=== PATIENT | female | born 1950 | race Caucasian/White ===

== ENCOUNTER 2023-04-06 19:04 | Inpatient (IN) | payer MEDICARE, MEDICAID, SELFPAY ==
--- OUTSIDE RECORDS SUMMARY | 2023-04-06 19:06 | XMS_ITS | Continuity of Care Document ---
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 Allergies, Adverse Reactions, Alerts Substance Reaction Severity Status penicillin Active thiazide diuretics rash Active shellfish Active Thorazine Active Adhesive Bandage Active Latex Active Other Food Allergy 1, 2 Anaphylaxis due to ingested food Black pepper Persistent Severe Active Rice 3 Persistent Severe Active Egg Allergy Active 1Black pepper allergy 2Anaphylaxis 3 Cannot swallow well. Immunizations Given and Recorded Vaccine Date Status Refusal Reason Influenza Virus Vaccine (oldterm) 07/17/20 Recorde d Influenza Virus Vaccine (oldterm) 07/07/19 Recorde d Medications Accu-Chek Odette Glucose Meter See Instructions, # 1 each, Refills 0, Tot. Refills 0, Maintenance, test blood sugar daily, 06/09/20 17:37:00 EDT, Supply, 160, cm, 12/29/19 13:52:00 EST, Height, 125, kg, 04/02/19 21:10:00 EDT, Dry Weight Start Date: 06/09/20 Status: Ordered ACCU-CHEK ODETTE PLUS METER ACCU-CHEK ODETTE PLUS METER, See Instructions, # 1 each, 0 Refills, Maintenance, TO TEST BLOOD SUGAREVERY , 160, cm, 10/27/20 15:45:00 EST, Height, 125, kg, 04/02/19 21:10:00 EDT, Dry Weight Start Date: 10/31/20 Status: Ordered Accu-Chek Odette Plus Test Strips See Instructions, # 100 each, Refills 2, Tot. Refills 2, Maintenance, test blood sugar daily, 06/09/20 17:37:00 EDT, Supply, 160, cm, 12/29/19 13:52:00 EST, Height, 125, kg, 04/02/19 21:10:00 EDT, Dry Weight Start Date: 06/09/20 Status: Ordered Accu-Chek Compact Lancets See Instructions, # 100 each, Refills 2, Tot. Refills 2, Maintenance, test blood sugar once daily, 06/09/20 17:37:00 EDT, Supply, 160, cm, 12/29/19 13:52:00 EST, Height, 125, kg, 04/02/19 21:10:00 EDT, Dry Weight Start Date: 06/09/20 Status: Ordered Acetaminophen = 1,000 mg, By Mouth, 3 times a day, 0 Refills, Maintenance, 04/03/19 15:29:14 EDT Start Date: 04/03/19 Status: Ordered Albuterol (Eqv-ProAir HFA) 90 mcg/inh inhalation aerosol 2 puffs = 180 mcg, Inhalation, Every 4 hours, PRN Wheezing/Shortness of Breath, # 3 each, 3 Refills, Maintenance, 06/28/20 9:08:00 EDT, Inhaler, [facility] #[id number], 2 puffs Inhalation Every 4hours,x30 days,PRN:Wheezing/Shortness of Breath, 16... Start Date: 06/28/20 Stop Date: 10/26/20 Status: Ordered albuterol-ipratropium 3 mg-0.5 mg/3 ml inhalation solution 3 mL, Neb, 4 times a day, # 360 mL, 5 Refills, Maintenance, 11/09/19 11:29:00 EST, Inhalation Solution, [facility] #[id number], 3 mL Neb 4 times a day, 160, cm, 11/05/19 9:49:00 EST, Height, 125,kg, 04/02/19 21:10:00 EDT, Dry Weight Start Date: 11/09/19 Status: Ordered alendronate 70 mg oral tablet 1 tablet = 70 mg, By Mouth, Every week, # 12 tablet, 0 Refills, Maintenance, 04/02/19 15:18:21 EDT,Tablet Start Date: 04/02/19 Status: Ordered allopurinol 100 mg oral tablet 100 mg, 1, tablet, By Mouth, Daily, # 90 tablet, Refills 3, Tot. Refills 3, Maintenance, 01/06/20 18:09:00 EDT, [facility] to Pharmacy [facility], [id number], 160, cm, 12/29/19 13:52:00 EST, Height, 125, kg, 04/02/19 21:10:00 EDT, Dry W... Start Date: 01/06/20 Status: Ordered Amitiza 8 mcg oral capsule 1 capsule = 8 mcg, By Mouth, 2 times a day, PRN Constipation, 0 Refills, Maintenance, 04/03/19 15:34:30 EDT, Capsule Start Date: 04/03/19 Status: Ordered aspirin 81 mg oral tablet 1 tablet = 81 mg, By Mouth, Daily, 0 Refills, Maintenance, 04/03/19 16:11:10 EDT Start Date: 04/03/19 Status: Ordered brimonidine 0.2% ophthalmic solution 1 drops, Eyes, Both, 2 times a day, 0 Refills, Maintenance, 04/03/19 15:36:03 EDT Start Date: 04/03/19 Status: Ordered Calcium Carbonate = 750 mg, By Mouth, Every 2 hours, PRN stomach upset, 0 Refills, Maintenance, 04/03/19 15:37:07 EDT Start Date: 04/03/19 Status: Ordered Crestor 40 mg oral tablet 1 tablet = 40 mg, By Mouth, Daily, # 90 tablet, 3 Refills, Maintenance, 05/17/20 17:41:00 EDT, Tablet, [id number], 160, cm, 12/29/19 13:52:00 EST, Height, 125, kg, 04/02/19 21:10:00 EDT, Dry Weight Start Date: 05/17/20 Stop Date: 05/12/21 Status: Ordered Cymbalta 30 mg oral enteric coated capsule 1 capsule = 30 mg, By Mouth, Daily, 0 Refills, Maintenance, 01/02/19 10:15:19 EST Start Date: 01/02/19 Status: Ordered Cymbalta 60 mg oral enteric coated capsule 1 capsule = 60 mg, By Mouth, Daily, # 30 capsule, 0 Refills, Maintenance, 04/02/19 15:14:34 EDT, ECCapsule Start Date: 04/02/19 Status: Ordered diclofenac 1% topical gel 1 application, Topically, 4 times a day, # 100 Gm, 0 Refills, Maintenance, 05/08/19 16:05:05 EDT, Gel, 1 application Topically 4 times a day Start Date: 05/08/19 Status: Ordered Dicyclomine = 10 mg, By Mouth, 4 times a day, PRN IBS symptoms, 0 Refills, Maintenance, 04/03/19 15:40:00 EDT Start Date: 04/03/19 Status: Ordered ezetimibe 10 mg oral tablet 1 tablet = 10 mg, By Mouth, Daily, # 90 tablet, 1 Refills, Maintenance, 11/08/20 15:21:00 EST, Tablet, [facility] #[id number], 160, cm, 10/27/20 15:45:00 EST, Height, 125, kg, 04/02/19 21:10:00 EDT, Dry Weight Start Date: 11/08/20 Stop Date: 05/07/21 Status: Ordered ferrous sulfate 325 mg oral enteric coated tablet 325 mg, 1, tablet, By Mouth, Daily, # 90 tablet, Refills 3, Tot. Refills 3, Maintenance, 10/11/20 19:43:00 EST, Route to Pharmacy Electronically, [facility] #[id number], Partial fill upon patientrequest if the prescription is for a schedule II op... Start Date: 10/11/20 Status: Ordered Imodium A-D 2 mg oral tablet 2 mg, 1, tablet, By Mouth, Every 4 hours, PRN, Refills 0, Maintenance, Diarrhea, 04/03/19 15:42:27 EDT Start Date: 04/03/19 Status: Ordered lisinopril 30 mg oral tablet 1 tablet = 30 mg, By Mouth, Daily, please disregard 40 mg rx, # 90 tablet, 3 Refills, Maintenance, 11/01/20 17:16:00 EST, Tablet, [facility] #[id number], Partial fill upon patient request if the prescription is for a schedule II opioid drug., 160,... Start Date: 11/01/20 Status: Ordered Lyrica 225 mg oral capsule 1 capsule = 225 mg, By Mouth, 2 times a day, # 60 capsule, 3 Refills, Maintenance, 04/14/20 19:50:00 EDT, Capsule, [facility] #[id number], 160, cm, 12/29/19 13:52:00 EST, Height, 125, kg, 04/02/19 21:10:00 EDT, Dry Weight Start Date: 04/14/20 Stop Date: 08/12/20 Status: Ordered magnesium oxide 400 mg oral tablet 1 tablet = 400 mg, By Mouth, Daily, 0 Refills, Maintenance, 01/02/19 10:19:08 EST Start Date: 01/02/19 Status: Ordered Melatonin 5 mg oral tablet 1 tablet = 5 mg, By Mouth, Daily at bedtime, 0 Refills, Maintenance, 04/03/19 15:48:35 EDT Start Date: 04/03/19 Status: Ordered metFORMIN 500 mg oral tablet, extended release 2 tablet = 1,000 mg, By Mouth, Daily, # 270 tablet, 3 Refills, Maintenance, 07/06/19 8:16:00 EDT, ER Tablet Start Date: 07/06/19 Status: Ordered methenamine hippurate 1 gm oral tablet 1 tablet = 1 Gm, By Mouth, 2 times a day, 0 Refills, Maintenance, 04/03/19 15:52:11 EDT Start Date: 04/03/19 Status: Ordered Narcan 4 mg/0.1 mL nasal spray See Instructions, PRN unresponsiveness, twice, 0 Refills, Maintenance, 04/03/19 15:52:44 EDT Start Date: 04/03/19 Status: Ordered nicotine 21 mg/24 hr transdermal film, extended release 1 patch, Topically, Daily, # 30 patch, 1 Refills, Maintenance, 12/29/19 14:36:00 EST, Patch, [facility] #[id number], 1 patch Topically Daily, 160, cm, 12/29/19 13:52:00 EST, Height, 125, kg, 04/02/19 21:10:00 EDT, Dry Weight Start Date: 12/29/19 Status: Ordered Nitrostat 0.4 mg sublingual tablet 1 tablet = 0.4 mg, Sublingual, Every 5 minutes, PRN chest pain, up to 3 doses, 0 Refills, Maintenance, 04/03/19 15:53:52 EDT Start Date: 04/03/19 Status: Ordered oxybutynin 10 mg/24 hr oral tablet, extended release 1 tablet = 10 mg, By Mouth, Daily at bedtime, # 30 tablet, 0 Refills, Maintenance, 04/03/19 15:54:55 EDT, ER Tablet Start Date: 04/03/19 Status: Ordered oxyCODONE 5 mg oral tablet 5 mg, 1, tablet, By Mouth, Every 12 hours, PRN, # 50 tablet, Refills 0, Tot. Refills 0, Maintenance, Pain , Severe, 10/18/20 19:26:00 EST, Route to Pharmacy Electronically, [facility] #[id number], Partial fill upon patient request; ICD 10:M54.16,... Start Date: 10/18/20 Status: Ordered pantoprazole 40 mg oral delayed release tablet 1 tablet = 40 mg, By Mouth, 2 times a day, # 180 tablet, 3 Refills, Maintenance, 09/07/20 17:15:00 EST, EC Tablet, 160, cm, 07/07/20 13:30:00 EDT, Height, 125, kg, 04/02/19 21:10:00 EDT, Dry Weight Start Date: 09/07/20 Status: Ordered polyethylene glycol 3350 oral powder for reconstitution = 17 Gm, By Mouth, Daily, PRN Constipation, dissolve in water before taking, # 255 Gm, 0 Refills, Maintenance, 04/03/19 16:03:45 EDT, REC Powder Start Date: 04/03/19 Status: Ordered prazosin 5 mg oral capsule 5 mg, 1, capsule, By Mouth, Daily at bedtime, Refills 0, Maintenance, 01/02/19 10:22:24 EST Start Date: 01/02/19 Status: Ordered ProAir HFA 90 mcg/inh inhalation aerosol 2 puffs, Inhalation, Every 4 hours, PRN NEEDED, # 54 Gm, 3 Refills, Maintenance, 06/07/20 12:09:00 EDT, [facility] #[id number], 50, INHALE 2 PUFFS BY MOUTH EVERY 4 HOURS NEEDED, 160, cm, 12/29/19 13:52:00 EST, Height, 125, kg, 04/02/19 21:10... Start Date: 06/07/20 Status: Ordered RisperDAL 2 mg oral tablet 2 mg, 1, tablet, By Mouth, Daily at bedtime, Refills 0, Maintenance, 04/03/19 16:06:44 EDT Start Date: 04/03/19 Status: Ordered Symbicort 160mcg/4.5mcg Inhaler 2, puffs, Inhalation, 2 times a day, # 10.2 Gm, Refills 0, Maintenance, 04/03/19 16:08:10 EDT, Aerosol Start Date: 04/03/19 Status: Ordered Trulicity Pen 1.5 mg/0.5 mL subcutaneous solution See Instructions, 3 mg Subcutaneous Infusion Every 7 days, # 13 each, 3 Refills, Maintenance, 09/30/20 13:00:00 EST, [facility] #[id number], new dose, 160, cm, 07/07/20 13:30:00 EDT, Height, 125,kg, 04/02/19 21:10:00 EDT, Dry Weight Start Date: 09/30/20 Status: Ordered Vitamin C 500 mg oral tablet 1 tablet = 500 mg, By Mouth, 2 times a day, 0 Refills, Maintenance, 04/03/19 16:09:30 EDT Start Date: 04/03/19 Status: Ordered Vitamin D 22146 iu oral capsule 100,000 International_Units, 2, capsule, By Mouth, Every 7 days, # 26 capsule, Refills 3, Tot. Refills 3, Maintenance, 06/15/20 18:02:00 EDT, Route to Pharmacy Electronically, [facility] #[id number], 160, cm, 12/29/19 13:52:00 EST, Height, 125, kg... 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) Active Dissociative disorder(Confirmed) Active Dyspnea(Confirmed) Active Hypercholesterolemia(Confirmed) Active Hypertensive disorder(Confirmed) Active Iron deficiency(Confirmed) Active Lacunar infarction(Confirmed) Active Lumbar radiculopathy(Confirmed) Active Microcytosis(Confirmed) Active Prolactinoma(Confirmed) Active Septic shock(Confirmed) Active Obesity due to excess calories(Confirmed) Active Spinal stenosis, lumbar(Confirmed) Active Steatosis of liver(Confirmed) Active Tobacco user(Confirmed) Active Type 2 diabetes mellitus(Confirmed) Active Social History Social History Type Response Smoking Status 10 or more cigarette s (1/2 pack or more)/day in last 30 days; Other: one pack daily 20 cigarettes daily; entered on: 07/07/20 Sex
--- OUTSIDE RECORDS SUMMARY | 2023-04-06 19:06 | XMS_ITS | Continuity of Care Document ---
Author Name Unknown Organization [facility] Address [address] [place] [address]- Care Team Providers Care Wireless Operator Name Role Phone Hari Cole MD Primary Care Physician [place] [facility] [place]16[place]20 [facility] [address] [place] [address]- [facility] Attending Physician: Zenia García MD Admitting Physician: Zenia García MD Referring Physician: Hari Cole MD Allergies, Adverse Reactions, Alerts Substance Reaction Severity [...] Status Refusal Reason Influenza Virus Vaccine (oldterm) 07/07/19 Recorde d Medications Acetaminophen = 1,000 mg, By Mouth, 3 times a day, 0 Refills, Maintenance, 04/03/19 15:29:14 EDT Start Date: 04/03/19 Status: Ordered albuterol 0.083% inhalation solution 3 mL = 2.5 mg, Neb, Every 4 hours, PRN Wheezing/Shortness of Breath, # 540 mL, 3 Refills, Maintenance, 05/08/19 16:07:33 EDT Start Date: 05/08/19 Status: Ordered albuterol-ipratropium 3 mg-0.5 mg/3 ml inhalation solution 3 mL, Neb, 4 times a day, # 360 mL, 5 Refills, Maintenance, 11/09/19 11:29:00 EST, Inhalation Solution, [id number], 3 mL Neb 4 times a day, [...] 01/06/20 18:09:00 EDT, Route to Pharmacy Electronically, [facility] #[id number], 160, cm, 12/29/19 13:52:00 EST, Height, 125, [...] 15:36:03 EDT Start Date: 04/03/19 Status: Ordered cabergoline 0.5 mg oral tablet See Instructions, 1 tablet By Mouth twice weekly, # 26 tablet, 3 Refills, Maintenance, 08/19/19 19:58:13 EDT, Tablet, new corrected dose Start Date: 08/19/19 Status: Ordered Calcium Carbonate = 750 mg, By Mouth, Every 2 hours, PRN stomach upset, 0 Refills, Maintenance, 04/03/19 15:37:07 EDT Start Date: 04/03/19 Status: Ordered Crestor 40 mg oral tablet 1 tablet = 40 mg, By Mouth, Daily, # 90 tablet, 3 Refills, Maintenance, 06/02/19 12:19:00 EDT, Tablet Start Date: 06/02/19 Status: Ordered Cymbalta 30 mg oral enteric [...] Daily, # 90 tablet, 3 Refills, Maintenance, 11/21/19 10:52:00 EST, Tablet, [facility] #[id number], 160, cm, 11/05/19 9:49:00 EST, Height, 125, kg, 04/02/19 21:10:00 EDT, Dry Weight Start Date: 11/21/19 Status: Ordered fentaNYL 25 mcg/hr transdermal film, extended release 1 patch, Topically, Every 72 hours, # 10 patch, 0 Refills, Maintenance, 03/31/20 9:27:00 EDT, Patch, [facility] #[id number], 160, cm, 12/29/19 13:52:00 EST, Height, 125, kg, 04/02/19 21:10:00 EDT, Dry Weight Start Date: 03/31/20 Stop Date: 04/30/20 Status: Ordered glipiZIDE 2.5 mg oral tablet, extended release 1 tablet = 2.5 mg, By Mouth, Daily, TK 1 T PO QD B DINNER, # 90 tablet, 3 Refills, Maintenance, 11/05/19 10:30:00 EST, ER Tablet, [facility][id number], new dose, 160, cm, 11/05/19 9:49:00 EST, Height, 125, kg, 04/02/19 21:10:00 EDT, Dry Weight Start Date: 11/05/19 Status: Ordered Imodium A-D 2 mg oral tablet 2 mg, 1, tablet, By Mouth, Every 4 hours, PRN, Refills 0, Maintenance, Diarrhea, 04/03/19 15:42:27 EDT Start Date: 04/03/19 Status: Ordered lisinopril 10 mg oral tablet 10 mg, 1, tablet, By Mouth, Daily, # 30 tablet, Refills 1, Tot. Refills 1, Maintenance, 07/29/19 13:44:54 EDT, [id number][id number] Start Date: 07/29/19 Status: Ordered Lyrica 225 mg oral capsule 1 capsule = 225 mg, By Mouth, 2 times a day, # 60 capsule, 3 Refills, Maintenance, 04/14/20 19:50:00 EDT, Capsule, [facility] #[id number], 160, cm, 12/29/19 13:52:00 EST, Height, 125, [...] 1 Refills, Maintenance, 12/29/19 14:36:00 EST, Patch, [facility][id number], 1 patch Topically Daily, 160, cm, 12/29/19 [...] oxyCODONE 5 mg oral tablet 5 mg, By Mouth, Every 6 hours, PRN, # 80 tablet, Refills 0, Tot. Refills 0, Maintenance, Pain , Severe, 03/23/20 14:43:00 EDT, Route to Pharmacy Electronically, [facility] #[id number], 160, cm, 12/29/19 13:52:00 EST, Height, 125, kg, 04/02/19 21:1... Start Date: 03/23/20 Status: Ordered pantoprazole 40 mg oral delayed release tablet 1 tablet = 40 mg, By Mouth, 2 times a day, 0 Refills, Maintenance, 04/03/19 16:02:23 EDT Start Date: 04/03/19 Status: Ordered polyethylene glycol 3350 oral powder for reconstitution = 17 Gm, By Mouth, Daily, PRN Constipation, dissolve in water before taking, # 255 Gm, 0 Refills, Maintenance, 04/03/19 16:03:45 EDT, REC Powder Start Date: 04/03/19 Status: Ordered prazosin 5 mg oral capsule 5 mg, 1, capsule, By Mouth, Daily at bedtime, Refills 0, Maintenance, 01/02/19 10:22:24 EST Start Date: 01/02/19 Status: Ordered RisperDAL 2 mg oral tablet 2 mg, 1, tablet, By Mouth, Daily at bedtime, Refills 0, Maintenance, 04/03/19 16:06:44 EDT Start Date: 04/03/19 Status: Ordered Symbicort 160mcg/4.5mcg Inhaler 2, puffs, Inhalation, 2 times a day, # 10.2 Gm, Refills 0, Maintenance, 04/03/19 16:08:10 EDT, Aerosol Start Date: 04/03/19 Status: Ordered Ventolin 90 mcg Inhaler 2, puffs, Inhalation, Every 4 hours, PRN, Refills 0, Maintenance, 04/03/19 16:08:37 EDT Start Date: 04/03/19 Status: Ordered Vitamin C 500 mg oral tablet 1 tablet = 500 mg, By Mouth, 2 times a day, 0 Refills, Maintenance, 04/03/19 16:09:30 EDT Start Date: 04/03/19 Status: Ordered Vitamin D 58172 iu oral capsule 100,000 International_Units, 2, capsule, By Mouth, Every 7 days, # 26 capsule, Refills 3, Tot. Refills 3, Maintenance, 06/02/19 12:20:36 EDT, Route to Pharmacy Electronically, [id number], 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
--- OUTSIDE RECORDS SUMMARY | 2023-04-06 19:06 | XMS_ITS | Continuity of Care Document ---
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 Role Phone Kelsey CHINO, Hari Miller Primary Care Physician [phone] [place] [facility] [place](s): 11/10/20 - 12/10/20 [facility] [address] [place] [address] Attending Physician: Admtr, Milagros Admitting Physician: Admtr, Ar8 Referring Physician: Admtr, Ar8 Allergies, Adverse Reactions, Alerts Substance Reaction Severity [...] 0 Refills, Maintenance, TO TEST BLOOD SUGAREVERY DAY, 160, cm, 10/27/20 15:45:00 EST, Height, 125, [...] 3 Refills, Maintenance, 06/28/20 9:08:00 EDT, Inhaler, [facility] #[id number], 2 puffs Inhalation Every 4hours,x30 days,PRN:Wheezing/Shortness of Breath, 16... Start Date: 06/28/20 Stop Date: 10/26/20 Status: Ordered albuterol-ipratropium 3 mg-0.5 mg/3 ml inhalation solution 3 mL, Neb, 4 times a day, # 360 mL, 5 Refills, Maintenance, 11/09/19 11:29:00 EST, Inhalation Solution, [facility] #[id number], 3 mL Neb 4 times a day, [...] 01/06/20 18:09:00 EDT, Route to Pharmacy Electronically, [facility] #[id number], 160, cm, 12/29/19 13:52:00 EST, Height, 125, [...] 3 Refills, Maintenance, 05/17/20 17:41:00 EDT, [id number], 160, cm, 12/29/19 13:52:00 EST, Height, 125, [...] 1 Refills, Maintenance, 11/08/20 15:21:00 EST, Tablet, [facility] #[id number], 160, cm, 10/27/20 15:45:00 EST, Height, 125, kg, 04/02/19 21:10:00 EDT, Dry Weight Start Date: 11/08/20 Stop Date: 05/07/21 Status: Ordered ferrous sulfate 325 mg oral enteric coated tablet 325 mg, 1, tablet, By Mouth, Daily, # 90 tablet, Refills 3, Tot. Refills 3, Maintenance, 10/11/20 19:43:00 EST, Route to Pharmacy Electronically, [facility] #[id number], Partial fill upon patientrequest if the prescription is for a schedule II op... Start Date: 10/11/20 Status: Ordered Golytely - oral powder for reconstitution 240 mL, By Mouth, Every 10 minutes, # 4,000 mL, 0 Refills, Maintenance, 11/25/20 10:07:00 EST, REC Powder, [facility] #[id number], Partial fill upon patient request if the prescription is for a schedule II opioid drug., 240 mL By Mouth Every 10 mi... Start Date: 11/25/20 Status: Ordered Imodium A-D 2 mg oral tablet 2 mg, 1, tablet, By Mouth, Every 4 hours, PRN, Refills 0, Maintenance, Diarrhea, 04/03/19 15:42:27 EDT Start Date: 04/03/19 Status: Ordered lisinopril 30 mg oral tablet 1 tablet = 30 mg, By Mouth, Daily, please disregard 40 mg rx, # 90 tablet, 3 Refills, Maintenance, 11/01/20 17:16:00 EST, Tablet, [facility] #[id number], Partial fill upon patient request if the prescription is for a schedule II opioid drug., 160,... Start Date: 11/01/20 Status: Ordered Lyrica 225 mg oral capsule 1 capsule = 225 mg, By Mouth, 2 times a day, # 60 capsule, 3 Refills, Maintenance, 04/14/20 19:50:00 EDT, Capsule, [facility] #[id number], 160, cm, 12/29/19 13:52:00 EST, Height, 125, [...] 1 Refills, Maintenance, 12/29/19 14:36:00 EST, Patch, [facility][id number], 1 patch Topically Daily, 160, cm, 12/29/19 [...] By Mouth, Every 12 hours, PRN, # 45 tablet, Refills 0, Tot. Refills 0, Maintenance, Pain , Severe, 12/07/20 18:44:00 EST, Route to Pharmacy Electronically, [facility] #[id number], Partial fill upon patient request; ICD 10:M54.16,... Start Date: 12/07/20 Status: Ordered pantoprazole 40 mg oral delayed [...] Gm, 3 Refills, Maintenance, 06/07/20 12:09:00 EDT, [facility] #[id number], 50, INHALE 2 PUFFS BY MOUTH EVERY [...] Start Date: 04/03/19 Status: Ordered Trulicity Pen 3 mg/0.5 mL subcutaneous solution = 3 mg, Subcutaneous Infusion, Every 7 days, # 13 each, 3 Refills, Maintenance, 11/30/20 12:36:00 EST, [facility] #[id number], Partial fill upon patient request if the prescription is for a schedule II opioid drug., 160, cm, 11/23/20 9:01:00 EST,... Start Date: 11/30/20 Status: Ordered Vitamin C 500 mg oral tablet 1 tablet = 500 mg, By Mouth, 2 times a day, 0 Refills, Maintenance, 04/03/19 16:09:30 EDT Start Date: 04/03/19 Status: Ordered Vitamin D 70400 iu oral capsule 100,000 International_Units, 2, capsule, By Mouth, Every 7 days, # 26 capsule, Refills 3, Tot. Refills 3, Maintenance, 06/15/20 18:02:00 EDT, Route to Pharmacy Electronically, [facility] #[id number], 160, cm, 12/29/19 13:52:00 EST, Height, 125, kg... Start Date: 06/15/20 Status: Ordered Problem List Condition Effective Dates Status Health Status Inform ant Acute UTI(Confirmed) Active Aortic stenosis(Confirmed) Active Coronary artery abnormality(Confirmed) Active Cough(Confirmed) Active Degenerative joint disease o f ankle [...]
--- OUTSIDE RECORDS SUMMARY | 2023-04-06 19:06 | XMS_ITS | Continuity of Care Document ---
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 Phone Kelsey CHINO, Hari Miller Primary Care Physician [phone] Encounter [facility] Date(s): 11/26/22 - 12/26/22 [facility] [address], [address], [address] [place] [id number] Attending Physician: Milagros Boykin Admitting Physician: AdmtrMilagros Referring Physician: Admtr, Ar8 Allergies, Adverse Reactions, Alerts Substance Reaction Severity Status penicillin Active thiazide diuretics rash Active shellfish Active Thorazine Active Adhesive Bandage Active Latex Active Other Food Allergy 1, 2 Anaphylaxis due to ingested food Black pepper Persistent Severe Active Egg Allergy Active Rice 3 Persistent Severe Active 1Black pepper allergy 2Anaphylaxis 3 Cannot swallow well. Immunizations Given and Recorded Vaccine Date Status Refusal Reason [id number] bivalent booster vax 12/03/22 Given influenza virus vaccine, inactivated 08/17/22 Give n influenza virus vaccine, inactivated 08/14/21 Manjinder rded influenza virus vaccine, inactivated 07/13/18 Manjinder rded influenza virus vaccine, inactivated 07/14/17 Manjinder rded influenza virus vaccine, inactivated 06/19/15 Manjinder rded SARS-CoV-2 (COVID-19) mRNA-1273 vaccine 1 08/17/22 Recorded SARS-CoV-2 (COVID-19) mRNA-1273 vaccine 04/27/22 G iven SARS-CoV-2 (COVID-19) mRNA-1273 vaccine 06/22/21 R ecorded SARS-CoV-2 (COVID-19) mRNA-1273 vaccine 05/25/21 R ecorded Influenza Virus Vaccine (oldterm) 07/17/20 Recorde d Influenza Virus Vaccine (oldterm) 07/07/19 Recorde d zoster vaccine, inactivated 06/23/18 Recorded 1Result Comment: Moderna Bivalent Medications Acetaminophen = 650 mg, By Mouth, 3 times a day, PRN Pain , Mild, 0 Refills, Maintenance, 04/03/19 15:29:14 EDT Start Date: 04/03/19 Status: Ordered albuterol-ipratropium 3 mg-0.5 mg/3 ml inhalation solution 3 mL, Neb, 4 times a day, # 360 mL, 1 Refills, Maintenance, 03/09/21 16:20:00 EDT, Inhalation Solution, [facility] #[id number], 3 mL Neb 4 times a day, 165, cm, 02/21/21 11:53:00 EDT, Height, 123.7, kg, 02/21/21 11:53:00 EDT, Dry Weight Start Date: 03/09/21 Status: Ordered alendronate 70 mg oral tablet 1 tablet = 70 mg, By Mouth, Every week, # 12 tablet, 0 Refills, Maintenance, 04/02/19 15:18:21 EDT,Tablet Start Date: 04/02/19 Status: Ordered allopurinol 100 mg oral tablet 100 mg, 1, tablet, By Mouth, Daily, # 90 tablet, Refills 3, Tot. Refills 3, Maintenance, 12/13/21 16:47:00 EST, Route to Pharmacy Electronically, [facility] #[id number], 165, cm, 11/14/21 11:24:00 EST, Height, 123.7, kg, 02/21/21 11:53:00 EDT, Dry... Start Date: 12/13/21 Status: Ordered Amitiza 8 mcg oral capsule 1 capsule = 8 mcg, By Mouth, 2 times a day, PRN Constipation, 0 Refills, Maintenance, 04/03/19 15:34:30 EDT, Capsule Start Date: 04/03/19 Status: Ordered automatic BP monitor automatic BP monitor, See Instructions, # 1 each, Refills 0, Tot. Refills 0, Maintenance, large cuff/conical cuff, 11/21/22 19:52:00 EST, Supply, 153, cm, 11/19/22 8:17:00 EST, Height, 101, kg, 11/17/22 17:04:00 EST, Dry Weight Start Date: 11/21/22 Status: Ordered busPIRone 10 mg oral tablet 10 mg, 1, tablet, By Mouth, 2 times a day, Refills 0, Maintenance, 11/18/22 15:52:00 EST, Partial fill upon patient request if the prescription is for a schedule II opioid drug. Start Date: 11/18/22 Status: Ordered Calcium Carbonate = 750 mg, By Mouth, Every 2 hours, PRN stomach upset, 0 Refills, Maintenance, 04/03/19 15:37:07 EDT Start Date: 04/03/19 Status: Ordered Crestor 40 mg oral tablet 1 tablet = 40 mg, By Mouth, Daily, # 90 tablet, 1 Refills, Maintenance, 07/23/22 13:09:00 EDT, Tablet, [facility] #[id number], 165, cm, 04/27/22 13:43:00 EDT, Height, 123.7, kg, 02/21/21 11:53:00EDT, Dry Weight Start Date: 07/23/22 Stop Date: 01/19/23 Status: Ordered Cymbalta 30 mg oral enteric coated capsule 1 capsule = 30 mg, By Mouth, Daily, Take with 60 mg tablet for a total of 90mg daily, # 180 capsule, 0 Refills, Maintenance, 11/18/22 15:53:00 EST, [facility] Capsule, Partial fill upon patient request if the prescription is for a schedule II opioid drug. Start Date: 11/18/22 Status: Ordered Cymbalta 60 mg oral enteric coated capsule 1 capsule = 60 mg, By Mouth, Daily, # 30 capsule, 0 Refills, Maintenance, 04/02/19 15:14:34 EDT, ECCapsule Start Date: 04/02/19 Status: Ordered diclofenac 1% topical gel 1 application, Topically, 4 times a day, # 100 Gm, 0 Refills, Maintenance, 11/14/22 0:11:00 EST, Gel, [facility] #[id number], Partial fill upon patient request if the prescription is for a schedule II opioid drug., 165, cm, 11/13/22 20:06:00 EST,... Start Date: 11/14/22 Status: Ordered ezetimibe 10 mg oral tablet 1 tablet, By Mouth, Daily, # 90 tablet, 1 Refills, Maintenance, 10/08/22 15:33:00 EST, [email or web address] #[id number], 165, cm, 08/17/22 13:46:00 EDT, Height, 123.7, kg, 02/21/21 11:53:00 EDT, Dry Weight Start Date: 10/08/22 Status: Ordered gabapentin 600 mg oral tablet 1 tablet = 600 mg, By Mouth, 2 times a day, # 180 tablet, 3 Refills, Maintenance, 08/07/22 12:28:00EDT, [facility] #[id number], Partial fill upon patient request if the prescription is for a schedule II opioid drug., 165, cm, 04/27/22 13:43:00 ED... Start Date: 08/07/22 Status: Ordered lidocaine 5% topical film 1 patch, Topically, Daily, PRN Pain , Mild, remove after 12 hours, # 13 each, 0 Refills, Maintenance, 11/14/22 0:11:00 EST, Film, [facility] #[id number], Partial fill upon patient request if the prescription is for a schedule II opioid drug., 1 pa... Start Date: 11/14/22 Status: Ordered lisinopril 20 mg oral tablet 20 mg, 1, tablet, By Mouth, Daily, new dose, # 90 tablet, Refills 3, Tot. Refills 3, Maintenance, 09/06/21 11:46:00 EST, Route to Pharmacy Electronically, [email or web address] #[id number], Partial fill upon patient request if the prescription is for a sched... Start Date: 09/06/21 Status: Ordered Lyrica 225 mg oral capsule 1 capsule = 225 mg, By Mouth, 2 times a day, # 180 capsule, 1 Refills, Maintenance, 11/14/22 18:29:00 EST, [email or web address] #[id number], Partial fill upon patient request if the prescription is for a schedule II opioid drug., 165rachel, 11/13/22 20:06:00... Start Date: 11/14/22 Status: Ordered magnesium oxide 400 mg oral tablet 1 tablet = 400 mg, By Mouth, Daily, # 90 tablet, 3 Refills, Maintenance, 07/23/22 17:16:00 EDT, Tablet, [facility] #[id number], Partial fill upon patient request if the prescription is for a schedule II opioid drug., 165, cm, 04/27/22 13:43:00 EDT... Start Date: 07/23/22 Status: Ordered metFORMIN 500 mg oral tablet 2 tablet, By Mouth, 2 times a day, # 360 tablet, 1 Refills, Maintenance, 12/24/22 15:53:00 EST, [facility] #[id number], 153, cm, 12/03/22 13:31:00 EST, Height, 101, kg, 11/17/22 17:04:00 EST, DryWeight Start Date: 12/24/22 Status: Ordered Narcan 4 mg/0.1 mL nasal spray See Instructions, PRN unresponsiveness, may repeat once until patient responds, # 2 each, 2 Refills, Maintenance, 10/31/22 16:28:00 EST, [place], [facility] #[id number], Partial fill upon patient request if the prescription is for a schedule II opio... Start Date: 10/31/22 Status: Ordered Nitrostat 0.4 mg sublingual tablet 1 tablet = 0.4 mg, Sublingual, Every 5 minutes, PRN chest pain, up to 3 doses, # 25 tablet, 3 Refills, Maintenance, 10/31/22 16:28:00 EST, Tablet, [facility] #[id number], Partial fill upon patient request if the prescription is for a schedule II o... Start Date: 10/31/22 Status: Ordered One Touch Delica Lancets See Instructions, # 100 each, Refills 2, Tot. Refills 2, Maintenance, 1 box = 100 lancets, 11/21/2318:54:00 EST, Supply, 153, cm, 11/19/22 8:17:00 EST, Height, 101, kg, 11/17/22 17:04:00 EST, Dry Weight Start Date: 11/21/22 Status: Ordered One Touch Delica Lancing System See Instructions, # 1 each, Maintenance, test blood sugar dAILY, 11/21/22 19:54:00 EST, Supply, 153, cm, 11/19/22 8:17:00 EST, Height, 101, kg, 11/17/22 17:04:00 EST, Dry Weight Start Date: 11/21/22 Status: Ordered One Touch Ultra 2 Glucose Meter See Instructions, # 1 each, Maintenance, test glucose daily, 11/21/22 19:54:00 EST, Supply, 153, cm, 11/19/22 8:17:00 EST, Height, 101, kg, 11/17/22 17:04:00 EST, Dry Weight Start Date: 11/21/22 Status: Ordered One Touch Ultra Test Strips See Instructions, # 100 each, Refills 2, Tot. Refills 2, Maintenance, test glucose daily, 11/21/22 19:54:00 EST, Supply, 153, cm, 11/19/22 8:17:00 EST, Height, 101, kg, 11/17/22 17:04:00 EST, Dry Weight Start Date: 11/21/22 Status: Ordered oxyCODONE 5 mg oral tablet 5 mg, 1, tablet, By Mouth, Every 6 hours, PRN, # 90 tablet, Refills 0, Tot. Refills 0, Maintenance,Pain , Severe, 11/15/22 17:49:00 EST, Route to Pharmacy Electronically, [facility] #[id number],Partial fill upon patient request; ICD 10:M54.16, 1... Start Date: 11/15/22 Stop Date: 12/13/22 Status: Ordered pantoprazole 40 mg oral delayed release tablet 1 tablet = 40 mg, By Mouth, 2 times a day, # 180 tablet, 3 Refills, Maintenance, 12/13/21 16:48:00 EST, [facility] Tablet, 165, cm, 11/14/21 11:24:00 EST, Height, 123.7, kg, 02/21/21 11:53:00 EDT, Dry Weight Start Date: 12/13/21 Status: Ordered Plavix 75 mg oral tablet 75 mg, 1, tablet, By Mouth, Daily, # 90 tablet, Refills 3, Tot. Refills 3, Maintenance, 10/18/22 17:49:00 EST, Route to Pharmacy Electronically, [facility] #[id number], Partial fill upon patient request if the prescription is for a schedule II opi... Start Date: 10/18/22 Status: Ordered polyethylene glycol 3350 oral powder [...] 4 hours, PRN NEEDED, # 54 Gm, 11 Refills, Maintenance, 02/02/22 8:33:00 EDT, [facility] #[id number], 2 puffs Inhalation Every 4 hours,PRN: NEEDED, 165, cm, 11/14/21 11:24:00 EST, Height, 123.7, kg, 02/21/21 11:53:00... Start Date: 02/02/22 Status: Ordered RisperDAL 2 mg oral tablet 2 mg, 1, tablet, By Mouth, Daily at bedtime, Refills 0, Maintenance, 04/03/19 16:06:44 EDT Start Date: 04/03/19 Status: Ordered Rybelsus 3 mg oral tablet See Instructions, TAKE 1 TABLET BY MOUTH DAILY TAKE AT LEAST 30 MINUTES BEFORE FIRST FOOD, BEVERAGE, OR OTHER BY MOUTH MEDS, # 30 tablet, 3 Refills, Maintenance, 12/19/22 18:22:00 EST, [facility] #[id number], 153, cm, 12/03/22 13:31:00 EST, Height... Start Date: 12/19/22 Status: Ordered Symbicort 160mcg/4.5mcg Inhaler 2, puffs, Inhalation, 2 times a day, # 3 each, Refills 3, Tot. Refills 3, Maintenance, 04/13/21 17:59:00 EDT, Inhaler, [id number] #[id number], 165, cm, 03/28/21 14:57:00 EDT, Height, 123.7, kg, 0... Start Date: 04/13/21 Status: Ordered Vitamin B-12 500 mcg oral tablet 1 tablet = 500 mcg, By Mouth, Daily, new dose, # 90 tablet, 3 Refills, Maintenance, 09/17/22 19:15:00 EST, Tablet, [facility] #[id number], Partial fill upon patient request if the prescription isfor a schedule II opioid drug., 165, cm, 08/17/22 1... Start Date: 09/17/22 Status: Ordered Vitamin C 500 mg oral tablet 1 tablet = 500 mg, By Mouth, 2 times a day, 0 Refills, Maintenance, 04/03/19 16:09:30 EDT Start Date: 04/03/19 Status: Ordered Vitamin D 83920 iu oral capsule 100,000 International_Units, 2, capsule, By Mouth, Every 7 days, # 26 capsule, Refills 3, Tot. Refills 3, Maintenance, 06/15/20 18:02:00 EDT, Route to Pharmacy Electronically, [facility] #[id number], 160, cm, 12/29/19 13:52:00 EST, Height, 125, kg... 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 Active Dissociative disorder Confirmed Active Dyspnea Confirmed Active Foot pain Confirmed Active Headache Confirmed Active Hypercholesterolemia Confirmed Active Hypertensive disorder Confirmed Active Hyponatremia Confirmed Active Cognitive impairment Confirmed Active HUMERA (acute kidney injury) Confirmed Active Iron deficiency Confirmed Active Lacunar infarction Confirmed Active Lumbar radiculopathy Confirmed Active Microcytosis Confirmed Active Obstructive sleep apnea Confirmed Active Osteoporosis Confirmed Active Prolactinoma Confirmed Active Witnessed seizure-like activity Confirmed Active Septic shock Confirmed Active Severe obesity Confirmed Active Obesity due to excess calories Confirmed Active Spinal stenosis, lumbar Confirmed Active Steatosis of liver Confirmed Active Tobacco user Confirmed Active Tubular adenoma of colon Confirmed Active Type 2 diabetes mellitus Confirmed Active UTI (urinary tract infection) Confirmed Active Weight loss Confirmed Active Social History Social History Type Response Smoking Status 10 or more cigarette s (1/2 pack or more)/day in last 30 days; Other: one pack daily 20 cigarettes daily; entered on: 07/07/20 Sex Patient Care team information Care Team Personnel Name: Kelsey CHINO, Hari Miller Position: [facility] Primary Care Physician Member Role: PCP Address: Address: [address] [place] [address] - Name: Larry Fields RN Position: [facility] RN Supv Member Role: Primary Care Nurse Name: Monique Thomson RN Position: [facility] RN Supv Member Role: Primary Care Nurse Name: Carrie Rand Position: [facility] Outreach Member Role: Lifetime Consulting Physician Name: Chante Graff RN Position: [facility] SN RN Member Role: Primary Care Nurse Name: Sarath Oquendo RN Position: [facility] RN Member Role: Primary Care Nurse Care Team Related Persons Name: AMARA BERMUDEZ Address: home [address] Name: ALBERTO BERMUDEZ Address: home [address] [facility] [address] [place], [place] Name: CORRINE STOUT
--- OUTSIDE RECORDS SUMMARY | 2023-04-06 19:06 | XMS_ITS | Continuity of Care Document ---
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 Attending Physician: AdmMilagros cobos Admitting Physician: AdmtrMilagros Referring Physician: Admtr, Ar8 Allergies, Adverse Reactions, Alerts Substance Reaction Severity Status penicillin Active thiazide diuretics rash Active shellfish Active Thorazine Active Adhesive Bandage Active Latex Active Other Food Allergy 1, 2 Anaphylaxis due to ingested food Black pepper Persistent Severe Active Rice 3 Persistent Severe Active Egg Allergy Active 1Black pepper allergy 2Anaphylaxis 3 Cannot swallow well. Medications Acetaminophen = 1,000 mg, By Mouth, [...] 4 times a day, # 360 mL, 0 Refills, Maintenance, 05/05/19 20:42:00 EDT, Inhalation Solution, 3 mL Neb 4 times a day Start Date: 05/05/19 Status: Ordered alendronate 70 mg oral tablet 1 tablet = 70 mg, By Mouth, Every week, # 12 tablet, 0 Refills, Maintenance, 04/02/19 15:18:21 EDT,Tablet Start Date: 04/02/19 Status: Ordered allopurinol 100 mg oral tablet 100 mg, 1, tablet, By Mouth, Daily, Refills 0, Maintenance, 04/03/19 15:33:10 EDT Start Date: 04/03/19 Status: Ordered Amitiza 8 mcg oral capsule [...] tablet = 10 mg, By Mouth, Daily, 0 Refills, Maintenance, 04/03/19 16:27:33 EDT Start Date: 04/03/19 Status: Ordered fentaNYL 25 mcg/hr transdermal film, extended release 1 patch, Topically, Every 72 hours, # 10 patch, 0 Refills, Maintenance, 10/09/19 19:58:00 EST, Patch, [facility] #[id number], 160, cm, 10/09/19 15:18:49 EST, Height, 125, kg, 04/02/19 21:10:06 EDT, Dry Weight Start Date: 10/09/19 Stop Date: 11/08/19 Status: Ordered gabapentin 300 mg oral capsule 600 mg, By Mouth, 3 times a day, Refills 0, Maintenance, 04/06/19 12:17:13 EDT Start Date: 04/06/19 Status: Ordered glipiZIDE 2.5 mg oral tablet, extended release TK 1 T PO QD B DINNER Start Date: 10/09/19 Status: Ordered Imodium A-D 2 mg oral tablet 2 mg, 1, tablet, By Mouth, Every 4 hours, PRN, Refills 0, Maintenance, Diarrhea, 04/03/19 15:42:27 EDT Start Date: 04/03/19 Status: Ordered lisinopril 10 mg oral tablet 10 mg, 1, tablet, By Mouth, Daily, # 30 tablet, Refills 1, Tot. Refills 1, Maintenance, 07/29/19 13:44:54 EDT, [id number] #[id number] Start Date: 07/29/19 Status: Ordered Lyrica 200 mg oral capsule 1 capsule = 200 mg, By Mouth, 2 times a day, ORAL, CAPSULE, 2 Refill(s),, # 180 capsule, 1 Refills,Maintenance, 05/11/19 17:01:10 EDT, Capsule Start Date: 05/11/19 Status: Ordered magnesium oxide 400 mg oral [...] 15:52:44 EDT Start Date: 04/03/19 Status: Ordered Nitrostat 0.4 mg sublingual tablet [...] 90 tablet, Refills 0, Tot. Refills 0, Acute 06/02/20 11:11:00EDT, Pain , Severe, 06/02/19 12:21:27 EDT, [id number] #[id number] Start Date: 06/02/19 Stop Date: 06/02/20 Status: Ordered oxyCODONE 5 mg oral tablet 5 mg, By Mouth, Every 6 hours, PRN, # 90 tablet, Refills 0, Tot. Refills 0, Maintenance, Pain , Severe, 10/09/19 19:58:00 EST, Route to Pharmacy Electronically, [email or web address] #[id number], 160, cm, 10/09/19 15:18:49 EST, Height, 125, kg, 04/02/19 21:1... Start Date: 10/09/19 Stop Date: 11/08/19 Status: Ordered pantoprazole 40 mg oral delayed [...] Start Date: 04/03/19 Status: Ordered Vitamin D 66804 iu oral capsule 100,000 International_Units, 2, capsule, By Mouth, Every 7 days, # 26 capsule, Refills 3, Tot. Refills 3, Maintenance, 06/02/19 12:20:36 EDT, [id number] #[id number] Start Date: 06/02/19 Status: Ordered Problem List [...] more)/day in last 30 days; Other: one and a half pack a day; entered on: 10/09/19 Sex
--- OUTSIDE RECORDS SUMMARY | 2023-04-06 19:06 | XMS_ITS | Continuity of Care Document ---
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 Refills 1, Maintenance, 12/28/20 16:47:00 EST, Route to Pharmacy Electronically, [facility] #[id number], 160, cm, 11/23/20 9:01:00EST, Height, 125, kg, 04/02/19 21:10:00 EDT, Dry We... Start Date: 12/28/20 Stop Date: 06/26/21 Status: Ordered Amitiza 8 mcg oral capsule 1 capsule = 8 mcg, By Mouth, 2 times a day, PRN Constipation, 0 Refills, Maintenance, 04/03/19 15:34:30 EDT, Capsule Start Date: 04/03/19 Status: Ordered aspirin 81 mg oral tablet 1 tablet = 81 mg, By Mouth, Daily, 0 Refills, Maintenance, 04/03/19 16:11:10 EDT Start Date: 04/03/19 Status: Ordered Calcium Carbonate = 750 mg, By Mouth, Every 2 hours, PRN stomach upset, 0 Refills, Maintenance, 04/03/19 15:37:07 EDT Start Date: 04/03/19 Status: Ordered Crestor 40 mg oral tablet 1 tablet = 40 mg, By Mouth, Daily, # 90 tablet, 3 Refills, Maintenance, 05/17/20 17:41:00 EDT, Tablet, [facility] #[id number], 160, cm, 12/29/19 13:52:00 EST, Height, 125, [...] a day Start Date: 05/08/19 Status: Ordered ezetimibe 10 mg oral tablet 1 tablet = 10 mg, By Mouth, Daily, # 90 tablet, 1 Refills, Maintenance, 11/08/20 15:21:00 EST, Tablet, [facility] #[id number], 160, cm, 12/31/20 15:45:00 EST, Height, 125, kg, 04/02/19 21:10:00 EDT, Dry Weight Start Date: 11/08/20 Stop Date: 05/07/21 Status: Ordered ferrous sulfate 325 mg oral enteric coated tablet 325 mg, 1, tablet, By Mouth, Daily, # 90 tablet, Refills 3, Tot. Refills 3, Maintenance, 10/11/20 19:43:00 EST, Route to Pharmacy Electronically, [facility] #[id number], Partial fill upon patientrequest if the prescription is for a schedule II op... Start Date: 10/11/20 Status: Ordered lisinopril 30 mg oral tablet 1 tablet = 30 mg, By Mouth, Daily, please disregard 40 mg rx, # 90 tablet, 3 Refills, Maintenance, 11/01/20 17:16:00 EST, Tablet, [facility] #[id number], Partial fill upon patient request if the prescription is for a schedule II opioid drug., 160,... Start Date: 11/01/20 Status: Ordered Lyrica 225 mg oral capsule 1 capsule = 225 mg, By Mouth, 2 times a day, # 60 capsule, 3 Refills, Maintenance, 02/26/21 8:53:00EDT, Capsule, [facility] #[id number], 165, cm, 02/21/21 11:53:00 EDT, Height, 123.7, kg, 02/21/21 11:53:00 EDT, Dry Weight Start Date: 02/26/21 Stop Date: 06/26/21 Status: Ordered metFORMIN 500 mg oral tablet, extended release 2 tablet = 1,000 mg, By Mouth, Daily, # 270 tablet, 3 Refills, Maintenance, 07/06/19 8:16:00 EDT, ER Tablet Start Date: 07/06/19 Status: Ordered Narcan 4 mg/0.1 mL nasal [...] By Mouth, Every 6 hours, PRN, # 60 tablet, Refills 0, Tot. Refills 0, Maintenance,Pain , Severe, 03/07/21 19:31:00 EDT, Route to Pharmacy Electronically, [facility] #[id number],Partial fill upon patient request; ICD 10:M54.16, 1... Start Date: 03/07/21 Status: Ordered pantoprazole 40 mg oral delayed [...] Gm, 3 Refills, Maintenance, 06/07/20 12:09:00 EDT, [facility] #[id number], 50, INHALE 2 PUFFS BY MOUTH EVERY 4 HOURS NEEDED, 160, cm, 12/29/19 13:52:00 EST, Height, 125, kg, 04/02/19 21:10... Start Date: 06/07/20 Status: Ordered RisperDAL 2 mg oral tablet 2 mg, 1, tablet, By Mouth, Daily at bedtime, Refills 0, Maintenance, 04/03/19 16:06:44 EDT Start Date: 04/03/19 Status: Ordered Trulicity Pen 3 mg/0.5 mL subcutaneous solution = 3 mg, Subcutaneous Infusion, Every 7 days, # 13 each, 3 Refills, Maintenance, 11/30/20 12:36:00 EST, [facility] #[id number], Partial fill upon patient request if the prescription is for a schedule II opioid drug., 160, cm, 11/23/20 9:01:00 EST,... Start Date: 11/30/20 Status: Ordered Vitamin C 500 mg oral tablet 1 tablet = 500 mg, By Mouth, 2 times a day, 0 Refills, Maintenance, 04/03/19 16:09:30 EDT Start Date: 04/03/19 Status: Ordered Vitamin D 79539 iu oral capsule 100,000 International_Units, 2, capsule, By Mouth, Every 7 days, # 26 capsule, Refills 3, Tot. Refills 3, Maintenance, 06/15/20 18:02:00 EDT, Route to Pharmacy Electronically, [facility] #[id number], 160, cm, 12/29/19 13:52:00 EST, Height, 125, kg... 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) Active Dissociative disorder(Confirmed) Active Dyspnea(Confirmed) Active Foot pain(Confirmed) Active Hypercholesterolemia(Confirmed) Active Hypertensive disorder(Confirmed) Active Iron [...]
--- OUTSIDE RECORDS SUMMARY | 2023-04-06 19:06 | XMS_ITS | Continuity of Care Document ---
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 Name Role Phone Kelsey CHINO, Hari Miller Primary Care Physician [phone] Encounter [facility] Date(s): 11/07/22 - 12/08/22 [facility] [address], [address], [address] [place] [id number]- Attending Physician: Michele Villaseñor MD Admitting Physician: Michele Villaseñor MD Referring Physician: Hari Cole MD Allergies, Adverse Reactions, Alerts Substance Reaction Severity Status penicillin Active thiazide diuretics rash Active Thorazine Active Adhesive Bandage Active Latex Active Egg Allergy Active shellfish Active Other Food Allergy 1, 2 Anaphylaxis due to ingested food Black pepper Persistent Severe Active Rice 3 Persistent Severe Active 1Black pepper allergy 2Anaphylaxis 3 Cannot swallow well. Immunizations Given and Recorded Vaccine Date Status Refusal Reason [id number] bivalent booster vax 12/03/22 Given influenza virus [...] Refills, Maintenance, 03/09/21 16:20:00 EDT, Inhalation Solution, [facility] #[id number], 3 mL Neb 4 times a day, [...] 12/13/21 16:47:00 EST, Route to Pharmacy Electronically, [facility] #[id number], 165, cm, 11/14/21 11:24:00 EST, Height, 123.7, [...] 1 Refills, Maintenance, 07/23/22 13:09:00 EDT, Tablet, [facility] #[id number], 165, cm, 04/27/22 13:43:00 EDT, Height, 123.7, [...] 0 Refills, Maintenance, 11/14/22 0:11:00 EST, Gel, [facility] #[id number], Partial fill upon patient request if the prescription is for a schedule II opioid drug., 165, cm, 11/13/22 20:06:00 EST,... Start Date: 11/14/22 Status: Ordered ezetimibe 10 mg oral tablet 1 tablet, By Mouth, Daily, # 90 tablet, 1 Refills, Maintenance, 10/08/22 15:33:00 EST, [facility] #[id number], 165, cm, 08/17/22 13:46:00 EDT, Height, 123.7, kg, 02/21/21 11:53:00 EDT, Dry Weight Start Date: 10/08/22 Status: Ordered gabapentin 600 mg oral tablet 1 tablet = 600 mg, By Mouth, 2 times a day, # 180 tablet, 3 Refills, Maintenance, 08/07/22 12:28:00EDT, [facility] #[id number], Partial fill upon patient request if the prescription is for a schedule II opioid drug., 165, cm, 04/27/22 13:43:00 ED... Start Date: 08/07/22 Status: Ordered lidocaine 5% topical film 1 patch, Topically, Daily, PRN Pain , Mild, remove after 12 hours, # 13 each, 0 Refills, Maintenance, 11/14/22 0:11:00 EST, Film, [facility] #[id number], Partial fill upon patient request if the prescription is for a schedule II opioid drug., 1 pa... Start Date: 11/14/22 Status: Ordered lisinopril 20 mg oral tablet 20 mg, 1, tablet, By Mouth, Daily, new dose, # 90 tablet, Refills 3, Tot. Refills 3, Maintenance, 09/06/21 11:46:00 EST, Route to Pharmacy Electronically, [facility] #[id number], Partial fill upon patient request if the prescription is for a sched... Start Date: 09/06/21 Status: Ordered Lyrica 225 mg oral capsule 1 capsule = 225 mg, By Mouth, 2 times a day, # 180 capsule, 1 Refills, Maintenance, 11/14/22 18:29:00 EST, [facility] #[id number], Partial fill upon patient request if the prescription is for a schedule II opioid drug., 165 cm, 11/13/22 20:06:00... Start Date: 11/14/22 Status: Ordered magnesium oxide 400 mg oral tablet 1 tablet = 400 mg, By Mouth, Daily, # 90 tablet, 3 Refills, Maintenance, 07/23/22 17:16:00 EDT, Tablet, [facility] #[id number], Partial fill upon patient request if the prescription is for a schedule II opioid drug., 165, cm, 04/27/22 13:43:00 EDT... Start Date: 07/23/22 Status: Ordered metFORMIN 500 mg oral tablet 2 tablet = 1,000 mg, By Mouth, 2 times a day, # 360 tablet, 1 Refills, Maintenance, 05/28/22 16:34:00 EDT, [facility] #[id number], Partial fill upon patient request if the prescription is for a schedule II opioid drug., 165, cm, 04/27/22 13:43:00... Start Date: 05/28/22 Status: Ordered Narcan 4 mg/0.1 mL nasal spray See Instructions, PRN unresponsiveness, may repeat once until patient responds, # 2 each, 2 Refills, Maintenance, 10/31/22 16:28:00 EST, [place], [facility] #[id number], Partial fill upon patient request if the prescription is for a schedule II opio... Start Date: 10/31/22 Status: Ordered Nitrostat 0.4 mg sublingual tablet 1 tablet = 0.4 mg, Sublingual, Every 5 minutes, PRN chest pain, up to 3 doses, # 25 tablet, 3 Refills, Maintenance, 10/31/22 16:28:00 EST, Tablet, [facility] #[id number], Partial fill upon patient request if the [...] 11/15/22 17:49:00 EST, Route to Pharmacy Electronically, [facility] #[id number],Partial fill upon patient request; ICD 10:M54.16, 1... [...] 10/18/22 17:49:00 EST, Route to Pharmacy Electronically, [facility] #[id number], Partial fill upon patient request if the [...] Gm, 11 Refills, Maintenance, 02/02/22 8:33:00 EDT, [facility] #[id number], 2 puffs Inhalation Every 4 hours,PRN: NEEDED, 165, cm, 11/14/21 11:24:00 EST, Height, 123.7, kg, 02/21/21 11:53:00... Start Date: 02/02/22 Status: Ordered RisperDAL 2 mg oral tablet 2 mg, 1, tablet, By Mouth, Daily at bedtime, Refills 0, Maintenance, 04/03/19 16:06:44 EDT Start Date: 04/03/19 Status: Ordered Rybelsus 3 mg oral tablet 1 tablet = 3 mg, By Mouth, Daily, take at least 30 minutes before first food, beverage, or other oral meds, # 30 tablet, 0 Refills, Maintenance, 11/28/22 9:42:00 EST, Tablet, [facility] #[id number], new dose, 153, cm, 11/28/22 8:46:00 EST, Height,... Start Date: 11/28/22 Status: Ordered Symbicort 160mcg/4.5mcg Inhaler 2, puffs, Inhalation, 2 times a day, # 3 each, Refills 3, Tot. Refills 3, Maintenance, 04/13/21 17:59:00 EDT, Inhaler, [id number] #[id number], 165, cm, 03/28/21 14:57:00 EDT, Height, 123.7, kg, 0... Start Date: 04/13/21 Status: Ordered Vitamin B-12 500 mcg oral tablet 1 tablet = 500 mcg, By Mouth, Daily, new dose, # 90 tablet, 3 Refills, Maintenance, 09/17/22 19:15:00 EST, Tablet, [facility] #[id number], Partial fill upon patient request if the prescription isfor a schedule II opioid drug., 165, cm, 08/17/22 1... Start Date: 09/17/22 Status: Ordered Vitamin C 500 mg oral tablet 1 tablet = 500 mg, By Mouth, 2 times a day, 0 Refills, Maintenance, 04/03/19 16:09:30 EDT Start Date: 04/03/19 Status: Ordered Vitamin D 75153 iu oral capsule 100,000 International_Units, 2, capsule, By Mouth, Every 7 days, # 26 capsule, Refills 3, Tot. Refills 3, Maintenance, 06/15/20 18:02:00 EDT, Route to Pharmacy Electronically, [facility] #[id number], 160, cm, 12/29/19 13:52:00 EST, Height, 125, [...] Care team information Care Team Personnel Name: Hari Cole MD Position: [facility] Primary Care Physician Member Role: PCP Address: Address: [address] [place] [id number]- Name: Larry Fields RN Position: [facility] RN Supv Member Role: Primary Care Nurse Name: Monique Thomson RN Position: [facility] RN Supv Member Role: Primary Care Nurse Name: Carrie Rand Position: [facility] Outreach Member Role: Lifetime Consulting Physician Name: Chante Graff RN Position: [facility] SN RN Member Role: Primary Care Nurse Name: Sarath Oquendo RN Position: [facility] RN Member Role: Primary Care Nurse Care Team Related Persons Name: LARAAMARA Address: home [address] Name: ALBERTO BERMUDEZ Address: home [address] [place], [place] Name: CORRINE STOUT
--- OUTSIDE RECORDS SUMMARY | 2023-04-06 19:07 | XMS_ITS | Continuity of Care Document ---
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 Refills 0, Maintenance, test blood sugar daily, 06/09/20 17:37:00 EDT, Supply, 160, cm, 12/29/19 13:52:00 EST, Height, 125, kg, 04/02/19 21:10:00 EDT, Dry Weight Start Date: 06/09/20 Status: Ordered Accu-Chek Odette Glucose Meter See Instructions, # 1 each, Maintenance, check bs qd- dx E11.9, 06/19/22 17:29:00 EDT, Supply, 165,cm, 04/27/22 13:43:00 EDT, Height, 123.7, kg, 02/21/21 11:53:00 EDT, Dry Weight Start Date: 06/19/22 Status: Ordered ACCU-CHEK ODETTE PLUS METER ACCU-CHEK ODETTE PLUS METER, See Instructions, # 1 each, 0 Refills, Maintenance, TO TEST BLOOD SUGAREVERY DAY, 160, cm, 10/27/20 15:45:00 EST, Height, 125, kg, 04/02/19 21:10:00 EDT, Dry Weight Start Date: 10/31/20 Status: Ordered Accu-Chek Odette Plus Test Strips See Instructions, # 100 each, Refills 2, Tot. Refills 2, Maintenance, test blood sugar daily, 06/15/22 12:39:00 EDT, Supply, 165, cm, 04/27/22 13:43:00 EDT, Height, 123.7, kg, 02/21/21 11:53:00 EDT, Dry Weight Start Date: 06/15/22 Status: Ordered Accu-Chek Compact Lancets See Instructions, # 100 each, Refills 2, Tot. Refills 2, Maintenance, test blood sugar once daily, 06/15/22 12:39:00 EDT, Supply, 165, cm, 04/27/22 13:43:00 EDT, Height, 123.7, kg, 02/21/21 11:53:00 EDT, Dry Weight Start Date: 06/15/22 Status: Ordered Acetaminophen = 1,000 mg, By Mouth, 3 times a day, 0 Refills, Maintenance, 04/03/19 15:29:14 EDT Start Date: 04/03/19 Status: Ordered albuterol-ipratropium 3 mg-0.5 mg/3 ml inhalation solution 3 mL, Neb, 4 times a day, # 360 mL, 1 Refills, Maintenance, 03/09/21 16:20:00 EDT, Inhalation Solution, [facility][id number], 3 mL Neb 4 times a day, [...] 12/13/21 16:47:00 EST, Route to Pharmacy Electronically, [facility] #[id number], 165, cm, 11/14/21 11:24:00 EST, Height, 123.7, kg, 02/21/21 11:53:00 EDT, Dry... Start Date: 12/13/21 Status: Ordered Amitiza 8 mcg oral capsule 1 capsule = 8 mcg, By Mouth, 2 times a day, PRN Constipation, 0 Refills, Maintenance, 04/03/19 15:34:30 EDT, Capsule Start Date: 04/03/19 Status: Ordered busPIRone 7.5 mg oral tablet 0 Refills, Maintenance, 02/09/22 14:16:00 EDT, Partial fill upon patient request if the prescription is for a schedule II opioid drug. Start Date: 02/09/22 Status: Ordered Calcium Carbonate = 750 mg, By Mouth, Every 2 hours, PRN stomach upset, 0 Refills, Maintenance, 04/03/19 15:37:07 EDT Start Date: 04/03/19 Status: Ordered Crestor 40 mg oral tablet 1 tablet = 40 mg, By Mouth, Daily, # 90 tablet, 1 Refills, Maintenance, 07/23/22 13:09:00 EDT, Tablet, [facility] #[id number], 165, cm, 04/27/22 13:43:00 EDT, Height, 123.7, [...] 0 Refills, Maintenance, 11/14/22 0:11:00 EST, Gel, [facility] #[id number], Partial fill upon patient request if the prescription is for a schedule II opioid drug., 165, cm, 11/13/22 20:06:00 EST,... Start Date: 11/14/22 Status: Ordered diclofenac 1% topical gel 1 application, Topically, 4 times a day, # 100 Gm, 0 Refills, Maintenance, 05/08/19 16:05:05 EDT, Gel, 1 application Topically 4 times a day Start Date: 05/08/19 Status: Ordered ezetimibe 10 mg oral tablet 1 tablet, By Mouth, Daily, # 90 tablet, 1 Refills, Maintenance, 10/08/22 15:33:00 EST, [facility] #[id number], 165, cm, 08/17/22 13:46:00 EDT, Height, 123.7, kg, 02/21/21 11:53:00 EDT, Dry Weight Start Date: 10/08/22 Status: Ordered gabapentin 600 mg oral tablet 1 tablet = 600 mg, By Mouth, 2 times a day, # 180 tablet, 3 Refills, Maintenance, 08/07/22 12:28:00EDT, [facility] #[id number], Partial fill upon patient request if the prescription is for a schedule II opioid drug., 165, cm, 04/27/22 13:43:00 ED... Start Date: 08/07/22 Status: Ordered glipiZIDE 5 mg oral tablet, extended release 1 tablet = 5 mg, By Mouth, Daily, # 90 tablet, 3 Refills, Maintenance, 12/13/21 16:47:00 EST, ER Tablet, [facility][id number], Partial fill upon patient request if the prescription is for a schedule II opioid drug., 165, cm, 11/14/21 11:24:00 ES... Start Date: 12/13/21 Status: Ordered lidocaine 5% topical film 1 patch, Topically, Daily, PRN Pain , Mild, remove after 12 hours, # 13 each, 0 Refills, Maintenance, 11/14/22 0:11:00 EST, Film, [id number], Partial fill upon patient request if the prescription is for a schedule II opioid drug., 1 pa... Start Date: 11/14/22 Status: Ordered lift chair lift chair, See Instructions, # 1 each, Refills 0, Tot. Refills 0, Maintenance, ?, 09/06/21 15:28:00 EST, Supply Start Date: 09/06/21 Status: Ordered lift chair lift chair, See Instructions, # 1 each, Refills 0, Tot. Refills 0, Maintenance, motorized lift chair, 11/14/21 14:32:00 EST, Supply Start Date: 11/14/21 Status: Ordered lisinopril 20 mg oral tablet 20 mg, 1, tablet, By Mouth, Daily, new dose, # 90 tablet, Refills 3, Tot. Refills 3, Maintenance, 09/06/21 11:46:00 EST, Route to Pharmacy Electronically, [facility][id number], Partial fill upon patient request if the prescription is for a sched... Start Date: 09/06/21 Status: Ordered Lyrica 225 mg oral capsule 1 capsule = 225 mg, By Mouth, 2 times a day, # 180 capsule, 1 Refills, Maintenance, 11/14/22 18:29:00 EST, [facility] #[id number], Partial fill upon patient request if the prescription is for a schedule II opioid drug., rachel Yusuf, 11/13/22 20:06:00... Start Date: 11/14/22 Status: Ordered magnesium oxide 400 mg oral tablet 1 tablet = 400 mg, By Mouth, Daily, # 90 tablet, 3 Refills, Maintenance, 07/23/22 17:16:00 EDT, Tablet, [facility] #[id number], Partial fill upon patient request if the prescription is for a schedule II opioid drug., rachel Yusuf, 04/27/22 13:43:00 EDT... Start Date: 07/23/22 Status: Ordered metFORMIN 500 mg oral tablet 2 tablet = 1,000 mg, By Mouth, 2 times a day, # 360 tablet, 1 Refills, Maintenance, 05/28/22 16:34:00 EDT, [facility] #[id number], Partial fill upon patient request if the prescription is for a schedule II opioid drug., rachel Yusuf, 04/27/22 13:43:00... Start Date: 05/28/22 Status: Ordered Moderna COVID-19 Bivalent Booster Vaccine PF intramuscular suspension 0.5 mL, Intramuscular, Once, # 0.5 mL, 0 Refills, Soft Stop, 08/17/22 13:56:00 EDT, Partial fill upon patient request if the prescription is for a schedule II opioid drug. Start Date: 08/17/22 Status: Ordered Narcan 4 mg/0.1 mL nasal spray See Instructions, PRN unresponsiveness, may repeat once until patient responds, # 2 each, 2 Refills, Maintenance, 10/31/22 16:28:00 EST, [place], [facility] #[id number], Partial fill upon patient request if the prescription is for a schedule II opio... Start Date: 10/31/22 Status: Ordered Nitrostat 0.4 mg sublingual tablet 1 tablet = 0.4 mg, Sublingual, Every 5 minutes, PRN chest pain, up to 3 doses, # 25 tablet, 3 Refills, Maintenance, 10/31/22 16:28:00 EST, Tablet, [facility] #[id number], Partial fill upon patient request if the prescription is for a schedule II o... Start Date: 10/31/22 Status: Ordered oxybutynin 10 mg/24 hr oral [...] 11/15/22 17:49:00 EST, Route to Pharmacy Electronically, [facility] #[id number],Partial fill upon patient request; ICD 10:M54.16, 1... Start Date: 11/15/22 Stop Date: 12/13/22 Status: Ordered oxyCODONE 5 mg oral tablet 5 mg, 1, tablet, By Mouth, Every 6 hours, PRN, for 28 days, # 90 tablet, Refills 0, Tot. Refills 0,Hard Stop 11/15/22 17:49:00 EST, Pain , Severe, 10/18/22 17:49:00 EST, Route to Pharmacy Electronically, [facility] #[id number], Partial fill upon... Start Date: 10/18/22 Stop Date: 11/15/22 Status: Ordered pantoprazole 40 mg oral delayed [...] 10/18/22 17:49:00 EST, Route to Pharmacy Electronically, [facility] #[id number], Partial fill upon patient request if the [...] Gm, 11 Refills, Maintenance, 02/02/22 8:33:00 EDT, [facility] #[id number], 2 puffs Inhalation Every 4 hours,PRN: NEEDED, 165, cm, 11/14/21 11:24:00 EST, Height, 123.7, kg, 02/21/21 11:53:00... Start Date: 02/02/22 Status: Ordered RisperDAL 2 mg oral tablet 2 mg, 1, tablet, By Mouth, Daily at bedtime, Refills 0, Maintenance, 04/03/19 16:06:44 EDT Start Date: 04/03/19 Status: Ordered Rybelsus 7 mg oral tablet See Instructions, TAKE 1 TABLET BY MOUTH DAILY TAKE AT LEAST 30 MINUTES BEFORE FIRST FOOD, BEVERAGE, OR OTHER BY MOUTH MEDS, # 30 tablet, 0 Refills, Maintenance, 11/07/22 17:32:00 EST, [facility] #[id number], 165, cm, 10/24/22 17:36:00 EST, Height... Start Date: 11/07/22 Status: Ordered Rybelsus 7 mg oral tablet See Instructions, TAKE 1 TABLET BY MOUTH DAILY TAKE AT LEAST 30 MINUTES BEFORE FIRST FOOD, BEVERAGE, OR OTHER BY MOUTH MEDS, # 30 tablet, 0 Refills, Maintenance, 11/07/22 17:32:00 EST, [id number], 165, cm, 10/24/22 17:36:00 EST, Height... Start Date: 11/07/22 Status: Ordered Symbicort 160mcg/4.5mcg Inhaler 2, puffs, Inhalation, 2 times a day, # 3 each, Refills 3, Tot. Refills 3, Maintenance, 04/13/21 17:59:00 EDT, Inhaler, [id number] #[id number], 165, cm, 03/28/21 14:57:00 EDT, Height, 123.7, kg, 0... Start Date: 04/13/21 Status: Ordered Vitamin B-12 500 mcg oral tablet 1 tablet = 500 mcg, By Mouth, Daily, new dose, # 90 tablet, 3 Refills, Maintenance, 09/17/22 19:15:00 EST, Tablet, [facility] #[id number], Partial fill upon patient request if the prescription isfor a schedule II opioid drug., 165, cm, 08/17/22 1... Start Date: 09/17/22 Status: Ordered Vitamin C 500 mg oral tablet 1 tablet = 500 mg, By Mouth, 2 times a day, 0 Refills, Maintenance, 04/03/19 16:09:30 EDT Start Date: 04/03/19 Status: Ordered Vitamin D 44055 iu oral capsule 100,000 International_Units, 2, capsule, By Mouth, Every 7 days, # 26 capsule, Refills 3, Tot. Refills 3, Maintenance, 06/15/20 18:02:00 EDT, Route to Pharmacy Electronically, [facility] #[id number], 160, cm, 12/29/19 13:52:00 EST, Height, 125, kg... 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 Dyspnea Confirmed Active Foot pain Confirmed Active Headache Confirmed Active Hypercholesterolemia Confirmed Active Hypertensive disorder Confirmed Active Hyponatremia Confirmed Active Cognitive impairment Confirmed Active Iron deficiency Confirmed Active Lacunar infarction Confirmed Active Lumbar radiculopathy Confirmed Active Microcytosis Confirmed Active Osteoporosis Confirmed Active Prolactinoma Confirmed Active Septic shock Confirmed Active Severe obesity Confirmed Active Obesity due to excess calories Confirmed Active Spinal stenosis, lumbar Confirmed Active Steatosis of liver Confirmed Active Tobacco user Confirmed Active Tubular adenoma of colon Confirmed Active Type 2 diabetes mellitus Confirmed Active Weight loss Confirmed Active Vital Signs Most recent to oldest [Reference Range]: 1 2 3 4 Height 165 cm (11/13/22 8:06 PM) Weight 114 kg (11/13/22 8:06 PM) Oxygen Saturation [94-100 %] 95 % (11/13/22 11:54 PM) 95 % (11/13/22 10:59 PM) 97 % (11/13/22 8:06 PM) 97 % (11/13/22 8:06 PM) Pulse Rate [55-90 bpm] 106 bpm *H* (11/13/22 11:54 PM) 108 bpm *H* (11/13/22 10:59 PM) 95 bpm *H* (11/13/22 8:06 PM) Blood Pressure [90-138/55-84 mm Hg] 151/92mm Hg *H* (11/13/22 11:54 PM) 161/98mm Hg *H* (11/13/22 10:59 PM) 161/93mm Hg *H* (11/13/22 8:06 PM) Temperature [96.8-100.4 DegF] 98.5 DegF (11/13/22 11:54 PM) 98.0 DegF (11/13/22 8:06 PM) Liters per Minute 3 L/min (11/13/22 11:54 PM) 3 L/min (11/13/22 10:59 PM) 3 L/min (11/13/22 8:06 PM) 3 L/min (11/13/22 8:06 PM) Mode of Delivery (Oxygen) Nasal cannula (11/13/22 11:54 PM) Nasal cannula (11/13/22 10:59 PM) Nasal cannula (11/13/22 8:06 PM) Nasal cannula (11/13/22 8:06 PM) Temperature Route Oral (11/13/22 11:54 PM) Oral (11/13/22 8:06 PM) Dry Weight 114 kg (11/13/22 8:06 PM) Social History Social History Type Response Smoking Status 10 or more cigarette s (1/2 pack or more)/day in last 30 days; Other: one pack daily 20 cigarettes daily; entered on: 07/07/20 Sex Patient Care team information Care Team Personnel Name: Hari Cole MD Position: [facility] Primary Care Physician Member Role: PCP Address: Address: [address] [place] [address] [address] [place] [address]- [place] Name: Carrie Rand Position: [facility] Outreach Member Role: Lifetime Consulting Physician Name: Chante Graff RN Position: [facility] SN RN Member Role: Primary Care Nurse Name: Sarath Oquendo RN Position: [facility] RN Member Role: Primary Care Nurse Name: Kristen Pelayo Position: [facility] ED TA [facility] Name: Latrell Calvin MD Position: [facility] Resident Member Role: ED Resident Address: Address: [address] [place] [id number]- [place] Name: Mana Ashley Position: [facility] ED RN W/OE and Tasks Member Role: Patient Care Provider Name: Harsha Boothe MD Position: [facility] ED Medicine MD Member Role: ED Attending Physician Address: Address: [address] [place] [id number]- Name: Shameka Herrera RN Position: [facility] ED RN W/OE and Tasks Member Role: Patient Care Provider Care Team Related Persons Name: AMARA BERMUDEZ Address: home [address] [address] Name: ALBERTO BERMUDEZ Address: home [address] [facility] [address] [facility] [address] [place], [place] Name: CORRINE STOUT
--- OUTSIDE RECORDS SUMMARY | 2023-04-06 19:07 | XMS_ITS | Continuity of Care Document ---
Author Name Unknown Organization [facility] Address [address] [place] [address]- Care Team Providers Care Instrumentation Manager Name Role Phone Kelsey CHINO, Hari Miller Primary Care Physician [phone] [place] [facility] [place]20 [facility] [address] [place] [id number] Allergies, Adverse Reactions, Alerts Substance Reaction [...] 3 Refills, Maintenance, 06/28/20 9:08:00 EDT, Inhaler, [facility] #06679, 2 puffs Inhalation Every 4hours,x30 days,PRN:Wheezing/Shortness of Breath, 16... Start Date: 06/28/20 Stop Date: 10/26/20 Status: Ordered albuterol-ipratropium 3 mg-0.5 mg/3 ml inhalation solution 3 mL, Neb, 4 times a day, # 360 mL, 5 Refills, Maintenance, 11/09/19 11:29:00 EST, Inhalation Solution, [facility] #06063, 3 mL Neb 4 times a day, [...] 01/06/20 18:09:00 EDT, [facility], [facility], 160, cm, 12/29/19 13:52:00 EST, Height, 125, [...] 3 Refills, Maintenance, 05/17/20 17:41:00 EDT, Tablet, [facility], 160, cm, 12/29/19 13:52:00 EST, Height, 125, [...] 1 Refills, Maintenance, 11/08/20 15:21:00 EST, Tablet, [facility] #53431, 160, cm, 10/27/20 15:45:00 EST, Height, 125, kg, 04/02/19 21:10:00 EDT, Dry Weight Start Date: 11/08/20 Stop Date: 05/07/21 Status: Ordered ferrous sulfate 325 mg oral enteric coated tablet 325 mg, 1, tablet, By Mouth, Daily, # 90 tablet, Refills 3, Tot. Refills 3, Maintenance, 10/11/20 19:43:00 EST, Route to Pharmacy Electronically, [facility] #90841, Partial fill upon patientrequest if the prescription is for a schedule II op... Start Date: 10/11/20 Status: Ordered Golytely - oral powder for reconstitution 240 mL, By Mouth, Every 10 minutes, # 4,000 mL, 0 Refills, Maintenance, 11/25/20 10:07:00 EST, REC Powder, [facility] #38995, Partial fill upon patient request if the [...] 3 Refills, Maintenance, 11/01/20 17:16:00 EST, Tablet, [facility] #35078, Partial fill upon patient request if the prescription is for a schedule II opioid drug., 160,... Start Date: 11/01/20 Status: Ordered Lyrica 225 mg oral capsule 1 capsule = 225 mg, By Mouth, 2 times a day, # 60 capsule, 3 Refills, Maintenance, 04/14/20 19:50:00 EDT, Capsule, [facility] #26853, 160, cm, 12/29/19 13:52:00 EST, Height, 125, [...] 1 Refills, Maintenance, 12/29/19 14:36:00 EST, Patch, [facility] #32111, 1 patch Topically Daily, 160, cm, 12/29/19 [...] 12/07/20 18:44:00 EST, Route to Pharmacy Electronically, [facility] #15046, Partial fill upon patient request; ICD 10:M54.16,... [...] Gm, 3 Refills, Maintenance, 06/07/20 12:09:00 EDT, [facility] #53431, 50, INHALE 2 PUFFS BY MOUTH EVERY [...] each, 3 Refills, Maintenance, 11/30/20 12:36:00 EST, [facility] #96898, Partial fill upon patient request if the prescription is for a schedule II opioid drug., 160, cm, 11/23/20 9:01:00 EST,... Start Date: 11/30/20 Status: Ordered Vitamin C 500 mg oral tablet 1 tablet = 500 mg, By Mouth, 2 times a day, 0 Refills, Maintenance, 04/03/19 16:09:30 EDT Start Date: 04/03/19 Status: Ordered Vitamin D 34299 iu oral capsule 100,000 International_Units, 2, capsule, By Mouth, Every 7 days, # 26 capsule, Refills 3, Tot. Refills 3, Maintenance, 06/15/20 18:02:00 EDT, Route to Pharmacy Electronically, [facility] #75649, 160, cm, 12/29/19 13:52:00 EST, Height, 125, [...]
--- OUTSIDE RECORDS SUMMARY | 2023-04-06 19:07 | XMS_ITS | Continuity of Care Document ---
Author Name Unknown Organization [facility] Address [address] [place] [address]- Care Team Providers Care Finisher Map And Chart Name Role Phone Kelsey CHINO, Hari Miller Primary Care Physician [phone] [place] [facility] [place]s): 12/13/20 - 02/24/21 [facility] [address] [place] [id number] Attending Physician: Nayan Lucas MD Admitting Physician: Nayan Lucas MD Referring Physician: Hari Cole MD Allergies, Adverse Reactions, Alerts Substance Reaction Severity Status penicillin Active thiazide diuretics rash Active Latex Active Egg Allergy Active shellfish Active Thorazine Active Adhesive Bandage Active Other Food Allergy 1, 2 Anaphylaxis [...] Refills, Maintenance, 11/09/19 11:29:00 EST, Inhalation Solution, [facility] #81109, 3 mL Neb 4 times a day, [...] 12/28/20 16:47:00 EST, Route to Pharmacy Electronically, [facility] #41058, 160, cm, 11/23/20 9:01:00EST, Height, 125, kg, [...] 3 Refills, Maintenance, 05/17/20 17:41:00 EDT, Tablet, [facility] #44593, 160, cm, 12/29/19 13:52:00 EST, Height, 125, [...] 1 Refills, Maintenance, 11/08/20 15:21:00 EST, Tablet, [facility] #69678, 160, cm, 10/27/20 15:45:00 EST, Height, 125, kg, 04/02/19 21:10:00 EDT, Dry Weight Start Date: 11/08/20 Stop Date: 05/07/21 Status: Ordered ferrous sulfate 325 mg oral enteric coated tablet 325 mg, 1, tablet, By Mouth, Daily, # 90 tablet, Refills 3, Tot. Refills 3, Maintenance, 10/11/20 19:43:00 EST, Route to Pharmacy Electronically, [facility]39745, Partial fill upon patientrequest if the prescription is for a schedule II op... Start Date: 10/11/20 Status: Ordered gabapentin 300 mg oral capsule 300 mg, 1, capsule, By Mouth, Daily at bedtime, # 30 capsule, Refills 1, Tot. Refills 1, Maintenance, 02/14/21 14:12:00 EDT, Route to Pharmacy Electronically, [facility] #64435, Partial fillupon patient request if the prescription is for a s... Start Date: 02/14/21 Status: Ordered lisinopril 30 mg oral tablet 1 tablet = 30 mg, By Mouth, Daily, please disregard 40 mg rx, # 90 tablet, 3 Refills, Maintenance, 11/01/20 17:16:00 EST, Tablet, [facility]57856, Partial fill upon patient request if the prescription is for a schedule II opioid drug., 160,... Start Date: 11/01/20 Status: Ordered Lyrica 225 mg oral capsule 1 capsule = 225 mg, By Mouth, 2 times a day, # 60 capsule, 3 Refills, Maintenance, 04/14/20 19:50:00 EDT, Capsule, [facility] #71444, 160, cm, 12/29/19 13:52:00 EST, Height, 125, kg, 04/02/19 21:10:00 EDT, Dry Weight Start Date: 04/14/20 Stop Date: 08/12/20 Status: Ordered metFORMIN 500 mg oral tablet, [...] By Mouth, Every 6 hours, PRN, # 70 each, Refills 0, Tot. Refills 0, Maintenance, Pain , Severe, 02/15/21 16:56:00 EDT, Route to Pharmacy Electronically, [facility] #44683, Partial fill upon patient request; ICD 10:M54.16, 160... Start Date: 02/15/21 Status: Ordered pantoprazole 40 mg oral delayed [...] Gm, 3 Refills, Maintenance, 06/07/20 12:09:00 EDT, [facility] #94437, 50, INHALE 2 PUFFS BY MOUTH EVERY [...] each, 3 Refills, Maintenance, 11/30/20 12:36:00 EST, [facility] #21904, Partial fill upon patient request if the prescription is for a schedule II opioid drug., 160, cm, 11/23/20 9:01:00 EST,... Start Date: 11/30/20 Status: Ordered Vitamin C 500 mg oral tablet 1 tablet = 500 mg, By Mouth, 2 times a day, 0 Refills, Maintenance, 04/03/19 16:09:30 EDT Start Date: 04/03/19 Status: Ordered Vitamin D 31538 iu oral capsule 100,000 International_Units, 2, capsule, By Mouth, Every 7 days, # 26 capsule, Refills 3, Tot. Refills 3, Maintenance, 06/15/20 18:02:00 EDT, Route to Pharmacy Electronically, [facility] #40318, 160, cm, 12/29/19 13:52:00 EST, Height, 125, [...]
--- OUTSIDE RECORDS SUMMARY | 2023-04-06 19:07 | XMS_ITS | Continuity of Care Document ---
Author Name Unknown Organization [facility] Address [address] [place] [address]- Care Team Providers Care Baby Stroller Rental Clerk Name Role Phone Kelsey CHINO, Hari Miller Primary Care Physician [place] [facility] [place] 10/02/19 - 10/12/19 [facility] [address] [place] [address] [facility] Attending Physician: AdmMilagros cobos Admitting Physician: Admtr, Ar8 Referring Physician: Admtr, [...] 0 Refills, Maintenance, 10/09/19 19:58:00 EST, Patch, [facility] #80251, 160, cm, 10/09/19 15:18:49 EST, Height, 125, [...] 07/29/19 13:44:54 EDT, [id number] #16743 Start Date: 07/29/19 Status: Ordered Lyrica 200 [...] 06/02/19 12:21:27 EDT, Route to Pharmacy Electronically, [facility][id number], [facility] #40222 Start Date: 06/02/19 Stop Date: 06/02/20 Status: Ordered oxyCODONE 5 mg oral tablet 5 mg, By Mouth, Every 6 hours, PRN, # 90 tablet, Refills 0, Tot. Refills 0, Maintenance, Pain , Severe, 10/09/19 19:58:00 EST, Route to Pharmacy Electronically, [facility] #59928, 160, cm, 10/09/19 15:18:49 EST, Height, 125, [...] Start Date: 04/03/19 Status: Ordered Vitamin D 83126 iu oral capsule 100,000 International_Units, 2, capsule, By Mouth, Every 7 days, # 26 capsule, Refills 3, Tot. 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
--- OUTSIDE RECORDS SUMMARY | 2023-04-06 19:07 | XMS_ITS | Continuity of Care Document ---
Author Name Unknown Organization [facility] Address [address] [place] [id number]- Care Team Providers Care Test Kitchen Home Economist Name Role Phone Hari Cole MD Primary Care Physician [phone] [place] [facility] [place]09/19 - 10/09/[address] [address]- [facility] Attending Physician: Hari Cole MD Allergies, Adverse Reactions, [...] 0 Refills, Maintenance, 10/09/19 19:58:00 EST, [facility], [facility], 160, cm, 10/09/19 15:18:49 EST, Height, 125, [...] 13:44:54 EDT, Route to Pharmacy Electronically, [id number], [facility] Start Date: 07/29/19 Status: Ordered Lyrica 200 [...] 12:21:27 EDT, Route to Pharmacy Electronically, [facility][id number], [facility] #[id number] Start Date: 06/02/19 Stop Date: 06/02/20 Status: Ordered oxyCODONE 5 mg oral tablet 5 mg, By Mouth, Every 6 hours, PRN, # 90 tablet, Refills 0, Tot. Refills 0, Maintenance, Pain , Severe, 10/09/19 19:58:00 EST, Route to Pharmacy Electronically, [facility] #33335, 160, cm, 10/09/19 15:18:49 EST, Height, 125, [...] Start Date: 04/03/19 Status: Ordered Vitamin D 60179 iu oral capsule 100,000 International_Units, 2, capsule, By Mouth, Every 7 days, # 26 capsule, Refills 3, Tot. Refills 3, Maintenance, 06/02/19 12:20:36 EDT, Route to Pharmacy Electronically, [id number], [facility] #98647 Start Date: 06/02/19 Status: Ordered Problem List [...]
--- OUTSIDE RECORDS SUMMARY | 2023-04-06 19:07 | XMS_ITS | Continuity of Care Document ---
Author Name Unknown Organization [facility] Address [address] [place], [place] [address], [address] [place] [address]- Care Team Providers Care Retail Field Supervisor Name Role Phone Kelsey CHINO, Hari Miller Primary Care Physician [place] [facility] [place] - 11/11/[address], [address] [place] [address]- Allergies, Adverse Reactions, Alerts Substance Reaction Severity [...] 3 Refills, Maintenance, 06/28/20 9:08:00 EDT, Inhaler, [facility] #33347, 2 puffs Inhalation Every 4hours,x30 days,PRN:Wheezing/Shortness of Breath, 16... Start Date: 06/28/20 Stop Date: 10/26/20 Status: Ordered albuterol-ipratropium 3 mg-0.5 mg/3 ml inhalation solution 3 mL, Neb, 4 times a day, # 360 mL, 5 Refills, Maintenance, 11/09/19 11:29:00 EST, Inhalation Solution, [facility] #60147, 3 mL Neb 4 times a day, [...] 01/06/20 18:09:00 EDT, Route to Pharmacy Electronically, [facility] #22301, 160, cm, 12/29/19 13:52:00 EST, Height, 125, [...] Maintenance, 05/17/20 17:41:00 EDT, Tablet, [facility]649[facility], 160, cm, 12/29/19 13:52:00 EST, Height, 125, [...] 1 Refills, Maintenance, 11/08/20 15:21:00 EST, Tablet, [facility] #61722, 160, cm, 10/27/20 15:45:00 EST, Height, 125, kg, 04/02/19 21:10:00 EDT, Dry Weight Start Date: 11/08/20 Stop Date: 05/07/21 Status: Ordered ferrous sulfate 325 mg oral enteric coated tablet 325 mg, 1, tablet, By Mouth, Daily, # 90 tablet, Refills 3, Tot. Refills 3, Maintenance, 10/11/20 19:43:00 EST, Route to Pharmacy Electronically, [facility] #06635, Partial fill upon patientrequest if the prescription [...] 3 Refills, Maintenance, 11/01/20 17:16:00 EST, Tablet, [facility] #95047, Partial fill upon patient request if the prescription is for a schedule II opioid drug., 160,... Start Date: 11/01/20 Status: Ordered Lyrica 225 mg oral capsule 1 capsule = 225 mg, By Mouth, 2 times a day, # 60 capsule, 3 Refills, Maintenance, 04/14/20 19:50:00 EDT, Capsule, [facility] #44149, 160, cm, 12/29/19 13:52:00 EST, Height, 125, [...] Maintenance, 12/29/19 14:36:00 EST, Patch, [facility] #68893, 1 patch Topically Daily, 160, cm, 12/29/19 [...] 10/18/20 19:26:00 EST, Route to Pharmacy Electronically, [facility] #56502, Partial fill upon patient request; ICD 10:M54.16,... [...] Gm, 3 Refills, Maintenance, 06/07/20 12:09:00 EDT, [facility] #68639, 50, INHALE 2 PUFFS BY MOUTH EVERY [...] each, 3 Refills, Maintenance, 09/30/20 13:00:00 EST, [facility] #96358, new dose, 160, cm, 07/07/20 13:30:00 EDT, Height, 125,kg, 04/02/19 21:10:00 EDT, Dry Weight Start Date: 09/30/20 Status: Ordered Vitamin C 500 mg oral tablet 1 tablet = 500 mg, By Mouth, 2 times a day, 0 Refills, Maintenance, 04/03/19 16:09:30 EDT Start Date: 04/03/19 Status: Ordered Vitamin D 76425 iu oral capsule 100,000 International_Units, 2, capsule, By Mouth, Every 7 days, # 26 capsule, Refills 3, Tot. Refills 3, Maintenance, 06/15/20 18:02:00 EDT, Route to Pharmacy Electronically, [facility] #70845, 160, cm, 12/29/19 13:52:00 EST, Height, 125, [...]
--- OUTSIDE RECORDS SUMMARY | 2023-04-06 19:07 | XMS_ITS | Continuity of Care Document ---
Author Name Unknown Organization [facility] Address [address] [place], [place] [address], [address] [place] [address]- Care Team Providers Care Candles Pourer Name Role Phone Kelsey CHINO, Hari Miller Primary Care Physician [phone] [place] [facility] [place] [id number] Date(s): 10/12/20 - 12/07/20 [facility] [address] [place] [address] Drive, [address] [place] [address]- Attending Physician: Krissy CHINO, Khris Jansen Referring Physician: Hari Cole MD Allergies, Adverse Reactions, Alerts Substance Reaction Severity Status penicillin Active thiazide diuretics rash Active shellfish Active Latex Active Rice 1 Persistent Severe Active Egg Allergy Active Thorazine Active Adhesive Bandage Active Other Food Allergy 2, 3 Anaphylaxis due to ingested food Black pepper Persistent Severe Active 1 Cannot swallow well. 2Black pepper allergy 3Anaphylaxis Immunizations Given and Recorded Vaccine Date Status [...] 3 Refills, Maintenance, 06/28/20 9:08:00 EDT, Inhaler, [facility] #97770, 2 puffs Inhalation Every 4hours,x30 days,PRN:Wheezing/Shortness of Breath, 16... Start Date: 06/28/20 Stop Date: 10/26/20 Status: Ordered albuterol-ipratropium 3 mg-0.5 mg/3 ml inhalation solution 3 mL, Neb, 4 times a day, # 360 mL, 5 Refills, Maintenance, 11/09/19 11:29:00 EST, Inhalation Solution, [facility] #05191, 3 mL Neb 4 times a day, [...] 01/06/20 18:09:00 EDT, Route to Pharmacy Electronically, [facility]80006, 160, cm, 12/29/19 13:52:00 EST, Height, 125, [...] 3 Refills, Maintenance, 05/17/20 17:41:00 EDT, Tablet, [facility]18100, 160, cm, 12/29/19 13:52:00 EST, Height, 125, [...] 1 Refills, Maintenance, 11/08/20 15:21:00 EST, Tablet, [facility] #98935, 160, cm, 10/27/20 15:45:00 EST, Height, 125, kg, 04/02/19 21:10:00 EDT, Dry Weight Start Date: 11/08/20 Stop Date: 05/07/21 Status: Ordered ferrous sulfate 325 mg oral enteric coated tablet 325 mg, 1, tablet, By Mouth, Daily, # 90 tablet, Refills 3, Tot. Refills 3, Maintenance, 10/11/20 19:43:00 EST, Route to Pharmacy Electronically, [facility] #62861, Partial fill upon patientrequest if the prescription is for a schedule II op... Start Date: 10/11/20 Status: Ordered Golytely - oral powder for reconstitution 240 mL, By Mouth, Every 10 minutes, # 4,000 mL, 0 Refills, Maintenance, 11/25/20 10:07:00 EST, REC Powder, [facility] #49038, Partial fill upon patient request if the [...] 3 Refills, Maintenance, 11/01/20 17:16:00 EST, Tablet, [facility] #94759, Partial fill upon patient request if the prescription is for a schedule II opioid drug., 160,... Start Date: 11/01/20 Status: Ordered Lyrica 225 mg oral capsule 1 capsule = 225 mg, By Mouth, 2 times a day, # 60 capsule, 3 Refills, Maintenance, 04/14/20 19:50:00 EDT, Capsule, [facility] #51174, 160, cm, 12/29/19 13:52:00 EST, Height, 125, [...] 12/29/19 14:36:00 EST, Patch, [facility]12826, 1 patch Topically Daily, 160, cm, 12/29/19 [...] 12/07/20 18:44:00 EST, Route to Pharmacy Electronically, [facility] #29692, Partial fill upon patient request; ICD 10:M54.16,... [...] Gm, 3 Refills, Maintenance, 06/07/20 12:09:00 EDT, [facility] #50131, 50, INHALE 2 PUFFS BY MOUTH EVERY [...] each, 3 Refills, Maintenance, 11/30/20 12:36:00 EST, [facility] #45441, Partial fill upon patient request if the prescription is for a schedule II opioid drug., 160, cm, 11/23/20 9:01:00 EST,... Start Date: 11/30/20 Status: Ordered Vitamin C 500 mg oral tablet 1 tablet = 500 mg, By Mouth, 2 times a day, 0 Refills, Maintenance, 04/03/19 16:09:30 EDT Start Date: 04/03/19 Status: Ordered Vitamin D 29897 iu oral capsule 100,000 International_Units, 2, capsule, By Mouth, Every 7 days, # 26 capsule, Refills 3, Tot. Refills 3, Maintenance, 06/15/20 18:02:00 EDT, Route to Pharmacy Electronically, [facility] #97139, 160, cm, 12/29/19 13:52:00 EST, Height, 125, [...]
--- OUTSIDE RECORDS SUMMARY | 2023-04-06 19:07 | XMS_ITS | Continuity of Care Document ---
Author Name Unknown Organization [facility] Address [address] [place] [address]- Care Team Providers Care Carbon Coater Machine Operator Name Role Phone Hari Cole MD Primary Care Physician [place] [facility] [id number] Date(s): 10/04/20 - 11/23/20 [facility] [address] [place] [address] Attending Physician: Jeane Serrato DO Admitting Physician: Jeane Serrato DO Referring Physician: Hari Cole MD Allergies, Adverse Reactions, Alerts Substance Reaction Severity Status penicillin Active thiazide diuretics rash Active shellfish Active Latex Active Egg Allergy Active Thorazine Active Adhesive [...] 3 Refills, Maintenance, 06/28/20 9:08:00 EDT, Inhaler, [facility] #66794, 2 puffs Inhalation Every 4hours,x30 days,PRN:Wheezing/Shortness of Breath, 16... Start Date: 06/28/20 Stop Date: 10/26/20 Status: Ordered albuterol-ipratropium 3 mg-0.5 mg/3 ml inhalation solution 3 mL, Neb, 4 times a day, # 360 mL, 5 Refills, Maintenance, 11/09/19 11:29:00 EST, Inhalation Solution, [facility] #46709, 3 mL Neb 4 times a day, [...] 01/06/20 18:09:00 EDT, Route to Pharmacy Electronically, [facility][id number], 160, cm, 12/29/19 13:52:00 EST, Height, 125, [...] 3 Refills, Maintenance, 05/17/20 17:41:00 EDT, Tablet, [facility]81148, 160, cm, 12/29/19 13:52:00 EST, Height, 125, [...] 1 Refills, Maintenance, 11/08/20 15:21:00 EST, Tablet, [facility] #27135, 160, cm, 10/27/20 15:45:00 EST, Height, 125, kg, 04/02/19 21:10:00 EDT, Dry Weight Start Date: 11/08/20 Stop Date: 05/07/21 Status: Ordered ferrous sulfate 325 mg oral enteric coated tablet 325 mg, 1, tablet, By Mouth, Daily, # 90 tablet, Refills 3, Tot. Refills 3, Maintenance, 10/11/20 19:43:00 EST, Route to Pharmacy Electronically, [facility] #53981, Partial fill upon patientrequest if the prescription [...] 3 Refills, Maintenance, 11/01/20 17:16:00 EST, Tablet, [facility] #65650, Partial fill upon patient request if the prescription is for a schedule II opioid drug., 160,... Start Date: 11/01/20 Status: Ordered Lyrica 225 mg oral capsule 1 capsule = 225 mg, By Mouth, 2 times a day, # 60 capsule, 3 Refills, Maintenance, 04/14/20 19:50:00 EDT, Capsule, [facility] #21506, 160, cm, 12/29/19 13:52:00 EST, Height, 125, [...] Maintenance, 12/29/19 14:36:00 EST, Patch, [facility] #49352, 1 patch Topically Daily, 160, cm, 12/29/19 [...] Tot. Refills 0, Maintenance, Pain , Severe, 11/17/20 8:20:00 EST, Route to Pharmacy Electronically, [facility] #98701,Partial fill upon patient request; ICD 10:M54.16, 1... Start Date: 11/17/20 Status: Ordered pantoprazole 40 mg oral delayed [...] Gm, 3 Refills, Maintenance, 06/07/20 12:09:00 EDT, [facility] #58608, 50, INHALE 2 PUFFS BY MOUTH EVERY [...] each, 3 Refills, Maintenance, 09/30/20 13:00:00 EST, [facility] #88770, new dose, 160, cm, 07/07/20 13:30:00 EDT, Height, 125,kg, 04/02/19 21:10:00 EDT, Dry Weight Start Date: 09/30/20 Status: Ordered Vitamin C 500 mg oral tablet 1 tablet = 500 mg, By Mouth, 2 times a day, 0 Refills, Maintenance, 04/03/19 16:09:30 EDT Start Date: 04/03/19 Status: Ordered Vitamin D 33667 iu oral capsule 100,000 International_Units, 2, capsule, By Mouth, Every 7 days, # 26 capsule, Refills 3, Tot. Refills 3, Maintenance, 06/15/20 18:02:00 EDT, Route to Pharmacy Electronically, [facility] #58300, 160, cm, 12/29/19 13:52:00 EST, Height, 125, [...]
--- OUTSIDE RECORDS SUMMARY | 2023-04-06 19:07 | XMS_ITS | Continuity of Care Document ---
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 Role Phone Kelsey CHINO, Hari Miller Primary Care Physician Encounter [facility] Date(s): 12/27/22 - 01/26/23 [facility] [address] [address] Attending Physician: Milagros Boykin Admitting Physician: AdmtrMilagros [...] and Recorded Vaccine Date Status Refusal Reason [id number] bivalent booster vax 12/03/22 Given influenza virus [...] Refills, Maintenance, 03/09/21 16:20:00 EDT, Inhalation Solution, [facility] #[id number], 3 mL Neb 4 times a day, [...] 12/13/21 16:47:00 EST, Route to Pharmacy Electronically, [facility] #[id number], 165, cm, 11/14/21 11:24:00 EST, Height, 123.7, [...] 15:37:07 EDT Start Date: 04/03/19 Status: Ordered Cymbalta 30 mg oral enteric [...] 0 Refills, Maintenance, 11/14/22 0:11:00 EST, Gel, [facility] #39591, Partial fill upon patient request if the prescription is for a schedule II opioid drug., 165, cm, 11/13/22 20:06:00 EST,... Start Date: 11/14/22 Status: Ordered ezetimibe 10 mg oral tablet 1 tablet, By Mouth, Daily, # 90 tablet, 1 Refills, Maintenance, 10/08/22 15:33:00 EST, [facility] #[id number], 165, cm, 08/17/22 13:46:00 EDT, Height, 123.7, kg, 02/21/21 11:53:00 EDT, Dry Weight Start Date: 10/08/22 Status: Ordered gabapentin 600 mg oral tablet 1 tablet = 600 mg, By Mouth, 2 times a day, # 180 tablet, 3 Refills, Maintenance, 08/07/22 12:28:00EDT, [facility] #76389, Partial fill upon patient request if the prescription is for a schedule II opioid drug., rachel Yusuf, 04/27/22 13:43:00 ED... Start Date: 08/07/22 Status: Ordered lidocaine 5% topical film 1 patch, Topically, Daily, PRN Pain , Mild, remove after 12 hours, # 13 each, 0 Refills, Maintenance, 11/14/22 0:11:00 EST, Film, [facility] #53928, Partial fill upon patient request if the prescription is for a schedule II opioid drug., 1 pa... Start Date: 11/14/22 Status: Ordered lisinopril 20 mg oral tablet 20 mg, 1, tablet, By Mouth, Daily, new dose, # 90 tablet, Refills 3, Tot. Refills 3, Maintenance, 09/06/21 11:46:00 EST, Route to Pharmacy Electronically, [facility] #01027, Partial fill upon patient request if the prescription is for a sched... Start Date: 09/06/21 Status: Ordered Lyrica 225 mg oral capsule 1 capsule = 225 mg, By Mouth, 2 times a day, # 180 capsule, 1 Refills, Maintenance, 11/14/22 18:29:00 EST, [facility] #87210, Partial fill upon patient request if the prescription is for a schedule II opioid drug.Paramjit cm, 11/13/22 20:06:00... Start Date: 11/14/22 Status: Ordered magnesium oxide 400 mg oral tablet 1 tablet = 400 mg, By Mouth, Daily, # 90 tablet, 3 Refills, Maintenance, 07/23/22 17:16:00 EDT, Tablet, [facility] #86334, Partial fill upon patient request if the prescription is for a schedule II opioid drug.Paramjit cm, 04/27/22 13:43:00 EDT... Start Date: 07/23/22 Status: Ordered metFORMIN 500 mg oral tablet 2 tablet, By Mouth, 2 times a day, # 360 tablet, 1 Refills, Maintenance, 12/24/22 15:53:00 EST, [facility] #35711, 153, cm, 12/03/22 13:31:00 EST, Height, 101, kg, 11/17/22 17:04:00 EST, DryWeight Start Date: 12/24/22 Status: Ordered Narcan 4 mg/0.1 mL nasal spray See Instructions, PRN unresponsiveness, may repeat once until patient responds, # 2 each, 2 Refills, Maintenance, 10/31/22 16:28:00 EST, [place], [facility] #32421, Partial fill upon patient request if the prescription is for a schedule II opio... Start Date: 10/31/22 Status: Ordered Nitrostat 0.4 mg sublingual tablet 1 tablet = 0.4 mg, Sublingual, Every 5 minutes, PRN chest pain, up to 3 doses, # 25 tablet, 3 Refills, Maintenance, 10/31/22 16:28:00 EST, Tablet, [facility] #21998, Partial fill upon patient request if the [...] 0, Tot. Refills 0, Maintenance,Pain , Severe, 01/12/23 13:55:00 EDT, Route to Pharmacy Electronically, [facility] #99416,Partial fill upon patient request; ICD 10:M54.16, 1... Start Date: 01/12/23 Stop Date: 02/09/23 Status: Ordered pantoprazole 40 mg oral delayed [...] 10/18/22 17:49:00 EST, Route to Pharmacy Electronically, [facility] #00585, Partial fill upon patient request if the [...] Gm, 11 Refills, Maintenance, 02/02/22 8:33:00 EDT, [facility] #75040, 2 puffs Inhalation Every 4 hours,PRN: NEEDED, 165, cm, 11/14/21 11:24:00 EST, Height, 123.7, kg, 02/21/21 11:53:00... Start Date: 02/02/22 Status: Ordered RisperDAL 2 mg oral tablet 2 mg, 1, tablet, By Mouth, Daily at bedtime, Refills 0, Maintenance, 04/03/19 16:06:44 EDT Start Date: 04/03/19 Status: Ordered rosuvastatin 40 mg oral tablet 1 tablet, By Mouth, Daily, # 90 tablet, 1 Refills, Maintenance, 01/02/23 14:02:00 EST, [facility] #40743, 153, cm, 12/03/22 13:31:00 EST, Height, 101, kg, 11/17/22 17:04:00 EST, Dry Weight Start Date: 01/02/23 Status: Ordered Rybelsus 3 mg oral tablet See Instructions, TAKE 1 TABLET BY MOUTH DAILY TAKE AT LEAST 30 MINUTES BEFORE FIRST FOOD, BEVERAGE, OR OTHER BY MOUTH MEDS, # 30 tablet, 3 Refills, Maintenance, 12/19/22 18:22:00 EST, [facility] #76842, 153, cm, 12/03/22 13:31:00 EST, Height... Start Date: 12/19/22 Status: Ordered Symbicort 160mcg/4.5mcg Inhaler 2, puffs, Inhalation, 2 times a day, # 3 each, Refills 3, Tot. Refills 3, Maintenance, 04/13/21 17:59:00 EDT, Inhaler, [id number] #04409, 165, cm, 03/28/21 14:57:00 EDT, Height, 123.7, kg, 0... Start Date: 04/13/21 Status: Ordered Vitamin B-12 500 mcg oral tablet 1 tablet = 500 mcg, By Mouth, Daily, new dose, # 90 tablet, 3 Refills, Maintenance, 09/17/22 19:15:00 EST, Tablet, [facility] #99606, Partial fill upon patient request if the prescription isfor a schedule II opioid drug., 165, cm, 08/17/22 1... Start Date: 09/17/22 Status: Ordered Vitamin C 500 mg oral tablet 1 tablet = 500 mg, By Mouth, 2 times a day, 0 Refills, Maintenance, 04/03/19 16:09:30 EDT Start Date: 04/03/19 Status: Ordered Vitamin D 19712 iu oral capsule 100,000 International_Units, 2, capsule, By Mouth, Every 7 days, # 26 capsule, Refills 3, Tot. Refills 3, Maintenance, 06/15/20 18:02:00 EDT, Route to Pharmacy Electronically, [facility] #88993, 160, cm, 12/29/19 13:52:00 EST, Height, 125, [...] Personnel Name: Kelsey CHINO, Hari Miller Position: [facility] Primary Care Physician Member Role: PCP Address: Address: [address] [place] [address], [place] [address]- Name: Larry Fields RN Position: [facility] RN Supv Member Role: Primary Care Nurse Name: Monique Thomson RN Position: [facility] RN Supv Member Role: Primary Care Nurse Name: Carrie Rand Position: [facility] Outreach Member Role: Lifetime Consulting Physician Name: Chante Graff RN Position: [facility] SN RN Member Role: Primary Care Nurse Name: Sarath Oquendo RN Position: [facility] RN Member Role: Primary Care Nurse Care Team Related Persons Name: LARA AMARA Address: home [address] Name: ALBERTO BERMUDEZ Address: home [address] [facility] [address] [facility] [address] [place], [place] Name: CORRINE STOUT"
--- OUTSIDE RECORDS SUMMARY | 2023-04-06 19:07 | XMS_ITS | Continuity of Care Document ---
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 Name Role Phone Kelsey CHINO, Hari Miller Primary Care Physician [phone] [place] [facility] [place]): [place] [facility] [address] [facility] [address] [place] [address] Attending Physician: AdmtrMilagros Admitting Physician: Admtr, Ar8 Referring Physician: Admtr, [...] Refills, Maintenance, 03/09/21 16:20:00 EDT, Inhalation Solution, [facility] #56376, 3 mL Neb 4 times a day, [...] 12/13/21 16:47:00 EST, Route to Pharmacy Electronically, [facility] #[id number], 165, cm, 11/14/21 11:24:00 EST, Height, 123.7, kg, 02/21/21 11:53:00 EDT, Dry... Start Date: 12/13/21 Status: Ordered Amitiza 8 mcg oral capsule 1 capsule = 8 mcg, By Mouth, 2 times a day, PRN Constipation, 0 Refills, Maintenance, 04/03/19 15:34:30 EDT, Capsule Start Date: 04/03/19 Status: Ordered Calcium Carbonate = 750 mg, By Mouth, Every 2 hours, PRN stomach upset, 0 Refills, Maintenance, 04/03/19 15:37:07 EDT Start Date: 04/03/19 Status: Ordered Crestor 40 mg oral tablet 1 tablet = 40 mg, By Mouth, Daily, # 90 tablet, 1 Refills, Maintenance, 01/02/22 16:29:00 EST, Tablet, [facility] #97241, 165, cm, 11/14/21 11:24:00 EST, Height, 123.7, kg, 02/21/21 11:53:00EDT, Dry Weight Start Date: 01/02/22 Stop Date: 07/01/22 Status: Ordered Cymbalta 30 mg oral enteric [...] tablet, By Mouth, Daily, # 90 tablet, 3 Refills, Maintenance, 05/07/21 16:11:00 EDT, [facility] #[id number], 165, cm, 03/28/21 14:57:00 EDT, Height, 123.7, kg, 02/21/21 11:53:00 EDT, Dry Weight Start Date: 05/07/21 Status: Ordered ferrous sulfate 325 mg oral enteric coated tablet 325 mg, 1, tablet, By Mouth, Daily, # 90 tablet, Refills 1, Tot. Refills 1, Maintenance, 07/10/21 11:47:00 EDT, Route to Pharmacy Electronically, [facility] #53515, Partial fill upon patientrequest if the prescription is for a schedule II op... Start Date: 07/10/21 Status: Ordered gabapentin 600 mg oral tablet 1 tablet = 600 mg, By Mouth, 2 times a day, # 180 tablet, 3 Refills, Maintenance, 08/02/21 11:42:00EDT, [facility] #76019, Partial fill upon patient request if the prescription is for a schedule II opioid drug., rachel Yusuf, 07/27/21 10:53:00 ED... Start Date: 08/02/21 Status: Ordered glipiZIDE 5 mg oral tablet, extended release 1 tablet = 5 mg, By Mouth, Daily, # 90 tablet, 3 Refills, Maintenance, 12/13/21 16:47:00 EST, ER Tablet, [facility] #45832, Partial fill upon patient request if the prescription is for a schedule II opioid drug., rachel Yusuf, 11/14/21 11:24:00 ES... Start Date: 12/13/21 Status: Ordered Jardiance 25 mg oral tablet 1 tablet = 25 mg, By Mouth, Daily in AM, # 90 tablet, 3 Refills, Maintenance, 09/02/21 11:09:00 EDT, [facility] #27614, Partial fill upon patient request if the prescription is for a schedule II opioid drug., rachel Yusuf, 07/27/21 10:53:00 EDT, H... Start Date: 09/02/21 Status: Ordered lift chair lift chair, See [...] 09/06/21 11:46:00 EST, Route to Pharmacy Electronically, [facility] #57227, Partial fill upon patient request if the prescription is for a sched... Start Date: 09/06/21 Status: Ordered magnesium oxide 400 mg oral tablet 1 tablet = 400 mg, By Mouth, Daily, # 90 tablet, 3 Refills, Maintenance, 04/13/21 17:59:00 EDT, Tablet, [facility] #55693, Partial fill upon patient request if the prescription is for a schedule II opioid drug., rachel Yusuf, 03/28/21 14:57:00 EDT... Start Date: 04/13/21 Stop Date: 05/13/21 Status: Ordered metFORMIN 500 mg oral tablet 2 tablet = 1,000 mg, By Mouth, 2 times a day, # 360 tablet, 3 Refills, Maintenance, 05/19/21 17:50:00 EDT, [facility] #10706, Partial fill upon patient request if the prescription is for a schedule II opioid drug., rachel Yusuf, 03/28/21 14:57:00... Start Date: 05/19/21 Status: Ordered Narcan 4 mg/0.1 mL nasal spray See Instructions, PRN unresponsiveness, twice, # 2 each, 2 Refills, Maintenance, 09/06/21 11:22:00 EST, [place], [facility] #97478, Partial fill upon patient request if the prescription is fora schedule II opioid drug., rachel Yusuf, 07/27/21 10:53... Start Date: 09/06/21 Status: Ordered Nitrostat 0.4 mg sublingual tablet 1 tablet = 0.4 mg, Sublingual, Every 5 minutes, PRN chest pain, up to 3 doses, # 25 tablet, 3 Refills, Maintenance, 09/06/21 11:22:00 EST, Tablet, [facility] #91224, Partial fill upon patient request if the prescription is for a schedule II o... Start Date: 09/06/21 Status: Ordered oxybutynin 10 mg/24 hr oral tablet, extended release 1 tablet = 10 mg, By Mouth, Daily at bedtime, # 30 tablet, 0 Refills, Maintenance, 04/03/19 15:54:55 EDT, ER Tablet Start Date: 04/03/19 Status: Ordered oxyCODONE 5 mg oral tablet 5 mg, 1, tablet, By Mouth, Every 6 hours, PRN, # 120 each, Refills 0, Tot. Refills 0, Maintenance, Pain , Severe, 12/20/21 19:27:00 EST, Route to Pharmacy Electronically, [facility] #24926, Partial fill upon patient request; ICD 10:M54.16, 16... Start Date: 12/20/21 Status: Ordered pantoprazole 40 mg oral delayed [...] Refills 3, Tot. Refills 3, Maintenance, 09/06/21 11:47:00 EST, Route to Pharmacy Electronically, [facility] #44453, Partial fill upon patient request if the prescription is for a schedule II opi... Start Date: 09/06/21 Status: Ordered polyethylene glycol 3350 oral powder [...] Gm, 3 Refills, Maintenance, 06/07/20 12:09:00 EDT, [facility] #52461, 50, INHALE 2 PUFFS BY MOUTH EVERY [...] or other oral meds, # 30 tablet, 1 Refills, Maintenance, 09/06/21 12:13:00 EST, Tablet, [facility] #16923, Partial fill upon patient request if the prescr... Start Date: 09/06/21 Status: Ordered Symbicort 160mcg/4.5mcg Inhaler 2, puffs, Inhalation, 2 times a day, # 3 each, Refills 3, Tot. Refills 3, Maintenance, 04/13/21 17:59:00 EDT, Inhaler, [id number] #[id number], 165, cm, 03/28/21 14:57:00 EDT, Height, 123.7, kg, 0... Start Date: 04/13/21 Status: Ordered Vitamin B-12 1000 mcg oral tablet 1,000 mcg, 1, tablet, By Mouth, Daily, # 90 tablet, Refills 3, Tot. Refills 3, Maintenance, 09/02/21 11:08:00 EDT, Route to Pharmacy Electronically, [facility] #76775, Partial fill upon patient request if the prescription is for a schedule II... Start Date: 09/02/21 Status: Ordered Vitamin C 500 mg oral tablet 1 tablet = 500 mg, By Mouth, 2 times a day, 0 Refills, Maintenance, 04/03/19 16:09:30 EDT Start Date: 04/03/19 Status: Ordered Vitamin D 50869 iu oral capsule 100,000 International_Units, 2, capsule, By Mouth, Every 7 days, # 26 capsule, Refills 3, Tot. Refills 3, Maintenance, 06/15/20 18:02:00 EDT, Route to Pharmacy Electronically, [facility] #[id number], 160, cm, 12/29/19 13:52:00 EST, Height, 125, kg... 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) Active Dissociative disorder(Confirmed) Active Dyspnea(Confirmed) Active Foot pain(Confirmed) Active Hypercholesterolemia(Confirmed) Active Hypertensive disorder(Confirmed) Active Cognitive impairment(Confirmed) Active Iron deficiency(Confirmed) Active Lacunar infarction(Confirmed) Active Lumbar radiculopathy(Confirmed) Active Microcytosis(Confirmed) Active Osteoporosis(Confirmed) Active Prolactinoma(Confirmed) Active Septic shock(Confirmed) Active Obesity due to excess calories(Confirmed) Active Spinal stenosis, lumbar(Confirmed) Active Steatosis of liver(Confirmed) Active Tobacco user(Confirmed) Active Tubular adenoma of colon(Confirmed) Active Type 2 diabetes mellitus(Confirmed) Active Social History Social History Type Response Smoking Status 10 or more cigarette s (1/2 pack or more)/day in last 30 days; Other: one pack daily 20 cigarettes daily; entered on: 07/07/20 Sex
--- OUTSIDE RECORDS SUMMARY | 2023-04-06 19:07 | XMS_ITS | Continuity of Care Document ---
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 Name Role Phone Kelsey CHINO, Hari Miller Primary Care Physician Encounter [facility] [place] Date(s): 02/15/20 - 02/22/20 [facility] [address] [place] [address] [facility] Attending Physician: Azul Delarosa MD Referring Physician: Hari Cole MD Allergies, [...] Refills, Maintenance, 11/09/19 11:29:00 EST, Inhalation Solution, [facility] #00157, 3 mL Neb 4 times a day, [...] 01/06/20 18:09:00 EDT, Route to Pharmacy Electronically, [facility] #[id number], 160, cm, 12/29/19 13:52:00 EST, Height, 125, [...] 3 Refills, Maintenance, 11/21/19 10:52:00 EST, Tablet, [facility] #15814, 160, cm, 11/05/19 9:49:00 EST, Height, 125, kg, 04/02/19 21:10:00 EDT, Dry Weight Start Date: 11/21/19 Status: Ordered fentaNYL 25 mcg/hr transdermal film, extended release 1 patch, Topically, Every 72 hours, # 10 patch, 0 Refills, Maintenance, 02/02/20 19:30:00 EDT, Patch, [facility] #54642, 160, cm, 12/29/19 13:52:00 EST, Height, 125, kg, 04/02/19 21:10:00 EDT, Dry Weight Start Date: 02/02/20 Stop Date: 03/03/20 Status: Ordered glipiZIDE 2.5 mg oral tablet, extended release 1 tablet = 2.5 mg, By Mouth, Daily, TK 1 T PO QD B DINNER, # 90 tablet, 3 Refills, Maintenance, 11/05/19 10:30:00 EST, ER Tablet, [facility] #31262, new dose, 160, cm, 11/05/19 9:49:00 EST, [...] 13:44:54 EDT, [id number] #59420 Start Date: 07/29/19 Status: Ordered Lyrica 225 mg oral capsule 1 capsule = 225 mg, By Mouth, 2 times a day, # 180 capsule, 3 Refills, Maintenance, 02/04/20 14:08:00 EDT, Capsule, [facility] #55044, 160, cm, 12/29/19 13:52:00 EST, Height, 125, kg, 04/02/19 21:10:00 EDT, Dry Weight Start Date: 02/04/20 Status: Ordered magnesium oxide 400 mg oral [...] 1 Refills, Maintenance, 12/29/19 14:36:00 EST, Patch, [facility]966[facility], 1 patch Topically Daily, 160, cm, 12/29/19 [...] Tot. Refills 0, Maintenance, Pain , Severe, 02/04/20 14:05:00 EDT, Route to Pharmacy Electronically, [facility] #33188, 160, cm, 12/29/19 13:52:00 EST, Height, 125, kg, 04/02/19 21:1... Start Date: 02/04/20 Status: Ordered pantoprazole 40 mg oral delayed [...] Start Date: 04/03/19 Status: Ordered Vitamin D 12808 iu oral capsule 100,000 International_Units, 2, capsule, By Mouth, Every 7 days, # 26 capsule, Refills 3, Tot. Refills 3, Maintenance, 06/02/19 12:20:36 EDT, Route to Pharmacy Electronically, [id number], [facility] #08297 Start Date: 06/02/19 Status: Ordered Problem List [...]
--- OUTSIDE RECORDS SUMMARY | 2023-04-06 19:07 | XMS_ITS | Continuity of Care Document ---
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 Name Role Phone Kelsey CHINO, Hari Miller Primary Care Physician Encounter [facility] [place] Date(s): 01/25/21 - 02/24/21 [facility] [address] [place] [address] Attending Physician: Admtr, Milagros Admitting Physician: [...] Refills, Maintenance, 11/09/19 11:29:00 EST, Inhalation Solution, [facility]12858, 3 mL Neb 4 times a day, [...] 12/28/20 16:47:00 EST, Route to Pharmacy Electronically, [facility] #71006, 160, cm, 11/23/20 9:01:00EST, Height, 125, kg, [...] 3 Refills, Maintenance, 05/17/20 17:41:00 EDT, Tablet, [facility] #39320, 160, cm, 12/29/19 13:52:00 EST, Height, 125, [...] 1 Refills, Maintenance, 11/08/20 15:21:00 EST, Tablet, [facility] #34625, 160, cm, 10/27/20 15:45:00 EST, Height, 125, kg, 04/02/19 21:10:00 EDT, Dry Weight Start Date: 11/08/20 Stop Date: 05/07/21 Status: Ordered ferrous sulfate 325 mg oral enteric coated tablet 325 mg, 1, tablet, By Mouth, Daily, # 90 tablet, Refills 3, Tot. Refills 3, Maintenance, 10/11/20 19:43:00 EST, Route to Pharmacy Electronically, [facility] #88048, Partial fill upon patientrequest if the prescription is for a schedule II op... Start Date: 10/11/20 Status: Ordered gabapentin 300 mg oral capsule 300 mg, 1, capsule, By Mouth, Daily at bedtime, # 30 capsule, Refills 1, Tot. Refills 1, Maintenance, 02/14/21 14:12:00 EDT, Route to Pharmacy Electronically, [facility] #24938, Partial fillupon patient request if the prescription is for a s... Start Date: 02/14/21 Status: Ordered lisinopril 30 mg oral tablet 1 tablet = 30 mg, By Mouth, Daily, please disregard 40 mg rx, # 90 tablet, 3 Refills, Maintenance, 11/01/20 17:16:00 EST, Tablet, [facility] #52647, Partial fill upon patient request if the prescription is for a schedule II opioid drug., 160,... Start Date: 11/01/20 Status: Ordered Lyrica 225 mg oral capsule 1 capsule = 225 mg, By Mouth, 2 times a day, # 60 capsule, 3 Refills, Maintenance, 04/14/20 19:50:00 EDT, Capsule, [facility] #51878, 160, cm, 12/29/19 13:52:00 EST, Height, 125, [...] 02/15/21 16:56:00 EDT, Route to Pharmacy Electronically, [facility] #27323, Partial fill upon patient request; ICD 10:M54.16, [...] Gm, 3 Refills, Maintenance, 06/07/20 12:09:00 EDT, [facility] #96158, 50, INHALE 2 PUFFS BY MOUTH EVERY [...] each, 3 Refills, Maintenance, 11/30/20 12:36:00 EST, [facility]94672, Partial fill upon patient request if the prescription is for a schedule II opioid drug., 160, cm, 11/23/20 9:01:00 EST,... Start Date: 11/30/20 Status: Ordered Vitamin C 500 mg oral tablet 1 tablet = 500 mg, By Mouth, 2 times a day, 0 Refills, Maintenance, 04/03/19 16:09:30 EDT Start Date: 04/03/19 Status: Ordered Vitamin D 12890 iu oral capsule 100,000 International_Units, 2, capsule, By Mouth, Every 7 days, # 26 capsule, Refills 3, Tot. Refills 3, Maintenance, 06/15/20 18:02:00 EDT, Route to Pharmacy Electronically, [facility] #73401, 160, cm, 12/29/19 13:52:00 EST, Height, 125, [...]
--- OUTSIDE RECORDS SUMMARY | 2023-04-06 19:07 | XMS_ITS | Continuity of Care Document ---
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 Role Phone Kelsey CHINO, Hari Miller Primary Care Physician [phone] Encounter [facility] Date(s): 11/14/22 - 12/26/22 [facility] [address], [address], [address] [place] [address]- Attending Physician: Teja Lawrence MD Admitting Physician: Teja Lawrence MD Referring Physician: Hari Cole MD Allergies, [...] and Recorded Vaccine Date Status Refusal Reason [id number] bivalent booster vax 12/03/22 Given influenza virus [...] Refills, Maintenance, 03/09/21 16:20:00 EDT, Inhalation Solution, [facility] #[id number], 3 mL Neb 4 times a day, [...] 12/13/21 16:47:00 EST, Route to Pharmacy Electronically, [facility] #[id number], 165, cm, 11/14/21 11:24:00 EST, Height, 123.7, [...] 1 Refills, Maintenance, 07/23/22 13:09:00 EDT, Tablet, [facility] #[id number], 165, cm, 04/27/22 13:43:00 EDT, Height, 123.7, [...] 0 Refills, Maintenance, 11/14/22 0:11:00 EST, Gel, [facility] #[id number], Partial fill upon patient request if the prescription is for a schedule II opioid drug., 165, cm, 11/13/22 20:06:00 EST,... Start Date: 11/14/22 Status: Ordered ezetimibe 10 mg oral tablet 1 tablet, By Mouth, Daily, # 90 tablet, 1 Refills, Maintenance, 10/08/22 15:33:00 EST, [facility] #09034, 165, cm, 08/17/22 13:46:00 EDT, Height, 123.7, kg, 02/21/21 11:53:00 EDT, Dry Weight Start Date: 10/08/22 Status: Ordered gabapentin 600 mg oral tablet 1 tablet = 600 mg, By Mouth, 2 times a day, # 180 tablet, 3 Refills, Maintenance, 08/07/22 12:28:00EDT, [facility] #[id number], Partial fill upon patient request if the prescription is for a schedule II opioid drug., 165, cm, 04/27/22 13:43:00 ED... Start Date: 08/07/22 Status: Ordered lidocaine 5% topical film 1 patch, Topically, Daily, PRN Pain , Mild, remove after 12 hours, # 13 each, 0 Refills, Maintenance, 11/14/22 0:11:00 EST, Film, [facility] #[id number], Partial fill upon patient request if the prescription is for a schedule II opioid drug., 1 pa... Start Date: 11/14/22 Status: Ordered lisinopril 20 mg oral tablet 20 mg, 1, tablet, By Mouth, Daily, new dose, # 90 tablet, Refills 3, Tot. Refills 3, Maintenance, 09/06/21 11:46:00 EST, Route to Pharmacy Electronically, [facility] #[id number], Partial fill upon patient request if the prescription is for a sched... Start Date: 09/06/21 Status: Ordered Lyrica 225 mg oral capsule 1 capsule = 225 mg, By Mouth, 2 times a day, # 180 capsule, 1 Refills, Maintenance, 11/14/22 18:29:00 EST, [facility] #[id number], Partial fill upon patient request if the prescription is for a schedule II opioid drug., 165 cm, 11/13/22 20:06:00... Start Date: 11/14/22 Status: Ordered magnesium oxide 400 mg oral tablet 1 tablet = 400 mg, By Mouth, Daily, # 90 tablet, 3 Refills, Maintenance, 07/23/22 17:16:00 EDT, Tablet, [facility] #[id number], Partial fill upon patient request if the prescription is for a schedule II opioid drug., 165, cm, 04/27/22 13:43:00 EDT... Start Date: 07/23/22 Status: Ordered metFORMIN 500 mg oral tablet 2 tablet, By Mouth, 2 times a day, # 360 tablet, 1 Refills, Maintenance, 12/24/22 15:53:00 EST, [facility] #51956, 153, cm, 12/03/22 13:31:00 EST, Height, 101, kg, 11/17/22 17:04:00 EST, DryWeight Start Date: 12/24/22 Status: Ordered Narcan 4 mg/0.1 mL nasal spray See Instructions, PRN unresponsiveness, may repeat once until patient responds, # 2 each, 2 Refills, Maintenance, 10/31/22 16:28:00 EST, [place], [facility] #[id number], Partial fill upon patient request if the prescription is for a schedule II opio... Start Date: 10/31/22 Status: Ordered Nitrostat 0.4 mg sublingual tablet 1 tablet = 0.4 mg, Sublingual, Every 5 minutes, PRN chest pain, up to 3 doses, # 25 tablet, 3 Refills, Maintenance, 10/31/22 16:28:00 EST, Tablet, [facility] #[id number], Partial fill upon patient request if the [...] 11/15/22 17:49:00 EST, Route to Pharmacy Electronically, [facility] #[id number],Partial fill upon patient request; ICD 10:M54.16, 1... [...] 10/18/22 17:49:00 EST, Route to Pharmacy Electronically, [facility] #[id number], Partial fill upon patient request if the [...] Gm, 11 Refills, Maintenance, 02/02/22 8:33:00 EDT, [facility] #[id number], 2 puffs Inhalation Every 4 hours,PRN: NEEDED, [...] tablet, 3 Refills, Maintenance, 12/19/22 18:22:00 EST, [facility] #23550, 153, cm, 12/03/22 13:31:00 EST, Height... Start Date: 12/19/22 Status: Ordered Symbicort 160mcg/4.5mcg Inhaler 2, puffs, Inhalation, 2 times a day, # 3 each, Refills 3, Tot. Refills 3, Maintenance, 04/13/21 17:59:00 EDT, Inhaler, [id number] #[id number], 165, cm, 03/28/21 14:57:00 EDT, Height, 123.7, kg, 0... Start Date: 04/13/21 Status: Ordered Vitamin B-12 500 mcg oral tablet 1 tablet = 500 mcg, By Mouth, Daily, new dose, # 90 tablet, 3 Refills, Maintenance, 09/17/22 19:15:00 EST, Tablet, [facility] #[id number], Partial fill upon patient request if the prescription isfor a schedule II opioid drug., 165, cm, 08/17/22 1... Start Date: 09/17/22 Status: Ordered Vitamin C 500 mg oral tablet 1 tablet = 500 mg, By Mouth, 2 times a day, 0 Refills, Maintenance, 04/03/19 16:09:30 EDT Start Date: 04/03/19 Status: Ordered Vitamin D 11724 iu oral capsule 100,000 International_Units, 2, capsule, By Mouth, Every 7 days, # 26 capsule, Refills 3, Tot. Refills 3, Maintenance, 06/15/20 18:02:00 EDT, Route to Pharmacy Electronically, [facility] #[id number], 160, cm, 12/29/19 13:52:00 EST, Height, 125, [...] Personnel Name: Kelsey CHINO, Hari Miller Position: [facility] Primary Care Physician Member Role: PCP Address: Address: [address] [place] [address] - Name: Larry Fields RN Position: [facility] RN Supv Member Role: Primary Care Nurse Name: Monique Thomson RN Position: [facility] RN Supv Member Role: Primary Care Nurse Name: Carrie Rand Position: [facility] Outreach Member Role: Lifetime Consulting Physician Name: Prerna RNChante Position: [facility] SN RN Member Role: Primary Care Nurse Name: Sarath Oquendo RN Position: [facility] RN Member Role: Primary Care Nurse Care Team Related Persons Name: AMARA BERMUDEZ Address: home [address] Name: ALBERTO BERMUDEZ Address: home [address] [facility] [address] [facility] [address] [place], [place] Name: CORRINE STOUT
--- OUTSIDE RECORDS SUMMARY | 2023-04-06 19:07 | XMS_ITS | Continuity of Care Document ---
Author Name Unknown Organization [facility] Address [address] [place] [address]- Care Team Providers Care Clinical Quality Analyst Name Role Phone Hari Cole MD Primary Care Physician Encounter [facility] Date(s): 09/09/19 - 10/15/[address] [address] Attending Physician: Hari Cole MD Admitting Physician: Hari Cole MD Referring Physician: Hari Cole MD Allergies, [...] 0 Refills, Maintenance, 10/09/19 19:58:00 EST, Patch, [facility] #[id number], 160, cm, 10/09/19 15:18:49 EST, Height, 125, [...] 07/29/19 13:44:54 EDT, Route to Pharmacy Electronically, [id number], [facility] #[id number] Start Date: 07/29/19 Status: Ordered Lyrica 200 [...] 06/02/19 12:21:27 EDT, Route to Pharmacy Electronically, [id number], [facility] #[id number] Start Date: 06/02/19 Stop Date: 06/02/20 Status: Ordered oxyCODONE 5 mg oral tablet 5 mg, By Mouth, Every 6 hours, PRN, # 90 tablet, Refills 0, Tot. Refills 0, Maintenance, Pain , Severe, 10/09/19 19:58:00 EST, Route to Pharmacy Electronically, [facility] #[id number], 160, cm, 10/09/19 15:18:49 EST, Height, 125, [...] Start Date: 04/03/19 Status: Ordered Vitamin D 89220 iu oral capsule 100,000 International_Units, 2, capsule, By Mouth, Every 7 days, # 26 capsule, Refills 3, Tot. Refills 3, Maintenance, 06/02/19 12:20:36 EDT, [id number] #[id number] Start Date: 06/02/19 Status: Ordered Problem List [...]
--- OUTSIDE RECORDS SUMMARY | 2023-04-06 19:07 | XMS_ITS | Continuity of Care Document ---
Author Name Unknown Organization [facility] Address [address] [place] [address] [address], [address] [place] [address]- Care Team Providers Care Oncology Specialist Name Role Phone Kelsey CHINO, Hari Miller Primary Care Physician Encounter [facility] [id number] Date(s): 11/07/20 - 12/07/20 [facility] [address] [place] [address] Drive, [address] [place] [address]- Attending Physician: AdmMilagros cobos Admitting Physician: Admtr, [...] 3 Refills, Maintenance, 06/28/20 9:08:00 EDT, Inhaler, [facility] #[id number], 2 puffs Inhalation Every 4hours,x30 days,PRN:Wheezing/Shortness of Breath, 16... Start Date: 06/28/20 Stop Date: 10/26/20 Status: Ordered albuterol-ipratropium 3 mg-0.5 mg/3 ml inhalation solution 3 mL, Neb, 4 times a day, # 360 mL, 5 Refills, Maintenance, 11/09/19 11:29:00 EST, Inhalation Solution, [facility] #[id number], 3 mL Neb 4 times a day, [...] 01/06/20 18:09:00 EDT, [id number], 160, cm, 12/29/19 13:52:00 EST, Height, 125, [...] 3 Refills, Maintenance, 05/17/20 17:41:00 EDT, [id number], 160, cm, 12/29/19 13:52:00 EST, Height, 125, [...] 1 Refills, Maintenance, 11/08/20 15:21:00 EST, Tablet, [facility][id number], 160, cm, 10/27/20 15:45:00 EST, Height, 125, kg, 04/02/19 21:10:00 EDT, Dry Weight Start Date: 11/08/20 Stop Date: 05/07/21 Status: Ordered ferrous sulfate 325 mg oral enteric coated tablet 325 mg, 1, tablet, By Mouth, Daily, # 90 tablet, Refills 3, Tot. Refills 3, Maintenance, 10/11/20 19:43:00 EST, [facility] Pharmacy Electronically, [facility][id number], Partial fill upon patientrequest if the prescription is for a schedule II op... Start Date: 10/11/20 Status: Ordered Golytely - oral powder for reconstitution 240 mL, By Mouth, Every 10 minutes, # 4,000 mL, 0 Refills, Maintenance, 11/25/20 10:07:00 EST, REC Powder, [facility][id number], Partial fill upon patient request if the [...] 3 Refills, Maintenance, 11/01/20 17:16:00 EST, Tablet, [facility] #01566, Partial fill upon patient request if the prescription is for a schedule II opioid drug., 160,... Start Date: 11/01/20 Status: Ordered Lyrica 225 mg oral capsule 1 capsule = 225 mg, By Mouth, 2 times a day, # 60 capsule, 3 Refills, Maintenance, 04/14/20 19:50:00 EDT, Capsule, [facility] #05530, 160, cm, 12/29/19 13:52:00 EST, Height, 125, [...] 1 Refills, Maintenance, 12/29/19 14:36:00 EST, Patch, [facility] #83427, 1 patch Topically Daily, 160, cm, 12/29/19 [...] 12/07/20 18:44:00 EST, Route to Pharmacy Electronically, [facility] #[id number], Partial fill upon patient request; ICD 10:M54.16,... [...] Gm, 3 Refills, Maintenance, 06/07/20 12:09:00 EDT, [facility]39014, 50, INHALE 2 PUFFS BY MOUTH EVERY [...] each, 3 Refills, Maintenance, 11/30/20 12:36:00 EST, [facility] #[id number], Partial fill upon patient request if the prescription is for a schedule II opioid drug., 160, cm, 11/23/20 9:01:00 EST,... Start Date: 11/30/20 Status: Ordered Vitamin C 500 mg oral tablet 1 tablet = 500 mg, By Mouth, 2 times a day, 0 Refills, Maintenance, 04/03/19 16:09:30 EDT Start Date: 04/03/19 Status: Ordered Vitamin D 43329 iu oral capsule 100,000 International_Units, 2, capsule, By Mouth, Every 7 days, # 26 capsule, Refills 3, Tot. Refills 3, Maintenance, 06/15/20 18:02:00 EDT, Route to Pharmacy Electronically, [facility] #[id number], 160, cm, 12/29/19 13:52:00 EST, Height, 125, [...]
--- OUTSIDE RECORDS SUMMARY | 2023-04-06 19:07 | XMS_ITS | Continuity of Care Document ---
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 Start Date: 06/28/20 Stop Date: 10/26/20 Status: Ordered albuterol-ipratropium 3 mg-0.5 mg/3 ml inhalation solution 3 mL, Neb, 4 times a day, # 360 mL, 5 Refills, Maintenance, 11/09/19 11:29:00 EST, Inhalation Solution, [facility] #[id number], 3 mL Neb 4 times a day, [...] 01/06/20 18:09:00 EDT, [facility], [facility][id number], 160, cm, 12/29/19 13:52:00 EST, Height, 125, [...] 3 Refills, Maintenance, 05/17/20 17:41:00 EDT, Tablet, [id number], 160, cm, 12/29/19 13:52:00 EST, Height, 125, [...] 1 Refills, Maintenance, 11/08/20 15:21:00 EST, Tablet, [facility] #[id number], 160, cm, 10/27/20 15:45:00 EST, Height, 125, kg, 04/02/19 21:10:00 EDT, Dry Weight Start Date: 11/08/20 Stop Date: 05/07/21 Status: Ordered ferrous sulfate 325 mg oral enteric coated tablet 325 mg, 1, tablet, By Mouth, Daily, # 90 tablet, Refills 3, Tot. Refills 3, Maintenance, 10/11/20 19:43:00 EST, Route to Pharmacy Electronically, [facility] #[id number], Partial fill upon patientrequest if the prescription is for a schedule II op... Start Date: 10/11/20 Status: Ordered Golytely - oral powder for reconstitution 240 mL, By Mouth, Every 10 minutes, # 4,000 mL, 0 Refills, Maintenance, 11/25/20 10:07:00 EST, REC Powder, [facility] #[id number], Partial fill upon patient request if the prescription is for a schedule II opioid drug., 240 mL By Mouth Every 10 mi... Start Date: 11/25/20 Status: Ordered Imodium A-D 2 mg oral tablet 2 mg, 1, tablet, By Mouth, Every 4 hours, PRN, Refills 0, Maintenance, Diarrhea, 04/03/19 15:42:27 EDT Start Date: 04/03/19 Status: Ordered Lift Chair See Instructions, # 1 each, Maintenance, use ad mabel, 12/12/20 12:11:00 EST, [facility] Start Date: 12/12/20 Status: Ordered lisinopril 30 mg oral tablet 1 tablet = 30 mg, By Mouth, Daily, please disregard 40 mg rx, # 90 tablet, 3 Refills, Maintenance, 11/01/20 17:16:00 EST, Tablet, [facility] #58018, Partial fill upon patient request if the prescription is for a schedule II opioid drug., 160,... Start Date: 11/01/20 Status: Ordered Lyrica 225 mg oral capsule 1 capsule = 225 mg, By Mouth, 2 times a day, # 60 capsule, 3 Refills, Maintenance, 04/14/20 19:50:00 EDT, Capsule, [facility] #40521, 160, cm, 12/29/19 13:52:00 EST, Height, 125, [...] 1 Refills, Maintenance, 12/29/19 14:36:00 EST, Patch, [facility] #61175, 1 patch Topically Daily, 160, cm, 12/29/19 [...] 0, Tot. Refills 0, Maintenance,Pain , Severe, 12/12/20 12:01:00 EST, [id number] fill upon patient request; ICD 10:M54.16, 1... Start Date: 12/12/20 Status: Ordered pantoprazole 40 mg oral delayed [...] Gm, 3 Refills, Maintenance, 06/07/20 12:09:00 EDT, [facility] #13658, 50, INHALE 2 PUFFS BY MOUTH EVERY [...] each, 3 Refills, Maintenance, 11/30/20 12:36:00 EST, [facility] #[id number], Partial fill upon patient request if the prescription is for a schedule II opioid drug., 160, cm, 11/23/20 9:01:00 EST,... Start Date: 11/30/20 Status: Ordered Vitamin C 500 mg oral tablet 1 tablet = 500 mg, By Mouth, 2 times a day, 0 Refills, Maintenance, 04/03/19 16:09:30 EDT Start Date: 04/03/19 Status: Ordered Vitamin D 84836 iu oral capsule 100,000 International_Units, 2, capsule, By Mouth, Every 7 days, # 26 capsule, Refills 3, Tot. Refills 3, Maintenance, 06/15/20 18:02:00 EDT, Route to Pharmacy Electronically, [facility] #[id number], 160, cm, 12/29/19 13:52:00 EST, Height, 125, [...]
--- OUTSIDE RECORDS SUMMARY | 2023-04-06 19:07 | XMS_ITS | Continuity of Care Document ---
Author Name Unknown Organization [facility] Address [address] [place] [address]- Care Team Providers Care Physical Director Name Role Phone Kelsey CHINO, Hari Miller Primary Care Physician [place] [id number] Date(s): 08/02/21 - 10/06/21 [facility] [address] [place] [id number] Attending Physician: Giacomo Hernandez MD Admitting Physician: Giacomo Hernandez MD Allergies, Adverse Reactions, Alerts Substance Reaction Severity Status penicillin Active thiazide diuretics rash Active shellfish Active Thorazine Active Adhesive Bandage Active Latex Active Rice 1 Persistent Severe Active Egg Allergy Active Other Food Allergy 2, 3 Anaphylaxis [...] Refills, Maintenance, 03/09/21 16:20:00 EDT, [facility]ation [facility], [id number], 3 mL Neb 4 times a day, [...] tablet, Refills 1, Tot. Refills 1, Maintenance, 06/28/21 13:56:00 EDT, Route to Pharmacy Electronically, [facility][id number], 165, cm, 03/28/21 14:57:00 EDT, Height, 123.7, kg, 02/21/21 11:53:00 EDT, Dry... Start Date: 06/28/21 Stop Date: 12/25/21 Status: Ordered Amitiza 8 mcg oral capsule [...] Daily, # 90 tablet, 1 Refills, Maintenance, 06/22/21 8:58:00 EDT, Tablet, [facility][id number], 165, cm, 03/28/21 14:57:00 EDT, Height, 123.7, kg, 02/21/21 11:53:00 EDT, Dry Weight Start Date: 06/22/21 Stop Date: 12/19/21 Status: Ordered Cymbalta 30 mg oral enteric [...] tablet, 3 Refills, Maintenance, 05/07/21 16:11:00 EDT, [facility] #71307, 165, cm, 03/28/21 14:57:00 EDT, Height, 123.7, kg, 02/21/21 11:53:00 EDT, Dry Weight Start Date: 05/07/21 Status: Ordered ferrous sulfate 325 mg oral enteric coated tablet 325 mg, 1, tablet, By Mouth, Daily, # 90 tablet, Refills 1, Tot. Refills 1, Maintenance, 07/10/21 11:47:00 EDT, Route to Pharmacy Electronically, [facility]39755, Partial fill upon patientrequest if the prescription is for a schedule II op... Start Date: 07/10/21 Status: Ordered gabapentin 600 mg oral tablet 1 tablet = 600 mg, By Mouth, 2 times a day, # 180 tablet, 3 Refills, Maintenance, 08/02/21 11:42:00EDT, [facility] #[id number], Partial fill upon patient request if the prescription is for a schedule II opioid drug., rachel Yusuf, 07/27/21 10:53:00 ED... Start Date: 08/02/21 Status: Ordered glipiZIDE 5 mg oral tablet, extended release 1 tablet = 5 mg, By Mouth, Daily, # 30 tablet, 2 Refills, Maintenance, 09/20/21 12:11:00 EST, ER Tablet, [facility] #38827, Partial fill upon patient request if the prescription is for a schedule II opioid drug., rachel Yusuf, 07/27/21 10:53:00 ED... Start Date: 09/20/21 Status: Ordered Jardiance 25 mg oral tablet 1 tablet = 25 mg, By Mouth, Daily in AM, # 90 tablet, 3 Refills, Maintenance, 09/02/21 11:09:00 EDT, [facility] #22649, Partial fill upon patient request if the prescription is for a schedule II opioid drug., rachel Yusuf, 07/27/21 10:53:00 EDT, H... Start Date: 09/02/21 Status: Ordered lift chair lift chair, See Instructions, # 1 each, Refills 0, Tot. Refills 0, Maintenance, ?, 09/06/21 15:28:00 EST, Supply Start Date: 09/06/21 Status: Ordered lisinopril 20 mg oral tablet 20 mg, 1, tablet, By Mouth, Daily, new dose, # 90 tablet, Refills 3, Tot. Refills 3, Maintenance, 09/06/21 11:46:00 EST, Route to Pharmacy Electronically, [facility] #[id number], Partial fill upon patient request if the prescription is for a sched... Start Date: 09/06/21 Status: Ordered magnesium oxide 400 mg oral tablet 1 tablet = 400 mg, By Mouth, Daily, # 90 tablet, 3 Refills, Maintenance, 04/13/21 17:59:00 EDT, Tablet, [facility] #74624, Partial fill upon patient request if the prescription is for a schedule II opioid drug., rachel Yusuf, 03/28/21 14:57:00 EDT... Start Date: 04/13/21 Stop Date: 05/13/21 Status: Ordered metFORMIN 500 mg oral tablet 2 tablet = 1,000 mg, By Mouth, 2 times a day, # 360 tablet, 3 Refills, Maintenance, 05/19/21 17:50:00 EDT, [facility] #88673, Partial fill upon patient request if the prescription is for a schedule II opioid drug., rachel Yusuf, 03/28/21 14:57:00... Start Date: 05/19/21 Status: Ordered Narcan 4 mg/0.1 mL nasal spray See Instructions, PRN unresponsiveness, twice, # 2 each, 2 Refills, Maintenance, 09/06/21 11:22:00 EST, [place], [facility] #61587, Partial fill upon patient request if the prescription is fora schedule II opioid drug., rachel Yusuf, 07/27/21 10:53... Start Date: 09/06/21 Status: Ordered Nitrostat 0.4 mg sublingual tablet 1 tablet = 0.4 mg, Sublingual, Every 5 minutes, PRN chest pain, up to 3 doses, # 25 tablet, 3 Refills, Maintenance, 09/06/21 11:22:00 EST, Tablet, [facility]85370, Partial fill upon patient request if the [...] Tot. Refills 0, Maintenance, Pain , Severe, 09/20/21 11:55:00 EST, Route to Pharmacy Electronically, [facility] #[id number], Partial fill upon patient request; ICD 10:M54.16, 16... Start Date: 09/20/21 Status: Ordered pantoprazole 40 mg oral delayed release tablet 1 tablet = 40 mg, By Mouth, 2 times a day, # 180 tablet, 0 Refills, Maintenance, 09/05/21 16:04:00 EST, EC Tablet, 165, cm, 07/27/21 10:53:00 EDT, Height, 123.7, kg, 02/21/21 11:53:00 EDT, Dry Weight Start Date: 09/05/21 Status: Ordered Plavix 75 mg oral tablet 75 mg, 1, tablet, By Mouth, Daily, # 90 tablet, Refills 3, Tot. Refills 3, Maintenance, 09/06/21 11:47:00 EST, Route to Pharmacy Electronically, [facility] #[id number], Partial fill upon patient request if the [...] Gm, 3 Refills, Maintenance, 06/07/20 12:09:00 EDT, [facility] #77942, 50, INHALE 2 PUFFS BY MOUTH EVERY 4 HOURS NEEDED, 160, cm, 12/29/19 13:52:00 EST, Height, 125, kg, 04/02/19 21:10... Start Date: 06/07/20 Status: Ordered ProAir HFA 90 mcg/inh inhalation aerosol 2 puffs, Inhalation, Every 4 hours, PRN Wheezing/Shortness of Breath, # 3 each, 3 Refills, Maintenance, 05/08/21 18:09:00 EDT, Aerosol, [facility] #41427, Partial fill upon patient request if the prescription is for a schedule II opioid drug.... Start Date: 05/08/21 Status: Ordered RisperDAL 2 mg oral tablet 2 mg, 1, tablet, By Mouth, Daily at bedtime, Refills 0, Maintenance, 04/03/19 16:06:44 EDT Start Date: 04/03/19 Status: Ordered Rybelsus 3 mg oral tablet 1 tablet = 3 mg, By Mouth, Daily, take at least 30 minutes before first food, beverage, or other oral meds, # 30 tablet, 1 Refills, Maintenance, 09/06/21 12:13:00 EST, Tablet, [facility] #[id number], Partial fill upon patient request if the prescr... Start Date: 09/06/21 Status: Ordered Symbicort 160mcg/4.5mcg Inhaler 2, puffs, Inhalation, 2 times a day, # 3 each, Refills 3, Tot. Refills 3, Maintenance, 04/13/21 17:59:00 EDT, Inhaler, Route to Pharmacy Electronically, [id number], [facility] #[id number], 165, cm, 03/28/21 14:57:00 EDT, Height, 123.7, kg, 0... Start Date: 04/13/21 Status: Ordered Vitamin B-12 1000 mcg oral tablet 1,000 mcg, 1, tablet, By Mouth, Daily, # 90 tablet, Refills 3, Tot. Refills 3, Maintenance, 09/02/21 11:08:00 EDT, Route to Pharmacy Electronically, [facility] #[id number], Partial fill upon patient request if the prescription is for a schedule II... Start Date: 09/02/21 Status: Ordered Vitamin C 500 mg oral tablet 1 tablet = 500 mg, By Mouth, 2 times a day, 0 Refills, Maintenance, 04/03/19 16:09:30 EDT Start Date: 04/03/19 Status: Ordered Vitamin D 07390 iu oral capsule 100,000 International_Units, 2, capsule, By Mouth, Every 7 days, # 26 capsule, Refills 3, Tot. Refills 3, Maintenance, 06/15/20 18:02:00 EDT, Route to Pharmacy Electronically, [facility] #[id number], 160, cm, 12/29/19 13:52:00 EST, Height, 125, [...]
--- OUTSIDE RECORDS SUMMARY | 2023-04-06 19:07 | XMS_ITS | Continuity of Care Document ---
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 Start Date: 06/28/20 Stop Date: 10/26/20 Status: Ordered albuterol-ipratropium 3 mg-0.5 mg/3 ml inhalation solution 3 mL, Neb, 4 times a day, # 360 mL, 5 Refills, Maintenance, 11/09/19 11:29:00 EST, Inhalation Solution, [facility][id number], 3 mL Neb 4 times a day, [...] 01/06/20 18:09:00 EDT, [facility] Pharm[facility] Electronically, [facility][id number], 160, cm, 12/29/19 13:52:00 EST, Height, 125, [...] 3 Refills, Maintenance, 05/17/20 17:41:00 EDT, Tablet, [facility], 160, cm, 12/29/19 13:52:00 EST, Height, 125, [...] 1 Refills, Maintenance, 11/08/20 15:21:00 EST, Tablet, [facility]66812, 160, cm, 10/27/20 15:45:00 EST, Height, 125, kg, 04/02/19 21:10:00 EDT, Dry Weight Start Date: 11/08/20 Stop Date: 05/07/21 Status: Ordered ferrous sulfate 325 mg oral enteric coated tablet 325 mg, 1, tablet, By Mouth, Daily, # 90 tablet, Refills 3, Tot. Refills 3, Maintenance, 10/11/20 19:43:00 EST, Route to Pharmacy Electronically, [facility]72795, Partial fill upon patientrequest if the prescription is for a schedule II op... Start Date: 10/11/20 Status: Ordered Golytely - oral powder for reconstitution 240 mL, By Mouth, Every 10 minutes, # 4,000 mL, 0 Refills, Maintenance, 11/25/20 10:07:00 EST, REC Powder, [facility]34278, Partial fill upon patient request if the [...] 3 Refills, Maintenance, 11/01/20 17:16:00 EST, Tablet, [facility] #38757, Partial fill upon patient request if the prescription is for a schedule II opioid drug., 160,... Start Date: 11/01/20 Status: Ordered Lyrica 225 mg oral capsule 1 capsule = 225 mg, By Mouth, 2 times a day, # 60 capsule, 3 Refills, Maintenance, 04/14/20 19:50:00 EDT, Capsule, [facility]64995, 160, cm, 12/29/19 13:52:00 EST, Height, 125, [...] 1 Refills, Maintenance, 12/29/19 14:36:00 EST, Patch, [facility]667[facility], 1 patch Topically Daily, 160, cm, 12/29/19 [...] 12/07/20 18:44:00 EST, Route to Pharmacy Electronically, [facility] #[id number], Partial fill upon patient request; ICD 10:M54.16,... [...] Gm, 3 Refills, Maintenance, 06/07/20 12:09:00 EDT, [facility] #30125, 50, INHALE 2 PUFFS BY MOUTH EVERY [...] each, 3 Refills, Maintenance, 11/30/20 12:36:00 EST, [facility] #92997, Partial fill upon patient request if the prescription is for a schedule II opioid drug., 160, cm, 11/23/20 9:01:00 EST,... Start Date: 11/30/20 Status: Ordered Vitamin C 500 mg oral tablet 1 tablet = 500 mg, By Mouth, 2 times a day, 0 Refills, Maintenance, 04/03/19 16:09:30 EDT Start Date: 04/03/19 Status: Ordered Vitamin D 04652 iu oral capsule 100,000 International_Units, 2, capsule, By Mouth, Every 7 days, # 26 capsule, Refills 3, Tot. Refills 3, Maintenance, 06/15/20 18:02:00 EDT, Route to Pharmacy Electronically, [facility]73219, 160, cm, 12/29/19 13:52:00 EST, Height, 125, [...]
--- OUTSIDE RECORDS SUMMARY | 2023-04-06 19:07 | XMS_ITS | Continuity of Care Document ---
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 Role Phone Kelsey CHINO, Hari Miller Primary Care Physician [phone] [place] [facility] [place] 07/13/20 - 11/10/20 [facility] [address] [place] [address]- Attending Physician: Azul Delarosa MD Admitting Physician: Azul Delarosa MD Referring Physician: Hari Cole MD Allergies, Adverse Reactions, Alerts Substance Reaction Severity Status penicillin Active thiazide diuretics rash Active Latex Active Rice 1 Persistent Severe Active Egg Allergy Active shellfish Active Thorazine [...] 3 Refills, Maintenance, 06/28/20 9:08:00 EDT, Inhaler, [facility][id number], 2 puffs Inhalation Every 4hours,x30 days,PRN:Wheezing/Shortness of Breath, 16... Start Date: 06/28/20 Stop Date: 10/26/20 Status: Ordered albuterol-ipratropium 3 mg-0.5 mg/3 ml inhalation solution 3 mL, Neb, 4 times a day, # 360 mL, 5 Refills, Maintenance, 11/09/19 11:29:00 EST, Inhalation Solution, [facility] #25421, 3 mL Neb 4 times a day, [...] 01/06/20 18:09:00 EDT, [facility] to [facility] Electronically, [facility][id number], 160, cm, 12/29/19 13:52:00 EST, Height, 125, [...] 3 Refills, Maintenance, 05/17/20 17:41:00 EDT, Tablet, [facility]730[facility], 160, cm, 12/29/19 13:52:00 EST, Height, 125, [...] 1 Refills, Maintenance, 11/08/20 15:21:00 EST, Tablet, [facility]15805, 160, cm, 10/27/20 15:45:00 EST, Height, 125, kg, 04/02/19 21:10:00 EDT, Dry Weight Start Date: 11/08/20 Stop Date: 05/07/21 Status: Ordered ferrous sulfate 325 mg oral enteric coated tablet 325 mg, 1, tablet, By Mouth, Daily, # 90 tablet, Refills 3, Tot. Refills 3, Maintenance, 10/11/20 19:43:00 EST, Route to Pharmacy Electronically, [facility]47310, Partial fill upon patientrequest if the prescription [...] 3 Refills, Maintenance, 11/01/20 17:16:00 EST, Tablet, [facility] #39779, Partial fill upon patient request if the prescription is for a schedule II opioid drug., 160,... Start Date: 11/01/20 Status: Ordered Lyrica 225 mg oral capsule 1 capsule = 225 mg, By Mouth, 2 times a day, # 60 capsule, 3 Refills, Maintenance, 04/14/20 19:50:00 EDT, Capsule, [facility] #76646, 160, cm, 12/29/19 13:52:00 EST, Height, 125, [...] 1 Refills, Maintenance, 12/29/19 14:36:00 EST, Patch, [facility] #85013, 1 patch Topically Daily, 160, cm, 12/29/19 [...] 10/18/20 19:26:00 EST, Route to Pharmacy Electronically, [facility] #80122, Partial fill upon patient request; ICD 10:M54.16,... [...] Gm, 3 Refills, Maintenance, 06/07/20 12:09:00 EDT, [facility] #94746, 50, INHALE 2 PUFFS BY MOUTH EVERY [...] each, 3 Refills, Maintenance, 09/30/20 13:00:00 EST, [facility] #42574, new dose, 160, cm, 07/07/20 13:30:00 EDT, Height, 125,kg, 04/02/19 21:10:00 EDT, Dry Weight Start Date: 09/30/20 Status: Ordered Vitamin C 500 mg oral tablet 1 tablet = 500 mg, By Mouth, 2 times a day, 0 Refills, Maintenance, 04/03/19 16:09:30 EDT Start Date: 04/03/19 Status: Ordered Vitamin D 41373 iu oral capsule 100,000 International_Units, 2, capsule, By Mouth, Every 7 days, # 26 capsule, Refills 3, Tot. Refills 3, Maintenance, 06/15/20 18:02:00 EDT, Route to Pharmacy Electronically, [facility]64549, 160, cm, 12/29/19 13:52:00 EST, Height, 125, [...]
--- OUTSIDE RECORDS SUMMARY | 2023-04-06 19:08 | XMS_ITS | Continuity of Care Document ---
Author Name Unknown Organization [facility] Address [address] [place] [address]- Care Team Providers Care Safety Net Maker Name Role Phone Kelsey CHINO, Hari Miller Primary Care Physician En[place] [facility] [place] Date(s): 11/17/20 - 12/17/20 [facility] [address] [place], [place] [address] Attending Physician: Admtr, Milagros Admitting Physician: [...] 3 Refills, Maintenance, 06/28/20 9:08:00 EDT, Inhaler, [facility] #29016, 2 puffs Inhalation Every 4hours,x30 days,PRN:Wheezing/Shortness of Breath, 16... Start Date: 06/28/20 Stop Date: 10/26/20 Status: Ordered albuterol-ipratropium 3 mg-0.5 mg/3 ml inhalation solution 3 mL, Neb, 4 times a day, # 360 mL, 5 Refills, Maintenance, 11/09/19 11:29:00 EST, Inhalation Solution, [facility] #39652, 3 mL Neb 4 times a day, [...] 01/06/20 18:09:00 EDT, [facility] to Pharm[facility] Electronically, [facility]832[facility], 160, cm, 12/29/19 13:52:00 EST, Height, 125, [...] 3 Refills, Maintenance, 05/17/20 17:41:00 EDT, Tablet, [facility]33387, 160, cm, 12/29/19 13:52:00 EST, Height, 125, [...] 1 Refills, Maintenance, 11/08/20 15:21:00 EST, Tablet, [facility] #04985, 160, cm, 10/27/20 15:45:00 EST, Height, 125, kg, 04/02/19 21:10:00 EDT, Dry Weight Start Date: 11/08/20 Stop Date: 05/07/21 Status: Ordered ferrous sulfate 325 mg oral enteric coated tablet 325 mg, 1, tablet, By Mouth, Daily, # 90 tablet, Refills 3, Tot. Refills 3, Maintenance, 10/11/20 19:43:00 EST, Route to Pharmacy Electronically, [facility] #89214, Partial fill upon patientrequest if the prescription is for a schedule II op... Start Date: 10/11/20 Status: Ordered Golytely - oral powder for reconstitution 240 mL, By Mouth, Every 10 minutes, # 4,000 mL, 0 Refills, Maintenance, 11/25/20 10:07:00 EST, REC Powder, [facility] #47970, Partial fill upon patient request if the [...] 3 Refills, Maintenance, 11/01/20 17:16:00 EST, Tablet, [facility] #91975, Partial fill upon patient request if the prescription is for a schedule II opioid drug., 160,... Start Date: 11/01/20 Status: Ordered Lyrica 225 mg oral capsule 1 capsule = 225 mg, By Mouth, 2 times a day, # 60 capsule, 3 Refills, Maintenance, 04/14/20 19:50:00 EDT, Capsule, [facility] #47068, 160, cm, 12/29/19 13:52:00 EST, Height, 125, [...] 1 Refills, Maintenance, 12/29/19 14:36:00 EST, Patch, [facility]31032, 1 patch Topically Daily, 160, cm, 12/29/19 [...] 12/12/20 12:01:00 EST, Route to Pharmacy Electronically, [facility]34746,Partial fill upon patient request; ICD 10:M54.16, 1... [...] Gm, 3 Refills, Maintenance, 06/07/20 12:09:00 EDT, [facility] #94173, 50, INHALE 2 PUFFS BY MOUTH EVERY [...] each, 3 Refills, Maintenance, 11/30/20 12:36:00 EST, [facility] #79081, Partial fill upon patient request if the prescription is for a schedule II opioid drug., 160, cm, 11/23/20 9:01:00 EST,... Start Date: 11/30/20 Status: Ordered Vitamin C 500 mg oral tablet 1 tablet = 500 mg, By Mouth, 2 times a day, 0 Refills, Maintenance, 04/03/19 16:09:30 EDT Start Date: 04/03/19 Status: Ordered Vitamin D 64058 iu oral capsule 100,000 International_Units, 2, capsule, By Mouth, Every 7 days, # 26 capsule, Refills 3, Tot. Refills 3, Maintenance, 06/15/20 18:02:00 EDT, Route to Pharmacy Electronically, [facility] #[id number], 160, cm, 12/29/19 13:52:00 EST, Height, 125, [...]
--- OUTSIDE RECORDS SUMMARY | 2023-04-06 19:08 | XMS_ITS | Continuity of Care Document ---
Author Name Unknown Organization 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 Name Role Phone Hari Cole MD Primary Care Physician En[place] [facility] [place] Date(s): 11/11/19 - 12/30/[address] [address]- [facility] Attending Physician: Hari Cole MD Admitting Physician: [...] Refills, Maintenance, 11/09/19 11:29:00 EST, Inhalation Solution, [facility] #64975, 3 mL Neb 4 times a day, [...] 3 Refills, Maintenance, 11/21/19 10:52:00 EST, Tablet, [facility] #47569, 160, cm, 11/05/19 9:49:00 EST, Height, 125, kg, 04/02/19 21:10:00 EDT, Dry Weight Start Date: 11/21/19 Status: Ordered fentaNYL 25 mcg/hr transdermal film, extended release 1 patch, Topically, Every 72 hours, # 10 patch, 0 Refills, Maintenance, 12/04/19 8:09:00 EST, Patch, [facility] #81772, 160, cm, 11/05/19 9:49:00 EST, Height, 125, kg, 04/02/19 21:10:00 EDT,Dry Weight Start Date: 12/04/19 Stop Date: 01/03/20 Status: Ordered gabapentin 300 mg oral capsule 300 mg, 1, capsule, By Mouth, 3 times a day, # 90 capsule, Refills 2, Tot. Refills 2, Maintenance, 12/29/19 14:31:00 EST, Route to Pharmacy Electronically, [facility] #07801, 160, cm, 12/29/19 13:52:00 EST, Height, 125, kg, 04/02/19 21:10:00... Start Date: 12/29/19 Status: Ordered glipiZIDE 2.5 mg oral tablet, extended release 1 tablet = 2.5 mg, By Mouth, Daily, TK 1 T PO QD B DINNER, # 90 tablet, 3 Refills, Maintenance, 11/05/19 10:30:00 EST, ER Tablet, [facility] #33438, new dose, 160, cm, 11/05/19 9:49:00 EST, [...] EDT, Route to Pharmacy Electronically, [id number], [facility] #[id number] Start Date: 07/29/19 Status: Ordered Lyrica 200 mg oral capsule 1 capsule = 200 mg, By Mouth, 2 times a day, # 60 capsule, 2 Refills, Maintenance, 12/29/19 14:33:00 EST, Capsule, [facility] #47158, 160, cm, 12/29/19 13:52:00 EST, Height, 125, kg, 04/02/19 21:10:00 EDT, Dry Weight Start Date: 12/29/19 Status: Ordered magnesium oxide 400 mg oral [...] 1 Refills, Maintenance, 12/29/19 14:36:00 EST, Patch, [facility] #45521, 1 patch Topically Daily, 160, cm, 12/29/19 [...] EDT, Route to Pharmacy Electronically, [id number], [facility] #97654 Start Date: 06/02/19 Stop Date: 06/02/20 Status: Ordered oxyCODONE 5 mg oral tablet 5 mg, By Mouth, Every 6 hours, PRN, # 90 tablet, Refills 0, Tot. Refills 0, Maintenance, Pain , Severe, 12/29/19 13:53:00 EST, Route to Pharmacy Electronically, [facility] #17732, 160, cm, 11/05/19 9:49:00 EST, Height, 125, kg, 04/02/19 21:10... Start Date: 12/29/19 Stop Date: 01/28/20 Status: Ordered pantoprazole 40 mg oral delayed [...] Start Date: 04/03/19 Status: Ordered Vitamin D 73036 iu oral capsule 100,000 International_Units, 2, capsule, By Mouth, Every 7 days, # 26 capsule, Refills 3, Tot. Refills 3, Maintenance, 06/02/19 12:20:36 EDT, Route to Pharmacy Electronically, [id number], [facility] #62856 Start Date: 06/02/19 Status: Ordered Problem List [...]
--- OUTSIDE RECORDS SUMMARY | 2023-04-06 19:08 | XMS_ITS | Continuity of Care Document ---
Author Name Unknown Organization [facility] Address [address] [place] [address]- Care Team Providers Care Suppression Crew Leader Name Role Phone Kelsey CHINO, Hari Miller Primary Care Physician [place] [facility] [place](s): 06/07/20 - 07/07/20 [facility] [address] [place] [id number]- [facility] Allergies, Adverse Reactions, Alerts Substance Reaction Severity [...] Start Date: 06/09/20 Status: Ordered Accu-Chek Odette Plus Test Strips [...] 3 Refills, Maintenance, 06/28/20 9:08:00 EDT, Inhaler, [facility] #93034, 2 puffs Inhalation Every 4hours,x30 days,PRN:Wheezing/Shortness of Breath, 16... Start Date: 06/28/20 Stop Date: 10/26/20 Status: Ordered albuterol-ipratropium 3 mg-0.5 mg/3 ml inhalation solution 3 mL, Neb, 4 times a day, # 360 mL, 5 Refills, Maintenance, 11/09/19 11:29:00 EST, Inhalation Solution, [facility] #87891, 3 mL Neb 4 times a day, [...] 01/06/20 18:09:00 EDT, Route to Pharmacy Electronically, [facility] #39663, 160, cm, 12/29/19 13:52:00 EST, Height, 125, [...] 17:41:00 EDT, Tablet, [facility] #32024, 160, cm, 12/29/19 13:52:00 EST, Height, 125, [...] 3 Refills, Maintenance, 11/21/19 10:52:00 EST, Tablet, [facility] #86722, 160, cm, 11/05/19 9:49:00 EST, Height, 125, kg, 04/02/19 21:10:00 EDT, Dry Weight Start Date: 11/21/19 Status: Ordered Imodium A-D 2 mg oral tablet 2 mg, 1, tablet, By Mouth, Every 4 hours, PRN, Refills 0, Maintenance, Diarrhea, 04/03/19 15:42:27 EDT Start Date: 04/03/19 Status: Ordered lisinopril 20 mg oral tablet 20 mg, 1, tablet, By Mouth, Daily, # 90 tablet, Refills 3, Tot. Refills 3, Maintenance, 06/01/20 11:45:00 EDT, Route to Pharmacy Electronically, [facility] #82165, new dose, 160, cm, 12/29/19 13:52:00 EST, Height, 125, kg, 04/02/19 21:10:00 E... Start Date: 06/01/20 Status: Ordered Lyrica 225 mg oral capsule 1 capsule = 225 mg, By Mouth, 2 times a day, # 60 capsule, 3 Refills, Maintenance, 04/14/20 19:50:00 EDT, Capsule, [facility] #17947, 160, cm, 12/29/19 13:52:00 EST, Height, 125, [...] 1 Refills, Maintenance, 12/29/19 14:36:00 EST, Patch, [facility] #39051, 1 patch Topically Daily, 160, cm, 12/29/19 [...] Mouth, Every 6 hours, PRN, # 70 tablet, Refills 0, Tot. Refills 0, Maintenance,Pain , Severe, 06/27/20 14:58:00 EDT, Route to Pharmacy Electronically, [facility] #56609,Partial fill upon patient request; ICD 10:M54.16, 1... Start Date: 06/27/20 Status: Ordered pantoprazole 40 mg oral delayed [...] Gm, 3 Refills, Maintenance, 06/07/20 12:09:00 EDT, [facility] #22732, 50, INHALE 2 PUFFS BY MOUTH EVERY [...] Trulicity Pen 1.5 mg/0.5 mL subcutaneous solution = 1.5 mg, Subcutaneous Infusion, Every 7 days, # 13 each, 3 Refills, Maintenance, 07/07/20 14:09:00EDT, [facility] #57452, new dose, 160, cm, 07/07/20 13:30:00 EDT, Height, 125, kg, 04/02/19 21:10:00 EDT, Dry Weight Start Date: 07/07/20 Status: Ordered Vitamin C 500 mg oral tablet 1 tablet = 500 mg, By Mouth, 2 times a day, 0 Refills, Maintenance, 04/03/19 16:09:30 EDT Start Date: 04/03/19 Status: Ordered Vitamin D 33901 iu oral capsule 100,000 International_Units, 2, capsule, By Mouth, Every 7 days, # 26 capsule, Refills 3, Tot. Refills 3, Maintenance, 06/15/20 18:02:00 EDT, Route to Pharmacy Electronically, [facility] #03608, 160, cm, 12/29/19 13:52:00 EST, Height, 125, [...]
--- OUTSIDE RECORDS SUMMARY | 2023-04-06 19:08 | XMS_ITS | Continuity of Care Document ---
Author Name Unknown Organization [facility] Address [address] [place] [address]- Care Team Providers Care [place]bury Operator Name Role Phone Kelsey CHINO, Hari Miller Primary Care Physician [phone] Encounter [facility] [place] Date(s): 10/24/20 - 11/23/20 [facility] [address] [place] [id number] Allergies, Adverse [...] 3 Refills, Maintenance, 06/28/20 9:08:00 EDT, Inhaler, [facility] #99029, 2 puffs Inhalation Every 4hours,x30 days,PRN:Wheezing/Shortness of Breath, 16... Start Date: 06/28/20 Stop Date: 10/26/20 Status: Ordered albuterol-ipratropium 3 mg-0.5 mg/3 ml inhalation solution 3 mL, Neb, 4 times a day, # 360 mL, 5 Refills, Maintenance, 11/09/19 11:29:00 EST, Inhalation Solution, [facility] #94111, 3 mL Neb 4 times a day, [...] 18:09:00 EDT, Route to Pharmacy Electronically, [facility]28988, 160, cm, 12/29/19 13:52:00 EST, Height, 125, [...] 3 Refills, Maintenance, 05/17/20 17:41:00 EDT, Tablet, [facility]86424, 160, cm, 12/29/19 13:52:00 EST, Height, 125, [...] 1 Refills, Maintenance, 11/08/20 15:21:00 EST, Tablet, [facility] #26542, 160, cm, 10/27/20 15:45:00 EST, Height, 125, kg, 04/02/19 21:10:00 EDT, Dry Weight Start Date: 11/08/20 Stop Date: 05/07/21 Status: Ordered ferrous sulfate 325 mg oral enteric coated tablet 325 mg, 1, tablet, By Mouth, Daily, # 90 tablet, Refills 3, Tot. Refills 3, Maintenance, 10/11/20 19:43:00 EST, Route to Pharmacy Electronically, [facility] #94559, Partial fill upon patientrequest if the prescription [...] 3 Refills, Maintenance, 11/01/20 17:16:00 EST, Tablet, [facility] #20068, Partial fill upon patient request if the prescription is for a schedule II opioid drug., 160,... Start Date: 11/01/20 Status: Ordered Lyrica 225 mg oral capsule 1 capsule = 225 mg, By Mouth, 2 times a day, # 60 capsule, 3 Refills, Maintenance, 04/14/20 19:50:00 EDT, Capsule, [facility] #72766, 160, cm, 12/29/19 13:52:00 EST, Height, 125, [...] Maintenance, 12/29/19 14:36:00 EST, Patch, [facility] #36303, 1 patch Topically Daily, 160, cm, 12/29/19 [...] 11/17/20 8:20:00 EST, Route to Pharmacy Electronically, [facility] #36337,Partial fill upon patient request; ICD 10:M54.16, 1... [...] Gm, 3 Refills, Maintenance, 06/07/20 12:09:00 EDT, [facility] #49557, 50, INHALE 2 PUFFS BY MOUTH EVERY [...] each, 3 Refills, Maintenance, 09/30/20 13:00:00 EST, [facility] #55780, new dose, 160, cm, 07/07/20 13:30:00 EDT, Height, 125,kg, 04/02/19 21:10:00 EDT, Dry Weight Start Date: 09/30/20 Status: Ordered Vitamin C 500 mg oral tablet 1 tablet = 500 mg, By Mouth, 2 times a day, 0 Refills, Maintenance, 04/03/19 16:09:30 EDT Start Date: 04/03/19 Status: Ordered Vitamin D 00831 iu oral capsule 100,000 International_Units, 2, capsule, By Mouth, Every 7 days, # 26 capsule, Refills 3, Tot. Refills 3, Maintenance, 06/15/20 18:02:00 EDT, Route to Pharmacy Electronically, [facility] #73745, 160, cm, 12/29/19 13:52:00 EST, Height, 125, [...]
--- OUTSIDE RECORDS SUMMARY | 2023-04-06 19:08 | XMS_ITS | Continuity of Care Document ---
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 Name Role Phone Kelsey CHINO, Hari Miller Primary Care Physician Encounter [facility] [place] Date(s): 01/05/21 - 05/05/21 [facility] [address] [place] [id number] Attending Physician: Winter Gutierrez MD Admitting Physician: Winter Gutierrez MD Referring Physician: Hari Cole MD Allergies, [...] Refills, Maintenance, 03/09/21 16:20:00 EDT, Inhalation Solution, [facility] #05023, 3 mL Neb 4 times a day, [...] 12/28/20 16:47:00 EST, Route to Pharmacy Electronically, [facility] #11426, 160, cm, 11/23/20 9:01:00EST, Height, 125, kg, [...] Maintenance, 05/17/20 17:41:00 EDT, Tablet, [facility] #17243, 160, cm, 12/29/19 13:52:00 EST, Height, 125, [...] 1 Refills, Maintenance, 11/08/20 15:21:00 EST, Tablet, [facility] #38432, 160, cm, 10/27/20 15:45:00 EST, Height, 125, kg, 04/02/19 21:10:00 EDT, Dry Weight Start Date: 11/08/20 Stop Date: 05/07/21 Status: Ordered ferrous sulfate 325 mg oral enteric coated tablet 325 mg, 1, tablet, By Mouth, Daily, # 90 tablet, Refills 3, Tot. Refills 3, Maintenance, 10/11/20 19:43:00 EST, Route to Pharmacy Electronically, [facility] #27667, Partial fill upon patientrequest if the prescription is for a schedule II op... Start Date: 10/11/20 Status: Ordered lisinopril 10 mg oral tablet 1, tablet, By Mouth, Daily, # 30 tablet, Refills 5, Tot. Refills 5, Maintenance, 04/17/21 16:46:00 EDT, Route to Pharmacy Electronically, [facility] #79656, 165, cm, 03/28/21 14:57:00 EDT, Height, 123.7, kg, 02/21/21 11:53:00 EDT, Dry Weight Start Date: 04/17/21 Status: Ordered Lyrica 225 mg oral capsule 1 capsule = 225 mg, By Mouth, 2 times a day, # 60 capsule, 3 Refills, Maintenance, 02/26/21 8:53:00EDT, Capsule, [facility] #19602, 165, cm, 02/21/21 11:53:00 EDT, Height, 123.7, kg, 02/21/21 11:53:00 EDT, Dry Weight Start Date: 02/26/21 Stop Date: 06/26/21 Status: Ordered magnesium oxide 400 mg oral tablet 1 tablet = 400 mg, By Mouth, Daily, # 90 tablet, 3 Refills, Maintenance, 04/13/21 17:59:00 EDT, Tablet, [facility] #42657, Partial fill upon patient request if the prescription is for a schedule II opioid drug., 165, cm, 03/28/21 14:57:00 EDT... Start Date: 04/13/21 Stop Date: 05/13/21 Status: Ordered metFORMIN 500 mg oral tablet, [...] By Mouth, Every 6 hours, PRN, # 45 tablet, Refills 0, Tot. Refills 0, Maintenance,Pain , Severe, 04/25/21 12:53:00 EDT, Route to Pharmacy Electronically, [facility] #59883,Partial fill upon patient request; ICD 10:M54.16, 1... Start Date: 04/25/21 Status: Ordered pantoprazole 40 mg oral delayed [...] Gm, 3 Refills, Maintenance, 06/07/20 12:09:00 EDT, [facility] #22813, 50, INHALE 2 PUFFS BY MOUTH EVERY [...] 17:59:00 EDT, Inhaler, [id number]06025, 165, cm, 03/28/21 14:57:00 EDT, Height, 123.7, kg, 0... Start Date: 04/13/21 Status: Ordered Vitamin C 500 mg oral tablet 1 tablet = 500 mg, By Mouth, 2 times a day, 0 Refills, Maintenance, 04/03/19 16:09:30 EDT Start Date: 04/03/19 Status: Ordered Vitamin D 57008 iu oral capsule 100,000 International_Units, 2, capsule, By Mouth, Every 7 days, # 26 capsule, Refills 3, Tot. Refills 3, Maintenance, 06/15/20 18:02:00 EDT, Route to Pharmacy Electronically, [facility] #54917, 160, cm, 12/29/19 13:52:00 EST, Height, 125, [...]
--- OUTSIDE RECORDS SUMMARY | 2023-04-06 19:08 | XMS_ITS | Continuity of Care Document ---
Author Name Unknown Organization [facility] Address [address] [facility], [address] Floor, [address] [place] [address]- Care Team Providers Care Sink Maker Name Role Phone Kelsey CHINO, Hari Miller Primary Care Physician Encounter [facility] Date(s): 11/07/22 - 12/15/22 [facility] [address], [address], [address] [place] [id number]- Attending Physician: Teja Lawrence MD Admitting Physician: [...] and Recorded Vaccine Date Status Refusal Reason [id number] bivalent booster vax 12/03/22 Given influenza virus [...] Refills, Maintenance, 03/09/21 16:20:00 EDT, Inhalation Solution, [facility] #27000, 3 mL Neb 4 times a day, [...] 12/13/21 16:47:00 EST, Route to Pharmacy Electronically, [facility] #30059, 165, cm, 11/14/21 11:24:00 EST, Height, 123.7, [...] 1 Refills, Maintenance, 07/23/22 13:09:00 EDT, Tablet, [facility] #13124, 165, cm, 04/27/22 13:43:00 EDT, Height, 123.7, [...] 0 Refills, Maintenance, 11/14/22 0:11:00 EST, Gel, [facility] #57586, Partial fill upon patient request if the prescription is for a schedule II opioid drug., 165, cm, 11/13/22 20:06:00 EST,... Start Date: 11/14/22 Status: Ordered ezetimibe 10 mg oral tablet 1 tablet, By Mouth, Daily, # 90 tablet, 1 Refills, Maintenance, 10/08/22 15:33:00 EST, [facility] #01060, 165, cm, 08/17/22 13:46:00 EDT, Height, 123.7, kg, 02/21/21 11:53:00 EDT, Dry Weight Start Date: 10/08/22 Status: Ordered gabapentin 600 mg oral tablet 1 tablet = 600 mg, By Mouth, 2 times a day, # 180 tablet, 3 Refills, Maintenance, 08/07/22 12:28:00EDT, [facility] #94934, Partial fill upon patient request if the prescription is for a schedule II opioid drug., 165, cm, 04/27/22 13:43:00 ED... Start Date: 08/07/22 Status: Ordered lidocaine 5% topical film 1 patch, Topically, Daily, PRN Pain , Mild, remove after 12 hours, # 13 each, 0 Refills, Maintenance, 11/14/22 0:11:00 EST, Film, [facility] #87733, Partial fill upon patient request if the prescription is for a schedule II opioid drug., 1 pa... Start Date: 11/14/22 Status: Ordered lisinopril 20 mg oral tablet 20 mg, 1, tablet, By Mouth, Daily, new dose, # 90 tablet, Refills 3, Tot. Refills 3, Maintenance, 09/06/21 11:46:00 EST, Route to Pharmacy Electronically, [facility] #42879, Partial fill upon patient request if the prescription is for a sched... Start Date: 09/06/21 Status: Ordered Lyrica 225 mg oral capsule 1 capsule = 225 mg, By Mouth, 2 times a day, # 180 capsule, 1 Refills, Maintenance, 11/14/22 18:29:00 EST, [facility] #62410, Partial fill upon patient request if the prescription is for a schedule II opioid drug., 165 cm, 11/13/22 20:06:00... Start Date: 11/14/22 Status: Ordered magnesium oxide 400 mg oral tablet 1 tablet = 400 mg, By Mouth, Daily, # 90 tablet, 3 Refills, Maintenance, 07/23/22 17:16:00 EDT, Tablet, [facility] #12016, Partial fill upon patient request if the prescription is for a schedule II opioid drug., 165, cm, 04/27/22 13:43:00 EDT... Start Date: 07/23/22 Status: Ordered metFORMIN 500 mg oral tablet 2 tablet = 1,000 mg, By Mouth, 2 times a day, # 360 tablet, 1 Refills, Maintenance, 05/28/22 16:34:00 EDT, [facility] #08832, Partial fill upon patient request if the prescription is for a schedule II opioid drug., 165, cm, 04/27/22 13:43:00... Start Date: 05/28/22 Status: Ordered Narcan 4 mg/0.1 mL nasal spray See Instructions, PRN unresponsiveness, may repeat once until patient responds, # 2 each, 2 Refills, Maintenance, 10/31/22 16:28:00 EST, [place], [facility] #96581, Partial fill upon patient request if the prescription is for a schedule II opio... Start Date: 10/31/22 Status: Ordered Nitrostat 0.4 mg sublingual tablet 1 tablet = 0.4 mg, Sublingual, Every 5 minutes, PRN chest pain, up to 3 doses, # 25 tablet, 3 Refills, Maintenance, 10/31/22 16:28:00 EST, Tablet, [facility] #16757, Partial fill upon patient request if the [...] 11/15/22 17:49:00 EST, Route to Pharmacy Electronically, [facility] #80378,Partial fill upon patient request; ICD 10:M54.16, 1... [...] 10/18/22 17:49:00 EST, Route to Pharmacy Electronically, [facility] #00774, Partial fill upon patient request if the [...] Gm, 11 Refills, Maintenance, 02/02/22 8:33:00 EDT, [facility] #40806, 2 puffs Inhalation Every 4 hours,PRN: NEEDED, [...] 0 Refills, Maintenance, 11/28/22 9:42:00 EST, Tablet, [facility] #01861, new dose, 153, cm, 11/28/22 8:46:00 EST, Height,... Start Date: 11/28/22 Status: Ordered Symbicort 160mcg/4.5mcg Inhaler 2, puffs, Inhalation, 2 times a day, # 3 each, Refills 3, Tot. Refills 3, Maintenance, 04/13/21 17:59:00 EDT, Inhaler, Route to Pharmacy Electronically, [id number], [facility] #64741, 165, cm, 03/28/21 14:57:00 EDT, Height, 123.7, kg, 0... Start Date: 04/13/21 Status: Ordered Vitamin B-12 500 mcg oral tablet 1 tablet = 500 mcg, By Mouth, Daily, new dose, # 90 tablet, 3 Refills, Maintenance, 09/17/22 19:15:00 EST, Tablet, [facility] #03172, Partial fill upon patient request if the prescription isfor a schedule II opioid drug., 165, cm, 08/17/22 1... Start Date: 09/17/22 Status: Ordered Vitamin C 500 mg oral tablet 1 tablet = 500 mg, By Mouth, 2 times a day, 0 Refills, Maintenance, 04/03/19 16:09:30 EDT Start Date: 04/03/19 Status: Ordered Vitamin D 50652 iu oral capsule 100,000 International_Units, 2, capsule, By Mouth, Every 7 days, # 26 capsule, Refills 3, Tot. Refills 3, Maintenance, 06/15/20 18:02:00 EDT, Route to Pharmacy Electronically, [facility] #24070, 160, cm, 12/29/19 13:52:00 EST, Height, 125, [...] Team Personnel Name: Hari Cole MD Position: [facility] Primary Care Physician Member Role: PCP Address: Address: [address] [place] [address] [facility] Name: Larry Fields RN Position: [facility] RN Supv Member Role: Primary Care Nurse Name: Monique Thomson RN Position: [facility] RN Supv Member Role: Primary Care Nurse Name: Carrie Rand Position: [facility] Outreach Member Role: Lifetime Consulting Physician Name: Chante Graff RN Position: [facility] SN RN Member Role: Primary Care Nurse Name: Sarath Oquendo RN Position: [facility] RN Member Role: Primary Care Nurse Care Team Related Persons Name: LARA AMARA Address: home [address] Name: ALBERTO BERMUDEZ Address: home [address] Name: CORRINE STOUT
--- OUTSIDE RECORDS SUMMARY | 2023-04-06 19:08 | XMS_ITS | Continuity of Care Document ---
Author Name Unknown Organization [facility] Address [address] [place] [address]- Care Team Providers Care Photograph Tinter Name Role Phone Kelsey CHINO, Hari Miller Primary Care Physician [phone] Encounter [facility] [place] [facility] [place] [id number] Date(s): 03/17/20 - 04/16/20 [facility] [address] [place] [address] [facility] Attending Physician: Admtr, Ar8 Admitting Physician: Admtr, Ar8 Referring Physician: Admtr, [...] Refills, Maintenance, 11/09/19 11:29:00 EST, Inhalation Solution, [facility]99769, 3 mL Neb 4 times a day, [...] 01/06/20 18:09:00 EDT, Route to Pharmacy Electronically, [facility] #21422, 160, cm, 12/29/19 13:52:00 EST, Height, 125, [...] 3 Refills, Maintenance, 11/21/19 10:52:00 EST, Tablet, [facility] #02498, 160, cm, 11/05/19 9:49:00 EST, Height, 125, kg, 04/02/19 21:10:00 EDT, Dry Weight Start Date: 11/21/19 Status: Ordered fentaNYL 25 mcg/hr transdermal film, extended release 1 patch, Topically, Every 72 hours, # 10 patch, 0 Refills, Maintenance, 03/31/20 9:27:00 EDT, Patch, [facility] #79994, 160, cm, 12/29/19 13:52:00 EST, Height, 125, kg, 04/02/19 21:10:00 EDT, Dry Weight Start Date: 03/31/20 Stop Date: 04/30/20 Status: Ordered glipiZIDE 2.5 mg oral tablet, extended release 1 tablet = 2.5 mg, By Mouth, Daily, TK 1 T PO QD B DINNER, # 90 tablet, 3 Refills, Maintenance, 11/05/19 10:30:00 EST, ER Tablet, [facility] #99391, new dose, 160, cm, 11/05/19 9:49:00 EST, [...] EDT, [id number] #50167 Start Date: 07/29/19 Status: Ordered Lyrica 225 mg oral capsule 1 capsule = 225 mg, By Mouth, 2 times a day, # 60 capsule, 3 Refills, Maintenance, 04/14/20 19:50:00 EDT, Capsule, [facility] #67588, 160, cm, 12/29/19 13:52:00 EST, Height, 125, [...] 1 Refills, Maintenance, 12/29/19 14:36:00 EST, Patch, [facility] #78787, 1 patch Topically Daily, 160, cm, 12/29/19 [...] 03/23/20 14:43:00 EDT, Route to Pharmacy Electronically, [facility] #94585, 160, cm, 12/29/19 13:52:00 EST, Height, 125, [...] Start Date: 04/03/19 Status: Ordered Vitamin D 93515 iu oral capsule 100,000 International_Units, 2, capsule, By Mouth, Every 7 days, # 26 capsule, Refills 3, Tot. Refills 3, Maintenance, 06/02/19 12:20:36 EDT, Route to Pharmacy Electronically, [id number], [facility] #86099 Start Date: 06/02/19 Status: Ordered Problem List [...]
--- OUTSIDE RECORDS SUMMARY | 2023-04-06 19:08 | XMS_ITS | Continuity of Care Document ---
Author Name Unknown Organization [facility] Address [address] [place] [address]- Care Team Providers Care Air Route Traffic Controller Name Role Phone Kelsey CHINO, Hari Miller Primary Care Physician En[place] [facility] [place](s): 04/05/21 - 05/05/21 [facility] [address] [place] [address]- Attending Physician: AdmtrMilagros Admitting Physician: Admtr, Ar8 [...] Refills, Maintenance, 03/09/21 16:20:00 EDT, Inhalation Solution, [facility] #09921, 3 mL Neb 4 times a day, [...] 12/28/20 16:47:00 EST, Route to Pharmacy Electronically, [facility] #98993, 160, cm, 11/23/20 9:01:00EST, Height, 125, kg, [...] 3 Refills, Maintenance, 05/17/20 17:41:00 EDT, Tablet, [facility] #91717, 160, cm, 12/29/19 13:52:00 EST, Height, 125, [...] Maintenance, 11/08/20 15:21:00 EST, Tablet, [facility] #35374, 160, cm, 10/27/20 15:45:00 EST, Height, 125, kg, 04/02/19 21:10:00 EDT, Dry Weight Start Date: 11/08/20 Stop Date: 05/07/21 Status: Ordered ferrous sulfate 325 mg oral enteric coated tablet 325 mg, 1, tablet, By Mouth, Daily, # 90 tablet, Refills 3, Tot. Refills 3, Maintenance, 10/11/20 19:43:00 EST, Route to Pharmacy Electronically, [facility] #18038, Partial fill upon patientrequest if the prescription is for a schedule II op... Start Date: 10/11/20 Status: Ordered lisinopril 10 mg oral tablet 1, tablet, By Mouth, Daily, # 30 tablet, Refills 5, Tot. Refills 5, Maintenance, 04/17/21 16:46:00 EDT, Route to Pharmacy Electronically, [facility] #72732, 165, cm, 03/28/21 14:57:00 EDT, Height, 123.7, kg, 02/21/21 11:53:00 EDT, Dry Weight Start Date: 04/17/21 Status: Ordered Lyrica 225 mg oral capsule 1 capsule = 225 mg, By Mouth, 2 times a day, # 60 capsule, 3 Refills, Maintenance, 02/26/21 8:53:00EDT, Capsule, [facility] #28142, 165, cm, 02/21/21 11:53:00 EDT, Height, 123.7, kg, 02/21/21 11:53:00 EDT, Dry Weight Start Date: 02/26/21 Stop Date: 06/26/21 Status: Ordered magnesium oxide 400 mg oral tablet 1 tablet = 400 mg, By Mouth, Daily, # 90 tablet, 3 Refills, Maintenance, 04/13/21 17:59:00 EDT, Tablet, [facility] #20294, Partial fill upon patient request if the [...] 04/25/21 12:53:00 EDT, Route to Pharmacy Electronically, [facility] #46835,Partial fill upon patient request; ICD 10:M54.16, 1... [...] Gm, 3 Refills, Maintenance, 06/07/20 12:09:00 EDT, [facility] #93036, 50, INHALE 2 PUFFS BY MOUTH EVERY [...] 17:59:00 EDT, Inhaler, [id number] #35120, 165, cm, 03/28/21 14:57:00 EDT, Height, 123.7, kg, 0... Start Date: 04/13/21 Status: Ordered Vitamin C 500 mg oral tablet 1 tablet = 500 mg, By Mouth, 2 times a day, 0 Refills, Maintenance, 04/03/19 16:09:30 EDT Start Date: 04/03/19 Status: Ordered Vitamin D 12746 iu oral capsule 100,000 International_Units, 2, capsule, By Mouth, Every 7 days, # 26 capsule, Refills 3, Tot. Refills 3, Maintenance, 06/15/20 18:02:00 EDT, Route to Pharmacy Electronically, [facility] #87481, 160, cm, 12/29/19 13:52:00 EST, Height, 125, [...]
--- OUTSIDE RECORDS SUMMARY | 2023-04-06 19:08 | XMS_ITS | Continuity of Care Document ---
Author Name Unknown Organization [facility] Address [address] [place] [address]- Care Team Providers Care Functional Consultant Name Role Phone Kelsey CHINO, Hari Miller Primary Care Physician Encounter [facility] Date(s): 12/24/22 - 01/26/23 [facility] [address] [address]- Attending Physician: Morgan Thomson MD Admitting Physician: Morgan Thomson MD Referring Physician: Hari Cole MD Allergies, [...] and Recorded Vaccine Date Status Refusal Reason [id number] bivalent booster vax 12/03/22 Given influenza virus [...] Refills, Maintenance, 03/09/21 16:20:00 EDT, Inhalation Solution, [facility] #[id number], 3 mL Neb 4 times a day, [...] 12/13/21 16:47:00 EST, Route to Pharmacy Electronically, [facility] #[id number], 165, cm, 11/14/21 11:24:00 EST, Height, 123.7, [...] 0 Refills, Maintenance, 11/14/22 0:11:00 EST, Gel, [facility] #65911, Partial fill upon patient request if the prescription is for a schedule II opioid drug., 165, cm, 11/13/22 20:06:00 EST,... Start Date: 11/14/22 Status: Ordered ezetimibe 10 mg oral tablet 1 tablet, By Mouth, Daily, # 90 tablet, 1 Refills, Maintenance, 10/08/22 15:33:00 EST, [facility] #69776, 165, cm, 08/17/22 13:46:00 EDT, Height, 123.7, kg, 02/21/21 11:53:00 EDT, Dry Weight Start Date: 10/08/22 Status: Ordered gabapentin 600 mg oral tablet 1 tablet = 600 mg, By Mouth, 2 times a day, # 180 tablet, 3 Refills, Maintenance, 08/07/22 12:28:00EDT, [facility] #26553, Partial fill upon patient request if the prescription is for a schedule II opioid drug., rachel Yusuf, 04/27/22 13:43:00 ED... Start Date: 08/07/22 Status: Ordered lidocaine 5% topical film 1 patch, Topically, Daily, PRN Pain , Mild, remove after 12 hours, # 13 each, 0 Refills, Maintenance, 11/14/22 0:11:00 EST, Film, [facility] #[id number], Partial fill upon patient request if the prescription is for a schedule II opioid drug., 1 pa... Start Date: 11/14/22 Status: Ordered lisinopril 20 mg oral tablet 20 mg, 1, tablet, By Mouth, Daily, new dose, # 90 tablet, Refills 3, Tot. Refills 3, Maintenance, 09/06/21 11:46:00 EST, Route to Pharmacy Electronically, [facility] #06001, Partial fill upon patient request if the prescription is for a sched... Start Date: 09/06/21 Status: Ordered Lyrica 225 mg oral capsule 1 capsule = 225 mg, By Mouth, 2 times a day, # 180 capsule, 1 Refills, Maintenance, 11/14/22 18:29:00 EST, [facility] #97422, Partial fill upon patient request if the prescription is for a schedule II opioid drug.Paramjit cm, 11/13/22 20:06:00... Start Date: 11/14/22 Status: Ordered magnesium oxide 400 mg oral tablet 1 tablet = 400 mg, By Mouth, Daily, # 90 tablet, 3 Refills, Maintenance, 07/23/22 17:16:00 EDT, Tablet, [facility] #[id number], Partial fill upon patient request if the prescription is for a schedule II opioid drug.Paramjit cm, 04/27/22 13:43:00 EDT... Start Date: 07/23/22 Status: Ordered metFORMIN 500 mg oral tablet 2 tablet, By Mouth, 2 times a day, # 360 tablet, 1 Refills, Maintenance, 12/24/22 15:53:00 EST, [facility] #84799, 153, cm, 12/03/22 13:31:00 EST, Height, 101, kg, 11/17/22 17:04:00 EST, DryWeight Start Date: 12/24/22 Status: Ordered Narcan 4 mg/0.1 mL nasal spray See Instructions, PRN unresponsiveness, may repeat once until patient responds, # 2 each, 2 Refills, Maintenance, 10/31/22 16:28:00 EST, [place], [facility] #25702, Partial fill upon patient request if the prescription is for a schedule II opio... Start Date: 10/31/22 Status: Ordered Nitrostat 0.4 mg sublingual tablet 1 tablet = 0.4 mg, Sublingual, Every 5 minutes, PRN chest pain, up to 3 doses, # 25 tablet, 3 Refills, Maintenance, 10/31/22 16:28:00 EST, Tablet, [facility] #68920, Partial fill upon patient request if the [...] 01/12/23 13:55:00 EDT, Route to Pharmacy Electronically, [facility] #99363,Partial fill upon patient request; ICD 10:M54.16, 1... [...] 10/18/22 17:49:00 EST, Route to Pharmacy Electronically, [facility] #30182, Partial fill upon patient request if the [...] Gm, 11 Refills, Maintenance, 02/02/22 8:33:00 EDT, [facility] #16064, 2 puffs Inhalation Every 4 hours,PRN: NEEDED, [...] tablet, 1 Refills, Maintenance, 01/02/23 14:02:00 EST, [facility] #62244, 153, cm, 12/03/22 13:31:00 EST, Height, 101, kg, 11/17/22 17:04:00 EST, Dry Weight Start Date: 01/02/23 Status: Ordered Rybelsus 3 mg oral tablet See Instructions, TAKE 1 TABLET BY MOUTH DAILY TAKE AT LEAST 30 MINUTES BEFORE FIRST FOOD, BEVERAGE, OR OTHER BY MOUTH MEDS, # 30 tablet, 3 Refills, Maintenance, 12/19/22 18:22:00 EST, [facility] #77143, 153, cm, 12/03/22 13:31:00 EST, Height... Start Date: 12/19/22 Status: Ordered Symbicort 160mcg/4.5mcg Inhaler 2, puffs, Inhalation, 2 times a day, # 3 each, Refills 3, Tot. Refills 3, Maintenance, 04/13/21 17:59:00 EDT, Inhaler, [id number] #08949, 165, cm, 03/28/21 14:57:00 EDT, Height, 123.7, kg, 0... Start Date: 04/13/21 Status: Ordered Vitamin B-12 500 mcg oral tablet 1 tablet = 500 mcg, By Mouth, Daily, new dose, # 90 tablet, 3 Refills, Maintenance, 09/17/22 19:15:00 EST, Tablet, [facility] #90594, Partial fill upon patient request if the prescription isfor a schedule II opioid drug., 165, cm, 08/17/22 1... Start Date: 09/17/22 Status: Ordered Vitamin C 500 mg oral tablet 1 tablet = 500 mg, By Mouth, 2 times a day, 0 Refills, Maintenance, 04/03/19 16:09:30 EDT Start Date: 04/03/19 Status: Ordered Vitamin D 87811 iu oral capsule 100,000 International_Units, 2, capsule, By Mouth, Every 7 days, # 26 capsule, Refills 3, Tot. Refills 3, Maintenance, 06/15/20 18:02:00 EDT, Route to Pharmacy Electronically, [facility] #[id number], 160, cm, 12/29/19 13:52:00 EST, Height, 125, [...] Personnel Name: Kelsey CHINO, Hari Miller Position: [facility] Primary Care Physician Member Role: PCP Address: Address: [address] [place] [address], [place] [address]- Name: Larry Fields RN Position: [facility] RN Supv Member Role: Primary Care Nurse Name: Monique Thomson RN Position: [facility] RN Supv Member Role: Primary Care Nurse Name: Carrie Rand Position: [facility] Outreach Member Role: Lifetime Consulting Physician Name: Chante Graff RN Position: [facility] SN RN Member Role: Primary Care Nurse Name: Sarath Oquendo RN Position: [facility] RN Member Role: Primary Care Nurse Care Team Related Persons Name: LARA AMARA Address: home [address] Name: ALBERTO BERMUDEZ Address: home [address] [facility] [address] [facility] [address] [place], [place] Name: CORRINE STOUT
--- OUTSIDE RECORDS SUMMARY | 2023-04-06 19:08 | XMS_ITS | Continuity of Care Document ---
Author Name Unknown Organization [facility] Address [address] [place] [address]- Care Team Providers Care Bottom Liner Name Role Phone Kelsey CHINO, Hari Miller Primary Care Physician Encounter [facility] ACCT R [id number] Date(s): 11/02/20 - 12/10/20 [facility] [address] [place] [address] Attending Physician: Roxann Beyer MD Admitting Physician: Roxann Beyer MD Referring Physician: Hari Cole MD Allergies, [...] Vaccine (oldterm) 07/07/19 Recorde d Medications Accu-Chek Kwame Glucose Meter See Instructions, # 1 each, Refills 0, Tot. Refills 0, Maintenance, test blood sugar daily, 06/09/20 17:37:00 EDT, Supply, 160, cm, 12/29/19 13:52:00 EST, Height, 125, kg, 04/02/19 21:10:00 EDT, Dry Weight Start Date: 06/09/20 Status: Ordered ACCU-CHEK KWAME PLUS METER ACCU-CHEK KWAME PLUS METER, See Instructions, # 1 each, 0 Refills, Maintenance, TO TEST BLOOD SUGAREVERY DAY, 160, cm, 10/27/20 15:45:00 EST, Height, 125, kg, 04/02/19 21:10:00 EDT, Dry Weight Start Date: 10/31/20 Status: Ordered Accu-Chek Kwame Plus Test Strips See Instructions, # 100 [...] 3 Refills, Maintenance, 06/28/20 9:08:00 EDT, Inhaler, [facility] #08883, 2 puffs Inhalation Every 4hours,x30 days,PRN:Wheezing/Shortness of Breath, 16... Start Date: 06/28/20 Stop Date: 10/26/20 Status: Ordered albuterol-ipratropium 3 mg-0.5 mg/3 ml inhalation solution 3 mL, Neb, 4 times a day, # 360 mL, 5 Refills, Maintenance, 11/09/19 11:29:00 EST, Inhalation Solution, [facility] #[id number], 3 mL Neb 4 times a day, [...] 01/06/20 18:09:00 EDT, [facility]ically[facility][id number], 160, cm, 12/29/19 13:52:00 EST, Height, 125, [...] 3 Refills, Maintenance, 05/17/20 17:41:00 EDT, Tablet, [facility]19780, 160, cm, 12/29/19 13:52:00 EST, Height, 125, [...] 1 Refills, Maintenance, 11/08/20 15:21:00 EST, Tablet, [facility] #83538, 160, cm, 10/27/20 15:45:00 EST, Height, 125, kg, 04/02/19 21:10:00 EDT, Dry Weight Start Date: 11/08/20 Stop Date: 05/07/21 Status: Ordered ferrous sulfate 325 mg oral enteric coated tablet 325 mg, 1, tablet, By Mouth, Daily, # 90 tablet, Refills 3, Tot. Refills 3, Maintenance, 10/11/20 19:43:00 EST, Route to Pharmacy Electronically, [facility] #25965, Partial fill upon patientrequest if the prescription is for a schedule II op... Start Date: 10/11/20 Status: Ordered Golytely - oral powder for reconstitution 240 mL, By Mouth, Every 10 minutes, # 4,000 mL, 0 Refills, Maintenance, 11/25/20 10:07:00 EST, REC Powder, [facility] #00344, Partial fill upon patient request if the [...] 3 Refills, Maintenance, 11/01/20 17:16:00 EST, Tablet, [facility] #39647, Partial fill upon patient request if the prescription is for a schedule II opioid drug., 160,... Start Date: 11/01/20 Status: Ordered Lyrica 225 mg oral capsule 1 capsule = 225 mg, By Mouth, 2 times a day, # 60 capsule, 3 Refills, Maintenance, 04/14/20 19:50:00 EDT, Capsule, [facility] #47566, 160, cm, 12/29/19 13:52:00 EST, Height, 125, [...] 1 Refills, Maintenance, 12/29/19 14:36:00 EST, Patch, [facility] #44706, 1 patch Topically Daily, 160, cm, 12/29/19 [...] 12/07/20 18:44:00 EST, Route to Pharmacy Electronically, [facility] #23792, Partial fill upon patient request; ICD 10:M54.16,... [...] Gm, 3 Refills, Maintenance, 06/07/20 12:09:00 EDT, [facility] #11188, 50, INHALE 2 PUFFS BY MOUTH EVERY [...] each, 3 Refills, Maintenance, 11/30/20 12:36:00 EST, [facility] #92492, Partial fill upon patient request if the prescription is for a schedule II opioid drug., 160, cm, 11/23/20 9:01:00 EST,... Start Date: 11/30/20 Status: Ordered Vitamin C 500 mg oral tablet 1 tablet = 500 mg, By Mouth, 2 times a day, 0 Refills, Maintenance, 04/03/19 16:09:30 EDT Start Date: 04/03/19 Status: Ordered Vitamin D 18788 iu oral capsule 100,000 International_Units, 2, capsule, By Mouth, Every 7 days, # 26 capsule, Refills 3, Tot. Refills 3, Maintenance, 06/15/20 18:02:00 EDT, Route to Pharmacy Electronically, [facility] #00284, 160, cm, 12/29/19 13:52:00 EST, Height, 125, [...]
--- OUTSIDE RECORDS SUMMARY | 2023-04-06 19:08 | XMS_ITS | Continuity of Care Document ---
Author Name Unknown Organization [facility] Address [address] [place] [address]- Care Team Providers Care Housing Counselor Name Role Phone Kelsey CHINO, Hari Miller Primary Care Physician [phone] Encounter [facility] Date(s): 02/15/20 - 03/16/20 [facility] [address] [place] [address]- [facility] Attending Physician: AdmMilagros cobos Admitting Physician: AdmtrMilagros [...] Refills, Maintenance, 11/09/19 11:29:00 EST, [facility]halation [facility], [facility]615[facility], 3 mL Neb 4 times a day, [...] EDT, Route to Pharmacy Electronically, [facility] #13503, 160, cm, 12/29/19 13:52:00 EST, Height, 125, [...] 3 Refills, Maintenance, 11/21/19 10:52:00 EST, Tablet, [facility] #39007, 160, cm, 11/05/19 9:49:00 EST, Height, 125, kg, 04/02/19 21:10:00 EDT, Dry Weight Start Date: 11/21/19 Status: Ordered fentaNYL 25 mcg/hr transdermal film, extended release 1 patch, Topically, Every 72 hours, # 10 patch, 0 Refills, Maintenance, 03/01/20 13:18:00 EDT, Patch, [facility] #68129, 160, cm, 12/29/19 13:52:00 EST, Height, 125, kg, 04/02/19 21:10:00 EDT, Dry Weight Start Date: 03/01/20 Stop Date: 03/31/20 Status: Ordered glipiZIDE 2.5 mg oral tablet, extended release 1 tablet = 2.5 mg, By Mouth, Daily, TK 1 T PO QD B DINNER, # 90 tablet, 3 Refills, Maintenance, 11/05/19 10:30:00 EST, ER Tablet, [facility] #76837, new dose, 160, cm, 11/05/19 9:49:00 EST, [...] EDT, [id number][id number] Start Date: 07/29/19 Status: Ordered Lyrica 225 mg oral capsule 1 capsule = 225 mg, By Mouth, 2 times a day, # 180 capsule, 3 Refills, Maintenance, 02/04/20 14:08:00 EDT, Capsule, [facility] #90860, 160, cm, 12/29/19 13:52:00 EST, Height, 125, [...] 1 Refills, Maintenance, 12/29/19 14:36:00 EST, Patch, [facility]27979, 1 patch Topically Daily, 160, cm, 12/29/19 [...] Tot. Refills 0, Maintenance, Pain , Severe, 03/01/20 13:19:00 EDT, Route to Pharmacy Electronically, [facility] #[id number], 160, cm, 12/29/19 13:52:00 EST, Height, 125, kg, 04/02/19 21:1... Start Date: 03/01/20 Status: Ordered pantoprazole 40 mg oral delayed [...] Start Date: 04/03/19 Status: Ordered Vitamin D 55794 iu oral capsule 100,000 International_Units, 2, capsule, By Mouth, Every 7 days, # 26 capsule, Refills 3, Tot. Refills 3, Maintenance, 06/02/19 12:20:36 EDT, Route to Pharmacy Electronically, [id number], [facility] #[id number] Start Date: 06/02/19 Status: Ordered Problem List [...]
--- OUTSIDE RECORDS SUMMARY | 2023-04-06 19:08 | XMS_ITS | Continuity of Care Document ---
Author Name Unknown Organization [facility] Address [address] [place] [address]- Care Team Providers Care Faith Doctor Name Role Phone Kelsey CHINO, Hari Miller Primary Care Physician [place] [facility] [id number] Date(s): 09/06/21 - 10/06/21 [facility] [address] [place] [address]- Attending Physician: Milagros Boykin Admitting Physician: Milagros Boykin Referring Physician: Milagros Boykin Referring Physician: Isabelle Rick Allergies, Adverse Reactions, Alerts Substance Reaction Severity [...] Refills, Maintenance, 03/09/21 16:20:00 EDT, Inhalation Solution, [facility] #78711, 3 mL Neb 4 times a day, [...] 06/28/21 13:56:00 EDT, Route to Pharmacy Electronically, [facility] #85690, 165, cm, 03/28/21 14:57:00 EDT, Height, 123.7, [...] 1 Refills, Maintenance, 06/22/21 8:58:00 EDT, Tablet, [facility] #36660, 165, cm, 03/28/21 14:57:00 EDT, Height, 123.7, [...] tablet, 3 Refills, Maintenance, 05/07/21 16:11:00 EDT, [facility] #04176, 165, cm, 03/28/21 14:57:00 EDT, Height, 123.7, kg, 02/21/21 11:53:00 EDT, Dry Weight Start Date: 05/07/21 Status: Ordered ferrous sulfate 325 mg oral enteric coated tablet 325 mg, 1, tablet, By Mouth, Daily, # 90 tablet, Refills 1, Tot. Refills 1, Maintenance, 07/10/21 11:47:00 EDT, Route to Pharmacy Electronically, [facility] #64727, Partial fill upon patientrequest if the prescription is for a schedule II op... Start Date: 07/10/21 Status: Ordered gabapentin 600 mg oral tablet 1 tablet = 600 mg, By Mouth, 2 times a day, # 180 tablet, 3 Refills, Maintenance, 08/02/21 11:42:00EDT, [facility] #68431, Partial fill upon patient request if the prescription is for a schedule II opioid drug., 165rachel, 07/27/21 10:53:00 ED... Start Date: 08/02/21 Status: Ordered glipiZIDE 5 mg oral tablet, extended release 1 tablet = 5 mg, By Mouth, Daily, # 30 tablet, 2 Refills, Maintenance, 09/20/21 12:11:00 EST, ER Tablet, [facility] #08748, Partial fill upon patient request if the prescription is for a schedule II opioid drug., 165, rachel, 07/27/21 10:53:00 ED... Start Date: 09/20/21 Status: Ordered Jardiance 25 mg oral tablet 1 tablet = 25 mg, By Mouth, Daily in AM, # 90 tablet, 3 Refills, Maintenance, 09/02/21 11:09:00 EDT, [facility] #77214, Partial fill upon patient request if the prescription is for a schedule II opioid drug., 165, cm, 07/27/21 10:53:00 EDT, H... Start Date: 09/02/21 [...] 09/06/21 11:46:00 EST, Route to Pharmacy Electronically, [facility] #38814, Partial fill upon patient request if the prescription is for a sched... Start Date: 09/06/21 Status: Ordered magnesium oxide 400 mg oral tablet 1 tablet = 400 mg, By Mouth, Daily, # 90 tablet, 3 Refills, Maintenance, 04/13/21 17:59:00 EDT, Tablet, [facility] #06537, Partial fill upon patient request if the prescription is for a schedule II opioid drug., rachel Yusuf, 03/28/21 14:57:00 EDT... Start Date: 04/13/21 Stop Date: 05/13/21 Status: Ordered metFORMIN 500 mg oral tablet 2 tablet = 1,000 mg, By Mouth, 2 times a day, # 360 tablet, 3 Refills, Maintenance, 05/19/21 17:50:00 EDT, [facility] #72642, Partial fill upon patient request if the prescription is for a schedule II opioid drug., 165rachel, 03/28/21 14:57:00... Start Date: 05/19/21 Status: Ordered Narcan 4 mg/0.1 mL nasal spray See Instructions, PRN unresponsiveness, twice, # 2 each, 2 Refills, Maintenance, 09/06/21 11:22:00 EST, [place], [facility] #68400, Partial fill upon patient request if the prescription is fora schedule II opioid drug., rachel Yusuf, 07/27/21 10:53... Start Date: 09/06/21 Status: Ordered Nitrostat 0.4 mg sublingual tablet 1 tablet = 0.4 mg, Sublingual, Every 5 minutes, PRN chest pain, up to 3 doses, # 25 tablet, 3 Refills, Maintenance, 09/06/21 11:22:00 EST, Tablet, [facility] #42044, Partial fill upon patient request if the [...] 09/20/21 11:55:00 EST, Route to Pharmacy Electronically, [facility] #97892, Partial fill upon patient request; ICD 10:M54.16, [...] 09/06/21 11:47:00 EST, Route to Pharmacy Electronically, [facility] #65198, Partial fill upon patient request if the [...] Gm, 3 Refills, Maintenance, 06/07/20 12:09:00 EDT, [facility] #00753, 50, INHALE 2 PUFFS BY MOUTH EVERY 4 HOURS NEEDED, 160, cm, 12/29/19 13:52:00 EST, Height, 125, kg, 04/02/19 21:10... Start Date: 06/07/20 Status: Ordered ProAir HFA 90 mcg/inh inhalation aerosol 2 puffs, Inhalation, Every 4 hours, PRN Wheezing/Shortness of Breath, # 3 each, 3 Refills, Maintenance, 05/08/21 18:09:00 EDT, Aerosol, [facility] #79830, Partial fill upon patient request if the [...] 1 Refills, Maintenance, 09/06/21 12:13:00 EST, Tablet, [facility] #77405, Partial fill upon patient request if the prescr... Start Date: 09/06/21 Status: Ordered Symbicort 160mcg/4.5mcg Inhaler 2, puffs, Inhalation, 2 times a day, # 3 each, Refills 3, Tot. Refills 3, Maintenance, 04/13/21 17:59:00 EDT, Inhaler, [id number] #[id number], 165, cm, 03/28/21 14:57:00 EDT, Height, 123.7, kg, 0... Start Date: 04/13/21 Status: Ordered Vitamin B-12 1000 mcg oral tablet 1,000 mcg, 1, tablet, By Mouth, Daily, # 90 tablet, Refills 3, Tot. Refills 3, Maintenance, 09/02/21 11:08:00 EDT, Route to Pharmacy Electronically, [facility] #91933, Partial fill upon patient request if the prescription is for a schedule II... Start Date: 09/02/21 Status: Ordered Vitamin C 500 mg oral tablet 1 tablet = 500 mg, By Mouth, 2 times a day, 0 Refills, Maintenance, 04/03/19 16:09:30 EDT Start Date: 04/03/19 Status: Ordered Vitamin D 72011 iu oral capsule 100,000 International_Units, 2, capsule, By Mouth, Every 7 days, # 26 capsule, Refills 3, Tot. Refills 3, Maintenance, 06/15/20 18:02:00 EDT, Route to Pharmacy Electronically, [facility] #36478, 160, cm, 12/29/19 13:52:00 EST, Height, 125, [...]
[2023-04-06 20:30] LABS: Glucose, Whole Blood 282 mg/dL (60-115)
[2023-04-06 20:40] VITALS: BMI 36.5
[2023-04-06] MEDS: Insulin Lispro 100 UNIT/ML 3 ML VIAL SUBCUT (21:22)
[2023-04-06] MEDS: LORazepam 1 MG TABLET PO (21:25)
[2023-04-06] MEDS: Acetaminophen 325 MG TABLET 650 MG PO (21:45)
--- NOTE | 2023-04-06 22:08 | PHA.MEDREC ---
Med rec completed using medication list provided by [facility] and claim history from home pharmacy. Patient not in a state to provide history, may need to review medications with patient or outpatient doctor. Put in most recently filled medications. Pharmacy Consult ? Medication Reconciliation Pharmacy has completed the medication reconciliation.
--- NOTE | 2023-04-06 22:29 | PC.ADMIT ---
pt arrived via ambulance. she is hospital to hospital transfer. she was previously admitted to [facility]. after reading to her the c.v form and answering questions she was given c-v form which she signed. pt lives in [place] in [facility] with significant other buddy. she states that she called 911 because she was having a nervous breakdown. pt states that she is no longer with buddy. she states that she has broken up with buddy. pt states that she is now homeless. she states that she has had some suicidal intentions over the past couple of days. she states that she hears voices and music in her head. she endorses that the voices are not telling her anything. she states that she does not have a counselor or psychotherapist. she states that she was hospitalized 20 years ago for mental health reasons. pt states that she does not want any information given out to her ex Buddy. pt is anxious. she has frequent position changes in the chair. her hands are tremulous and she has repetitive facial movements. she has disheveled and unkempt appearance. she is talkative and a very poor historian in regard to medical and psych hx. she is unsteady with ambulation. she states that she uses a walker or cane at home. she has has chronic orthopedic pain. she has had bilat knee replacements/chronic back and shoulder pain. her right groin area is inspected by female staff who find a red fungal smelling area. otherwise skin surfaces intact. resp effort is regular unlabored. pt states hx of asthma. hx of htn. abdomen obese soft. pt eats regular diet. she is edentulous. states had bm yesterday. no issues with urogential other than fugal rash. pt is IDDM. HER POC 285. PLAN- 1. ATIVAN 1 MG PO 2. TYLENOL 650 MG 3. insulin 6 ux sc per sliding scale 4. nystatin powder to right groin.
[2023-04-06] MEDS: oxyCODONE HCl Immed Release 5 MG TABLET PO (23:14)
[2023-04-06] MEDS: hydrOXYzine HCL 25 MG TABLET PO (23:14)
[2023-04-06] MEDS: Gabapentin 300 MG CAPSULE 600 MG PO (23:15)
[2023-04-07 07:32] LABS: Estimated Average Glucose 160 mg/dL; Hemoglobin A1c % 7.2 %
[2023-04-07 07:48] LABS: Alanine Aminotransferase 6 U/L (0-31); Albumin Level 3.5 g/dL (3.5-5.0); Alkaline Phosphatase 85 U/L (39-117); Anion Gap 14 (12-20); Aspartate Amino Transferase 8 U/L (5-31); Bilirubin Total 0.5 mg/dL (0.0-1.0); Blood Urea Nitrogen 11 mg/dL (9-16); Carbon Dioxide 24 mmol/L (22-29); Chloride 101 mmol/L (96-108); Cholesterol 268 mg/dL; Creatinine Clr Calc Pharmacy 78.7; Estimated Glomerular Filt Rate > 60; Glucose Fasting 203 mg/dL (60-99); HDL Cholesterol 35 mg/dL; LDL Cholesterol Calculated 193 mg/dl; Potassium 4.4 mmol/L (3.3-5.1); Sodium 135 mmol/L (135-145); Total Protein 5.7 g/dL (6.5-8.0); Triglycerides 203 mg/dL
[2023-04-07 08:18] LABS: Free T4 (Free Thyroxine) 0.88 ng/dL (0.71-1.85); Thyroid Stimulating Hormone 1.25 uIU/mL (0.32-4.0); Vitamin B12 724 pg/mL (200-900)
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
[2023-04-07 09:00] VITALS: BP 115/74; PULSE 102; RESP 15; TEMP 36.1; O2SAT 92
[2023-04-07 09:04] LABS: Glucose, Whole Blood 290 mg/dL (60-115)
[2023-04-07 09:04] LABS: Glucose, Whole Blood 195 mg/dL (60-115)
[2023-04-07] MEDS: Insulin Lispro 100 UNIT/ML 3 ML VIAL SUBCUT ×4 (09:04→21:11)
[2023-04-07] MEDS: allopurinoL 100 MG TABLET PO (09:08)
[2023-04-07] MEDS: Atorvastatin Calcium 80 MG TABLET PO (09:09)
[2023-04-07] MEDS: metFORMIN HCl 1,000 MG TABLET 1000 MG PO ×2 (09:09→21:13)
[2023-04-07] MEDS: lisinopriL 20 MG TABLET PO (09:11)
[2023-04-07] MEDS: DULoxetine HCl 30 MG CAPSULE.DR PO (09:11)
[2023-04-07] MEDS: Magnesium Oxide 400 MG TABLET PO (09:12)
[2023-04-07] MEDS: Clopidogrel Bisulfate 75 MG TABLET PO (09:12)
[2023-04-07] MEDS: oxyBUTYnin chloride ER 5 MG TAB.ER.24 10 MG PO (09:13)
[2023-04-07] MEDS: Cyanocobalamin (Vitamin B-12) 500 MCG TABLET PO (09:13)
[2023-04-07] MEDS: Nicotine 14 MG PATCH.TD24 TRANSDERMA (09:16)
--- NOTE | 2023-04-07 09:58 | PC.NURSE ---
THIS NURSE MEASURED PT.'S BG AND RECEIVED 195 ON THE GLUCOMETER. THEN WHEN NURSE PUT GLUCOMETER BACK INTO THE CRADLE, IT READ 203, HOWEVER, WAS AN EARLIER TIME THAT THE SUGAR WAS NOT TAKEN AT. NURSE RECHECKED THE SUGAR, HOWEVER, PT. HAD ALREADY EATEN HER BREAKFAST. UPON THE 2ND CHECK, SUGAR WAS 290. THIS RN ADMINISTERED 4 UNITS OF HUMALOG TO COINCIDE WITH THE 203 READING. THIS RN SPOKE TO WALI RIVERA NP, WHO GAVE PERMISSION TO THIS RN, TO GIVE THE 4 UNITS OF HUMALOG TO THIS PT.
[2023-04-07] MEDS: Acetaminophen 325 MG TABLET 650 MG PO ×2 (10:36→21:22)
[2023-04-07] MEDS: busPIRone HCl 10 MG TABLET PO ×2 (10:58→21:13)
[2023-04-07] MEDS: Folic Acid 1 MG TABLET PO (10:59)
[2023-04-07] MEDS: Gabapentin 300 MG CAPSULE 600 MG PO ×2 (11:00→21:13)
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
[2023-04-07 16:33] LABS: Glucose, Whole Blood 164 mg/dL (60-115)
[2023-04-07 16:33] LABS: Glucose, Whole Blood 181 mg/dL (60-115)
[2023-04-07] MEDS: Ezetimibe 10 MG TABLET PO (16:37)
[2023-04-07] MEDS: risperiDONE 1 MG TABLET PO (16:37)
[2023-04-07 18:00] VITALS: BP 100/57; PULSE 87; RESP 18; TEMP 36.2; O2SAT 95
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
[2023-04-07 20:57] LABS: Glucose, Whole Blood 248 mg/dL (60-115)
[2023-04-07] MEDS: risperiDONE 2 MG TABLET PO (21:13)
[2023-04-07] MEDS: oxyCODONE HCl Immed Release 5 MG TABLET PO (23:02)
[2023-04-07] MEDS: hydrOXYzine HCL 25 MG TABLET PO (23:03)
[2023-04-08 08:16] LABS: Glucose, Whole Blood 215 mg/dL (60-115)
[2023-04-08] MEDS: Insulin Lispro 100 UNIT/ML 3 ML VIAL SUBCUT ×4 (08:20→20:08)
[2023-04-08] MEDS: Nicotine 14 MG PATCH.TD24 TRANSDERMA (08:21)
[2023-04-08] MEDS: Cyanocobalamin (Vitamin B-12) 500 MCG TABLET PO (08:21)
[2023-04-08] MEDS: Gabapentin 300 MG CAPSULE 600 MG PO ×2 (08:22→20:10)
[2023-04-08] MEDS: busPIRone HCl 10 MG TABLET PO (08:22)
[2023-04-08] MEDS: oxyBUTYnin chloride ER 5 MG TAB.ER.24 10 MG PO (08:22)
[2023-04-08] MEDS: risperiDONE 1 MG TABLET PO (08:22)
[2023-04-08] MEDS: Clopidogrel Bisulfate 75 MG TABLET PO (08:23)
[2023-04-08] MEDS: metFORMIN HCl 1,000 MG TABLET 1000 MG PO ×2 (08:23→20:10)
[2023-04-08] MEDS: Atorvastatin Calcium 80 MG TABLET PO (08:23)
[2023-04-08] MEDS: lisinopriL 20 MG TABLET PO (08:23)
[2023-04-08] MEDS: Folic Acid 1 MG TABLET PO (08:23)
[2023-04-08] MEDS: Ezetimibe 10 MG TABLET PO (08:23)
[2023-04-08] MEDS: Magnesium Oxide 400 MG TABLET PO (08:23)
[2023-04-08] MEDS: allopurinoL 100 MG TABLET PO (08:23)
[2023-04-08] MEDS: DULoxetine HCl 60 MG CAPSULE.DR PO (08:24)
[2023-04-08] MEDS: Clotrimazole 1 % Cream 15 GM TUBE 1 APPL TOPICAL (08:29)
[2023-04-08 08:40] VITALS: BP 132/85; PULSE 113; RESP 18; TEMP 36.5; O2SAT 94
[2023-04-08 11:35] LABS: Glucose, Whole Blood 167 mg/dL (60-115)
--- NOTE | 2023-04-08 13:47 | HO.PSYCHPN ---
Subjective Subjective Date of Service: 04/08/23 Reason For Visit: SI Subjective Notes: Conditional Voluntary Interim History: Pt reports she tends to become very angry but less so today. She continues to report that she does not trust her partner and does not want to return there. She denies SI/HI. She has been taking medications as prescribed. Per nursing, pt slept 7hrs. She has been visible on the unit, social with select peers has mad clear she does ont feel comfortable around men, or Alissa Ricans. No behavioral concerns. Review of Systems Review of Systems General: No fevers, malaise, unintentional weight loss HEENT: No blurred vision, diplopia. No sore throat, nasal congestion, rhinorrhea, sinus pain, ear pain Cardiovascular: No chest pain, palpitations, or leg edema Respiratory: No shortness of breath, wheezing, cough GI: +abd pain. No nausea, vomiting, diarrhea, constipation, melena, hematochezia : No dysuria, hematuria, increased urinary frequency, decreased urinary output MSK: +diffuse pain Neuro: No headaches, weakness, paresthesias Skin: No rashes or lesions Mental Status Exam Mental Status Exam Narrative: Appearance: MO, [place], wearing hospital gown, fair hygiene, nodding, somnolent Behavior: cooperative Psychomotor: retardation due to sedation Speech: clear, some delayed in response, spontaneous TP: tangential at times TC: not feeling safe with partner, feeling anxious and angry Mood: angry, tired, anxious' Affect: somnolent SI: denies HI: denies VH/AH: denies Delusions: appears with paranoia towards partner Insight/judgment: fair x 2. Memory/cog: alert, oriented to place, month, situation, not year. MOCA on 04/08 scored 06/26. ACL 4.2 Diagnostics Vital Signs (24Hr): Vital Signs - 24 hr 04/07/23 18:00 04/07/23 18:00 04/08/23 08:40 Temperature 97.1 F 97.1 F 97.7 F Pulse Rate 87 87 113 H Respiratory Rate 18 18 18 Blood Pressure 100/57 L 100/57 L 132/85 Pulse Oximetry 95 95 94 Oxygen Delivery Method Room Air Room Air Room Air BMI result Body Mass Index 36.5 Labs 04/07/23 07:11 Labs: Laboratory Results - last 48 hr 04/06/23 04/07/23 04/07/23 20:26 07:11 07:11 Sodium 135 Potassium 4.4 Chloride 101 Carbon Dioxide 24 Anion Gap 14 BUN 11 Creatinine 0.76 Estim Creat Clear Calc 78.7 Estimated GFR > 60 POC Glucose 282 H Fasting Glucose 203 H Estimat Average Glucose 160 Hemoglobin A1c % 7.2 Calcium 9.0 Total Bilirubin 0.5 AST 8 ALT 6 Alkaline Phosphatase 85 Total Protein 5.7 L Albumin 3.5 Triglycerides 203 Cholesterol 268 LDL Cholesterol, Calc 193 HDL Cholesterol 35 Vitamin B12 724 Folate 3.0 L TSH 1.25 Free T4 0.88 04/07/23 04/07/23 04/07/23 08:01 08:59 11:37 Sodium Potassium Chloride Carbon Dioxide Anion Gap BUN Creatinine Estim Creat Clear Calc Estimated GFR POC Glucose 195 H 290 H 164 H Fasting Glucose Estimat Average Glucose Hemoglobin A1c % Calcium Total Bilirubin AST ALT Alkaline Phosphatase Total Protein Albumin Triglycerides Cholesterol LDL Cholesterol, Calc HDL Cholesterol Vitamin B12 Folate TSH Free T4 04/07/23 04/07/23 04/08/23 16:29 20:52 08:10 Sodium Potassium Chloride Carbon Dioxide Anion Gap BUN Creatinine Estim Creat Clear Calc Estimated GFR POC Glucose 181 H 248 H 215 H Fasting Glucose Estimat Average Glucose Hemoglobin A1c % Calcium Total Bilirubin AST ALT Alkaline Phosphatase Total Protein Albumin Triglycerides Cholesterol LDL Cholesterol, Calc HDL Cholesterol Vitamin B12 Folate TSH Free T4 04/08/23 11:31 Sodium Potassium Chloride Carbon Dioxide Anion Gap BUN Creatinine Estim Creat Clear Calc Estimated GFR POC Glucose 167 H Fasting Glucose Estimat Average Glucose Hemoglobin A1c % Calcium Total Bilirubin AST ALT Alkaline Phosphatase Total Protein Albumin Triglycerides Cholesterol LDL Cholesterol, Calc HDL Cholesterol Vitamin B12 Folate TSH Free T4 Medications Medications Current Medications Acetaminophen (Acetaminophen 325 Mg Tablet) 650 mg PO Q6H PRN PRN Reason: Headache/Pain Mild Scale (1-3) Last Admin: 04/07/23 21:22 Dose: 650 mg Al Hydroxide/Mg Hydroxide (Magnesium Hydrox/Alum Hydrox 30 Ml Oral.Susp) 30 ml PO Q6H PRN PRN Reason: Heartburn/Nausea Albuterol Sulfate (Albuterol Sulfate 90 Mcg 8 Gm Inhaler) 2 puff INHALE Q4H PRN PRN Reason: Respiratory Distress Allopurinol (Allopurinol 100 Mg Tablet) 100 mg PO DAILY [facility] Last Admin: 04/08/23 08:23 Dose: 100 mg Atorvastatin Calcium (Atorvastatin Calcium 80 Mg Tablet) 80 mg PO DAILY [facility] Last Admin: 04/08/23 08:23 Dose: 80 mg Buspirone HCl (Buspirone Hcl 10 Mg Tablet) 10 mg PO BID [facility] Last Admin: 04/08/23 08:22 Dose: 10 mg Clopidogrel Bisulfate (Clopidogrel Bisulfate 75 Mg Tablet) 75 mg PO DAILY [facility] Last Admin: 04/08/23 08:23 Dose: 75 mg Clotrimazole (Clotrimazole 1 % Cream 15 Gm Tube) 1 appl TOPICAL BID [facility]; Protocol Last Admin: 04/08/23 08:29 Dose: 1 appl Cyanocobalamin (Cyanocobalamin (Vitamin B-12) 500 Mcg Tablet) 500 mcg PO DAILY [facility] Last Admin: 04/08/23 08:21 Dose: 500 mcg Duloxetine HCl (Duloxetine Hcl 60 Mg Capsule.Dr) 60 mg PO DAILY [facility] Last Admin: 04/08/23 08:24 Dose: 60 mg Ezetimibe (Ezetimibe 10 Mg Tablet) 10 mg PO DAILY [facility] Last Admin: 04/08/23 08:23 Dose: 10 mg Ergocalciferol (Ergocalciferol (Vitamin D2) 1,250 Mcg Capsule) 2,500 mcg PO [facility] Folic Acid (Folic Acid 1 Mg Tablet) 1 mg PO DAILY [facility] Last Admin: 04/08/23 08:23 Dose: 1 mg Gabapentin (Gabapentin 300 Mg Capsule) 600 mg PO BID [facility] Last Admin: 04/08/23 08:22 Dose: 600 mg Hydroxyzine HCl (Hydroxyzine Hcl 25 Mg Tablet) 25 mg PO Q6H PRN PRN Reason: Anxiety Last Admin: 04/07/23 23:03 Dose: 25 mg Insulin Human Lispro (Insulin Lispro 100 Unit/Ml 3 Ml Vial) 0 unit SUBCUT QIDACHS [facility]; Protocol Last Admin: 04/08/23 11:42 Dose: 2 unit Lisinopril (Lisinopril 20 Mg Tablet) 20 mg PO DAILY [facility]; Protocol Last Admin: 04/08/23 08:23 Dose: 20 mg Magnesium Hydroxide (Milk Of Magnesia 30 Ml Oral.Susp) 30 ml PO DAILY PRN PRN Reason: Constipation Magnesium Oxide (Magnesium Oxide 400 Mg Tablet) 400 mg PO DAILY [facility] Last Admin: 04/08/23 08:23 Dose: 400 mg Metformin HCl (Metformin Hcl 1,000 Mg Tablet) 1,000 mg PO BID [facility] Last Admin: 04/08/23 08:23 Dose: 1,000 mg Nicotine (Nicotine 14 Mg Patch.Td24) 14 mg TRANSDERMA DAILY [facility] Last Admin: 04/08/23 08:21 Dose: 14 mg Nicotine Polacrilex (Nicotine Polacrilex 2 Mg Gum) 2 mg BUCCAL Q2H PRN PRN Reason: Nicotine Cravings Oxybutynin Chloride (Oxybutynin Chloride Er 5 Mg Tab.Er.24) 10 mg PO DAILY [facility] Last Admin: 04/08/23 08:22 Dose: 10 mg Oxycodone HCl (Oxycodone Hcl Immed Release 5 Mg Tablet) 5 mg PO Q6H PRN PRN Reason: Pain moderate Last Admin: 04/07/23 23:02 Dose: 5 mg Pharmacy Consult (Consult Rx Perform Med Rec) 1 each MISCELLANE ONCE PRN PRN Reason: Consult order Risperidone (Risperidone 1 Mg Tablet) 1 mg PO DAILY [facility] Last Admin: 04/08/23 08:22 Dose: 1 mg Risperidone (Risperidone 2 Mg Tablet) 2 mg PO BEDTIME [facility] Last Admin: 04/07/23 21:13 Dose: 2 mg Trazodone HCl (Trazodone Hcl 50 Mg Tablet) 50 mg PO BEDTIME PRN PRN Reason: Insomnia Allergies Allergies Allergy/AdvReac Type Severity Reaction Status Date / Time Penicillins Allergy Intermediate Unknown Verified 04/06/23 20:37 shellfish derived Allergy Intermediate Unknown Verified 04/06/23 20:37 chlorpromazine AdvReac Intermediate Unknown Verified 04/06/23 20:37 [From Thorazine] Assessment & Plan Assessment & Plan (1) Major neurocognitive disorder due to multiple etiologies, with psychotic disturbance: Status: Acute Code(s): F02.82 - Dementia in other diseases classified elsewhere, unspecified severity, with psychotic disturbance Plan 72 year old female with history insulin dependent type 2 diabetes, htn, fibromyalgia, asthma/copd overlap, CAD, ADRIANA, GERD, obesity hypoventilation syndrome, seizure like activity without diagnosis of epilepsy, hx lucunar infarct, hld, and chronic abdominal pain who is a current everyday smoker admitted to psychiatry with consult placed to hospitalist service for medical H&P. #Mood disorder/dementia -plan per psychiatry #Fibromygia/chronic pain syndrome -continue duloxetine. Can continue lyrica and gabapentin but use combination wtih caution. Pt alert and awake on exam -continue oxycodone #CAD/HLD -no chest pain. Boyd EKG reassuring with NSR, rate 93, nonspecific st wave abnormality, no edith or deperessions -continue plavix, statin, zetia #Insulin dependent type 2 diabetes -poc glucose -diabetic diet -Continue metformin, humalog on sliding scale #Urinary incontinence/urgency -continue methenamine -UA normal #HTN -reasonably controlled -continue lisinopril #Asthma/copd overlap -Continue home inhalers, albuterol prn #ADRIANA -continue cpap if used at home. Consult RT Thank you for allowing me to participate in this consult. Signing off at this time. Please do not hesitate to call for further questions. 04/08 continue current medications. VS 132/85, HR 113, O2sat 94 on RA. continue to monitor oversedation respiratory suppression. Reason for continued inpatient stay Substantial Risk for: inability to function Time Spent With Patient Time: Total time managing care of this patient today ____ minutes.
[2023-04-08 16:18] LABS: Glucose, Whole Blood 192 mg/dL (60-115)
[2023-04-08 18:00] VITALS: BP 125/60; PULSE 108; RESP 18; TEMP 36.5; O2SAT 90
[2023-04-08 19:58] LABS: Glucose, Whole Blood 163 mg/dL (60-115)
[2023-04-08] MEDS: risperiDONE 2 MG TABLET PO (20:10)
[2023-04-08] MEDS: traZODone HCL 50 MG TABLET PO (22:05)
[2023-04-08] MEDS: hydrOXYzine HCL 25 MG TABLET PO (22:05)
[2023-04-08] MEDS: oxyCODONE HCl Immed Release 5 MG TABLET PO (22:06)
[2023-04-09 07:44] LABS: Glucose, Whole Blood 198 mg/dL (60-115)
[2023-04-09] MEDS: Insulin Lispro 100 UNIT/ML 3 ML VIAL SUBCUT ×3 (08:30→22:00)
[2023-04-09 10:35] VITALS: BP 183/83; PULSE 89; RESP 18; TEMP 36.2; O2SAT 96
[2023-04-09] MEDS: Clotrimazole 1 % Cream 15 GM TUBE 1 APPL TOPICAL ×2 (10:38→22:02)
[2023-04-09] MEDS: oxyBUTYnin chloride ER 5 MG TAB.ER.24 10 MG PO (10:39)
[2023-04-09] MEDS: Ezetimibe 10 MG TABLET PO (10:39)
[2023-04-09] MEDS: Cyanocobalamin (Vitamin B-12) 500 MCG TABLET PO (10:39)
[2023-04-09] MEDS: allopurinoL 100 MG TABLET PO (10:39)
[2023-04-09] MEDS: Folic Acid 1 MG TABLET PO (10:39)
[2023-04-09] MEDS: Gabapentin 300 MG CAPSULE 600 MG PO ×2 (10:39→22:01)
[2023-04-09] MEDS: lisinopriL 20 MG TABLET PO (10:39)
[2023-04-09] MEDS: Clopidogrel Bisulfate 75 MG TABLET PO (10:40)
[2023-04-09] MEDS: risperiDONE 1 MG TABLET PO (10:40)
[2023-04-09] MEDS: Nicotine 14 MG PATCH.TD24 TRANSDERMA (10:40)
[2023-04-09] MEDS: metFORMIN HCl 1,000 MG TABLET 1000 MG PO ×2 (10:40→22:02)
[2023-04-09] MEDS: DULoxetine HCl 60 MG CAPSULE.DR PO (10:40)
[2023-04-09] MEDS: Magnesium Oxide 400 MG TABLET PO (10:40)
[2023-04-09] MEDS: Atorvastatin Calcium 80 MG TABLET PO (10:40)
[2023-04-09] MEDS: oxyCODONE HCl Immed Release 5 MG TABLET PO (10:49)
[2023-04-09 11:41] LABS: Glucose, Whole Blood 181 mg/dL (60-115)
--- NOTE | 2023-04-09 16:02 | HO.PSYCHPN ---
Subjective Subjective Date of Service: 04/09/23 Reason For Visit: SI Subjective Notes: Conditional Voluntary Interim History: Pt seen with sisters. Pt denies SI/HI. She appears less paranoid towards . She reports chronic pain at times worse. More alert, today. She slept through the night. Sister reports concern in terms of ability of to care for pt and does confirmed suspicious or concern about taking pt's medications. No behavioral concerns. Review of Systems Review of Systems General: No fevers, malaise, unintentional weight loss HEENT: No blurred vision, diplopia. No sore throat, nasal congestion, rhinorrhea, sinus pain, ear pain Cardiovascular: No chest pain, palpitations, or leg edema Respiratory: No shortness of breath, wheezing, cough GI: +abd pain. No nausea, vomiting, diarrhea, constipation, melena, hematochezia : No dysuria, hematuria, increased urinary frequency, decreased urinary output MSK: +diffuse pain Neuro: No headaches, weakness, paresthesias Skin: No rashes or lesions Mental Status Exam Mental Status Exam Narrative: Appearance: [place], [place], wearing hospital gown, fair hygiene, nodding, somnolent Behavior: cooperative Psychomotor: retardation due to sedation Speech: clear, some delayed in response, spontaneous TP: tangential at times TC: not feeling safe with partner, feeling anxious and angry Mood: angry, tired, anxious' Affect: somnolent SI: denies HI: denies VH/AH: denies Delusions: appears with paranoia towards partner Insight/judgment: fair x 2. Memory/cog: alert, oriented to place, month, situation, not year. MOCA on 04/08 scored 8/30. ACL 4.2 Diagnostics Vital Signs (24Hr): Vital Signs - 24 hr 04/08/23 18:00 04/09/23 10:35 Temperature 97.7 F 97.1 F Pulse Rate 108 H 89 Respiratory Rate 18 18 Blood Pressure 125/60 183/83 H Pulse Oximetry 90 L 96 Oxygen Delivery Method Room Air Room Air BMI result Body Mass Index 36.5 Labs 04/07/23 07:11 Labs: Laboratory Results - last 48 hr 04/07/23 04/07/23 04/07/23 11:37 16:29 20:52 POC Glucose 164 H 181 H 248 H 06/10/1904/08/23 04/08/23 08:10 11:31 16:14 POC Glucose 215 H 167 H 192 H 04/08/23 04/09/23 04/09/23 19:49 07:40 11:37 POC Glucose 163 H 198 H 181 H Medications Medications Current Medications Acetaminophen (Acetaminophen 325 Mg Tablet) 650 mg PO Q6H PRN PRN Reason: Headache/Pain Mild Scale (1-3) Last Admin: 04/07/23 21:22 Dose: 650 mg Al Hydroxide/Mg Hydroxide (Magnesium Hydrox/Alum Hydrox 30 Ml Oral.Susp) 30 ml PO Q6H PRN PRN Reason: Heartburn/Nausea Albuterol Sulfate (Albuterol Sulfate 90 Mcg 8 Gm Inhaler) 2 puff INHALE Q4H PRN PRN Reason: Respiratory Distress Allopurinol (Allopurinol 100 Mg Tablet) 100 mg PO DAILY [facility] Last Admin: 04/09/23 10:39 Dose: 100 mg Atorvastatin Calcium (Atorvastatin Calcium 80 Mg Tablet) 80 mg PO DAILY [facility] Last Admin: 04/09/23 10:40 Dose: 80 mg Clopidogrel Bisulfate (Clopidogrel Bisulfate 75 Mg Tablet) 75 mg PO DAILY [facility] Last Admin: 04/09/23 10:40 Dose: 75 mg Clotrimazole (Clotrimazole 1 % Cream 15 Gm Tube) 1 appl TOPICAL BID [facility]; Protocol Last Admin: 04/09/23 10:38 Dose: 1 appl Cyanocobalamin (Cyanocobalamin (Vitamin B-12) 500 Mcg Tablet) 500 mcg PO DAILY [facility] Last Admin: 04/09/23 10:39 Dose: 500 mcg Duloxetine HCl (Duloxetine Hcl 60 Mg Capsule.) 60 mg PO DAILY [facility] Last Admin: 04/09/23 10:40 Dose: 60 mg Ezetimibe (Ezetimibe 10 Mg Tablet) 10 mg PO DAILY [facility] Last Admin: 04/09/23 10:39 Dose: 10 mg Ergocalciferol (Ergocalciferol (Vitamin D2) 1,250 Mcg Capsule) 2,500 mcg PO Fr [facility] Folic Acid (Folic Acid 1 Mg Tablet) 1 mg PO DAILY [facility] Last Admin: 04/09/23 10:39 Dose: 1 mg Gabapentin (Gabapentin 300 Mg Capsule) 600 mg PO BID [facility] Last Admin: 04/09/23 10:39 Dose: 600 mg Hydroxyzine HCl (Hydroxyzine Hcl 25 Mg Tablet) 25 mg PO Q6H PRN PRN Reason: Anxiety Last Admin: 04/08/23 22:05 Dose: 25 mg Insulin Human Lispro (Insulin Lispro 100 Unit/Ml 3 Ml Vial) 0 unit SUBCUT QIDACHS [facility]; Protocol Last Admin: 04/09/23 12:17 Dose: 2 unit Lisinopril (Lisinopril 20 Mg Tablet) 20 mg PO DAILY [facility]; Protocol Last Admin: 04/09/23 10:39 Dose: 20 mg Magnesium Hydroxide (Milk Of Magnesia 30 Ml Oral.Susp) 30 ml PO DAILY PRN PRN Reason: Constipation Magnesium Oxide (Magnesium Oxide 400 Mg Tablet) 400 mg PO DAILY [facility] Last Admin: 04/09/23 10:40 Dose: 400 mg Metformin HCl (Metformin Hcl 1,000 Mg Tablet) 1,000 mg PO BID [facility] Last Admin: 04/09/23 10:40 Dose: 1,000 mg Nicotine (Nicotine 14 Mg Patch.Td24) 14 mg TRANSDERMA DAILY [facility] Last Admin: 04/09/23 10:40 Dose: 14 mg Nicotine Polacrilex (Nicotine Polacrilex 2 Mg Gum) 2 mg BUCCAL Q2H PRN PRN Reason: Nicotine Cravings Oxybutynin Chloride (Oxybutynin Chloride Er 5 Mg Tab.Er.24) 10 mg PO DAILY [facility] Last Admin: 04/09/23 10:39 Dose: 10 mg Oxycodone HCl (Oxycodone Hcl Immed Release 5 Mg Tablet) 5 mg PO Q8H PRN PRN Reason: Pain moderate Last Admin: 04/09/23 10:49 Dose: 5 mg Pharmacy Consult (Consult Rx Perform Med Rec) 1 each MISCELLANE ONCE PRN PRN Reason: Consult order Risperidone (Risperidone 1 Mg Tablet) 1 mg PO DAILY [facility] Last Admin: 04/09/23 10:40 Dose: 1 mg Risperidone (Risperidone 2 Mg Tablet) 2 mg PO BEDTIME [facility] Last Admin: 04/08/23 20:10 Dose: 2 mg Trazodone HCl (Trazodone Hcl 50 Mg Tablet) 50 mg PO BEDTIME PRN PRN Reason: Insomnia Last Admin: 04/08/23 22:05 Dose: 50 mg Allergies Allergies Allergy/AdvReac Type Severity Reaction Status Date / Time Penicillins Allergy Intermediate Unknown Verified 04/06/23 20:37 shellfish derived Allergy Intermediate Unknown Verified 04/06/23 20:37 chlorpromazine AdvReac Intermediate Unknown Verified 04/06/23 20:37 [From Thorazine] Assessment & Plan Assessment & Plan (1) Major neurocognitive disorder due to multiple etiologies, with psychotic disturbance: Status: Acute Code(s): F02.82 - Dementia in other diseases classified elsewhere, unspecified severity, with psychotic disturbance Plan 72 year old female with history insulin dependent type 2 diabetes, htn, fibromyalgia, asthma/copd overlap, CAD, ADRIANA, GERD, obesity hypoventilation syndrome, seizure like activity without diagnosis of epilepsy, hx lucunar infarct, hld, and chronic abdominal pain who is a current everyday smoker admitted to psychiatry with consult placed to hospitalist service for medical H&P. #Mood disorder/dementia -plan per psychiatry #Fibromygia/chronic pain syndrome -continue duloxetine. Can continue lyrica and gabapentin but use combination wtih caution. Pt alert and awake on exam -continue oxycodone #CAD/HLD -no chest pain. [facility] EKG reassuring with NSR, rate 93, nonspecific st wave abnormality, no edith or deperessions -continue plavix, statin, zetia #Insulin dependent type 2 diabetes -poc glucose -diabetic diet -Continue metformin, humalog on sliding scale #Urinary incontinence/urgency -continue methenamine -UA normal #HTN -reasonably controlled -continue lisinopril #Asthma/copd overlap -Continue home inhalers, albuterol prn #ADRIANA -continue cpap if used at home. Consult RT Thank you for allowing me to participate in this consult. Signing off at this time. Please do not hesitate to call for further questions. 04/08 continue current medications. VS 132/85, HR 113, O2sat 94 on RA. continue to monitor oversedation respiratory suppression. 04/09 continue tx. Reason for continued inpatient stay Substantial Risk for: inability to function Time Spent With Patient Time: Total time managing care of this patient today ____ minutes.
[2023-04-09 20:56] VITALS: BP 107/67; PULSE 88; RESP 16; TEMP 36.2; O2SAT 93
[2023-04-09 21:56] LABS: Glucose, Whole Blood 189 mg/dL (60-115)
[2023-04-09] MEDS: risperiDONE 2 MG TABLET PO (22:01)
--- NOTE | 2023-04-09 22:16 | PC.NURSE ---
redness and rash present under bilateral breast under abdominal folds and bilateral groins areas,areas cleansed and cream applied as ordered
[2023-04-10 07:48] LABS: Glucose, Whole Blood 189 mg/dL (60-115)
[2023-04-10 08:00] VITALS: BP 133/81; PULSE 82; RESP 16; TEMP 36; O2SAT 95
[2023-04-10] MEDS: Gabapentin 300 MG CAPSULE 600 MG PO ×2 (08:56→20:41)
[2023-04-10] MEDS: oxyBUTYnin chloride ER 5 MG TAB.ER.24 10 MG PO (08:56)
[2023-04-10] MEDS: Nicotine 14 MG PATCH.TD24 TRANSDERMA (08:56)
[2023-04-10] MEDS: Ezetimibe 10 MG TABLET PO (08:57)
[2023-04-10] MEDS: risperiDONE 1 MG TABLET PO (08:57)
[2023-04-10] MEDS: Folic Acid 1 MG TABLET PO (08:57)
[2023-04-10] MEDS: Acetaminophen 325 MG TABLET 650 MG PO ×2 (08:57→22:58)
[2023-04-10] MEDS: metFORMIN HCl 1,000 MG TABLET 1000 MG PO ×2 (08:57→20:41)
[2023-04-10] MEDS: Atorvastatin Calcium 80 MG TABLET PO (08:57)
[2023-04-10] MEDS: Cyanocobalamin (Vitamin B-12) 500 MCG TABLET PO (08:58)
[2023-04-10] MEDS: allopurinoL 100 MG TABLET PO (08:58)
[2023-04-10] MEDS: DULoxetine HCl 60 MG CAPSULE.DR PO (08:58)
[2023-04-10] MEDS: lisinopriL 20 MG TABLET PO (08:58)
[2023-04-10] MEDS: Magnesium Oxide 400 MG TABLET PO (08:58)
[2023-04-10] MEDS: Clopidogrel Bisulfate 75 MG TABLET PO (08:58)
[2023-04-10 11:35] LABS: Glucose, Whole Blood 179 mg/dL (60-115)
[2023-04-10] MEDS: Insulin Lispro 100 UNIT/ML 3 ML VIAL SUBCUT ×2 (11:37→20:41)
[2023-04-10 16:02] LABS: Glucose, Whole Blood 136 mg/dL (60-115)
[2023-04-10 18:00] VITALS: BP 145/77; PULSE 93; RESP 16; TEMP 36.4; O2SAT 97
--- NOTE | 2023-04-10 18:20 | HO.PSYCHPN ---
Subjective Subjective Date of Service: 04/10/23 Reason For Visit: SI Subjective Notes: Conditional Voluntary Interim History: Pt mostly in bed. She reports increased pain today and resting in bed. She denies SI/HI. She continues to report that she would rather go to nursing facility than returning home with . Sister reports concern in terms of ability of to care for pt and does confirmed suspicious or concern about taking pt's medications. No behavioral concerns. Review of Systems Review of Systems General: No fevers, malaise, unintentional weight loss HEENT: No blurred vision, diplopia. No sore throat, nasal congestion, rhinorrhea, sinus pain, ear pain Cardiovascular: No chest pain, palpitations, or leg edema Respiratory: No shortness of breath, wheezing, cough GI: +abd pain. No nausea, vomiting, diarrhea, constipation, melena, hematochezia : No dysuria, hematuria, increased urinary frequency, decreased urinary output MSK: +diffuse pain Neuro: No headaches, weakness, paresthesias Skin: No rashes or lesions Mental Status Exam Mental Status Exam Narrative: Appearance: MO, [place], wearing hospital gown, fair hygiene, nodding, somnolent Behavior: cooperative Psychomotor: retardation due to sedation Speech: clear, some delayed in response, spontaneous TP: tangential at times TC: not feeling safe with partner, feeling anxious and angry Mood: angry, tired, anxious' Affect: somnolent SI: denies HI: denies VH/AH: denies Delusions: appears with paranoia towards partner Insight/judgment: fair x 2. Memory/cog: alert, oriented to place, month, situation, not year. MOCA on 04/08 scored 8/30. ACL 4.2 Diagnostics Vital Signs (24Hr): Vital Signs - 24 hr 04/09/23 20:56 04/10/23 08:00 Temperature 97.2 F 96.8 F Pulse Rate 88 82 Respiratory Rate 16 16 Blood Pressure 107/67 133/81 Pulse Oximetry 93 95 Oxygen Delivery Method Room Air Room Air BMI result Body Mass Index 36.5 Labs 04/07/23 07:11 Labs: Laboratory Results - last 48 hr 04/08/23 04/09/23 04/09/23 19:49 07:40 11:37 POC Glucose 163 H 198 H 181 H 04/09/23 04/10/23 04/10/23 21:50 07:44 11:31 POC Glucose 189 H 189 H 179 H 04/10/23 15:57 POC Glucose 136 H Medications Medications Current Medications Acetaminophen (Acetaminophen 325 Mg Tablet) 650 mg PO Q6H PRN PRN Reason: Headache/Pain Mild Scale (1-3) Last Admin: 04/10/23 08:57 Dose: 650 mg Al Hydroxide/Mg Hydroxide (Magnesium Hydrox/Alum Hydrox 30 Ml Oral.Susp) 30 ml PO Q6H PRN PRN Reason: Heartburn/Nausea Albuterol Sulfate (Albuterol Sulfate 90 Mcg 8 Gm Inhaler) 2 puff INHALE Q4H PRN PRN Reason: Respiratory Distress Allopurinol (Allopurinol 100 Mg Tablet) 100 mg PO DAILY [facility] Last Admin: 04/10/23 08:58 Dose: 100 mg Atorvastatin Calcium (Atorvastatin Calcium 80 Mg Tablet) 80 mg PO DAILY [facility] Last Admin: 04/10/23 08:57 Dose: 80 mg Clopidogrel Bisulfate (Clopidogrel Bisulfate 75 Mg Tablet) 75 mg PO DAILY [facility] Last Admin: 04/10/23 08:58 Dose: 75 mg Clotrimazole (Clotrimazole 1 % Cream 15 Gm Tube) 1 appl TOPICAL BID [facility]; Protocol Last Admin: 04/10/23 10:08 Dose: Not Given Cyanocobalamin (Cyanocobalamin (Vitamin B-12) 500 Mcg Tablet) 500 mcg PO DAILY [facility] Last Admin: 04/10/23 08:58 Dose: 500 mcg Duloxetine HCl (Duloxetine Hcl 60 Mg Capsule.Dr) 60 mg PO DAILY [facility] Last Admin: 04/10/23 08:58 Dose: 60 mg Ezetimibe (Ezetimibe 10 Mg Tablet) 10 mg PO DAILY [facility] Last Admin: 04/10/23 08:57 Dose: 10 mg Ergocalciferol (Ergocalciferol (Vitamin D2) 1,250 Mcg Capsule) 2,500 mcg PO [facility] Folic Acid (Folic Acid 1 Mg Tablet) 1 mg PO DAILY [facility] Last Admin: 04/10/23 08:57 Dose: 1 mg Gabapentin (Gabapentin 300 Mg Capsule) 600 mg PO BID [facility] Last Admin: 04/10/23 08:56 Dose: 600 mg Hydroxyzine HCl (Hydroxyzine Hcl 25 Mg Tablet) 25 mg PO Q6H PRN PRN Reason: Anxiety Last Admin: 04/08/23 22:05 Dose: 25 mg Insulin Human Lispro (Insulin Lispro 100 Unit/Ml 3 Ml Vial) 0 unit SUBCUT QIDACHS [facility]; Protocol Last Admin: 04/10/23 18:01 Dose: Not Given Lisinopril (Lisinopril 20 Mg Tablet) 20 mg PO DAILY [facility]; Protocol Last Admin: 04/10/23 08:58 Dose: 20 mg Magnesium Hydroxide (Milk Of Magnesia 30 Ml Oral.Susp) 30 ml PO DAILY PRN PRN Reason: Constipation Magnesium Oxide (Magnesium Oxide 400 Mg Tablet) 400 mg PO DAILY [facility] Last Admin: 04/10/23 08:58 Dose: 400 mg Metformin HCl (Metformin Hcl 1,000 Mg Tablet) 1,000 mg PO BID [facility] Last Admin: 04/10/23 08:57 Dose: 1,000 mg Nicotine (Nicotine 14 Mg Patch.Td24) 14 mg TRANSDERMA DAILY [facility] Last Admin: 04/10/23 08:56 Dose: 14 mg Nicotine Polacrilex (Nicotine Polacrilex 2 Mg Gum) 2 mg BUCCAL Q2H PRN PRN Reason: Nicotine Cravings Oxybutynin Chloride (Oxybutynin Chloride Er 5 Mg Tab.Er.24) 10 mg PO DAILY [facility] Last Admin: 04/10/23 08:56 Dose: 10 mg Oxycodone HCl (Oxycodone Hcl Immed Release 5 Mg Tablet) 5 mg PO Q8H PRN PRN Reason: Pain moderate Last Admin: 04/09/23 10:49 Dose: 5 mg Pharmacy Consult (Consult Rx Perform Med Rec) 1 each MISCELLANE ONCE PRN PRN Reason: Consult order Risperidone (Risperidone 1 Mg Tablet) 1 mg PO DAILY [facility] Last Admin: 04/10/23 08:57 Dose: 1 mg Risperidone (Risperidone 2 Mg Tablet) 2 mg PO BEDTIME [facility] Last Admin: 04/09/23 22:01 Dose: 2 mg Trazodone HCl (Trazodone Hcl 50 Mg Tablet) 50 mg PO BEDTIME PRN PRN Reason: Insomnia Last Admin: 04/08/23 22:05 Dose: 50 mg Allergies Allergies Allergy/AdvReac Type Severity Reaction Status Date / Time Penicillins Allergy Intermediate Unknown Verified 04/06/23 20:37 shellfish derived Allergy Intermediate Unknown Verified 04/06/23 20:37 chlorpromazine AdvReac Intermediate Unknown Verified 04/06/23 20:37 [From Thorazine] Assessment & Plan Assessment & Plan (1) Major neurocognitive disorder due to multiple etiologies, with psychotic disturbance: Status: Acute Code(s): F02.82 - Dementia in other diseases classified elsewhere, unspecified severity, with psychotic disturbance Plan 72 year old female with history insulin dependent type 2 diabetes, htn, fibromyalgia, asthma/copd overlap, CAD, ADRIANA, GERD, obesity hypoventilation syndrome, seizure like activity without diagnosis of epilepsy, hx lucunar infarct, hld, and chronic abdominal pain who is a current everyday smoker admitted to psychiatry with consult placed to hospitalist service for medical H&P. #Mood disorder/dementia -plan per psychiatry #Fibromygia/chronic pain syndrome -continue duloxetine. Can continue lyrica and gabapentin but use combination wtih caution. Pt alert and awake on exam -continue oxycodone #CAD/HLD -no chest pain. Boyd EKG reassuring with NSR, rate 93, nonspecific st wave abnormality, no edith or deperessions -continue plavix, statin, zetia #Insulin dependent type 2 diabetes -poc glucose -diabetic diet -Continue metformin, humalog on sliding scale #Urinary incontinence/urgency -continue methenamine -UA normal #HTN -reasonably controlled -continue lisinopril #Asthma/copd overlap -Continue home inhalers, albuterol prn #ADRIANA -continue cpap if used at home. Consult RT Thank you for allowing me to participate in this consult. Signing off at this time. Please do not hesitate to call for further questions. 04/08 continue current medications. VS 132/85, HR 113, O2sat 94 on RA. continue to monitor oversedation respiratory suppression. 04/09 continue tx. 04/10 continue tx. Reason for continued inpatient stay Substantial Risk for: inability to function Time Spent With Patient Time: Total time managing care of this patient today ____ minutes.
[2023-04-10 20:24] LABS: Glucose, Whole Blood 211 mg/dL (60-115)
[2023-04-10] MEDS: risperiDONE 2 MG TABLET PO (20:41)
[2023-04-11 07:00] VITALS: BMI 36.9
[2023-04-11 07:30] VITALS: BP 110/59; PULSE 114; RESP 15; TEMP 36.2; O2SAT 95
[2023-04-11 08:03] LABS: Glucose, Whole Blood 202 mg/dL (60-115)
[2023-04-11] MEDS: Insulin Lispro 100 UNIT/ML 3 ML VIAL SUBCUT ×3 (08:29→21:20)
[2023-04-11] MEDS: oxyBUTYnin chloride ER 5 MG TAB.ER.24 10 MG PO (08:33)
[2023-04-11] MEDS: Folic Acid 1 MG TABLET PO (08:33)
[2023-04-11] MEDS: Gabapentin 300 MG CAPSULE 600 MG PO ×2 (08:33→21:14)
[2023-04-11] MEDS: DULoxetine HCl 60 MG CAPSULE.DR PO (08:34)
[2023-04-11] MEDS: metFORMIN HCl 1,000 MG TABLET 1000 MG PO ×2 (08:34→21:14)
[2023-04-11] MEDS: Magnesium Oxide 400 MG TABLET PO (08:34)
[2023-04-11] MEDS: Clopidogrel Bisulfate 75 MG TABLET PO (08:34)
[2023-04-11] MEDS: Cyanocobalamin (Vitamin B-12) 500 MCG TABLET PO (08:34)
[2023-04-11] MEDS: Ezetimibe 10 MG TABLET PO (08:34)
[2023-04-11] MEDS: risperiDONE 1 MG TABLET PO (08:34)
[2023-04-11] MEDS: allopurinoL 100 MG TABLET PO (08:34)
[2023-04-11] MEDS: lisinopriL 20 MG TABLET PO (08:34)
[2023-04-11] MEDS: Atorvastatin Calcium 80 MG TABLET PO (08:34)
[2023-04-11] MEDS: Nicotine 14 MG PATCH.TD24 TRANSDERMA (08:35)
[2023-04-11 16:10] LABS: Glucose, Whole Blood 165 mg/dL (60-115)
[2023-04-11] MEDS: Acetaminophen 325 MG TABLET 650 MG PO (17:02)
[2023-04-11] MEDS: oxyCODONE HCl Immed Release 5 MG TABLET PO (17:03)
[2023-04-11 18:00] VITALS: BP 135/71; PULSE 78; RESP 18; TEMP 36.6; O2SAT 96
--- NOTE | 2023-04-11 20:43 | HO.PSYCHPN ---
Subjective Subjective Date of Service: 04/11/23 Reason For Visit: SI Subjective Notes: Conditional Voluntary Interim History: Pt again mostly in bed. She denies SI/HI. She continues to report that she would rather go to nursing facility than returning home with . Sister reports concern in terms of ability of to care for pt and does confirmed suspicious or concern about taking pt's medications. No behavioral concerns. Review of Systems Review of Systems General: No fevers, malaise, unintentional weight loss HEENT: No blurred vision, diplopia. No sore throat, nasal congestion, rhinorrhea, sinus pain, ear pain Cardiovascular: No chest pain, palpitations, or leg edema Respiratory: No shortness of breath, wheezing, cough GI: +abd pain. No nausea, vomiting, diarrhea, constipation, melena, hematochezia : No dysuria, hematuria, increased urinary frequency, decreased urinary output MSK: +diffuse pain Neuro: No headaches, weakness, paresthesias Skin: No rashes or lesions Mental Status Exam Mental Status Exam Narrative: Appearance: MO, [place], wearing hospital gown, fair hygiene, nodding, somnolent Behavior: cooperative Psychomotor: retardation due to sedation Speech: clear, some delayed in response, spontaneous TP: tangential at times TC: not feeling safe with partner, feeling anxious and angry Mood: angry, tired, anxious' Affect: somnolent SI: denies HI: denies VH/AH: denies Delusions: appears with paranoia towards partner Insight/judgment: fair x 2. Memory/cog: alert, oriented to place, month, situation, not year. MOCA on 04/08 scored /30. ACL 4.2 Diagnostics Vital Signs (24Hr): Vital Signs - 24 hr 04/11/23 07:30 Temperature 97.2 F Pulse Rate 114 H Respiratory Rate 15 Blood Pressure 110/59 L Pulse Oximetry 95 Oxygen Delivery Method Room Air BMI result Body Mass Index 36.9 Labs 04/07/23 07:11 Labs: Laboratory Results - last 48 hr 04/09/23 04/10/23 04/10/23 21:50 07:44 11:31 POC Glucose 189 H 189 H 179 H 04/10/23 04/10/23 04/11/23 15:57 20:19 07:59 POC Glucose 136 H 211 H 202 H 04/11/23 16:05 POC Glucose 165 H Medications Medications Current Medications Acetaminophen (Acetaminophen 325 Mg Tablet) 650 mg PO Q6H PRN PRN Reason: Headache/Pain Mild Scale (1-3) Last Admin: 04/11/23 17:02 Dose: 650 mg Al Hydroxide/Mg Hydroxide (Magnesium Hydrox/Alum Hydrox 30 Ml Oral.Susp) 30 ml PO Q6H PRN PRN Reason: Heartburn/Nausea Albuterol Sulfate (Albuterol Sulfate 90 Mcg 8 Gm Inhaler) 2 puff INHALE Q4H PRN PRN Reason: Respiratory Distress Allopurinol (Allopurinol 100 Mg Tablet) 100 mg PO DAILY [facility] Last Admin: 04/11/23 08:34 Dose: 100 mg Atorvastatin Calcium (Atorvastatin Calcium 80 Mg Tablet) 80 mg PO DAILY [facility] Last Admin: 04/11/23 08:34 Dose: 80 mg Clopidogrel Bisulfate (Clopidogrel Bisulfate 75 Mg Tablet) 75 mg PO DAILY [facility] Last Admin: 04/11/23 08:34 Dose: 75 mg Clotrimazole (Clotrimazole 1 % Cream 15 Gm Tube) 1 appl TOPICAL BID [facility]; Protocol Last Admin: 04/11/23 12:34 Dose: Not Given Cyanocobalamin (Cyanocobalamin (Vitamin B-12) 500 Mcg Tablet) 500 mcg PO DAILY [facility] Last Admin: 04/11/23 08:34 Dose: 500 mcg Duloxetine HCl (Duloxetine Hcl 60 Mg Capsule.Dr) 60 mg PO DAILY [facility] Last Admin: 04/11/23 08:34 Dose: 60 mg Ezetimibe (Ezetimibe 10 Mg Tablet) 10 mg PO DAILY [facility] Last Admin: 04/11/23 08:34 Dose: 10 mg Ergocalciferol (Ergocalciferol (Vitamin D2) 1,250 Mcg Capsule) 2,500 mcg PO [facility] Folic Acid (Folic Acid 1 Mg Tablet) 1 mg PO DAILY [facility] Last Admin: 04/11/23 08:33 Dose: 1 mg Gabapentin (Gabapentin 300 Mg Capsule) 600 mg PO BID [facility] Last Admin: 04/11/23 08:33 Dose: 600 mg Hydroxyzine HCl (Hydroxyzine Hcl 25 Mg Tablet) 25 mg PO Q6H PRN PRN Reason: Anxiety Last Admin: 04/08/23 22:05 Dose: 25 mg Insulin Human Lispro (Insulin Lispro 100 Unit/Ml 3 Ml Vial) 0 unit SUBCUT QIDACHS [facility]; Protocol Last Admin: 04/11/23 16:23 Dose: 2 unit Lisinopril (Lisinopril 20 Mg Tablet) 20 mg PO DAILY [facility]; Protocol Last Admin: 04/11/23 08:34 Dose: 20 mg Magnesium Hydroxide (Milk Of Magnesia 30 Ml Oral.Susp) 30 ml PO DAILY PRN PRN Reason: Constipation Magnesium Oxide (Magnesium Oxide 400 Mg Tablet) 400 mg PO DAILY [facility] Last Admin: 04/11/23 08:34 Dose: 400 mg Metformin HCl (Metformin Hcl 1,000 Mg Tablet) 1,000 mg PO BID [facility] Last Admin: 04/11/23 08:34 Dose: 1,000 mg Nicotine (Nicotine 14 Mg Patch.Td24) 14 mg TRANSDERMA DAILY [facility] Last Admin: 04/11/23 08:35 Dose: 14 mg Nicotine Polacrilex (Nicotine Polacrilex 2 Mg Gum) 2 mg BUCCAL Q2H PRN PRN Reason: Nicotine Cravings Oxybutynin Chloride (Oxybutynin Chloride Er 5 Mg Tab.Er.24) 10 mg PO DAILY [facility] Last Admin: 04/11/23 08:33 Dose: 10 mg Oxycodone HCl (Oxycodone Hcl Immed Release 5 Mg Tablet) 5 mg PO Q8H PRN PRN Reason: Pain moderate Last Admin: 04/11/23 17:03 Dose: 5 mg Pharmacy Consult (Consult Rx Perform Med Rec) 1 each MISCELLANE ONCE PRN PRN Reason: Consult order Risperidone (Risperidone 1 Mg Tablet) 1 mg PO DAILY [facility] Last Admin: 04/11/23 08:34 Dose: 1 mg Risperidone (Risperidone 2 Mg Tablet) 2 mg PO BEDTIME [facility] Last Admin: 04/10/23 20:41 Dose: 2 mg Trazodone HCl (Trazodone Hcl 50 Mg Tablet) 50 mg PO BEDTIME PRN PRN Reason: Insomnia Last Admin: 04/08/23 22:05 Dose: 50 mg Allergies Allergies Allergy/AdvReac Type Severity Reaction Status Date / Time Penicillins Allergy Intermediate Unknown Verified 04/06/23 20:37 shellfish derived Allergy Intermediate Unknown Verified 04/06/23 20:37 chlorpromazine AdvReac Intermediate Unknown Verified 04/06/23 20:37 [From Thorazine] Assessment & Plan Assessment & Plan (1) Major neurocognitive disorder due to multiple etiologies, with psychotic disturbance: Status: Acute Code(s): F02.82 - Dementia in other diseases classified elsewhere, unspecified severity, with psychotic disturbance Plan 72 year old female with history insulin dependent type 2 diabetes, htn, fibromyalgia, asthma/copd overlap, CAD, ADRIANA, GERD, obesity hypoventilation syndrome, seizure like activity without diagnosis of epilepsy, hx lucunar infarct, hld, and chronic abdominal pain who is a current everyday smoker admitted to psychiatry with consult placed to hospitalist service for medical H&P. #Mood disorder/dementia -plan per psychiatry #Fibromygia/chronic pain syndrome -continue duloxetine. Can continue lyrica and gabapentin but use combination wtih caution. Pt alert and awake on exam -continue oxycodone #CAD/HLD -no chest pain. Boyd EKG reassuring with NSR, rate 93, nonspecific st wave abnormality, no edith or deperessions -continue plavix, statin, zetia #Insulin dependent type 2 diabetes -poc glucose -diabetic diet -Continue metformin, humalog on sliding scale #Urinary incontinence/urgency -continue methenamine -UA normal #HTN -reasonably controlled -continue lisinopril #Asthma/copd overlap -Continue home inhalers, albuterol prn #ADRIANA -continue cpap if used at home. Consult RT Psych: 04/08 continue current medications. VS 132/85, HR 113, O2sat 94 on RA. continue to monitor oversedation respiratory suppression. 04/09 continue tx. 04/10 continue tx. 04/11 continue tx. Reason for continued inpatient stay Substantial Risk for: inability to function Time Spent With Patient Time: Total time managing care of this patient today ____ minutes.
[2023-04-11] MEDS: risperiDONE 2 MG TABLET PO (21:14)
[2023-04-11 21:20] LABS: Glucose, Whole Blood 164 mg/dL (60-115)
[2023-04-12 07:30] VITALS: BP 83/44; PULSE 96; RESP 15; TEMP 36.6; O2SAT 95
[2023-04-12 07:45] LABS: Glucose, Whole Blood 160 mg/dL (60-115)
[2023-04-12] MEDS: Insulin Lispro 100 UNIT/ML 3 ML VIAL SUBCUT ×3 (08:05→21:32)
[2023-04-12] MEDS: Atorvastatin Calcium 80 MG TABLET PO (08:07)
[2023-04-12] MEDS: Clopidogrel Bisulfate 75 MG TABLET PO (08:07)
[2023-04-12] MEDS: Cyanocobalamin (Vitamin B-12) 500 MCG TABLET PO (08:07)
[2023-04-12] MEDS: Magnesium Oxide 400 MG TABLET PO (08:07)
[2023-04-12] MEDS: DULoxetine HCl 60 MG CAPSULE.DR PO (08:08)
[2023-04-12] MEDS: allopurinoL 100 MG TABLET PO (08:08)
[2023-04-12] MEDS: Ezetimibe 10 MG TABLET PO (08:08)
[2023-04-12] MEDS: oxyBUTYnin chloride ER 5 MG TAB.ER.24 10 MG PO (08:08)
[2023-04-12] MEDS: Folic Acid 1 MG TABLET PO (08:08)
[2023-04-12] MEDS: metFORMIN HCl 1,000 MG TABLET 1000 MG PO ×2 (08:08→20:27)
[2023-04-12] MEDS: Gabapentin 300 MG CAPSULE 600 MG PO ×2 (08:09→20:27)
[2023-04-12 08:15] VITALS: BP 121/65
[2023-04-12 12:00] LABS: Glucose, Whole Blood 132 mg/dL (60-115)
--- NOTE | 2023-04-12 14:20 | HO.PSYCHPN ---
Subjective Subjective Date of Service: 04/12/23 Reason For Visit: SI Subjective Notes: Conditional Voluntary Interim History: The nursing staff reported the patient was hypotensive in the morning and she needed p.o. liquids to get blood pressure normal. She slept well last night and she has been compliant with treatment. Her affect remains flat. The social psychologist reported that her sister will come at 02:00 o'clock to sign her healthcare proxy since she wants to change her healthcare proxy. On interview the patient denies new symptoms she remains depressed but no active suicidal ideation. Mental Status Exam Mental Status Exam Patient Appearance: Well Grooomed and Appropriate Patient Orientation: Person, Place and Situation Level of Consciousness: Awake and Appropriate Patient Behavior: Guarded and Passive Mood Description: Withdrawn Affect Description: Constricted Patient Cognition Impaired: Yes Ability to Follow Directions: Good Speech Pattern: Clear Hallucinations: None Delusions: Not Present Thought Process: Distracted Thought Content: positive for [place] and positive for Circumstantial Judgement: Fair Diagnostics Vital Signs (24Hr): Vital Signs - 24 hr 04/11/23 18:00 Temperature 98 F Pulse Rate 78 Respiratory Rate 18 Blood Pressure 135/71 Pulse Oximetry 96 Oxygen Delivery Method Room Air BMI result Body Mass Index 36.9 Labs 04/07/23 07:11 Labs: Laboratory Results - last 48 hr 04/10/23 04/10/23 04/11/23 15:57 20:19 07:59 POC Glucose 136 H 211 H 202 H 04/11/23 04/11/23 04/12/23 16:05 21:13 07:40 POC Glucose 165 H 164 H 160 H 04/12/23 11:56 POC Glucose 132 H Medications Medications Current Medications Acetaminophen (Acetaminophen 325 Mg Tablet) 650 mg PO Q6H PRN PRN Reason: Headache/Pain Mild Scale (1-3) Last Admin: 04/11/23 17:02 Dose: 650 mg Al Hydroxide/Mg Hydroxide (Magnesium Hydrox/Alum Hydrox 30 Ml Oral.Susp) 30 ml PO Q6H PRN PRN Reason: Heartburn/Nausea Albuterol Sulfate (Albuterol Sulfate 90 Mcg 8 Gm Inhaler) 2 puff INHALE Q4H PRN PRN Reason: Respiratory Distress Allopurinol (Allopurinol 100 Mg Tablet) 100 mg PO DAILY [facility] Last Admin: 04/12/23 08:08 Dose: 100 mg Atorvastatin Calcium (Atorvastatin Calcium 80 Mg Tablet) 80 mg PO DAILY [facility] Last Admin: 04/12/23 08:07 Dose: 80 mg Clopidogrel Bisulfate (Clopidogrel Bisulfate 75 Mg Tablet) 75 mg PO DAILY [facility] Last Admin: 04/12/23 08:07 Dose: 75 mg Clotrimazole (Clotrimazole 1 % Cream 15 Gm Tube) 1 appl TOPICAL BID [facility]; Protocol Last Admin: 04/12/23 08:14 Dose: Not Given Cyanocobalamin (Cyanocobalamin (Vitamin B-12) 500 Mcg Tablet) 500 mcg PO DAILY [facility] Last Admin: 04/12/23 08:07 Dose: 500 mcg Duloxetine HCl (Duloxetine Hcl 60 Mg Capsule.Dr) 60 mg PO DAILY [facility] Last Admin: 04/12/23 08:08 Dose: 60 mg Ezetimibe (Ezetimibe 10 Mg Tablet) 10 mg PO DAILY [facility] Last Admin: 04/12/23 08:08 Dose: 10 mg Ergocalciferol (Ergocalciferol (Vitamin D2) 1,250 Mcg Capsule) 2,500 mcg PO Fr [facility] Last Admin: 04/12/23 08:15 Dose: Not Given Folic Acid (Folic Acid 1 Mg Tablet) 1 mg PO DAILY [facility] Last Admin: 04/12/23 08:08 Dose: 1 mg Gabapentin (Gabapentin 300 Mg Capsule) 600 mg PO BID [facility] Last Admin: 04/12/23 08:09 Dose: 600 mg Hydroxyzine HCl (Hydroxyzine Hcl 25 Mg Tablet) 25 mg PO Q6H PRN PRN Reason: Anxiety Last Admin: 04/08/23 22:05 Dose: 25 mg Insulin Human Lispro (Insulin Lispro 100 Unit/Ml 3 Ml Vial) 0 unit SUBCUT QIDACHS [facility]; Protocol Last Admin: 04/12/23 08:05 Dose: 2 unit Lisinopril (Lisinopril 20 Mg Tablet) 20 mg PO DAILY [facility]; Protocol Last Admin: 04/12/23 08:14 Dose: Not Given Magnesium Hydroxide (Milk Of Magnesia 30 Ml Oral.Susp) 30 ml PO DAILY PRN PRN Reason: Constipation Magnesium Oxide (Magnesium Oxide 400 Mg Tablet) 400 mg PO DAILY [facility] Last Admin: 04/12/23 08:07 Dose: 400 mg Metformin HCl (Metformin Hcl 1,000 Mg Tablet) 1,000 mg PO BID [facility] Last Admin: 04/12/23 08:08 Dose: 1,000 mg Nicotine (Nicotine 14 Mg Patch.Td24) 14 mg TRANSDERMA DAILY [facility] Last Admin: 04/12/23 08:14 Dose: Not Given Nicotine Polacrilex (Nicotine Polacrilex 2 Mg Gum) 2 mg BUCCAL Q2H PRN PRN Reason: Nicotine Cravings Oxybutynin Chloride (Oxybutynin Chloride Er 5 Mg Tab.Er.24) 10 mg PO DAILY [facility] Last Admin: 04/12/23 08:08 Dose: 10 mg Oxycodone HCl (Oxycodone Hcl Immed Release 5 Mg Tablet) 5 mg PO Q8H PRN PRN Reason: Pain moderate Last Admin: 04/11/23 17:03 Dose: 5 mg Pharmacy Consult (Consult Rx Perform Med Rec) 1 each MISCELLANE ONCE PRN PRN Reason: Consult order Risperidone (Risperidone 1 Mg Tablet) 1 mg PO DAILY [facility] Last Admin: 04/12/23 08:14 Dose: Not Given Risperidone (Risperidone 2 Mg Tablet) 2 mg PO BEDTIME [facility] Last Admin: 04/11/23 21:14 Dose: 2 mg Trazodone HCl (Trazodone Hcl 50 Mg Tablet) 50 mg PO BEDTIME PRN PRN Reason: Insomnia Last Admin: 04/08/23 22:05 Dose: 50 mg Allergies Allergies Allergy/AdvReac Type Severity Reaction Status Date / Time Penicillins Allergy Intermediate Unknown Verified 04/06/23 20:37 shellfish derived Allergy Intermediate Unknown Verified 04/06/23 20:37 chlorpromazine AdvReac Intermediate Unknown Verified 04/06/23 20:37 [From Thorazine] Assessment & Plan Assessment & Plan (1) Major neurocognitive disorder due to multiple etiologies, with psychotic disturbance: Status: Acute Code(s): F02.82 - Dementia in other diseases classified elsewhere, unspecified severity, with psychotic disturbance Plan 72 year old female with history insulin dependent type 2 diabetes, htn, fibromyalgia, asthma/copd overlap, CAD, ADRIANA, GERD, obesity hypoventilation syndrome, seizure like activity without diagnosis of epilepsy, hx lucunar infarct, hld, and chronic abdominal pain who is a current everyday smoker admitted to psychiatry with consult placed to hospitalist service for medical H&P. #Mood disorder/dementia -plan per psychiatry #Fibromygia/chronic pain syndrome -continue duloxetine. Can continue lyrica and gabapentin but use combination wtih caution. Pt alert and awake on exam -continue oxycodone #CAD/HLD -no chest pain. Boyd EKG reassuring with NSR, rate 93, nonspecific st wave abnormality, no edith or deperessions -continue plavix, statin, zetia #Insulin dependent type 2 diabetes -poc glucose -diabetic diet -Continue metformin, humalog on sliding scale #Urinary incontinence/urgency -continue methenamine -UA normal #HTN -reasonably controlled -continue lisinopril #Asthma/copd overlap -Continue home inhalers, albuterol prn #ADRIANA -continue cpap if used at home. Consult RT Psych: 04/08 continue current medications. VS 132/85, HR 113, O2sat 94 on RA. continue to monitor oversedation respiratory suppression. 04/09 continue tx. 04/10 continue tx. 04/11 continue tx. 04/12 continue treatment Reason for continued inpatient stay Substantial Risk for: inability to function, rapid decompensation and med/psych decompensation Time Spent With Patient Time: Total time managing care of this patient today _20___ minutes.
[2023-04-12] MEDS: oxyCODONE HCl Immed Release 5 MG TABLET PO (16:04)
[2023-04-12] MEDS: Acetaminophen 325 MG TABLET 650 MG PO (16:04)
[2023-04-12 16:27] LABS: Glucose, Whole Blood 170 mg/dL (60-115)
[2023-04-12 18:00] VITALS: BP 156/71; PULSE 85; RESP 18; TEMP 36.6; O2SAT 94
[2023-04-12 20:03] LABS: Glucose, Whole Blood 179 mg/dL (60-115)
[2023-04-12] MEDS: hydrOXYzine HCL 25 MG TABLET PO (20:27)
[2023-04-12] MEDS: risperiDONE 2 MG TABLET PO (20:27)
[2023-04-13 06:00] VITALS: BP 128/62; PULSE 95; RESP 18; TEMP 36.3; O2SAT 93
[2023-04-13 07:53] LABS: Glucose, Whole Blood 186 mg/dL (60-115)
[2023-04-13] MEDS: Insulin Lispro 100 UNIT/ML 3 ML VIAL SUBCUT ×3 (08:57→20:32)
[2023-04-13] MEDS: allopurinoL 100 MG TABLET PO (08:58)
[2023-04-13] MEDS: Folic Acid 1 MG TABLET PO (08:58)
[2023-04-13] MEDS: lisinopriL 20 MG TABLET PO (08:58)
[2023-04-13] MEDS: DULoxetine HCl 60 MG CAPSULE.DR PO (08:58)
[2023-04-13] MEDS: Magnesium Oxide 400 MG TABLET PO (08:58)
[2023-04-13] MEDS: Cyanocobalamin (Vitamin B-12) 500 MCG TABLET PO (08:58)
[2023-04-13] MEDS: Ezetimibe 10 MG TABLET PO (08:58)
[2023-04-13] MEDS: oxyBUTYnin chloride ER 5 MG TAB.ER.24 10 MG PO (08:58)
[2023-04-13] MEDS: Gabapentin 300 MG CAPSULE 600 MG PO ×2 (08:59→20:33)
[2023-04-13] MEDS: Clopidogrel Bisulfate 75 MG TABLET PO (08:59)
[2023-04-13] MEDS: metFORMIN HCl 1,000 MG TABLET 1000 MG PO ×2 (08:59→20:33)
[2023-04-13] MEDS: risperiDONE 1 MG TABLET PO (08:59)
[2023-04-13] MEDS: Atorvastatin Calcium 80 MG TABLET PO (08:59)
[2023-04-13] MEDS: oxyCODONE HCl Immed Release 5 MG TABLET PO (10:57)
[2023-04-13] MEDS: hydrOXYzine HCL 25 MG TABLET PO (10:57)
--- NOTE | 2023-04-13 11:09 | HO.PSYCHPN ---
Subjective Subjective Date of Service: 04/13/23 Reason For Visit: SI Subjective Notes: Conditional Voluntary Healthcare Proxy: Yes Guardianship: No Medical Problems Affecting Mental Status: No Interim History: Patient was seen and reviewed in rounds today. Records and plans were reviewed. She has been sleeping better with Atarax. Eating adequately. She is up and around and interactive. No complaints or side effects. No changes were made today Mental Status Exam Mental Status Exam Patient Appearance: Well Grooomed and Appropriate Patient Orientation: Person, Place and Situation Level of Consciousness: Awake and Appropriate Patient Behavior: Guarded and Passive Mood Description: Withdrawn Affect Description: Constricted Patient Cognition Impaired: Yes Ability to Follow Directions: Good Speech Pattern: Clear Hallucinations: None Delusions: Not Present Thought Process: Distracted Thought Content: positive for [place] and positive for Circumstantial Judgement: Fair Diagnostics Vital Signs (24Hr): Vital Signs - 24 hr 04/12/23 18:00 04/13/23 06:00 Temperature 97.8 F 97.4 F Pulse Rate 85 95 Respiratory Rate 18 18 Blood Pressure 156/71 H 128/62 Pulse Oximetry 94 93 Oxygen Delivery Method Room Air Room Air BMI result Body Mass Index 36.9 Labs 04/07/23 07:11 Labs: Laboratory Results - last 48 hr 04/11/23 04/11/23 04/12/23 16:05 21:13 07:40 POC Glucose 165 H 164 H 160 H 04/12/23 04/12/23 04/12/23 11:56 16:19 19:52 POC Glucose 132 H 170 H 179 H 04/13/23 07:50 POC Glucose 186 H Medications Medications Current Medications Acetaminophen (Acetaminophen 325 Mg Tablet) 650 mg PO Q6H PRN PRN Reason: Headache/Pain Mild Scale (1-3) Last Admin: 04/12/23 16:04 Dose: 650 mg Al Hydroxide/Mg Hydroxide (Magnesium Hydrox/Alum Hydrox 30 Ml Oral.Susp) 30 ml PO Q6H PRN PRN Reason: Heartburn/Nausea Albuterol Sulfate (Albuterol Sulfate 90 Mcg 8 Gm Inhaler) 2 puff INHALE Q4H PRN PRN Reason: Respiratory Distress Allopurinol (Allopurinol 100 Mg Tablet) 100 mg PO DAILY ON LICENSE OF [facility] Last Admin: 04/13/23 08:58 Dose: 100 mg Atorvastatin Calcium (Atorvastatin Calcium 80 Mg Tablet) 80 mg PO DAILY ON LICENSE OF [facility] Last Admin: 04/13/23 08:59 Dose: 80 mg Clopidogrel Bisulfate (Clopidogrel Bisulfate 75 Mg Tablet) 75 mg PO DAILY ON LICENSE OF [facility] Last Admin: 04/13/23 08:59 Dose: 75 mg Clotrimazole (Clotrimazole 1 % Cream 15 Gm Tube) 1 appl TOPICAL BID ON LICENSE OF [facility]; Protocol Last Admin: 04/13/23 09:05 Dose: Not Given Cyanocobalamin (Cyanocobalamin (Vitamin B-12) 500 Mcg Tablet) 500 mcg PO DAILY ON LICENSE OF [facility] Last Admin: 04/13/23 08:58 Dose: 500 mcg Duloxetine HCl (Duloxetine Hcl 60 Mg Capsule.Dr) 60 mg PO DAILY ON LICENSE OF [facility] Last Admin: 04/13/23 08:58 Dose: 60 mg Ezetimibe (Ezetimibe 10 Mg Tablet) 10 mg PO DAILY ON LICENSE OF [facility] Last Admin: 04/13/23 08:58 Dose: 10 mg Ergocalciferol (Ergocalciferol (Vitamin D2) 1,250 Mcg Capsule) 2,500 mcg PO Fr ON LICENSE OF [facility] Last Admin: 04/12/23 08:15 Dose: Not Given Folic Acid (Folic Acid 1 Mg Tablet) 1 mg PO DAILY ON LICENSE OF [facility] Last Admin: 04/13/23 08:58 Dose: 1 mg Gabapentin (Gabapentin 300 Mg Capsule) 600 mg PO BID ON LICENSE OF [facility] Last Admin: 04/13/23 08:59 Dose: 600 mg Hydroxyzine HCl (Hydroxyzine Hcl 25 Mg Tablet) 25 mg PO Q6H PRN PRN Reason: Anxiety Last Admin: 04/13/23 10:57 Dose: 25 mg Insulin Human Lispro (Insulin Lispro 100 Unit/Ml 3 Ml Vial) 0 unit SUBCUT QIDACHS ON LICENSE OF [facility]; Protocol Last Admin: 04/13/23 08:57 Dose: 2 unit Lisinopril (Lisinopril 20 Mg Tablet) 20 mg PO DAILY ON LICENSE OF [facility]; Protocol Last Admin: 04/13/23 08:58 Dose: 20 mg Magnesium Hydroxide (Milk Of Magnesia 30 Ml Oral.Susp) 30 ml PO DAILY PRN PRN Reason: Constipation Magnesium Oxide (Magnesium Oxide 400 Mg Tablet) 400 mg PO DAILY ON LICENSE OF [facility] Last Admin: 04/13/23 08:58 Dose: 400 mg Metformin HCl (Metformin Hcl 1,000 Mg Tablet) 1,000 mg PO BID ON LICENSE OF [facility] Last Admin: 04/13/23 08:59 Dose: 1,000 mg Nicotine (Nicotine 14 Mg Patch.Td24) 14 mg TRANSDERMA DAILY ON LICENSE OF [facility] Last Admin: 04/13/23 09:05 Dose: Not Given Nicotine Polacrilex (Nicotine Polacrilex 2 Mg Gum) 2 mg BUCCAL Q2H PRN PRN Reason: Nicotine Cravings Oxybutynin Chloride (Oxybutynin Chloride Er 5 Mg Tab.Er.24) 10 mg PO DAILY ON LICENSE OF [facility] Last Admin: 04/13/23 08:58 Dose: 10 mg Oxycodone HCl (Oxycodone Hcl Immed Release 5 Mg Tablet) 5 mg PO Q8H PRN PRN Reason: Pain moderate Last Admin: 04/13/23 10:57 Dose: 5 mg Pharmacy Consult (Consult Rx Perform Med Rec) 1 each MISCELLANE ONCE PRN PRN Reason: Consult order Risperidone (Risperidone 1 Mg Tablet) 1 mg PO DAILY ON LICENSE OF [facility] Last Admin: 04/13/23 08:59 Dose: 1 mg Risperidone (Risperidone 2 Mg Tablet) 2 mg PO BEDTIME ON LICENSE OF [facility] Last Admin: 04/12/23 20:27 Dose: 2 mg Trazodone HCl (Trazodone Hcl 50 Mg Tablet) 50 mg PO BEDTIME PRN PRN Reason: Insomnia Last Admin: 04/08/23 22:05 Dose: 50 mg Allergies Allergies Allergy/AdvReac Type Severity Reaction Status Date / Time Penicillins Allergy Intermediate Unknown Verified 04/06/23 20:37 shellfish derived Allergy Intermediate Unknown Verified 04/06/23 20:37 chlorpromazine AdvReac Intermediate Unknown Verified 04/06/23 20:37 [From Thorazine] Assessment & Plan Assessment & Plan (1) Major neurocognitive disorder due to multiple etiologies, with psychotic disturbance: Status: Acute Code(s): F02.82 - Dementia in other diseases classified elsewhere, unspecified severity, with psychotic disturbance Plan 72 year old female with history insulin dependent type 2 diabetes, htn, fibromyalgia, asthma/copd overlap, CAD, ADRIANA, GERD, obesity hypoventilation syndrome, seizure like activity without diagnosis of epilepsy, hx lucunar infarct, hld, and chronic abdominal pain who is a current everyday smoker admitted to psychiatry with consult placed to hospitalist service for medical H&P. #Mood disorder/dementia -plan per psychiatry #Fibromygia/chronic pain syndrome -continue duloxetine. Can continue lyrica and gabapentin but use combination wtih caution. Pt alert and awake on exam -continue oxycodone #CAD/HLD -no chest pain. Boyd EKG reassuring with NSR, rate 93, nonspecific st wave abnormality, no edith or deperessions -continue plavix, statin, zetia #Insulin dependent type 2 diabetes -poc glucose -diabetic diet -Continue metformin, humalog on sliding scale #Urinary incontinence/urgency -continue methenamine -UA normal #HTN -reasonably controlled -continue lisinopril #Asthma/copd overlap -Continue home inhalers, albuterol prn #ADRIANA -continue cpap if used at home. Consult RT Psych: 04/08 continue current medications. VS 132/85, HR 113, O2sat 94 on RA. continue to monitor oversedation respiratory suppression. 04/09 continue tx. 04/10 continue tx. 04/11 continue tx. 04/12 continue treatment 04/13: Continue current regimen and plans Reason for continued inpatient stay Substantial Risk for: inability to function and med/psych decompensation Time Spent With Patient Time: Total time managing care of this patient today ____ minutes.
[2023-04-13 11:23] LABS: Glucose, Whole Blood 164 mg/dL (60-115)
[2023-04-13 16:30] LABS: Glucose, Whole Blood 143 mg/dL (60-115)
[2023-04-13] MEDS: Acetaminophen 325 MG TABLET 650 MG PO (16:31)
[2023-04-13 20:00] VITALS: BP 130/70; PULSE 89; RESP 16; TEMP 36.9; O2SAT 96
[2023-04-13 20:02] LABS: Glucose, Whole Blood 226 mg/dL (60-115)
[2023-04-13] MEDS: risperiDONE 2 MG TABLET PO (20:32)
[2023-04-14 07:30] VITALS: BP 149/71; PULSE 91; RESP 16; TEMP 36.3; O2SAT 18
[2023-04-14 07:33] LABS: Glucose, Whole Blood 174 mg/dL (60-115)
[2023-04-14] MEDS: Insulin Lispro 100 UNIT/ML 3 ML VIAL SUBCUT ×4 (07:42→21:15)
[2023-04-14] MEDS: risperiDONE 1 MG TABLET PO (07:43)
[2023-04-14] MEDS: Gabapentin 300 MG CAPSULE 600 MG PO ×2 (07:43→21:14)
[2023-04-14] MEDS: metFORMIN HCl 1,000 MG TABLET 1000 MG PO ×2 (07:44→21:15)
[2023-04-14] MEDS: Folic Acid 1 MG TABLET PO (07:44)
[2023-04-14] MEDS: lisinopriL 20 MG TABLET PO (07:44)
[2023-04-14] MEDS: DULoxetine HCl 60 MG CAPSULE.DR PO (07:44)
[2023-04-14] MEDS: Magnesium Oxide 400 MG TABLET PO (07:45)
[2023-04-14] MEDS: oxyBUTYnin chloride ER 5 MG TAB.ER.24 10 MG PO (07:45)
[2023-04-14] MEDS: Clopidogrel Bisulfate 75 MG TABLET PO (07:45)
[2023-04-14] MEDS: Ezetimibe 10 MG TABLET PO (07:46)
[2023-04-14] MEDS: Atorvastatin Calcium 80 MG TABLET PO (07:46)
[2023-04-14] MEDS: Cyanocobalamin (Vitamin B-12) 500 MCG TABLET PO (07:46)
--- NOTE | 2023-04-14 10:40 | P.PNPSI_ITS ---
Subjective Subjective Date of Service: 04/14/23 Reason For Visit: SI Subjective Notes: Conditional Voluntary Healthcare Proxy: Yes Guardianship: No Medical Problems Affecting Mental Status: No Interim History: Patient was seen and reviewed in rounds today. Records and plans were reviewed. She has been stable. She continues to be confused. Her blood sugar this morning was 174. Continues to have some paranoia. No behavioral issues. Sleeping adequately. No changes were made today Medication Compliance: Yes Side effects from medications: No Attending Groups: Intermittent Review of Systems Acute medical concerns: No Diagnostics Vital Signs (24Hr): Vital Signs - 24 hr 04/13/23 20:00 Temperature 98.4 F Pulse Rate 89 Respiratory Rate 16 Blood Pressure 130/70 Pulse Oximetry 96 Oxygen Delivery Method Room Air BMI result Body Mass Index 36.9 Labs 04/07/23 07:11 Labs: Laboratory Results - last 48 hr 04/12/23 04/12/23 04/12/23 11:56 16:19 19:52 POC Glucose 132 H 170 H 179 H 04/13/23 04/13/23 04/13/23 07:50 11:19 16:26 POC Glucose 186 H 164 H 143 H 04/13/23 04/14/23 19:56 07:29 POC Glucose 226 H 174 H Medications Medications Current Medications Acetaminophen (Acetaminophen 325 Mg Tablet) 650 mg PO Q6H PRN PRN Reason: Headache/Pain Mild Scale (1-3) Last Admin: 04/13/23 16:31 Dose: 650 mg Al Hydroxide/Mg Hydroxide (Magnesium Hydrox/Alum Hydrox 30 Ml Oral.Susp) 30 ml PO Q6H PRN PRN Reason: Heartburn/Nausea Albuterol Sulfate (Albuterol Sulfate 90 Mcg 8 Gm Inhaler) 2 puff INHALE Q4H PRN PRN Reason: Respiratory Distress Allopurinol (Allopurinol 100 Mg Tablet) 100 mg PO DAILY [facility] Last Admin: 04/13/23 08:58 Dose: 100 mg Atorvastatin Calcium (Atorvastatin Calcium 80 Mg Tablet) 80 mg PO DAILY [facility] Last Admin: 04/14/23 07:46 Dose: 80 mg Clopidogrel Bisulfate (Clopidogrel Bisulfate 75 Mg Tablet) 75 mg PO DAILY [facility] Last Admin: 04/14/23 07:45 Dose: 75 mg Clotrimazole (Clotrimazole 1 % Cream 15 Gm Tube) 1 appl TOPICAL BID [facility]; Protocol Last Admin: 04/13/23 20:39 Dose: Not Given Cyanocobalamin (Cyanocobalamin (Vitamin B-12) 500 Mcg Tablet) 500 mcg PO DAILY [facility] Last Admin: 04/14/23 07:46 Dose: 500 mcg Duloxetine HCl (Duloxetine Hcl 60 Mg Capsule.Dr) 60 mg PO DAILY [facility] Last Admin: 04/14/23 07:44 Dose: 60 mg Ezetimibe (Ezetimibe 10 Mg Tablet) 10 mg PO DAILY [facility] Last Admin: 04/14/23 07:46 Dose: 10 mg Ergocalciferol (Ergocalciferol (Vitamin D2) 1,250 Mcg Capsule) 2,500 mcg PO Fr [facility] Last Admin: 04/12/23 08:15 Dose: Not Given Folic Acid (Folic Acid 1 Mg Tablet) 1 mg PO DAILY [facility] Last Admin: 04/14/23 07:44 Dose: 1 mg Gabapentin (Gabapentin 300 Mg Capsule) 600 mg PO BID [facility] Last Admin: 04/14/23 07:43 Dose: 600 mg Hydroxyzine HCl (Hydroxyzine Hcl 25 Mg Tablet) 25 mg PO Q6H PRN PRN Reason: Anxiety Last Admin: 04/13/23 10:57 Dose: 25 mg Insulin Human Lispro (Insulin Lispro 100 Unit/Ml 3 Ml Vial) 0 unit SUBCUT QIDACHS [facility]; Protocol Last Admin: 04/14/23 07:42 Dose: 2 unit Lisinopril (Lisinopril 20 Mg Tablet) 20 mg PO DAILY [facility]; Protocol Last Admin: 04/14/23 07:44 Dose: 20 mg Magnesium Hydroxide (Milk Of Magnesia 30 Ml Oral.Susp) 30 ml PO DAILY PRN PRN Reason: Constipation Magnesium Oxide (Magnesium Oxide 400 Mg Tablet) 400 mg PO DAILY [facility] Last Admin: 04/14/23 07:45 Dose: 400 mg Metformin HCl (Metformin Hcl 1,000 Mg Tablet) 1,000 mg PO BID [facility] Last Admin: 04/14/23 07:44 Dose: 1,000 mg Nicotine (Nicotine 14 Mg Patch.Td24) 14 mg TRANSDERMA DAILY [facility] Last Admin: 04/14/23 09:00 Dose: Not Given Nicotine Polacrilex (Nicotine Polacrilex 2 Mg Gum) 2 mg BUCCAL Q2H PRN PRN Reason: Nicotine Cravings Oxybutynin Chloride (Oxybutynin Chloride Er 5 Mg Tab.Er.24) 10 mg PO DAILY [facility] Last Admin: 04/14/23 07:45 Dose: 10 mg Pharmacy Consult (Consult Rx Perform Med Rec) 1 each MISCELLANE ONCE PRN PRN Reason: Consult order Risperidone (Risperidone 1 Mg Tablet) 1 mg PO DAILY [facility] Last Admin: 04/14/23 07:43 Dose: 1 mg Risperidone (Risperidone 2 Mg Tablet) 2 mg PO BEDTIME [facility] Last Admin: 04/13/23 20:32 Dose: 2 mg Trazodone HCl (Trazodone Hcl 50 Mg Tablet) 50 mg PO BEDTIME PRN PRN Reason: Insomnia Last Admin: 04/08/23 22:05 Dose: 50 mg Allergies Allergies Allergy/AdvReac Type Severity Reaction Status Date / Time Penicillins Allergy Intermediate Unknown Verified 04/06/23 20:37 shellfish derived Allergy Intermediate Unknown Verified 04/06/23 20:37 chlorpromazine AdvReac Intermediate Unknown Verified 04/06/23 20:37 [From Thorazine] Assessment & Plan Assessment & Plan (1) Major neurocognitive disorder due to multiple etiologies, with psychotic disturbance: Status: Acute Code(s): F02.82 - Dementia in other diseases classified elsewhere, unspecified severity, with psychotic disturbance Plan 72 year old female with history insulin dependent type 2 diabetes, htn, fibromyalgia, asthma/copd overlap, CAD, ADRIANA, GERD, obesity hypoventilation syndr ome, seizure like activity without diagnosis of epilepsy, hx lucunar infarct, hld, and chronic abdominal pain who is a current everyday smoker admitted to psychiatry with consult placed to hospitalist service for medical H&P. #Mood disorder/dementia -plan per psychiatry #Fibromygia/chronic pain syndrome -continue duloxetine. Can continue lyrica and gabapentin but use combination wtih caution. Pt alert and awake on exam -continue oxycodone #CAD/HLD -no chest pain. Boyd EKG reassuring with NSR, rate 93, nonspecific st wave abnormality, no edith or deperessions -continue plavix, statin, zetia #Insulin dependent type 2 diabetes -poc glucose -diabetic diet -Continue metformin, humalog on sliding scale #Urinary incontinence/urgency -continue methenamine -UA normal #HTN -reasonably controlled -continue lisinopril #Asthma/copd overlap -Continue home inhalers, albuterol prn #ADRIANA -continue cpap if used at home. Consult RT Psych: 04/08 continue current medications. VS 132/85, HR 113, O2sat 94 on RA. continue to monitor oversedation respiratory suppression. 04/09 continue tx. 04/10 continue tx. 04/11 continue tx. 04/12 continue treatment 04/13: Continue current regimen and plans 04/14: Continue current plans and regimen Reason for continued inpatient stay Substantial Risk for: inability to function Time Spent With Patient Time: Total time managing care of this patient today ____ minutes.
[2023-04-14 11:23] LABS: Glucose, Whole Blood 166 mg/dL (60-115)
[2023-04-14] MEDS: allopurinoL 100 MG TABLET PO (11:26)
--- NOTE | 2023-04-14 14:53 | PC.NURSE ---
Staff informed by A that patient was experiencing dizziness while on outdoor break. Vital signs taken. pules 92-106, O2 95%, BP 91/51. Patient encouraged to take fluids. Observed resting comfortably in bed.
[2023-04-14 14:57] VITALS: BP 91/51; PULSE 92; RESP 20; O2SAT 95
[2023-04-14 16:20] LABS: Glucose, Whole Blood 183 mg/dL (60-115)
[2023-04-14 19:30] VITALS: BP 168/72; PULSE 81; RESP 16; TEMP 36.6; O2SAT 95
[2023-04-14 20:25] LABS: Glucose, Whole Blood 182 mg/dL (60-115)
[2023-04-14] MEDS: risperiDONE 2 MG TABLET PO (21:15)
[2023-04-14] MEDS: Acetaminophen 325 MG TABLET 650 MG PO (21:15)
[2023-04-15] MEDS: traZODone HCL 50 MG TABLET PO ×2 (00:20→20:52)
[2023-04-15 08:22] LABS: Glucose, Whole Blood 176 mg/dL (60-115)
[2023-04-15 08:23] VITALS: BP 179/92; PULSE 77; RESP 16; TEMP 36.1; O2SAT 96
[2023-04-15] MEDS: Atorvastatin Calcium 80 MG TABLET PO (08:27)
[2023-04-15] MEDS: Magnesium Oxide 400 MG TABLET PO (08:27)
[2023-04-15] MEDS: Gabapentin 300 MG CAPSULE 600 MG PO ×2 (08:27→20:51)
[2023-04-15] MEDS: DULoxetine HCl 60 MG CAPSULE.DR PO (08:27)
[2023-04-15] MEDS: allopurinoL 100 MG TABLET PO (08:28)
[2023-04-15] MEDS: risperiDONE 1 MG TABLET PO (08:28)
[2023-04-15] MEDS: Folic Acid 1 MG TABLET PO (08:28)
[2023-04-15] MEDS: oxyBUTYnin chloride ER 5 MG TAB.ER.24 10 MG PO (08:28)
[2023-04-15] MEDS: Ezetimibe 10 MG TABLET PO (08:28)
[2023-04-15] MEDS: metFORMIN HCl 1,000 MG TABLET 1000 MG PO ×2 (08:28→20:51)
[2023-04-15] MEDS: Cyanocobalamin (Vitamin B-12) 500 MCG TABLET PO (08:28)
[2023-04-15] MEDS: Clopidogrel Bisulfate 75 MG TABLET PO (08:28)
[2023-04-15] MEDS: lisinopriL 20 MG TABLET PO (08:28)
[2023-04-15] MEDS: Insulin Lispro 100 UNIT/ML 3 ML VIAL SUBCUT ×4 (08:36→21:36)
[2023-04-15] MEDS: oxyCODONE HCl Immed Release 5 MG TABLET PO (10:39)
[2023-04-15 11:35] LABS: Glucose, Whole Blood 197 mg/dL (60-115)
--- NOTE | 2023-04-15 12:57 | HO.PSYCHPN ---
Subjective Subjective Date of Service: 04/15/23 Reason For Visit: SI Subjective Notes: Conditional Voluntary Interim History: Pt more alert today than last week. She reports she does not want to talk about her as she is upset about her stealing her clothes. Sister has expressed concern in terms of taking pt's medications. Pt reports she feels betrayed by but willing to go to a facility where she can receive care. Pt denies SI/HI. Per nursing, pt slept through the night. No behavioral concerns. VS- 179/92, Hr 77, other reading SBP in 170's- will increase lisinopril to 30mg po daily and continue to monitor. Medication Compliance: Yes Side effects from medications: No Attending Groups: Intermittent Review of Systems Review of Systems General: No fevers, malaise, unintentional weight loss HEENT: No blurred vision, diplopia. No sore throat, nasal congestion, rhinorrhea, sinus pain, ear pain Cardiovascular: No chest pain, palpitations, or leg edema Respiratory: No shortness of breath, wheezing, cough GI: +abd pain. No nausea, vomiting, diarrhea, constipation, melena, hematochezia : No dysuria, hematuria, increased urinary frequency, decreased urinary output MSK: +diffuse pain Neuro: No headaches, weakness, paresthesias Skin: No rashes or lesions Mental Status Exam Mental Status Exam Narrative: Appearance: [place], [place], wearing hospital gown, fair hygiene, nodding, somnolent Behavior: cooperative Psychomotor: retardation due to sedation Speech: clear, some delayed in response, spontaneous TP: tangential at times TC: not feeling safe with partner, feeling anxious and angry Mood: angry, tired, anxious' Affect: somnolent SI: denies HI: denies VH/AH: denies Delusions: appears with paranoia towards partner Insight/judgment: fair x 2. Memory/cog: alert, oriented to place, month, situation, not year. MOCA on 04/08 scored 06/26. ACL 4.2 Diagnostics Vital Signs (24Hr): Vital Signs - 24 hr 04/14/23 14:57 04/14/23 19:30 04/15/23 08:23 Temperature 98 F 97.0 F Pulse Rate 92 81 77 Respiratory Rate 20 16 16 Blood Pressure 91/51 L 168/72 H 179/92 H Pulse Oximetry 95 95 96 Oxygen Delivery Method Room Air Room Air Room Air BMI result Body Mass Index 36.9 Labs 04/07/23 07:11 Labs: Laboratory Results - last 48 hr 04/13/23 04/13/23 04/14/23 16:26 19:56 07:29 POC Glucose 143 H 226 H 174 H 04/14/23 04/14/23 04/14/23 11:19 16:17 20:20 POC Glucose 166 H 183 H 182 H 04/15/23 04/15/23 08:18 11:31 POC Glucose 176 H 197 H Medications Medications Current Medications Acetaminophen (Acetaminophen 325 Mg Tablet) 650 mg PO Q6H PRN PRN Reason: Headache/Pain Mild Scale (1-3) Last Admin: 04/14/23 21:15 Dose: 650 mg Al Hydroxide/Mg Hydroxide (Magnesium Hydrox/Alum Hydrox 30 Ml Oral.Susp) 30 ml PO Q6H PRN PRN Reason: Heartburn/Nausea Albuterol Sulfate (Albuterol Sulfate 90 Mcg 8 Gm Inhaler) 2 puff INHALE Q4H PRN PRN Reason: Respiratory Distress Allopurinol (Allopurinol 100 Mg Tablet) 100 mg PO DAILY [facility] Last Admin: 04/15/23 08:28 Dose: 100 mg Atorvastatin Calcium (Atorvastatin Calcium 80 Mg Tablet) 80 mg PO DAILY [facility] Last Admin: 04/15/23 08:27 Dose: 80 mg Clopidogrel Bisulfate (Clopidogrel Bisulfate 75 Mg Tablet) 75 mg PO DAILY [facility] Last Admin: 04/15/23 08:28 Dose: 75 mg Clotrimazole (Clotrimazole 1 % Cream 15 Gm Tube) 1 appl TOPICAL BID [facility]; Protocol Last Admin: 04/15/23 08:34 Dose: Not Given Cyanocobalamin (Cyanocobalamin (Vitamin B-12) 500 Mcg Tablet) 500 mcg PO DAILY [facility] Last Admin: 04/15/23 08:28 Dose: 500 mcg Duloxetine HCl (Duloxetine Hcl 60 Mg Capsule.Dr) 60 mg PO DAILY [facility] Last Admin: 04/15/23 08:27 Dose: 60 mg Ezetimibe (Ezetimibe 10 Mg Tablet) 10 mg PO DAILY [facility] Last Admin: 04/15/23 08:28 Dose: 10 mg Ergocalciferol (Ergocalciferol (Vitamin D2) 1,250 Mcg Capsule) 2,500 mcg PO [facility] Last Admin: 04/12/23 08:15 Dose: Not Given Folic Acid (Folic Acid 1 Mg Tablet) 1 mg PO DAILY [facility] Last Admin: 04/15/23 08:28 Dose: 1 mg Gabapentin (Gabapentin 300 Mg Capsule) 600 mg PO BID [facility] Last Admin: 04/15/23 08:27 Dose: 600 mg Hydroxyzine HCl (Hydroxyzine Hcl 25 Mg Tablet) 25 mg PO Q6H PRN PRN Reason: Anxiety Last Admin: 04/13/23 10:57 Dose: 25 mg Insulin Human Lispro (Insulin Lispro 100 Unit/Ml 3 Ml Vial) 0 unit SUBCUT QIDACHS [facility]; Protocol Last Admin: 04/15/23 12:14 Dose: 2 unit Lisinopril (Lisinopril 20 Mg Tablet) 20 mg PO DAILY [facility]; Protocol Last Admin: 04/15/23 08:28 Dose: 20 mg Magnesium Hydroxide (Milk Of Magnesia 30 Ml Oral.Susp) 30 ml PO DAILY PRN PRN Reason: Constipation Magnesium Oxide (Magnesium Oxide 400 Mg Tablet) 400 mg PO DAILY [facility] Last Admin: 04/15/23 08:27 Dose: 400 mg Metformin HCl (Metformin Hcl 1,000 Mg Tablet) 1,000 mg PO BID [facility] Last Admin: 04/15/23 08:28 Dose: 1,000 mg Nicotine (Nicotine 14 Mg Patch.Td24) 14 mg TRANSDERMA DAILY [facility] Last Admin: 04/15/23 08:27 Dose: Not Given Nicotine Polacrilex (Nicotine Polacrilex 2 Mg Gum) 2 mg BUCCAL Q2H PRN PRN Reason: Nicotine Cravings Oxybutynin Chloride (Oxybutynin Chloride Er 5 Mg Tab.Er.24) 10 mg PO DAILY [facility] Last Admin: 04/15/23 08:28 Dose: 10 mg Oxycodone HCl (Oxycodone Hcl Immed Release 5 Mg Tablet) 5 mg PO Q8H PRN PRN Reason: Pain, Severe (Pain Scale 7-10) Last Admin: 04/15/23 10:39 Dose: 5 mg Pharmacy Consult (Consult Rx Perform Med Rec) 1 each MISCELLANE ONCE PRN PRN Reason: Consult order Risperidone (Risperidone 1 Mg Tablet) 1 mg PO DAILY [facility] Last Admin: 04/15/23 08:28 Dose: 1 mg Risperidone (Risperidone 2 Mg Tablet) 2 mg PO BEDTIME [facility] Last Admin: 04/14/23 21:15 Dose: 2 mg Trazodone HCl (Trazodone Hcl 50 Mg Tablet) 50 mg PO BEDTIME PRN PRN Reason: Insomnia Last Admin: 04/15/23 00:20 Dose: 50 mg Allergies Allergies Allergy/AdvReac Type Severity Reaction Status Date / Time Penicillins Allergy Intermediate Unknown Verified 04/06/23 20:37 shellfish derived Allergy Intermediate Unknown Verified 04/06/23 20:37 chlorpromazine AdvReac Intermediate Unknown Verified 04/06/23 20:37 [From Thorazine] Assessment & Plan Assessment & Plan (1) Major neurocognitive disorder due to multiple etiologies, with psychotic disturbance: Status: Acute Code(s): F02.82 - Dementia in other diseases classified elsewhere, unspecified severity, with psychotic disturbance Plan 72 year old female with history insulin dependent type 2 diabetes, htn, fibromyalgia, asthma/copd overlap, CAD, ADRIANA, GERD, obesity hypoventilation syndrome, seizure like activity without diagnosis of epilepsy, hx lucunar infarct, hld, and chronic abdominal pain who is a current everyday smoker admitted to psychiatry with consult placed to hospitalist service for medical H&P. #Mood disorder/dementia -plan per psychiatry #Fibromygia/chronic pain syndrome -continue duloxetine. Pt alert and awake on exam -continue oxycodone #CAD/HLD -no chest pain. Boyd EKG reassuring with NSR, rate 93, nonspecific st wave abnormality, no edith or deperessions -continue plavix, statin, zetia #Insulin dependent type 2 diabetes -poc glucose -diabetic diet -Continue metformin, humalog on sliding scale #Urinary incontinence/urgency -continue methenamine -UA normal #HTN -reasonably controlled -continue lisinopril #Asthma/copd overlap -Continue home inhalers, albuterol prn #ADRIANA -continue cpap if used at home. Consult RT Psych: 04/08 continue current medications. VS 132/85, HR 113, O2sat 94 on RA. continue to monitor oversedation respiratory suppression. 04/09 continue tx. 04/10 continue tx. 04/11 continue tx. 04/12 continue treatment 04/13: Continue current regimen and plans 04/14: Continue current plans and regimen 04/15 Lisinopril increase to 30mg po daily due to SBP 170-180. continue all other medications. Reason for continued inpatient stay Substantial Risk for: inability to function Time Spent With Patient Time: Total time managing care of this patient today ____ minutes.
[2023-04-15 16:39] LABS: Glucose, Whole Blood 184 mg/dL (60-115)
[2023-04-15 18:00] VITALS: BP 116/66; PULSE 75; RESP 18; TEMP 36.7; O2SAT 96
[2023-04-15] MEDS: risperiDONE 2 MG TABLET PO (20:51)
[2023-04-15] MEDS: Acetaminophen 325 MG TABLET 650 MG PO (21:15)
[2023-04-15 21:32] LABS: Glucose, Whole Blood 175 mg/dL (60-115)
[2023-04-16 08:01] LABS: Glucose, Whole Blood 173 mg/dL (60-115)
[2023-04-16 08:45] VITALS: BP 148/78; PULSE 85; RESP 18; TEMP 36.1; O2SAT 97
[2023-04-16] MEDS: Insulin Lispro 100 UNIT/ML 3 ML VIAL SUBCUT ×3 (08:47→21:03)
[2023-04-16] MEDS: Cyanocobalamin (Vitamin B-12) 500 MCG TABLET PO (08:49)
[2023-04-16] MEDS: Clopidogrel Bisulfate 75 MG TABLET PO (08:49)
[2023-04-16] MEDS: Atorvastatin Calcium 80 MG TABLET PO (08:49)
[2023-04-16] MEDS: allopurinoL 100 MG TABLET PO (08:49)
[2023-04-16] MEDS: Folic Acid 1 MG TABLET PO (08:49)
[2023-04-16] MEDS: Gabapentin 300 MG CAPSULE 600 MG PO ×2 (08:50→21:01)
[2023-04-16] MEDS: risperiDONE 1 MG TABLET PO (08:50)
[2023-04-16] MEDS: metFORMIN HCl 1,000 MG TABLET 1000 MG PO ×2 (08:50→21:01)
[2023-04-16] MEDS: Ezetimibe 10 MG TABLET PO (08:50)
[2023-04-16] MEDS: Magnesium Oxide 400 MG TABLET PO (08:50)
[2023-04-16] MEDS: lisinopriL 10 MG TABLET 30 MG PO (08:50)
[2023-04-16] MEDS: DULoxetine HCl 60 MG CAPSULE.DR PO (08:50)
[2023-04-16 08:53] LABS: Creatinine Clr Calc Pharmacy 76.2; Estimated Glomerular Filt Rate > 60
[2023-04-16 11:10] LABS: Glucose, Whole Blood 253 mg/dL (60-115)
[2023-04-16] MEDS: Acetaminophen 325 MG TABLET 650 MG PO (14:54)
[2023-04-16] MEDS: oxyCODONE HCl Immed Release 5 MG TABLET PO (14:55)
[2023-04-16] MEDS: Milk of Magnesia 30 ML ORAL.SUSP PO (14:58)
--- NOTE | 2023-04-16 16:15 | HO.PSYCHPN ---
Subjective Subjective Date of Service: 04/16/23 Reason For Visit: SI Subjective Notes: Conditional Voluntary Interim History: Pt up more in the morning, disappointed about her and feeling betrayed. She states she does not want to talk about . She denies SI/HI. Later in day, pt was in her room. Ambulating with walker. No behavioral concerns. Per nursing, pt slept through the night. Taking medications as prescribed. Medication Compliance: Yes Side effects from medications: No Attending Groups: Intermittent Review of Systems Acute medical concerns: No Review of Systems Review of Systems General: No fevers, malaise, unintentional weight loss HEENT: No blurred vision, diplopia. No sore throat, nasal congestion, rhinorrhea, sinus pain, ear pain Cardiovascular: No chest pain, palpitations, or leg edema Respiratory: No shortness of breath, wheezing, cough GI: +abd pain. No nausea, vomiting, diarrhea, constipation, melena, hematochezia : No dysuria, hematuria, increased urinary frequency, decreased urinary output MSK: +diffuse pain Neuro: No headaches, weakness, paresthesias Skin: No rashes or lesions Mental Status Exam Mental Status Exam Narrative: Appearance: MO, [place], wearing hospital gown, fair hygiene, nodding, somnolent Behavior: cooperative Psychomotor: retardation due to sedation Speech: clear, some delayed in response, spontaneous TP: tangential at times TC: not feeling safe with partner, feeling anxious and angry Mood: angry, tired, anxious' Affect: somnolent SI: denies HI: denies VH/AH: denies Delusions: no overt delusions Insight/judgment: fair x 2. Memory/cog: alert, oriented to place, month, situation, not year. MOCA on 04/08 scored 06/26. ACL 4.2 Diagnostics Vital Signs (24Hr): Vital Signs - 24 hr 04/15/23 18:00 04/16/23 08:45 Temperature 98.1 F 97.0 F Pulse Rate 75 85 Respiratory Rate 18 18 Blood Pressure 116/66 148/78 H Pulse Oximetry 96 97 Oxygen Delivery Method Room Air Room Air BMI result Body Mass Index 36.9 Labs 04/16/23 08:08 Labs: Laboratory Results - last 48 hr 04/14/23 04/14/23 04/15/23 16:17 20:20 08:18 Creatinine Estim Creat Clear Calc Estimated GFR POC Glucose 183 H 182 H 176 H 04/15/23 04/15/23 04/15/23 11:31 16:35 21:18 Creatinine Estim Creat Clear Calc Estimated GFR POC Glucose 197 H 184 H 175 H 04/16/23 04/16/23 04/16/23 07:56 08:08 11:07 Creatinine 0.79 Estim Creat Clear Calc 76.2 Estimated GFR > 60 POC Glucose 173 H 253 H Medications Medications Current Medications Acetaminophen (Acetaminophen 325 Mg Tablet) 650 mg PO Q6H PRN PRN Reason: Headache/Pain Mild Scale (1-3) Last Admin: 04/16/23 14:54 Dose: 650 mg Al Hydroxide/Mg Hydroxide (Magnesium Hydrox/Alum Hydrox 30 Ml Oral.Susp) 30 ml PO Q6H PRN PRN Reason: Heartburn/Nausea Albuterol Sulfate (Albuterol Sulfate 90 Mcg 8 Gm Inhaler) 2 puff INHALE Q4H PRN PRN Reason: Respiratory Distress Allopurinol (Allopurinol 100 Mg Tablet) 100 mg PO DAILY [facility] Last Admin: 04/16/23 08:49 Dose: 100 mg Atorvastatin Calcium (Atorvastatin Calcium 80 Mg Tablet) 80 mg PO DAILY [facility] Last Admin: 04/16/23 08:49 Dose: 80 mg Clopidogrel Bisulfate (Clopidogrel Bisulfate 75 Mg Tablet) 75 mg PO DAILY [facility] Last Admin: 04/16/23 08:49 Dose: 75 mg Clotrimazole (Clotrimazole 1 % Cream 15 Gm Tube) 1 appl TOPICAL BID [facility]; Protocol Last Admin: 04/16/23 08:51 Dose: Not Given Cyanocobalamin (Cyanocobalamin (Vitamin B-12) 500 Mcg Tablet) 500 mcg PO DAILY [facility] Last Admin: 04/16/23 08:49 Dose: 500 mcg Duloxetine HCl (Duloxetine Hcl 60 Mg Capsule.Dr) 60 mg PO DAILY [facility] Last Admin: 04/16/23 08:50 Dose: 60 mg Ezetimibe (Ezetimibe 10 Mg Tablet) 10 mg PO DAILY [facility] Last Admin: 04/16/23 08:50 Dose: 10 mg Ergocalciferol (Ergocalciferol (Vitamin D2) 1,250 Mcg Capsule) 2,500 mcg PO Fr [facility] Last Admin: 04/12/23 08:15 Dose: Not Given Folic Acid (Folic Acid 1 Mg Tablet) 1 mg PO DAILY [facility] Last Admin: 04/16/23 08:49 Dose: 1 mg Gabapentin (Gabapentin 300 Mg Capsule) 600 mg PO BID [facility] Last Admin: 04/16/23 08:50 Dose: 600 mg Hydroxyzine HCl (Hydroxyzine Hcl 25 Mg Tablet) 25 mg PO Q6H PRN PRN Reason: Anxiety Last Admin: 04/13/23 10:57 Dose: 25 mg Insulin Human Lispro (Insulin Lispro 100 Unit/Ml 3 Ml Vial) 0 unit SUBCUT QIDACHS [facility]; Protocol Last Admin: 04/16/23 12:43 Dose: 2 unit Lisinopril (Lisinopril 10 Mg Tablet) 30 mg PO DAILY [facility]; Protocol Last Admin: 04/16/23 08:50 Dose: 30 mg Magnesium Hydroxide (Milk Of Magnesia 30 Ml Oral.Susp) 30 ml PO DAILY PRN PRN Reason: Constipation Last Admin: 04/16/23 14:58 Dose: 30 ml Magnesium Oxide (Magnesium Oxide 400 Mg Tablet) 400 mg PO DAILY [facility] Last Admin: 04/16/23 08:50 Dose: 400 mg Metformin HCl (Metformin Hcl 1,000 Mg Tablet) 1,000 mg PO BID [facility] Last Admin: 04/16/23 08:50 Dose: 1,000 mg Nicotine (Nicotine 14 Mg Patch.Td24) 14 mg TRANSDERMA DAILY [facility] Last Admin: 04/16/23 08:49 Dose: Not Given Nicotine Polacrilex (Nicotine Polacrilex 2 Mg Gum) 2 mg BUCCAL Q2H PRN PRN Reason: Nicotine Cravings Oxybutynin Chloride (Oxybutynin Chloride Er 5 Mg Tab.Er.24) 10 mg PO BEDTIME [facility] Oxycodone HCl (Oxycodone Hcl Immed Release 5 Mg Tablet) 5 mg PO Q8H PRN PRN Reason: Pain, Severe (Pain Scale 7-10) Last Admin: 04/16/23 14:55 Dose: 5 mg Pharmacy Consult (Consult Rx Perform Med Rec) 1 each MISCELLANE ONCE PRN PRN Reason: Consult order Risperidone (Risperidone 1 Mg Tablet) 1 mg PO DAILY [facility] Last Admin: 04/16/23 08:50 Dose: 1 mg Risperidone (Risperidone 2 Mg Tablet) 2 mg PO BEDTIME [facility] Last Admin: 04/15/23 20:51 Dose: 2 mg Trazodone HCl (Trazodone Hcl 50 Mg Tablet) 50 mg PO BEDTIME PRN PRN Reason: Insomnia Last Admin: 04/15/23 20:52 Dose: 50 mg Allergies Allergies Allergy/AdvReac Type Severity Reaction Status Date / Time Penicillins Allergy Intermediate Unknown Verified 04/06/23 20:37 shellfish derived Allergy Intermediate Unknown Verified 04/06/23 20:37 chlorpromazine AdvReac Intermediate Unknown Verified 04/06/23 20:37 [From Thorazine] Assessment & Plan Assessment & Plan (1) Major neurocognitive disorder due to multiple etiologies, with psychotic disturbance: Status: Acute Code(s): F02.82 - Dementia in other diseases classified elsewhere, unspecified severity, with psychotic disturbance Plan 72 year old female with history insulin dependent type 2 diabetes, htn, fibromyalgia, asthma/copd overlap, CAD, ADRIANA, GERD, obesity hypoventilation syndrome, seizure like activity without diagnosis of epilepsy, hx lucunar infarct, hld, and chronic abdominal pain who is a current everyday smoker admitted to psychiatry with consult placed to hospitalist service for medical H&P. #Mood disorder/dementia -plan per psychiatry #Fibromygia/chronic pain syndrome -continue duloxetine. Pt alert and awake on exam -continue oxycodone #CAD/HLD -no chest pain. Boyd EKG reassuring with NSR, rate 93, nonspecific st wave abnormality, no edith or deperessions -continue plavix, statin, zetia #Insulin dependent type 2 diabetes -poc glucose -diabetic diet -Continue metformin, humalog on sliding scale #Urinary incontinence/urgency -continue methenamine -UA normal #HTN -reasonably controlled -continue lisinopril #Asthma/copd overlap -Continue home inhalers, albuterol prn #ADRIANA -continue cpap if used at home. Consult RT Psych: 04/08 continue current medications. VS 132/85, HR 113, O2sat 94 on RA. continue to monitor oversedation respiratory suppression. 04/09 continue tx. 04/10 continue tx. 04/11 continue tx. 04/12 continue treatment 04/13: Continue current regimen and plans 04/14: Continue current plans and regimen 04/15 Lisinopril increase to 30mg po daily due to SBP 170-180. continue all other medications. 04/16 continue current medications.BP 148/78, HR 85, RR 18, o2sat 97 RA. Reason for continued inpatient stay Substantial Risk for: inability to function Time Spent With Patient Time: Total time managing care of this patient today ____ minutes.
[2023-04-16 16:25] LABS: Glucose, Whole Blood 143 mg/dL (60-115)
[2023-04-16 18:00] VITALS: BP 134/61; PULSE 70; RESP 18; TEMP 36.1; O2SAT 95
[2023-04-16 20:48] LABS: Glucose, Whole Blood 203 mg/dL (60-115)
[2023-04-16] MEDS: oxyBUTYnin chloride ER 5 MG TAB.ER.24 10 MG PO (21:01)
[2023-04-16] MEDS: risperiDONE 2 MG TABLET PO (21:01)
--- NOTE | 2023-04-17 00:22 | PC.NURSE ---
Assumed care at 2330, pt is in bed asleep.
[2023-04-17 07:30] VITALS: BP 132/58; PULSE 89; RESP 18; TEMP 36; O2SAT 96
[2023-04-17 07:45] LABS: Glucose, Whole Blood 171 mg/dL (60-115)
[2023-04-17] MEDS: Insulin Lispro 100 UNIT/ML 3 ML VIAL SUBCUT ×3 (08:51→21:29)
[2023-04-17] MEDS: Magnesium Oxide 400 MG TABLET PO (08:53)
[2023-04-17] MEDS: Folic Acid 1 MG TABLET PO (08:53)
[2023-04-17] MEDS: lisinopriL 10 MG TABLET 30 MG PO (08:53)
[2023-04-17] MEDS: Cyanocobalamin (Vitamin B-12) 500 MCG TABLET PO (08:53)
[2023-04-17] MEDS: Ezetimibe 10 MG TABLET PO (08:54)
[2023-04-17] MEDS: DULoxetine HCl 60 MG CAPSULE.DR PO (08:54)
[2023-04-17] MEDS: Atorvastatin Calcium 80 MG TABLET PO (08:54)
[2023-04-17] MEDS: Clopidogrel Bisulfate 75 MG TABLET PO (08:54)
[2023-04-17] MEDS: metFORMIN HCl 1,000 MG TABLET 1000 MG PO ×2 (08:54→21:31)
[2023-04-17] MEDS: Gabapentin 300 MG CAPSULE 600 MG PO ×2 (08:55→21:30)
[2023-04-17] MEDS: risperiDONE 1 MG TABLET PO (08:55)
[2023-04-17] MEDS: allopurinoL 100 MG TABLET PO (08:55)
[2023-04-17] MEDS: Clotrimazole 1 % Cream 15 GM TUBE 1 APPL TOPICAL (09:11)
--- NOTE | 2023-04-17 10:28 | P.PNPSI_ITS ---
Subjective Subjective Date of Service: 04/17/23 Reason For Visit: SI Subjective Notes: Conditional Voluntary Interim History: Per nursing, pt slept through the night. pt much more alert, this week during the day. However, pt presenting as dysphoric, easily overwhelmed when frustrated (often when realize memory is poor (not knowing day/or month) or when thinking o f and feeling betrayed). SW met with pt as well and informed pt that [facility] in [place] is willing to take her and will come for visit next Saturday. We discussed starting mood stabilizer for dysphoric mood- monitor over sedation Medication Compliance: Yes Side effects from medications: No Attending Groups: Yes Review of Systems Review of Systems General: No fevers, malaise, unintentional weight loss HEENT: No blurred vision, diplopia. No sore throat, nasal congestion, rhinorrhea, sinus pain, ear pain Cardiovascular: No chest pain, palpitations, or leg edema Respiratory: No shortness of breath, wheezing, cough GI: +abd pain. No nausea, vomiting, diarrhea, constipation, melena, hematochezia : No dysuria, hematuria, increased urinary frequency, decreased urinary output MSK: +diffuse pain Neuro: No headaches, weakness, paresthesias Skin: No rashes or lesions Mental Status Exam Mental Status Exam Narrative: Appearance: MO, [place], wearing hospital gown, fair hygiene, nodding, somnolent Behavior: cooperative Psychomotor: retardation due to sedation Speech: clear, some delayed in response, spontaneous TP: tangential at times TC: not feeling safe with partner, feeling anxious and angry Mood: angry, tired, anxious' Affect: somnolent SI: denies HI: denies VH/AH: denies Delusions: no overt delusions Insight/judgment: fair x 2. Memory/cog: alert, oriented to place, month, situation, not year. MOCA on 04/08 scored 06/26. ACL 4.2 Diagnostics Vital Signs (24Hr): Vital Signs - 24 hr 04/16/23 18:00 Temperature 96.9 F Pulse Rate 70 Respiratory Rate 18 Blood Pressure 134/61 Pulse Oximetry 95 Oxygen Delivery Method Room Air BMI result Body Mass Index 36.9 Labs 04/16/23 08:08 Labs: Laboratory Results - last 48 hr 04/15/23 04/15/23 04/15/23 11:31 16:35 21:18 Creatinine Estim Creat Clear Calc Estimated GFR POC Glucose 197 H 184 H 175 H 04/16/23 04/16/23 04/16/23 07:56 08:08 11:07 Creatinine 0.79 Estim Creat Clear Calc 76.2 Estimated GFR > 60 POC Glucose 173 H 253 H 04/16/23 04/16/23 04/17/23 16:21 20:40 07:41 Creatinine Estim Creat Clear Calc Estimated GFR POC Glucose 143 H 203 H 171 H Medications Medications Current Medications Acetaminophen (Acetaminophen 325 Mg Tablet) 650 mg PO Q6H PRN PRN Reason: Headache/Pain Mild Scale (1-3) Last Admin: 04/16/23 14:54 Dose: 650 mg Al Hydroxide/Mg Hydroxide (Magnesium Hydrox/Alum Hydrox 30 Ml Oral.Susp) 30 ml PO Q6H PRN PRN Reason: Heartburn/Nausea Albuterol Sulfate (Albuterol Sulfate 90 Mcg 8 Gm Inhaler) 2 puff INHALE Q4H PRN PRN Reason: Respiratory Distress Allopurinol (Allopurinol 100 Mg Tablet) 100 mg PO DAILY [facility] Last Admin: 04/17/23 08:55 Dose: 100 mg Atorvastatin Calcium (Atorvastatin Calcium 80 Mg Tablet) 80 mg PO DAILY [facility] Last Admin: 04/17/23 08:54 Dose: 80 mg Clopidogrel Bisulfate (Clopidogrel Bisulfate 75 Mg Tablet) 75 mg PO DAILY [facility] Last Admin: 04/17/23 08:54 Dose: 75 mg Clotrimazole (Clotrimazole 1 % Cream 15 Gm Tube) 1 appl TOPICAL BID [facility]; Protocol Last Admin: 04/17/23 09:11 Dose: 1 appl Cyanocobalamin (Cyanocobalamin (Vitamin B-12) 500 Mcg Tablet) 500 mcg PO DAILY [facility] Last Admin: 04/17/23 08:53 Dose: 500 mcg Divalproex Sodium (Divalproex Sodium Sprinkles 125 Mg Cap.) 250 mg PO BID [facility] Duloxetine HCl (Duloxetine Hcl 60 Mg Capsule.Dr) 60 mg PO DAILY [facility] Last Admin: 04/17/23 08:54 Dose: 60 mg Ezetimibe (Ezetimibe 10 Mg Tablet) 10 mg PO DAILY [facility] Last Admin: 04/17/23 08:54 Dose: 10 mg Ergocalciferol (Ergocalciferol (Vitamin D2) 1,250 Mcg Capsule) 2,500 mcg PO Fr [facility] Last Admin: 04/12/23 08:15 Dose: Not Given Folic Acid (Folic Acid 1 Mg Tablet) 1 mg PO DAILY [facility] Last Admin: 04/17/23 08:53 Dose: 1 mg Gabapentin (Gabapentin 300 Mg Capsule) 600 mg PO BID [facility] Last Admin: 04/17/23 08:55 Dose: 600 mg Hydroxyzine HCl (Hydroxyzine Hcl 25 Mg Tablet) 25 mg PO Q6H PRN PRN Reason: Anxiety Last Admin: 04/13/23 10:57 Dose: 25 mg Insulin Human Lispro (Insulin Lispro 100 Unit/Ml 3 Ml Vial) 0 unit SUBCUT QIDACHS [facility]; Protocol Last Admin: 04/17/23 08:51 Dose: 2 unit Lisinopril (Lisinopril 10 Mg Tablet) 30 mg PO DAILY [facility]; Protocol Last Admin: 04/17/23 08:53 Dose: 30 mg Magnesium Hydroxide (Milk Of Magnesia 30 Ml Oral.Susp) 30 ml PO DAILY PRN PRN Reason: Constipation Last Admin: 04/16/23 14:58 Dose: 30 ml Magnesium Oxide (Magnesium Oxide 400 Mg Tablet) 400 mg PO DAILY [facility] Last Admin: 04/17/23 08:53 Dose: 400 mg Metformin HCl (Metformin Hcl 1,000 Mg Tablet) 1,000 mg PO BID [facility] Last Admin: 04/17/23 08:54 Dose: 1,000 mg Nicotine (Nicotine 14 Mg Patch.Td24) 14 mg TRANSDERMA DAILY [facility] Last Admin: 04/17/23 08:50 Dose: Not Given Nicotine Polacrilex (Nicotine Polacrilex 2 Mg Gum) 2 mg BUCCAL Q2H PRN PRN Reason: Nicotine Cravings Oxybutynin Chloride (Oxybutynin Chloride Er 5 Mg Tab.Er.24) 10 mg PO BEDTIME [facility] Last Admin: 04/16/23 21:01 Dose: 10 mg Oxycodone HCl (Oxycodone Hcl Immed Release 5 Mg Tablet) 5 mg PO Q8H PRN PRN Reason: Pain, Severe (Pain Scale 7-10) Last Admin: 04/16/23 14:55 Dose: 5 mg Pharmacy Consult (Consult Rx Perform Med Rec) 1 each MISCELLANE ONCE PRN PRN Reason: Consult order Risperidone (Risperidone 1 Mg Tablet) 1 mg PO DAILY [facility] Last Admin: 04/17/23 08:55 Dose: 1 mg Risperidone (Risperidone 2 Mg Tablet) 2 mg PO BEDTIME [facility] Last Admin: 04/16/23 21:01 Dose: 2 mg Trazodone HCl (Trazodone Hcl 50 Mg Tablet) 50 mg PO BEDTIME PRN PRN Reason: Insomnia Last Admin: 04/15/23 20:52 Dose: 50 mg Allergies Allergies Allergy/AdvReac Type Severity Reaction Status Date / Time Penicillins Allergy Intermediate Unknown Verified 04/06/23 20:37 shellfish derived Allergy Intermediate Unknown Verified 04/06/23 20:37 chlorpromazine AdvReac Intermediate Unknown Verified 04/06/23 20:37 [From Thorazine] Assessment & Plan Assessment & Plan (1) Major neurocognitive disorder due to multiple etiologies, with psychotic disturbance: Status: Acute Code(s): F02.82 - Dementia in other diseases classified elsewhere, unspecified severity, with psychotic disturbance Plan 72 year old female with history insulin dependent type 2 diabetes, htn, fibromyalgia, asthma/copd overlap, CAD, ADRIANA, GERD, obesity hypoventilation syndrome, seizure like activity without diagnosis of epilepsy, hx lucunar infarct, hld, and chronic abdominal pain who is a current everyday smoker admitted to psychiatry with consult placed to hospitalist service for medical H&P. #Mood disorder/dementia -plan per psychiatry #Fibromygia/chronic pain syndrome -continue duloxetine. Pt alert and awake on exam -continue oxycodone #CAD/HLD -no chest pain. [facility] EKG reassuring with NSR, rate 93, nonspecific st wave abnormality, no edith or deperessions -continue plavix, statin, zetia #Insulin dependent type 2 diabetes -poc glucose -diabetic diet -Continue metformin, humalog on sliding scale #Urinary incontinence/urgency -continue methenamine -UA normal #HTN -reasonably controlled -continue lisinopril #Asthma/copd overlap -Continue home inhalers, albuterol prn #ADRIANA -continue cpap if used at home. Consult RT Psych: 04/08 continue current medications. VS 132/85, HR 113, O2sat 94 on RA. continue to monitor oversedation respiratory suppression. 04/09 continue tx. 04/10 continue tx. 04/11 continue tx. 04/12 continue treatment 04/13: Continue current regimen and plans 04/14: Continue current plans and regimen 04/15 Lisinopril increase to 30mg po daily due to SBP 170-180. continue all other medications. 04/16 continue current medications.BP 148/78, HR 85, RR 18, o2sat 97 RA. 04/17 start low dose depakote 250mg po BID- monitor day time sedation in combination with other meds. Reason for continued inpatient stay Substantial Risk for: inability to function Time Spent With Patient Time: Total time managing care of this patient today ____ minutes.
[2023-04-17] MEDS: Divalproex Sodium Sprinkles 125 MG CAP.DR.SPR 250 MG PO ×2 (10:50→21:30)
[2023-04-17] MEDS: LORazepam 0.5 MG TABLET PO (10:50)
[2023-04-17 11:36] LABS: Glucose, Whole Blood 150 mg/dL (60-115)
[2023-04-17] MEDS: Acetaminophen 325 MG TABLET 650 MG PO (12:02)
[2023-04-17 16:38] LABS: Glucose, Whole Blood 181 mg/dL (60-115)
[2023-04-17 18:00] VITALS: BP 126/61; PULSE 84; RESP 18; TEMP 36.5; O2SAT 97
[2023-04-17 20:25] LABS: Glucose, Whole Blood 180 mg/dL (60-115)
[2023-04-17] MEDS: oxyBUTYnin chloride ER 5 MG TAB.ER.24 10 MG PO (21:30)
[2023-04-17] MEDS: risperiDONE 2 MG TABLET PO (21:31)
[2023-04-18] MEDS: oxyCODONE HCl Immed Release 5 MG TABLET PO (02:05)
[2023-04-18] MEDS: hydrOXYzine HCL 25 MG TABLET PO (02:06)
[2023-04-18 07:00] VITALS: BMI 38.2
[2023-04-18 07:30] VITALS: BP 136/68; PULSE 82; RESP 18; TEMP 36.6; O2SAT 96
[2023-04-18 08:44] LABS: Glucose, Whole Blood 153 mg/dL (60-115)
[2023-04-18] MEDS: Insulin Lispro 100 UNIT/ML 3 ML VIAL SUBCUT ×4 (08:46→21:01)
[2023-04-18] MEDS: Gabapentin 300 MG CAPSULE 600 MG PO ×2 (09:16→21:01)
[2023-04-18] MEDS: Divalproex Sodium Sprinkles 125 MG CAP.DR.SPR 250 MG PO ×2 (09:17→21:00)
[2023-04-18] MEDS: lisinopriL 10 MG TABLET 30 MG PO (09:17)
[2023-04-18] MEDS: DULoxetine HCl 60 MG CAPSULE.DR PO (09:18)
[2023-04-18] MEDS: Atorvastatin Calcium 80 MG TABLET PO (09:18)
[2023-04-18] MEDS: Magnesium Oxide 400 MG TABLET PO (09:19)
[2023-04-18] MEDS: allopurinoL 100 MG TABLET PO (09:19)
[2023-04-18] MEDS: Ezetimibe 10 MG TABLET PO (09:20)
[2023-04-18] MEDS: Clopidogrel Bisulfate 75 MG TABLET PO (09:20)
[2023-04-18] MEDS: Folic Acid 1 MG TABLET PO (09:20)
[2023-04-18] MEDS: Cyanocobalamin (Vitamin B-12) 500 MCG TABLET PO (09:20)
[2023-04-18] MEDS: risperiDONE 1 MG TABLET PO (09:20)
[2023-04-18] MEDS: metFORMIN HCl 1,000 MG TABLET 1000 MG PO ×2 (09:21→21:00)
[2023-04-18 11:30] LABS: Glucose, Whole Blood 179 mg/dL (60-115)
[2023-04-18 16:25] LABS: Glucose, Whole Blood 152 mg/dL (60-115)
--- NOTE | 2023-04-18 17:04 | P.PNPSI_ITS ---
Subjective Subjective Date of Service: 04/18/23 Reason For Visit: SI Subjective Notes: Conditional Voluntary Interim History: Per nursing, pt slept through the night. Pt reports she does not remember talking with anyone about going to facility. She reports she misses her and wants to go back there. Pt was mostly in bed during the day. No behavioral concerns. Medication Compliance: Yes Review of Systems Review of Systems General: No fevers, malaise, unintentional weight loss HEENT: No blurred vision, diplopia. No sore throat, nasal congestion, rhinorrhea , sinus pain, ear pain Cardiovascular: No chest pain, palpitations, or leg edema Respiratory: No shortness of breath, wheezing, cough GI: +abd pain. No nausea, vomiting, diarrhea, constipation, melena, hematochezia : No dysuria, hematuria, increased urinary frequency, decreased urinary output MSK: +diffuse pain Neuro: No headaches, weakness, paresthesias Skin: No rashes or lesions Mental Status Exam Mental Status Exam Narrative: Appearance: [place], [place], wearing hospital gown, fair hygiene, nodding, somnolent Behavior: cooperative Psychomotor: retardation due to sedation Speech: clear, some delayed in response, spontaneous TP: tangential at times TC: not feeling safe with partner, feeling anxious and angry Mood: angry, tired, anxious' Affect: somnolent SI: denies HI: denies VH/AH: denies Delusions: no overt delusions Insight/judgment: fair x 2. Memory/cog: alert, oriented to place, month, situation, not year. MOCA on 04/08 scored 8/30. ACL 4.2 Diagnostics Vital Signs (24Hr): Vital Signs - 24 hr 04/17/23 18:00 04/18/23 07:30 Temperature 97.7 F 97.8 F Pulse Rate 84 82 Respiratory Rate 18 18 Blood Pressure 126/61 136/68 Pulse Oximetry 97 96 Oxygen Delivery Method Room Air Room Air BMI result Body Mass Index 38.2 Labs 04/16/23 08:08 Labs: Laboratory Results - last 48 hr 04/16/23 04/17/23 04/17/23 20:40 07:41 11:32 POC Glucose 203 H 171 H 150 H 04/17/23 04/17/23 04/18/23 16:35 20:21 08:41 POC Glucose 181 H 180 H 153 H 04/18/23 04/18/23 11:27 16:21 POC Glucose 179 H 152 H Medications Medications Current Medications Acetaminophen (Acetaminophen 325 Mg Tablet) 650 mg PO Q6H PRN PRN Reason: Headache/Pain Mild Scale (1-3) Last Admin: 04/17/23 12:02 Dose: 650 mg Al Hydroxide/Mg Hydroxide (Magnesium Hydrox/Alum Hydrox 30 Ml Oral.Susp) 30 ml PO Q6H PRN PRN Reason: Heartburn/Nausea Albuterol Sulfate (Albuterol Sulfate 90 Mcg 8 Gm Inhaler) 2 puff INHALE Q4H PRN PRN Reason: Respiratory Distress Allopurinol (Allopurinol 100 Mg Tablet) 100 mg PO DAILY [facility] Last Admin: 04/18/23 09:19 Dose: 100 mg Atorvastatin Calcium (Atorvastatin Calcium 80 Mg Tablet) 80 mg PO DAILY [facility] Last Admin: 04/18/23 09:18 Dose: 80 mg Clopidogrel Bisulfate (Clopidogrel Bisulfate 75 Mg Tablet) 75 mg PO DAILY [facility] Last Admin: 04/18/23 09:20 Dose: 75 mg Clotrimazole (Clotrimazole 1 % Cream 15 Gm Tube) 1 appl TOPICAL BID [facility]; Protocol Last Admin: 04/18/23 09:25 Dose: Not Given Cyanocobalamin (Cyanocobalamin (Vitamin B-12) 500 Mcg Tablet) 500 mcg PO DAILY [facility] Last Admin: 04/18/23 09:20 Dose: 500 mcg Divalproex Sodium (Divalproex Sodium Sprinkles 125 Mg Cap.) 250 mg PO BID [facility] Last Admin: 04/18/23 09:17 Dose: 250 mg Duloxetine HCl (Duloxetine Hcl 60 Mg Capsule.) 60 mg PO DAILY [facility] Last Admin: 04/18/23 09:18 Dose: 60 mg Ezetimibe (Ezetimibe 10 Mg Tablet) 10 mg PO DAILY [facility] Last Admin: 04/18/23 09:20 Dose: 10 mg Ergocalciferol (Ergocalciferol (Vitamin D2) 1,250 Mcg Capsule) 2,500 mcg PO Fr [facility] Last Admin: 04/12/23 08:15 Dose: Not Given Folic Acid (Folic Acid 1 Mg Tablet) 1 mg PO DAILY [facility] Last Admin: 04/18/23 09:20 Dose: 1 mg Gabapentin (Gabapentin 300 Mg Capsule) 600 mg PO BID [facility] Last Admin: 04/18/23 09:16 Dose: 600 mg Hydroxyzine HCl (Hydroxyzine Hcl 25 Mg Tablet) 25 mg PO Q6H PRN PRN Reason: Anxiety Last Admin: 04/18/23 02:06 Dose: 25 mg Insulin Human Lispro (Insulin Lispro 100 Unit/Ml 3 Ml Vial) 0 unit SUBCUT QIDACHS [facility]; Protocol Last Admin: 04/18/23 16:26 Dose: 2 unit Lisinopril (Lisinopril 10 Mg Tablet) 30 mg PO DAILY [facility]; Protocol Last Admin: 04/18/23 09:17 Dose: 30 mg Magnesium Hydroxide (Milk Of Magnesia 30 Ml Oral.Susp) 30 ml PO DAILY PRN PRN Reason: Constipation Last Admin: 04/16/23 14:58 Dose: 30 ml Magnesium Oxide (Magnesium Oxide 400 Mg Tablet) 400 mg PO DAILY [facility] Last Admin: 04/18/23 09:19 Dose: 400 mg Metformin HCl (Metformin Hcl 1,000 Mg Tablet) 1,000 mg PO BID [facility] Last Admin: 04/18/23 09:21 Dose: 1,000 mg Nicotine (Nicotine 14 Mg Patch.Td24) 14 mg TRANSDERMA DAILY [facility] Last Admin: 04/18/23 09:15 Dose: Not Given Nicotine Polacrilex (Nicotine Polacrilex 2 Mg Gum) 2 mg BUCCAL Q2H PRN PRN Reason: Nicotine Cravings Oxybutynin Chloride (Oxybutynin Chloride Er 5 Mg Tab.Er.24) 10 mg PO BEDTIME [facility] Last Admin: 04/17/23 21:30 Dose: 10 mg Oxycodone HCl (Oxycodone Hcl Immed Release 5 Mg Tablet) 5 mg PO Q8H PRN PRN Reason: Pain, Severe (Pain Scale 7-10) Last Admin: 04/18/23 02:05 Dose: 5 mg Pharmacy Consult (Consult Rx Perform Med Rec) 1 each MISCELLANE ONCE PRN PRN Reason: Consult order Risperidone (Risperidone 1 Mg Tablet) 1 mg PO DAILY [facility] Last Admin: 04/18/23 09:20 Dose: 1 mg Risperidone (Risperidone 2 Mg Tablet) 2 mg PO BEDTIME [facility] Last Admin: 04/17/23 21:31 Dose: 2 mg Trazodone HCl (Trazodone Hcl 50 Mg Tablet) 50 mg PO BEDTIME PRN PRN Reason: Insomnia Last Admin: 04/15/23 20:52 Dose: 50 mg Allergies Allergies Allergy/AdvReac Type Severity Reaction Status Date / Time Penicillins Allergy Intermediate Unknown Verified 04/06/23 20:37 shellfish derived Allergy Intermediate Unknown Verified 04/06/23 20:37 chlorpromazine AdvReac Intermediate Unknown Verified 04/06/23 20:37 [From Thorazine] Assessment & Plan Assessment & Plan (1) Major neurocognitive disorder due to multiple etiologies, with psychotic disturbance: Status: Acute Code(s): F02.82 - Dementia in other diseases classified elsewhere, unspecified severity, with psychotic disturbance Plan 72 year old female with history insulin dependent type 2 diabetes, htn, fibromyalgia, asthma/copd overlap, CAD, ADRIANA, GERD, obesity hypoventilation s yndrome, seizure like activity without diagnosis of epilepsy, hx lucunar infarct, hld, and chronic abdominal pain who is a current everyday smoker admitted to psychiatry with consult placed to hospitalist service for medical H&P. #Mood disorder/dementia -plan per psychiatry #Fibromygia/chronic pain syndrome -continue duloxetine. Pt alert and awake on exam -continue oxycodone #CAD/HLD -no chest pain. Boyd EKG reassuring with NSR, rate 93, nonspecific st wave abnormality, no edith or deperessions -continue plavix, statin, zetia #Insulin dependent type 2 diabetes -poc glucose -diabetic diet -Continue metformin, humalog on sliding scale #Urinary incontinence/urgency -continue methenamine -UA normal #HTN -reasonably controlled -continue lisinopril #Asthma/copd overlap -Continue home inhalers, albuterol prn #ADRIANA -continue cpap if used at home. Consult RT Psych: 04/08 continue current medications. VS 132/85, HR 113, O2sat 94 on RA. continue to monitor oversedation respiratory suppression. 04/09 continue tx. 04/10 continue tx. 04/11 continue tx. 04/12 continue treatment 04/13: Continue current regimen and plans 04/14: Continue current plans and regimen 04/15 Lisinopril increase to 30mg po daily due to SBP 170-180. continue all other medications. 04/16 continue current medications.BP 148/78, HR 85, RR 18, o2sat 97 RA. 04/17 start low dose depakote 250mg po BID- monitor day time sedation in combination with other meds. 04/18 continue tx- will talk with pt's sister regarding placement to [facility]. Reason for continued inpatient stay Substantial Risk for: inability to function Time Spent With Patient Time: Total time managing care of this patient today ____ minutes.
[2023-04-18 18:00] VITALS: BP 155/74; PULSE 87; RESP 18; TEMP 36.3; O2SAT 95
[2023-04-18 20:19] LABS: Glucose, Whole Blood 192 mg/dL (60-115)
[2023-04-18] MEDS: risperiDONE 2 MG TABLET PO (21:00)
[2023-04-18] MEDS: oxyBUTYnin chloride ER 5 MG TAB.ER.24 10 MG PO (21:01)
[2023-04-19 07:49] LABS: Glucose, Whole Blood 167 mg/dL (60-115)
[2023-04-19 08:00] VITALS: BP 131/71; PULSE 99; RESP 16; TEMP 36.3; O2SAT 95
[2023-04-19] MEDS: Insulin Lispro 100 UNIT/ML 3 ML VIAL SUBCUT ×2 (08:18→16:37)
[2023-04-19] MEDS: Magnesium Oxide 400 MG TABLET PO (08:20)
[2023-04-19] MEDS: lisinopriL 10 MG TABLET 30 MG PO (08:21)
[2023-04-19] MEDS: risperiDONE 1 MG TABLET PO (08:21)
[2023-04-19] MEDS: Divalproex Sodium Sprinkles 125 MG CAP.DR.SPR 250 MG PO ×2 (08:22→20:33)
[2023-04-19] MEDS: Ezetimibe 10 MG TABLET PO (08:22)
[2023-04-19] MEDS: Atorvastatin Calcium 80 MG TABLET PO (08:22)
[2023-04-19] MEDS: Cyanocobalamin (Vitamin B-12) 500 MCG TABLET PO (08:23)
[2023-04-19] MEDS: allopurinoL 100 MG TABLET PO (08:23)
[2023-04-19] MEDS: Gabapentin 300 MG CAPSULE 600 MG PO ×2 (08:23→20:35)
[2023-04-19] MEDS: metFORMIN HCl 1,000 MG TABLET 1000 MG PO ×2 (08:23→20:33)
[2023-04-19] MEDS: DULoxetine HCl 60 MG CAPSULE.DR PO (08:23)
[2023-04-19] MEDS: Clopidogrel Bisulfate 75 MG TABLET PO (08:23)
[2023-04-19] MEDS: Folic Acid 1 MG TABLET PO (08:23)
[2023-04-19] MEDS: Ergocalciferol (Vitamin D2) 1,250 MCG CAPSULE 2500 MCG PO (09:28)
[2023-04-19] MEDS: Acetaminophen 325 MG TABLET 650 MG PO ×2 (09:28→16:15)
[2023-04-19 11:34] LABS: Glucose, Whole Blood 125 mg/dL (60-115)
[2023-04-19] MEDS: oxyCODONE HCl Immed Release 5 MG TABLET PO (13:40)
[2023-04-19 16:22] LABS: Glucose, Whole Blood 189 mg/dL (60-115)
[2023-04-19 18:00] VITALS: BP 119/59; PULSE 70; RESP 16; TEMP 36.1; O2SAT 95
[2023-04-19] MEDS: hydrOXYzine HCL 25 MG TABLET PO (18:03)
[2023-04-19 20:24] LABS: Glucose, Whole Blood 151 mg/dL (60-115)
[2023-04-19] MEDS: traZODone HCL 50 MG TABLET PO (20:33)
[2023-04-19] MEDS: risperiDONE 2 MG TABLET PO (20:34)
[2023-04-19] MEDS: oxyBUTYnin chloride ER 5 MG TAB.ER.24 10 MG PO (20:34)
--- NOTE | 2023-04-19 22:07 | P.PNPSI_ITS ---
Subjective Subjective Date of Service: 04/19/23 Reason For Visit: SI Subjective Notes: Conditional Voluntary Interim History: Per nursing, pt slept through the night. Pt today reports she is willing to go to [facility]. She states she worries if it is far for family. She denies SI/HI. She reports worsening of chronic pain today- will add lidocaine patch. Medication Compliance: Yes Review of Systems Review of Systems General: No fevers, malaise, unintentional weight loss HEENT: No blurred vision, diplopia. No sore throat, nasal congestion, rhinorrhea, sinus pain, ear pain Cardiovascular: No chest pain, palpitations, or leg edema Respiratory: No shortness of breath, wheezing, cough GI: +abd pain. No nausea, vomiting, diarrhea, constipation, melena, hematochezia : No dysuria, hematuria, increased urinary frequency, decreased urinary output MSK: +diffuse pain Neuro: No headaches, weakness, paresthesias Skin: No rashes or lesions Mental Status Exam Mental Status Exam Narrative: Appearance: [place], [place], wearing hospital gown, fair hygiene, nodding, somnolent Behavior: cooperative Psychomotor: retardation due to sedation Speech: clear, some delayed in response, spontaneous TP: tangential at times TC: not feeling safe with partner, feeling anxious and angry Mood: angry, tired, anxious' Affect: somnolent SI: denies HI: denies VH/AH: denies Delusions: no overt delusions Insight/judgment: fair x 2. Memory/cog: alert, oriented to place, month, situation, not year. MOCA on 04/08 scored 8/30. ACL 4.2 Diagnostics Vital Signs (24Hr): Vital Signs - 24 hr 04/19/23 08:00 Temperature 97.3 F Pulse Rate 99 Respiratory Rate 16 Blood Pressure 131/71 Pulse Oximetry 95 Oxygen Delivery Method Room Air BMI result Body Mass Index 38.2 Labs 04/16/23 08:08 Labs: Laboratory Results - last 48 hr 04/18/23 04/18/23 04/18/23 08:41 11:27 16:21 POC Glucose 153 H 179 H 152 H 04/18/23 04/19/23 04/19/23 20:12 07:45 11:30 POC Glucose 192 H 167 H 125 H 04/19/23 04/19/23 16:18 20:19 POC Glucose 189 H 151 H Medications Medications Current Medications Acetaminophen (Acetaminophen 325 Mg Tablet) 650 mg PO Q6H PRN PRN Reason: Headache/Pain Mild Scale (1-3) Last Admin: 04/19/23 16:15 Dose: 650 mg Al Hydroxide/Mg Hydroxide (Magnesium Hydrox/Alum Hydrox 30 Ml Oral.Susp) 30 ml PO Q6H PRN PRN Reason: Heartburn/Nausea Albuterol Sulfate (Albuterol Sulfate 90 Mcg 8 Gm Inhaler) 2 puff INHALE Q4H PRN PRN Reason: Respiratory Distress Allopurinol (Allopurinol 100 Mg Tablet) 100 mg PO DAILY [facility] Last Admin: 04/19/23 08:23 Dose: 100 mg Atorvastatin Calcium (Atorvastatin Calcium 80 Mg Tablet) 80 mg PO DAILY [facility] Last Admin: 04/19/23 08:22 Dose: 80 mg Clopidogrel Bisulfate (Clopidogrel Bisulfate 75 Mg Tablet) 75 mg PO DAILY [facility] Last Admin: 04/19/23 08:23 Dose: 75 mg Clotrimazole (Clotrimazole 1 % Cream 15 Gm Tube) 1 appl TOPICAL BID [facility]; [place] col Last Admin: 04/19/23 08:25 Dose: Not Given Cyanocobalamin (Cyanocobalamin (Vitamin B-12) 500 Mcg Tablet) 500 mcg PO DAILY [facility] Last Admin: 04/19/23 08:23 Dose: 500 mcg Divalproex Sodium (Divalproex Sodium Sprinkles 125 Mg Cap.) 250 mg PO BID [facility] Last Admin: 04/19/23 20:33 Dose: 250 mg Duloxetine HCl (Duloxetine Hcl 60 Mg Capsule.) 60 mg PO DAILY [facility] Last Admin: 04/19/23 08:23 Dose: 60 mg Ezetimibe (Ezetimibe 10 Mg Tablet) 10 mg PO DAILY [facility] Last Admin: 04/19/23 08:22 Dose: 10 mg Ergocalciferol (Ergocalciferol (Vitamin D2) 1,250 Mcg Capsule) 2,500 mcg PO Fr [facility] Last Admin: 04/19/23 09:28 Dose: 2,500 mcg Folic Acid (Folic Acid 1 Mg Tablet) 1 mg PO DAILY [facility] Last Admin: 04/19/23 08:23 Dose: 1 mg Gabapentin (Gabapentin 300 Mg Capsule) 600 mg PO BID [facility] Last Admin: 04/19/23 20:35 Dose: 600 mg Hydroxyzine HCl (Hydroxyzine Hcl 25 Mg Tablet) 25 mg PO Q6H PRN PRN Reason: Anxiety Last Admin: 04/19/23 18:03 Dose: 25 mg Insulin Human Lispro (Insulin Lispro 100 Unit/Ml 3 Ml Vial) 0 unit SUBCUT QIDACHS [facility]; Protocol Last Admin: 04/19/23 16:37 Dose: 2 unit Lisinopril (Lisinopril 10 Mg Tablet) 30 mg PO DAILY [facility]; Protocol Last Admin: 04/19/23 08:21 Dose: 30 mg Magnesium Hydroxide (Milk Of Magnesia 30 Ml Oral.Susp) 30 ml PO DAILY PRN PRN Reason: Constipation Last Admin: 04/16/23 14:58 Dose: 30 ml Magnesium Oxide (Magnesium Oxide 400 Mg Tablet) 400 mg PO DAILY [facility] Last Admin: 04/19/23 08:20 Dose: 400 mg Metformin HCl (Metformin Hcl 1,000 Mg Tablet) 1,000 mg PO BID [facility] Last Admin: 04/19/23 20:33 Dose: 1,000 mg Nicotine (Nicotine 14 Mg Patch.Td24) 14 mg TRANSDERMA DAILY [facility] Last Admin: 04/19/23 08:20 Dose: Not Given Nicotine Polacrilex (Nicotine Polacrilex 2 Mg Gum) 2 mg BUCCAL Q2H PRN PRN Reason: Nicotine Cravings Oxybutynin Chloride (Oxybutynin Chloride Er 5 Mg Tab.Er.24) 10 mg PO BEDTIME [facility] Last Admin: 04/19/23 20:34 Dose: 10 mg Oxycodone HCl (Oxycodone Hcl Immed Release 5 Mg Tablet) 5 mg PO Q8H PRN PRN Reason: Pain, Severe (Pain Scale 7-10) Last Admin: 04/19/23 13:40 Dose: 5 mg Pharmacy Consult (Consult Rx Perform Med Rec) 1 each MISCELLANE ONCE PRN PRN Reason: Consult order Risperidone (Risperidone 1 Mg Tablet) 1 mg PO DAILY [facility] Last Admin: 04/19/23 08:21 Dose: 1 mg Risperidone (Risperidone 2 Mg Tablet) 2 mg PO BEDTIME [facility] Last Admin: 04/19/23 20:34 Dose: 2 mg Trazodone HCl (Trazodone Hcl 50 Mg Tablet) 50 mg PO BEDTIME PRN PRN Reason: Insomnia Last Admin: 04/19/23 20:33 Dose: 50 mg Allergies Allergies Allergy/AdvReac Type Severity Reaction Status Date / Time Penicillins Allergy Intermediate Unknown Verified 04/06/23 20:37 shellfish derived Allergy Intermediate Unknown Verified 04/06/23 20:37 adhesive Allergy Unknown Verified 04/19/23 16:47 black pepper Allergy Unknown Verified 04/19/23 16:47 egg Allergy Unknown Verified 04/19/23 16:47 latex Allergy Unknown Verified 04/19/23 16:47 rice Allergy Unknown Verified 04/19/23 16:47 Thiazides Allergy Unknown Verified 04/19/23 16:47 chlorpromazine AdvReac Intermediate Unknown Verified 04/06/23 20:37 [From Thorazine] Assessment & Plan Assessment & Plan (1) Major neurocognitive disorder due to multiple etiologies, with psychotic disturbance: Status: Acute Code(s): F02.82 - Dementia in other diseases classified elsewhere, unspecified severity, with psychotic disturbance Plan 72 year old female with history insulin dependent type 2 diabetes, htn, fibromyalgia, asthma/copd overlap, CAD, ADRIANA, GERD, obesity hypoventilation syndrome, seizure like activity without diagnosis of epilepsy, hx lucunar infarct, hld, and chronic abdominal pain who is a current everyday smoker admitted to psychiatry with consult placed to hospitalist service for medical H&P. #Mood disorder/dementia -plan per psychiatry #Fibromygia/chronic pain syndrome -continue duloxetine. Pt alert and awake on exam -continue oxycodone #CAD/HLD -no chest pain. [facility] EKG reassuring with NSR, rate 93, nonspecific st wave abnormality, no edith or deperessions -continue plavix, statin, zetia #Insulin dependent type 2 diabetes -poc glucose -diabetic diet -Continue metformin, humalog on sliding scale #Urinary incontinence/urgency -continue methenamine -UA normal #HTN -reasonably controlled -continue lisinopril #Asthma/copd overlap -Continue home inhalers, albuterol prn #ADRIANA -continue cpap if used at home. Consult RT Psych: 04/08 continue current medications. VS 132/85, HR 113, O2sat 94 on RA. continue to monitor oversedation respiratory suppression. 04/09 continue tx. 04/10 continue tx. 04/11 continue tx. 04/12 continue treatment 04/13: Continue current regimen and plans 6/18: Continue current plans and regimen 04/15 Lisinopril increase to 30mg po daily due to SBP 170-180. continue all other medications. 04/16 continue current medications.BP 148/78, HR 85, RR 18, o2sat 97 RA. 04/17 start low dose depakote 250mg po BID- monitor day time sedation in combination with other meds. 04/18 continue tx. 04/19 start lidocane patch for back pain. Reason for continued inpatient stay Substantial Risk for: inability to function Time Spent With Patient Time: Total time managing care of this patient today ____ minutes.
[2023-04-20 07:30] VITALS: BP 112/62; PULSE 105; RESP 16; TEMP 36.4; O2SAT 96
[2023-04-20 08:02] LABS: Glucose, Whole Blood 164 mg/dL (60-115)
[2023-04-20] MEDS: Insulin Lispro 100 UNIT/ML 3 ML VIAL SUBCUT ×4 (08:16→21:03)
[2023-04-20] MEDS: Folic Acid 1 MG TABLET PO (08:17)
[2023-04-20] MEDS: Atorvastatin Calcium 80 MG TABLET PO (08:17)
[2023-04-20] MEDS: metFORMIN HCl 1,000 MG TABLET 1000 MG PO ×2 (08:17→20:53)
[2023-04-20] MEDS: Cyanocobalamin (Vitamin B-12) 500 MCG TABLET PO (08:17)
[2023-04-20] MEDS: Clopidogrel Bisulfate 75 MG TABLET PO (08:17)
[2023-04-20] MEDS: Magnesium Oxide 400 MG TABLET PO (08:17)
[2023-04-20] MEDS: allopurinoL 100 MG TABLET PO (08:18)
[2023-04-20] MEDS: Gabapentin 300 MG CAPSULE 600 MG PO ×2 (08:18→20:52)
[2023-04-20] MEDS: DULoxetine HCl 60 MG CAPSULE.DR PO (08:18)
[2023-04-20] MEDS: risperiDONE 1 MG TABLET PO (08:18)
[2023-04-20] MEDS: Ezetimibe 10 MG TABLET PO (08:18)
[2023-04-20] MEDS: Divalproex Sodium Sprinkles 125 MG CAP.DR.SPR 250 MG PO ×2 (08:18→20:52)
[2023-04-20] MEDS: lisinopriL 10 MG TABLET 30 MG PO (08:18)
[2023-04-20 11:25] LABS: Glucose, Whole Blood 181 mg/dL (60-115)
--- NOTE | 2023-04-20 11:42 | HO.PSYCHPN ---
Subjective Subjective Date of Service: 04/20/23 Reason For Visit: SI Interim History: irritable, claims she has not seen a doctor since she got here and has not been getting any meds. on discussion with nurse and chart review, these assertions are inaccurate. states she is doing better by sleeping since admission. per nursing report, pt did sleep well last night and has been mostly pleasantly confused. Mental Status Exam Mental Status Exam Narrative: Appearance: MO, PAUMA, wearing hospital gown, fair hygiene Behavior: cooperative Psychomotor: no PMA/PMR Speech: clear, spontaneous TP: tangential at times TC: not seen doctor, not getting meds Mood: not assessed Affect: hyper-intense, min-labile SI: none expressed HI: none expressed VH/AH: none expressed Delusions: no overt delusions Insight/judgment: fair x 2. Memory/cog: alert, oriented to place, month, situation, not year. MOCA on 04/08 scored 8/30. ACL 4.2 Diagnostics Vital Signs (24Hr): Vital Signs - 24 hr 04/19/23 18:00 Temperature 97 F Pulse Rate 70 Respiratory Rate 16 Blood Pressure 119/59 L Pulse Oximetry 95 Oxygen Delivery Method Room Air BMI result Body Mass Index 38.2 Labs 04/16/23 08:08 Labs: Laboratory Results - last 48 hr 04/18/23 04/18/23 04/19/23 16:21 20:12 07:45 POC Glucose 152 H 192 H 167 H 04/19/23 04/19/23 04/19/23 11:30 16:18 20:19 POC Glucose 125 H 189 H 151 H 04/20/23 04/20/23 07:58 11:21 POC Glucose 164 H 181 H Medications Medications Current Medications Acetaminophen (Acetaminophen 325 Mg Tablet) 650 mg PO Q6H PRN PRN Reason: Headache/Pain Mild Scale (1-3) Last Admin: 04/19/23 16:15 Dose: 650 mg Al Hydroxide/Mg Hydroxide (Magnesium Hydrox/Alum Hydrox 30 Ml Oral.Susp) 30 ml PO Q6H PRN PRN Reason: Heartburn/Nausea Albuterol Sulfate (Albuterol Sulfate 90 Mcg 8 Gm Inhaler) 2 puff INHALE Q4H PRN PRN Reason: Respiratory Distress Allopurinol (Allopurinol 100 Mg Tablet) 100 mg PO DAILY [facility] Last Admin: 04/20/23 08:18 Dose: 100 mg Atorvastatin Calcium (Atorvastatin Calcium 80 Mg Tablet) 80 mg PO DAILY [facility] Last Admin: 04/20/23 08:17 Dose: 80 mg Clopidogrel Bisulfate (Clopidogrel Bisulfate 75 Mg Tablet) 75 mg PO DAILY [facility] Last Admin: 04/20/23 08:17 Dose: 75 mg Clotrimazole (Clotrimazole 1 % Cream 15 Gm Tube) 1 appl TOPICAL BID [facility]; Protocol Last Admin: 04/19/23 22:10 Dose: Not Given Cyanocobalamin (Cyanocobalamin (Vitamin B-12) 500 Mcg Tablet) 500 mcg PO DAILY [facility] Last Admin: 04/20/23 08:17 Dose: 500 mcg Divalproex Sodium (Divalproex Sodium Sprinkles 125 Mg Cap.) 250 mg PO BID [facility] Last Admin: 04/20/23 08:18 Dose: 250 mg Duloxetine HCl (Duloxetine Hcl 60 Mg Capsule.) 60 mg PO DAILY [facility] Last Admin: 04/20/23 08:18 Dose: 60 mg Ezetimibe (Ezetimibe 10 Mg Tablet) 10 mg PO DAILY [facility] Last Admin: 04/20/23 08:18 Dose: 10 mg Ergocalciferol (Ergocalciferol (Vitamin D2) 1,250 Mcg Capsule) 2,500 mcg PO Fr [facility] Last Admin: 04/19/23 09:28 Dose: 2,500 mcg Folic Acid (Folic Acid 1 Mg Tablet) 1 mg PO DAILY [facility] Last Admin: 04/20/23 08:17 Dose: 1 mg Gabapentin (Gabapentin 300 Mg Capsule) 600 mg PO BID [facility] Last Admin: 04/20/23 08:18 Dose: 600 mg Hydroxyzine HCl (Hydroxyzine Hcl 25 Mg Tablet) 25 mg PO Q6H PRN PRN Reason: Anxiety Last Admin: 04/19/23 18:03 Dose: 25 mg Insulin Human Lispro (Insulin Lispro 100 Unit/Ml 3 Ml Vial) 0 unit SUBCUT QIDACHS [facility]; Protocol Last Admin: 04/20/23 11:26 Dose: 2 unit Lisinopril (Lisinopril 10 Mg Tablet) 30 mg PO DAILY [facility]; Protocol Last Admin: 04/20/23 08:18 Dose: 30 mg Magnesium Hydroxide (Milk Of Magnesia 30 Ml Oral.Susp) 30 ml PO DAILY PRN PRN Reason: Constipation Last Admin: 04/16/23 14:58 Dose: 30 ml Magnesium Oxide (Magnesium Oxide 400 Mg Tablet) 400 mg PO DAILY [facility] Last Admin: 04/20/23 08:17 Dose: 400 mg Metformin HCl (Metformin Hcl 1,000 Mg Tablet) 1,000 mg PO BID [facility] Last Admin: 04/20/23 08:17 Dose: 1,000 mg Nicotine Polacrilex (Nicotine Polacrilex 2 Mg Gum) 2 mg BUCCAL Q2H PRN PRN Reason: Nicotine Cravings Oxybutynin Chloride (Oxybutynin Chloride Er 5 Mg Tab.Er.24) 10 mg PO BEDTIME [facility] Last Admin: 04/19/23 20:34 Dose: 10 mg Pharmacy Consult (Consult Rx Perform Med Rec) 1 each MISCELLANE ONCE PRN PRN Reason: Consult order Risperidone (Risperidone 1 Mg Tablet) 1 mg PO DAILY [facility] Last Admin: 04/20/23 08:18 Dose: 1 mg Risperidone (Risperidone 2 Mg Tablet) 2 mg PO BEDTIME [facility] Last Admin: 04/19/23 20:34 Dose: 2 mg Trazodone HCl (Trazodone Hcl 50 Mg Tablet) 50 mg PO BEDTIME PRN PRN Reason: Insomnia Last Admin: 04/19/23 20:33 Dose: 50 mg Allergies Allergies Allergy/AdvReac Type Severity Reaction Status Date / Time Penicillins Allergy Intermediate Unknown Verified 04/06/23 20:37 shellfish derived Allergy Intermediate Unknown Verified 04/06/23 20:37 adhesive Allergy Unknown Verified 04/19/23 16:47 black pepper Allergy Unknown Verified 04/19/23 16:47 egg Allergy Unknown Verified 04/19/23 16:47 latex Allergy Unknown Verified 04/19/23 16:47 rice Allergy Unknown Verified 04/19/23 16:47 Thiazides Allergy Unknown Verified 04/19/23 16:47 chlorpromazine AdvReac Intermediate Unknown Verified 04/06/23 20:37 [From Thorazine] Assessment & Plan Assessment & Plan (1) Major neurocognitive disorder due to multiple etiologies, with psychotic disturbance: Status: Acute Code(s): F02.82 - Dementia in other diseases classified elsewhere, unspecified severity, with psychotic disturbance Plan 72 year old female with history insulin dependent type 2 diabetes, htn, fibromyalgia, asthma/copd overlap, CAD, ADRIANA, GERD, obesity hypoventilation syndrome, seizure like activity without diagnosis of epilepsy, hx lucunar infarct, hld, and chronic abdominal pain who is a current everyday smoker admitted to psychiatry with consult placed to hospitalist service for medical H&P. #Mood disorder/dementia -plan per psychiatry #Fibromygia/chronic pain syndrome -continue duloxetine. Pt alert and awake on exam -continue oxycodone #CAD/HLD -no chest pain. Boyd EKG reassuring with NSR, rate 93, nonspecific st wave abnormality, no edith or deperessions -continue plavix, statin, zetia #Insulin dependent type 2 diabetes -poc glucose -diabetic diet -Continue metformin, humalog on sliding scale #Urinary incontinence/urgency -continue methenamine -UA normal #HTN -reasonably controlled -continue lisinopril #Asthma/copd overlap -Continue home inhalers, albuterol prn #ADRIANA -continue cpap if used at home. Consult RT Psych: 04/08 continue current medications. VS 132/85, HR 113, O2sat 94 on RA. continue to monitor oversedation respiratory suppression. 04/09 continue tx. 04/10 continue tx. 04/11 continue tx. 04/12 continue treatment 04/13: Continue current regimen and plans 04/14: Continue current plans and regimen 04/15 Lisinopril increase to 30mg po daily due to SBP 170-180. continue all other medications. 04/16 continue current medications.BP 148/78, HR 85, RR 18, o2sat 97 RA. 04/17 start low dose depakote 250mg po BID- monitor day time sedation in combination with other meds. 04/18 continue tx. 04/19 start lidocane patch for back pain. 04/20: stable presentation. no change in mgmt. Reason for continued inpatient stay Substantial Risk for: inability to function Time Spent With Patient Time: Total time managing care of this patient today ____ minutes.
[2023-04-20 16:29] LABS: Glucose, Whole Blood 169 mg/dL (60-115)
[2023-04-20] MEDS: oxyBUTYnin chloride ER 5 MG TAB.ER.24 10 MG PO (20:51)
[2023-04-20] MEDS: traZODone HCL 50 MG TABLET PO (20:53)
[2023-04-20] MEDS: risperiDONE 2 MG TABLET PO (20:53)
[2023-04-20 21:03] LABS: Glucose, Whole Blood 178 mg/dL (60-115)
[2023-04-21 06:00] VITALS: BP 144/68; PULSE 93; RESP 17; TEMP 36.6; O2SAT 92
[2023-04-21 07:56] LABS: Glucose, Whole Blood 186 mg/dL (60-115)
[2023-04-21] MEDS: Divalproex Sodium Sprinkles 125 MG CAP.DR.SPR 250 MG PO ×2 (08:52→21:31)
[2023-04-21] MEDS: Gabapentin 300 MG CAPSULE 600 MG PO ×2 (08:52→21:31)
[2023-04-21] MEDS: Insulin Lispro 100 UNIT/ML 3 ML VIAL SUBCUT ×2 (08:56→21:43)
[2023-04-21] MEDS: DULoxetine HCl 60 MG CAPSULE.DR PO (08:57)
[2023-04-21] MEDS: Atorvastatin Calcium 80 MG TABLET PO (08:57)
[2023-04-21] MEDS: lisinopriL 10 MG TABLET 30 MG PO (08:57)
[2023-04-21] MEDS: Ezetimibe 10 MG TABLET PO (08:59)
[2023-04-21] MEDS: metFORMIN HCl 1,000 MG TABLET 1000 MG PO ×2 (08:59→21:31)
[2023-04-21] MEDS: risperiDONE 1 MG TABLET PO (08:59)
[2023-04-21] MEDS: Magnesium Oxide 400 MG TABLET PO (08:59)
[2023-04-21] MEDS: Clopidogrel Bisulfate 75 MG TABLET PO (08:59)
[2023-04-21] MEDS: Folic Acid 1 MG TABLET PO (08:59)
[2023-04-21] MEDS: Cyanocobalamin (Vitamin B-12) 500 MCG TABLET PO (09:01)
[2023-04-21] MEDS: allopurinoL 100 MG TABLET PO (09:01)
--- NOTE | 2023-04-21 11:27 | HO.PSYCHPN ---
Subjective Subjective Date of Service: 04/21/23 Reason For Visit: SI Interim History: pt has no complaints or requests. per staff, c/o chronic pain. Mental Status Exam Mental Status Exam Narrative: Appearance: MO, [place], wearing hospital gown, fair hygiene Behavior: cooperative Psychomotor: no PMA/PMR Speech: clear, spontaneous TP: tangential at times TC: feels chief of staff doctor not providing adequate care Mood: not assessed Affect: hyper-intense, min-labile SI: none expressed HI: none expressed VH/AH: none expressed Delusions: no overt delusions Insight/judgment: fair x 2. Memory/cog: alert, oriented to place, month, situation, not year. MOCA on 04/08 scored 06/26. ACL 4.2 Diagnostics Vital Signs (24Hr): Vital Signs - 24 hr 04/21/23 06:00 Temperature 97.8 F Pulse Rate 93 Respiratory Rate 17 Blood Pressure 144/68 H Pulse Oximetry 92 Oxygen Delivery Method Room Air BMI result Body Mass Index 38.2 Labs 04/16/23 08:08 Labs: Laboratory Results - last 48 hr 04/19/23 04/19/23 04/19/23 11:30 16:18 20:19 POC Glucose 125 H 189 H 151 H 04/20/23 04/20/23 04/20/23 07:58 11:21 16:24 POC Glucose 164 H 181 H 169 H 04/20/23 04/21/23 20:59 07:53 POC Glucose 178 H 186 H Medications Medications Current Medications Acetaminophen (Acetaminophen 325 Mg Tablet) 650 mg PO Q6H PRN PRN Reason: Headache/Pain Mild Scale (1-3) Last Admin: 04/19/23 16:15 Dose: 650 mg Al Hydroxide/Mg Hydroxide (Magnesium Hydrox/Alum Hydrox 30 Ml Oral.Susp) 30 ml PO Q6H PRN PRN Reason: Heartburn/Nausea Albuterol Sulfate (Albuterol Sulfate 90 Mcg 8 Gm Inhaler) 2 puff INHALE Q4H PRN PRN Reason: Respiratory Distress Allopurinol (Allopurinol 100 Mg Tablet) 100 mg PO DAILY [facility] Last Admin: 04/21/23 09:01 Dose: 100 mg Atorvastatin Calcium (Atorvastatin Calcium 80 Mg Tablet) 80 mg PO DAILY [facility] Last Admin: 04/21/23 08:57 Dose: 80 mg Clopidogrel Bisulfate (Clopidogrel Bisulfate 75 Mg Tablet) 75 mg PO DAILY [facility] Last Admin: 04/21/23 08:59 Dose: 75 mg Clotrimazole (Clotrimazole 1 % Cream 15 Gm Tube) 1 appl TOPICAL BID [facility]; Protocol Last Admin: 04/21/23 08:56 Dose: Not Given Cyanocobalamin (Cyanocobalamin (Vitamin B-12) 500 Mcg Tablet) 500 mcg PO DAILY [facility] Last Admin: 04/21/23 09:01 Dose: 500 mcg Divalproex Sodium (Divalproex Sodium Sprinkles 125 Mg Cap..Spr) 250 mg PO BID [facility] Last Admin: 04/21/23 08:52 Dose: 250 mg Duloxetine HCl (Duloxetine Hcl 60 Mg Capsule.Dr) 60 mg PO DAILY [facility] Last Admin: 04/21/23 08:57 Dose: 60 mg Ezetimibe (Ezetimibe 10 Mg Tablet) 10 mg PO DAILY [facility] Last Admin: 04/21/23 08:59 Dose: 10 mg Ergocalciferol (Ergocalciferol (Vitamin D2) 1,250 Mcg Capsule) 2,500 mcg PO Fr [facility] Last Admin: 04/19/23 09:28 Dose: 2,500 mcg Folic Acid (Folic Acid 1 Mg Tablet) 1 mg PO DAILY [facility] Last Admin: 04/21/23 08:59 Dose: 1 mg Gabapentin (Gabapentin 300 Mg Capsule) 600 mg PO BID [facility] Last Admin: 04/21/23 08:52 Dose: 600 mg Hydroxyzine HCl (Hydroxyzine Hcl 25 Mg Tablet) 25 mg PO Q6H PRN PRN Reason: Anxiety Last Admin: 04/19/23 18:03 Dose: 25 mg Insulin Human Lispro (Insulin Lispro 100 Unit/Ml 3 Ml Vial) 0 unit SUBCUT QIDACHS [facility]; Protocol Last Admin: 04/21/23 08:56 Dose: 2 unit Lisinopril (Lisinopril 10 Mg Tablet) 30 mg PO DAILY [facility]; Protocol Last Admin: 04/21/23 08:57 Dose: 30 mg Magnesium Hydroxide (Milk Of Magnesia 30 Ml Oral.Susp) 30 ml PO DAILY PRN PRN Reason: Constipation Last Admin: 04/16/23 14:58 Dose: 30 ml Magnesium Oxide (Magnesium Oxide 400 Mg Tablet) 400 mg PO DAILY [facility] Last Admin: 04/21/23 08:59 Dose: 400 mg Metformin HCl (Metformin Hcl 1,000 Mg Tablet) 1,000 mg PO BID [facility] Last Admin: 04/21/23 08:59 Dose: 1,000 mg Nicotine Polacrilex (Nicotine Polacrilex 2 Mg Gum) 2 mg BUCCAL Q2H PRN PRN Reason: Nicotine Cravings Oxybutynin Chloride (Oxybutynin Chloride Er 5 Mg Tab.Er.24) 10 mg PO BEDTIME [facility] Last Admin: 04/20/23 20:51 Dose: 10 mg Oxycodone HCl (Oxycodone Hcl Immed Release 5 Mg Tablet) 5 mg PO Q8H PRN PRN Reason: Pain, Severe (Pain Scale 7-10) Pharmacy Consult (Consult Rx Perform Med Rec) 1 each MISCELLANE ONCE PRN PRN Reason: Consult order Risperidone (Risperidone 1 Mg Tablet) 1 mg PO DAILY [facility] Last Admin: 04/21/23 08:59 Dose: 1 mg Risperidone (Risperidone 2 Mg Tablet) 2 mg PO BEDTIME [facility] Last Admin: 04/20/23 20:53 Dose: 2 mg Trazodone HCl (Trazodone Hcl 50 Mg Tablet) 50 mg PO BEDTIME PRN PRN Reason: Insomnia Last Admin: 04/20/23 20:53 Dose: 50 mg Allergies Allergies Allergy/AdvReac Type Severity Reaction Status Date / Time Penicillins Allergy Intermediate Unknown Verified 04/06/23 20:37 shellfish derived Allergy Intermediate Unknown Verified 04/06/23 20:37 adhesive Allergy Unknown Verified 04/19/23 16:47 black pepper Allergy Unknown Verified 04/19/23 16:47 egg Allergy Unknown Verified 04/19/23 16:47 latex Allergy Unknown Verified 04/19/23 16:47 rice Allergy Unknown Verified 04/19/23 16:47 Thiazides Allergy Unknown Verified 04/19/23 16:47 chlorpromazine AdvReac Intermediate Unknown Verified 04/06/23 20:37 [From Thorazine] Assessment & Plan Assessment & Plan (1) Major neurocognitive disorder due to multiple etiologies, with psychotic disturbance: Status: Acute Code(s): F02.82 - Dementia in other diseases classified elsewhere, unspecified severity, with psychotic disturbance Plan 72 year old female with history insulin dependent type 2 diabetes, htn, fibromyalgia, asthma/copd overlap, CAD, ADRIANA, GERD, obesity hypoventilation syndrome, seizure like activity without diagnosis of epilepsy, hx lucunar infarct, hld, and chronic abdominal pain who is a current everyday smoker admitted to psychiatry with consult placed to hospitalist service for medical H&P. #Mood disorder/dementia -plan per psychiatry #Fibromygia/chronic pain syndrome -continue duloxetine. Pt alert and awake on exam -continue oxycodone #CAD/HLD -no chest pain. [facility] EKG reassuring with NSR, rate 93, nonspecific st wave abnormality, no edith or deperessions -continue plavix, statin, zetia #Insulin dependent type 2 diabetes -poc glucose -diabetic diet -Continue metformin, humalog on sliding scale #Urinary incontinence/urgency -continue methenamine -UA normal #HTN -reasonably controlled -continue lisinopril #Asthma/copd overlap -Continue home inhalers, albuterol prn #ADRIANA -continue cpap if used at home. Consult RT Psych: 04/08 continue current medications. VS 132/85, HR 113, O2sat 94 on RA. continue to monitor oversedation respiratory suppression. 04/09 continue tx. 04/10 continue tx. 04/11 continue tx. 04/12 continue treatment 04/13: Continue current regimen and plans 04/14: Continue current plans and regimen 04/15 Lisinopril increase to 30mg po daily due to SBP 170-180. continue all other medications. 04/16 continue current medications.BP 148/78, HR 85, RR 18, o2sat 97 RA. 04/17 start low dose depakote 250mg po BID- monitor day time sedation in combination with other meds. 04/18 continue tx. 04/19 start lidocane patch for back pain. 04/20: stable presentation. no change in mgmt. 04/20: stable presentation. restart oxycodone 5 mg Q8H PRN, as it had fallen off. Reason for continued inpatient stay Substantial Risk for: inability to function and rapid decompensation Time Spent With Patient Time: Total time managing care of this patient today ____ minutes.
[2023-04-21 11:34] LABS: Glucose, Whole Blood 133 mg/dL (60-115)
[2023-04-21] MEDS: oxyCODONE HCl Immed Release 5 MG TABLET PO ×2 (11:58→21:44)
[2023-04-21 16:28] LABS: Glucose, Whole Blood 135 mg/dL (60-115)
[2023-04-21 18:00] VITALS: BP 139/69; PULSE 99; RESP 18; TEMP 36.1; O2SAT 97
[2023-04-21] MEDS: risperiDONE 2 MG TABLET PO (21:31)
[2023-04-21] MEDS: oxyBUTYnin chloride ER 5 MG TAB.ER.24 10 MG PO (21:31)
[2023-04-21] MEDS: traZODone HCL 50 MG TABLET PO (21:44)
[2023-04-21 22:15] LABS: Glucose, Whole Blood 157 mg/dL (60-115)
[2023-04-22 07:38] LABS: Glucose, Whole Blood 145 mg/dL (60-115)
[2023-04-22 08:00] VITALS: BP 135/73; PULSE 93; RESP 18; TEMP 35.9; O2SAT 96
[2023-04-22] MEDS: allopurinoL 100 MG TABLET PO (09:02)
[2023-04-22] MEDS: Clopidogrel Bisulfate 75 MG TABLET PO (09:02)
[2023-04-22] MEDS: lisinopriL 10 MG TABLET 30 MG PO (09:02)
[2023-04-22] MEDS: Cyanocobalamin (Vitamin B-12) 500 MCG TABLET PO (09:02)
[2023-04-22] MEDS: Divalproex Sodium Sprinkles 125 MG CAP.DR.SPR 250 MG PO ×2 (09:03→21:49)
[2023-04-22] MEDS: Gabapentin 300 MG CAPSULE 600 MG PO ×2 (09:03→21:50)
[2023-04-22] MEDS: DULoxetine HCl 60 MG CAPSULE.DR PO (09:03)
[2023-04-22] MEDS: risperiDONE 1 MG TABLET PO (09:03)
[2023-04-22] MEDS: Folic Acid 1 MG TABLET PO (09:03)
[2023-04-22] MEDS: metFORMIN HCl 1,000 MG TABLET 1000 MG PO ×2 (09:03→21:50)
[2023-04-22] MEDS: Magnesium Oxide 400 MG TABLET PO (09:03)
[2023-04-22] MEDS: Atorvastatin Calcium 80 MG TABLET PO (09:03)
[2023-04-22] MEDS: Ezetimibe 10 MG TABLET PO (09:03)
[2023-04-22] MEDS: Clotrimazole 1 % Cream 15 GM TUBE 1 APPL TOPICAL (09:04)
[2023-04-22] MEDS: oxyCODONE HCl Immed Release 5 MG TABLET PO (09:04)
[2023-04-22 11:31] LABS: Glucose, Whole Blood 149 mg/dL (60-115)
[2023-04-22 16:26] LABS: Glucose, Whole Blood 130 mg/dL (60-115)
[2023-04-22 18:00] VITALS: BP 142/68; PULSE 93; RESP 18; TEMP 36.2; O2SAT 94
--- NOTE | 2023-04-22 21:12 | HO.PSYCHPN ---
Subjective Subjective Date of Service: 04/22/23 Reason For Visit: SI Subjective Notes: Conditional Voluntary Interim History: Per nursing, pt slept through the night. Pt reports she is willing to go to [facility]. She denies SI/HI. She reports chronic back pain. Difficulty retaining information and asks same information about [facility] which has been discussed in prior days. She denies VH/AH. She is taking medications. No behavioral concerns. Medication Compliance: Yes Review of Systems Review of Systems General: No fevers, malaise, unintentional weight loss HEENT: No blurred vision, diplopia. No sore throat, nasal congestion, rhinorrhea, sinus pain, ear pain Cardiovascular: No chest pain, palpitations, or leg edema Respiratory: No shortness of breath, wheezing, cough GI: +abd pain. 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 Memory/cog: alert, oriented to place, month, situation, not year. MOCA on 04/08 scored 8/30. ACL 4.2 Diagnostics Vital Signs (24Hr): Vital Signs - 24 hr 04/22/23 08:00 Temperature 96.6 F L Pulse Rate 93 Respiratory Rate 18 Blood Pressure 135/73 Pulse Oximetry 96 Oxygen Delivery Method Room Air BMI result Body Mass Index 38.2 Labs 04/16/23 08:08 Labs: Laboratory Results - last 48 hr 04/21/23 04/21/23 04/21/23 07:53 11:30 16:24 POC Glucose 186 H 133 H 135 H 04/21/23 04/22/23 04/22/23 21:38 07:34 11:27 POC Glucose 157 H 145 H 149 H 04/22/23 16:21 POC Glucose 130 H Medications Medications Current Medications Acetaminophen (Acetaminophen 325 Mg Tablet) 650 mg PO Q6H PRN PRN Reason: Headache/Pain Mild Scale (1-3) Last Admin: 04/19/23 16:15 Dose: 650 mg Al Hydroxide/Mg Hydroxide (Magnesium Hydrox/Alum Hydrox 30 Ml Oral.Susp) 30 ml PO Q6H PRN PRN Reason: Heartburn/Nausea Albuterol Sulfate (Albuterol Sulfate 90 Mcg 8 Gm Inhaler) 2 puff INHALE Q4H PRN PRN Reason: Respiratory Distress Allopurinol (Allopurinol 100 Mg Tablet) 100 mg PO DAILY [facility] Last Admin: 04/22/23 09:02 Dose: 100 mg Atorvastatin Calcium (Atorvastatin Calcium 80 Mg Tablet) 80 mg PO DAILY [facility] Last Admin: 04/22/23 09:03 Dose: 80 mg Clopidogrel Bisulfate (Clopidogrel Bisulfate 75 Mg Tablet) 75 mg PO DAILY [facility] Last Admin: 04/22/23 09:02 Dose: 75 mg Clotrimazole (Clotrimazole 1 % Cream 15 Gm Tube) 1 appl TOPICAL BID [facility]; Protocol Last Admin: 04/22/23 09:04 Dose: 1 appl Cyanocobalamin (Cyanocobalamin (Vitamin B-12) 500 Mcg Tablet) 500 mcg PO DAILY [facility] Last Admin: 04/22/23 09:02 Dose: 500 mcg Divalproex Sodium (Divalproex Sodium Sprinkles 125 Mg Cap.) 250 mg PO BID [facility] Last Admin: 04/22/23 09:03 Dose: 250 mg Duloxetine HCl (Duloxetine Hcl 60 Mg Capsule.) 60 mg PO DAILY [facility] Last Admin: 04/22/23 09:03 Dose: 60 mg Ezetimibe (Ezetimibe 10 Mg Tablet) 10 mg PO DAILY [facility] Last Admin: 04/22/23 09:03 Dose: 10 mg Ergocalciferol (Ergocalciferol (Vitamin D2) 1,250 Mcg Capsule) 2,500 mcg PO Fr [facility] Last Admin: 04/19/23 09:28 Dose: 2,500 mcg Folic Acid (Folic Acid 1 Mg Tablet) 1 mg PO DAILY [facility] Last Admin: 04/22/23 09:03 Dose: 1 mg Gabapentin (Gabapentin 300 Mg Capsule) 600 mg PO BID [facility] Last Admin: 04/22/23 09:03 Dose: 600 mg Hydroxyzine HCl (Hydroxyzine Hcl 25 Mg Tablet) 25 mg PO Q6H PRN PRN Reason: Anxiety Last Admin: 04/19/23 18:03 Dose: 25 mg Insulin Human Lispro (Insulin Lispro 100 Unit/Ml 3 Ml Vial) 0 unit SUBCUT QIDACHS [facility]; Protocol Last Admin: 04/22/23 16:32 Dose: Not Given Lisinopril (Lisinopril 10 Mg Tablet) 30 mg PO DAILY [facility]; Protocol Last Admin: 04/22/23 09:02 Dose: 30 mg Magnesium Hydroxide (Milk Of Magnesia 30 Ml Oral.Susp) 30 ml PO DAILY PRN PRN Reason: Constipation Last Admin: 04/16/23 14:58 Dose: 30 ml Magnesium Oxide (Magnesium Oxide 400 Mg Tablet) 400 mg PO DAILY [facility] Last Admin: 04/22/23 09:03 Dose: 400 mg Metformin HCl (Metformin Hcl 1,000 Mg Tablet) 1,000 mg PO BID [facility] Last Admin: 04/22/23 09:03 Dose: 1,000 mg Nicotine Polacrilex (Nicotine Polacrilex 2 Mg Gum) 2 mg BUCCAL Q2H PRN PRN Reason: Nicotine Cravings Oxybutynin Chloride (Oxybutynin Chloride Er 5 Mg Tab.Er.24) 10 mg PO BEDTIME [facility] Last Admin: 04/21/23 21:31 Dose: 10 mg Oxycodone HCl (Oxycodone Hcl Immed Release 5 Mg Tablet) 5 mg PO Q8H PRN PRN Reason: Pain, Severe (Pain Scale 7-10) Last Admin: 04/22/23 09:04 Dose: 5 mg Pharmacy Consult (Consult Rx Perform Med Rec) 1 each MISCELLANE ONCE PRN PRN Reason: Consult order Risperidone (Risperidone 1 Mg Tablet) 1 mg PO DAILY [facility] Last Admin: 04/22/23 09:03 Dose: 1 mg Risperidone (Risperidone 2 Mg Tablet) 2 mg PO BEDTIME [facility] Last Admin: 04/21/23 21:31 Dose: 2 mg Trazodone HCl (Trazodone Hcl 50 Mg Tablet) 50 mg PO BEDTIME PRN PRN Reason: Insomnia Last Admin: 04/21/23 21:44 Dose: 50 mg Allergies Allergies Allergy/AdvReac Type Severity Reaction Status Date / Time Penicillins Allergy Intermediate Unknown Verified 04/06/23 20:37 shellfish derived Allergy Intermediate Unknown Verified 04/06/23 20:37 adhesive Allergy Unknown Verified 04/19/23 16:47 black pepper Allergy Unknown Verified 04/19/23 16:47 egg Allergy Unknown Verified 04/19/23 16:47 latex Allergy Unknown Verified 04/19/23 16:47 rice Allergy Unknown Verified 04/19/23 16:47 Thiazides Allergy Unknown Verified 04/19/23 16:47 chlorpromazine AdvReac Intermediate Unknown Verified 04/06/23 20:37 [From Thorazine] Assessment & Plan Assessment & Plan (1) Major neurocognitive disorder due to multiple etiologies, with psychotic disturbance: Status: Acute Code(s): F02.82 - Dementia in other diseases classified elsewhere, unspecified severity, with psychotic disturbance Plan 72 year old female with history insulin dependent type 2 diabetes, htn, fibromyalgia, asthma/copd overlap, CAD, ADRIANA, GERD, obesity hypoventilation syndrome, seizure like activity without diagnosis of epilepsy, hx lucunar infarct, hld, and chronic abdominal pain who is a current everyday smoker admitted to psychiatry with consult placed to hospitalist service for medical H&P. #Mood disorder/dementia -plan per psychiatry #Fibromygia/chronic pain syndrome -continue duloxetine. Pt alert and awake on exam -continue oxycodone #CAD/HLD -no chest pain. Boyd EKG reassuring with NSR, rate 93, nonspecific st wave abnormality, no edith or deperessions -continue plavix, statin, zetia #Insulin dependent type 2 diabetes -poc glucose -diabetic diet -Continue metformin, humalog on sliding scale #Urinary incontinence/urgency -continue methenamine -UA normal #HTN -reasonably controlled -continue lisinopril #Asthma/copd overlap -Continue home inhalers, albuterol prn #ADRIANA -continue cpap if used at home. Consult RT Psych: 04/08 continue current medications. VS 132/85, HR 113, O2sat 94 on RA. continue to monitor oversedation respiratory suppression. 04/09 continue tx. 04/10 continue tx. 04/11 continue tx. 04/12 continue treatment 04/13: Continue current regimen and plans 04/14: Continue current plans and regimen 04/15 Lisinopril increase to 30mg po daily due to SBP 170-180. continue all other medications. 04/16 continue current medications.BP 148/78, HR 85, RR 18, o2sat 97 RA. 04/17 start low dose depakote 250mg po BID- monitor day time sedation in combination with other meds. 04/18 continue tx. 04/19 start lidocane patch for back pain. 04/20: stable presentation. no change in mgmt. 04/21: stable presentation. restart oxycodone 5 mg Q8H PRN, as it had fallen off. 04/22 continue tx. Reason for continued inpatient stay Substantial Risk for: inability to function Time Spent With Patient Time: Total time managing care of this patient today ____ minutes.
[2023-04-22] MEDS: oxyBUTYnin chloride ER 5 MG TAB.ER.24 10 MG PO (21:48)
[2023-04-22] MEDS: Acetaminophen 325 MG TABLET 650 MG PO (21:49)
[2023-04-22] MEDS: risperiDONE 2 MG TABLET PO (21:50)
[2023-04-22] MEDS: traZODone HCL 50 MG TABLET PO (21:50)
[2023-04-22 22:00] LABS: Glucose, Whole Blood 174 mg/dL (60-115)
[2023-04-22] MEDS: Insulin Lispro 100 UNIT/ML 3 ML VIAL SUBCUT (22:05)
[2023-04-23 07:53] LABS: Glucose, Whole Blood 153 mg/dL (60-115)
[2023-04-23 08:00] VITALS: BP 147/73; PULSE 79; RESP 18; TEMP 36.3; O2SAT 93
[2023-04-23] MEDS: Insulin Lispro 100 UNIT/ML 3 ML VIAL SUBCUT ×4 (08:06→22:46)
[2023-04-23] MEDS: allopurinoL 100 MG TABLET PO (08:07)
[2023-04-23] MEDS: Ezetimibe 10 MG TABLET PO (08:07)
[2023-04-23] MEDS: Divalproex Sodium Sprinkles 125 MG CAP.DR.SPR 250 MG PO ×2 (08:07→22:42)
[2023-04-23] MEDS: Atorvastatin Calcium 80 MG TABLET PO (08:08)
[2023-04-23] MEDS: lisinopriL 10 MG TABLET 30 MG PO (08:08)
[2023-04-23] MEDS: risperiDONE 1 MG TABLET PO (08:08)
[2023-04-23] MEDS: Folic Acid 1 MG TABLET PO (08:08)
[2023-04-23] MEDS: DULoxetine HCl 60 MG CAPSULE.DR PO (08:08)
[2023-04-23] MEDS: Clopidogrel Bisulfate 75 MG TABLET PO (08:09)
[2023-04-23] MEDS: Magnesium Oxide 400 MG TABLET PO (08:09)
[2023-04-23] MEDS: Gabapentin 300 MG CAPSULE 600 MG PO ×2 (08:09→22:42)
[2023-04-23] MEDS: Cyanocobalamin (Vitamin B-12) 500 MCG TABLET PO (08:09)
[2023-04-23] MEDS: metFORMIN HCl 1,000 MG TABLET 1000 MG PO ×2 (08:09→22:43)
[2023-04-23 11:34] LABS: Glucose, Whole Blood 159 mg/dL (60-115)
[2023-04-23] MEDS: Acetaminophen 325 MG TABLET 650 MG PO ×2 (12:15→23:34)
--- NOTE | 2023-04-23 14:22 | HO.PSYCHPN ---
Subjective Subjective Date of Service: 04/23/23 Reason For Visit: SI Subjective Notes: Conditional Voluntary Interim History: Per nursing, pt slept through the night=8hr. Pt more visible during the day, asking when groups are taking place. She continues to report willingness to go to [facility]. She reports chronic back pain. She is ambulating without walker, after OT assessment. She denies SI/HI. No behavioral concerns. Medication Compliance: Yes Side effects from medications: No Attending Groups: Yes Review of Systems Review of Systems General: No fevers, malaise, unintentional weight loss HEENT: No blurred vision, diplopia. No sore throat, nasal congestion, rhinorrhea, sinus pain, ear pain Cardiovascular: No chest pain, palpitations, or leg edema Respiratory: No shortness of breath, wheezing, cough GI: +abd pain. No nausea, vomiting, diarrhea, constipation, melena, hematochezia : No dysuria, hematuria, increased urinary frequency, decreased urinary output MSK: +diffuse pain Neuro: No headaches, weakness, paresthesias Skin: No rashes or lesions Mental Status Exam Mental Status Exam Narrative: Appearance: [place], [place], wearing hospital gown, fair hygiene Behavior: cooperative Psychomotor: no PMA/PMR Speech: clear, spontaneous TP: tangential at times TC: feels staff accountant not providing adequate care Mood: not assessed Affect: hyper-intense, min-labile SI: none expressed HI: none expressed VH/AH: none expressed Delusions: no overt delusions Insight/judgment: fair x 2. Memory/cog: alert, oriented to place, month, situation, not year. MOCA on 04/08 scored 8/30. ACL 4.2 Diagnostics Vital Signs (24Hr): Vital Signs - 24 hr 04/22/23 18:00 04/23/23 08:00 Temperature 97.1 F 97.4 F Pulse Rate 93 79 Respiratory Rate 18 18 Blood Pressure 142/68 H 147/73 H Pulse Oximetry 94 93 Oxygen Delivery Method Room Air Room Air BMI result Body Mass Index 38.2 Labs 04/16/23 08:08 Labs: Laboratory Results - last 48 hr 04/21/23 04/21/23 04/22/23 16:24 21:38 07:34 POC Glucose 135 H 157 H 145 H 04/22/23 04/22/23 04/22/23 11:27 16:21 21:47 POC Glucose 149 H 130 H 174 H 04/23/23 04/23/23 07:42 11:30 POC Glucose 153 H 159 H Medications Medications Current Medications Acetaminophen (Acetaminophen 325 Mg Tablet) 650 mg PO Q6H PRN PRN Reason: Headache/Pain Mild Scale (1-3) Last Admin: 04/23/23 12:15 Dose: 650 mg Al Hydroxide/Mg Hydroxide (Magnesium Hydrox/Alum Hydrox 30 Ml Oral.Susp) 30 ml PO Q6H PRN PRN Reason: Heartburn/Nausea Albuterol Sulfate (Albuterol Sulfate 90 Mcg 8 Gm Inhaler) 2 puff INHALE Q4H PRN PRN Reason: Respiratory Distress Allopurinol (Allopurinol 100 Mg Tablet) 100 mg PO DAILY [facility] Last Admin: 04/23/23 08:07 Dose: 100 mg Atorvastatin Calcium (Atorvastatin Calcium 80 Mg Tablet) 80 mg PO DAILY [facility] Last Admin: 04/23/23 08:08 Dose: 80 mg Clopidogrel Bisulfate (Clopidogrel Bisulfate 75 Mg Tablet) 75 mg PO DAILY [facility] Last Admin: 04/23/23 08:09 Dose: 75 mg Clotrimazole (Clotrimazole 1 % Cream 15 Gm Tube) 1 appl TOPICAL BID [facility]; Protocol Last Admin: 04/23/23 08:10 Dose: Not Given Cyanocobalamin (Cyanocobalamin (Vitamin B-12) 500 Mcg Tablet) 500 mcg PO DAILY [facility] Last Admin: 04/23/23 08:09 Dose: 500 mcg Divalproex Sodium (Divalproex Sodium Sprinkles 125 Mg Cap.) 250 mg PO BID [facility] Last Admin: 04/23/23 08:07 Dose: 250 mg Duloxetine HCl (Duloxetine Hcl 60 Mg Capsule.Dr) 60 mg PO DAILY [facility] Last Admin: 04/23/23 08:08 Dose: 60 mg Ezetimibe (Ezetimibe 10 Mg Tablet) 10 mg PO DAILY [facility] Last Admin: 04/23/23 08:07 Dose: 10 mg Ergocalciferol (Ergocalciferol (Vitamin D2) 1,250 Mcg Capsule) 2,500 mcg PO Fr [facility] Last Admin: 04/19/23 09:28 Dose: 2,500 mcg Folic Acid (Folic Acid 1 Mg Tablet) 1 mg PO DAILY [facility] Last Admin: 04/23/23 08:08 Dose: 1 mg Gabapentin (Gabapentin 300 Mg Capsule) 600 mg PO BID [facility] Last Admin: 04/23/23 08:09 Dose: 600 mg Hydroxyzine HCl (Hydroxyzine Hcl 25 Mg Tablet) 25 mg PO Q6H PRN PRN Reason: Anxiety Last Admin: 04/19/23 18:03 Dose: 25 mg Insulin Human Lispro (Insulin Lispro 100 Unit/Ml 3 Ml Vial) 0 unit SUBCUT QIDACHS [facility]; Protocol Last Admin: 04/23/23 11:51 Dose: 2 unit Lisinopril (Lisinopril 10 Mg Tablet) 30 mg PO DAILY [facility]; Protocol Last Admin: 04/23/23 08:08 Dose: 30 mg Magnesium Hydroxide (Milk Of Magnesia 30 Ml Oral.Susp) 30 ml PO DAILY PRN PRN Reason: Constipation Last Admin: 04/16/23 14:58 Dose: 30 ml Magnesium Oxide (Magnesium Oxide 400 Mg Tablet) 400 mg PO DAILY [facility] Last Admin: 04/23/23 08:09 Dose: 400 mg Metformin HCl (Metformin Hcl 1,000 Mg Tablet) 1,000 mg PO BID [facility] Last Admin: 04/23/23 08:09 Dose: 1,000 mg Nicotine Polacrilex (Nicotine Polacrilex 2 Mg Gum) 2 mg BUCCAL Q2H PRN PRN Reason: Nicotine Cravings Oxybutynin Chloride (Oxybutynin Chloride Er 5 Mg Tab.Er.24) 10 mg PO BEDTIME [facility] Last Admin: 04/22/23 21:48 Dose: 10 mg Oxycodone HCl (Oxycodone Hcl Immed Release 5 Mg Tablet) 5 mg PO Q8H PRN PRN Reason: Pain, Severe (Pain Scale 7-10) Last Admin: 04/22/23 09:04 Dose: 5 mg Pharmacy Consult (Consult Rx Perform Med Rec) 1 each MISCELLANE ONCE PRN PRN Reason: Consult order Risperidone (Risperidone 1 Mg Tablet) 1 mg PO DAILY [facility] Last Admin: 04/23/23 08:08 Dose: 1 mg Risperidone (Risperidone 2 Mg Tablet) 2 mg PO BEDTIME [facility] Last Admin: 04/22/23 21:50 Dose: 2 mg Trazodone HCl (Trazodone Hcl 50 Mg Tablet) 50 mg PO BEDTIME PRN PRN Reason: Insomnia Last Admin: 04/22/23 21:50 Dose: 50 mg Allergies Allergies Allergy/AdvReac Type Severity Reaction Status Date / Time Penicillins Allergy Intermediate Unknown Verified 04/06/23 20:37 shellfish derived Allergy Intermediate Unknown Verified 04/06/23 20:37 adhesive Allergy Unknown Verified 04/19/23 16:47 black pepper Allergy Unknown Verified 04/19/23 16:47 egg Allergy Unknown Verified 04/19/23 16:47 latex Allergy Unknown Verified 04/19/23 16:47 rice Allergy Unknown Verified 04/19/23 16:47 Thiazides Allergy Unknown Verified 04/19/23 16:47 chlorpromazine AdvReac Intermediate Unknown Verified 04/06/23 20:37 [From Thorazine] Assessment & Plan Assessment & Plan (1) Major neurocognitive disorder due to multiple etiologies, with psychotic disturbance: Status: Acute Code(s): F02.82 - Dementia in other diseases classified elsewhere, unspecified severity, with psychotic disturbance Plan 72 year old female with history insulin dependent type 2 diabetes, htn, fibromyalgia, asthma/copd overlap, CAD, ADRIANA, GERD, obesity hypoventilation syndrome, seizure like activity without diagnosis of epilepsy, hx lucunar infarct, hld, and chronic abdominal pain who is a current everyday smoker admitted to psychiatry with consult placed to hospitalist service for medical H&P. #Mood disorder/dementia -plan per psychiatry #Fibromygia/chronic pain syndrome -continue duloxetine. Pt alert and awake on exam -continue oxycodone #CAD/HLD -no chest pain. [facility] EKG reassuring with NSR, rate 93, nonspecific st wave abnormality, no edith or deperessions -continue plavix, statin, zetia #Insulin dependent type 2 diabetes -poc glucose -diabetic diet -Continue metformin, humalog on sliding scale #Urinary incontinence/urgency -continue methenamine -UA normal #HTN -reasonably controlled -continue lisinopril #Asthma/copd overlap -Continue home inhalers, albuterol prn #ADRIANA -continue cpap if used at home. Consult RT Psych: 04/08 continue current medications. VS 132/85, HR 113, O2sat 94 on RA. continue to monitor oversedation respiratory suppression. 04/09 continue tx. 04/10 continue tx. 04/11 continue tx. 04/12 continue treatment 04/13: Continue current regimen and plans 04/14: Continue current plans and regimen 04/15 Lisinopril increase to 30mg po daily due to SBP 170-180. continue all other medications. 04/16 continue current medications.BP 148/78, HR 85, RR 18, o2sat 97 RA. 04/17 start low dose depakote 250mg po BID- monitor day time sedation in combination with other meds. 04/18 continue tx. 04/19 start lidocane patch for back pain. 04/20: stable presentation. no change in mgmt. 04/21: stable presentation. restart oxycodone 5 mg Q8H PRN, as it had fallen off. 04/22 continue tx. 04/23: continue tx. Patient educated on: diagnosis (HCP invoked) Guardian/Caregiver educated on: diagnosis and medication risk/benefits Informed Consent: understands Reason for continued inpatient stay Substantial Risk for: harm to self Time Spent With Patient Time: Total time managing care of this patient today __30__ minutes.
[2023-04-23 16:16] LABS: Glucose, Whole Blood 161 mg/dL (60-115)
[2023-04-23 22:38] LABS: Glucose, Whole Blood 185 mg/dL (60-115)
[2023-04-23] MEDS: risperiDONE 2 MG TABLET PO (22:42)
[2023-04-23] MEDS: oxyBUTYnin chloride ER 5 MG TAB.ER.24 10 MG PO (22:43)
[2023-04-23] MEDS: oxyCODONE HCl Immed Release 5 MG TABLET PO (23:35)
[2023-04-24 07:42] LABS: Glucose, Whole Blood 144 mg/dL (60-115)
[2023-04-24 08:51] VITALS: BP 115/63; PULSE 104; RESP 18; TEMP 36; O2SAT 95
[2023-04-24] MEDS: Divalproex Sodium Sprinkles 125 MG CAP.DR.SPR 250 MG PO ×2 (08:51→20:10)
[2023-04-24] MEDS: Gabapentin 300 MG CAPSULE 600 MG PO ×2 (08:52→20:09)
[2023-04-24] MEDS: allopurinoL 100 MG TABLET PO (08:52)
[2023-04-24] MEDS: Magnesium Oxide 400 MG TABLET PO (08:53)
[2023-04-24] MEDS: Clopidogrel Bisulfate 75 MG TABLET PO (08:53)
[2023-04-24] MEDS: risperiDONE 1 MG TABLET PO (08:53)
[2023-04-24] MEDS: Cyanocobalamin (Vitamin B-12) 500 MCG TABLET PO (08:53)
[2023-04-24] MEDS: Ezetimibe 10 MG TABLET PO (08:54)
[2023-04-24] MEDS: DULoxetine HCl 60 MG CAPSULE.DR PO (08:54)
[2023-04-24] MEDS: lisinopriL 10 MG TABLET 30 MG PO (08:54)
[2023-04-24] MEDS: Atorvastatin Calcium 80 MG TABLET PO (08:54)
[2023-04-24] MEDS: Folic Acid 1 MG TABLET PO (08:54)
[2023-04-24] MEDS: metFORMIN HCl 1,000 MG TABLET 1000 MG PO ×2 (08:54→20:09)
[2023-04-24 11:38] LABS: Glucose, Whole Blood 128 mg/dL (60-115)
--- NOTE | 2023-04-24 15:29 | HO.PSYCHPN ---
Subjective Subjective Date of Service: 04/24/23 Reason For Visit: SI Subjective Notes: Conditional Voluntary Healthcare Proxy: Yes Interim History: Per nursing, pt slept through the night=8hr. Pt has been ambulating with walker. She denies SI/HI. chronic pain with lidocane patch and oxycodone BID. Pt continues to report that she wants to go to [facility], unable to retain details as to where the facility is and where she may go. No behavioral concerns. She is taking medications as prescribed. Medication Compliance: Yes Review of Systems Review of Systems General: No fevers, malaise, unintentional weight loss HEENT: No blurred vision, diplopia. No sore throat, nasal congestion, rhinorrhea, sinus pain, ear pain Cardiovascular: No chest pain, palpitations, or leg edema Respiratory: No shortness of breath, wheezing, cough GI: +abd pain. No nausea, vomiting, diarrhea, constipation, melena, hematochezia : No dysuria, hematuria, increased urinary frequency, decreased urinary output MSK: +diffuse pain Neuro: No headaches, weakness, paresthesias Skin: No rashes or lesions Mental Status Exam Mental Status Exam Narrative: Appearance: MO, OSAGE, wearing hospital gown, fair hygiene Behavior: cooperative Psychomotor: no PMA/PMR Speech: clear, spontaneous TP: tangential at times TC: feels staff interpreter not providing adequate care Mood: not assessed Affect: hyper-intense, min-labile SI: none expressed HI: none expressed VH/AH: none expressed Delusions: no overt delusions Insight/judgment: fair x 2. Memory/cog: alert, oriented to place, month, situation, not year. MOCA on 04/08 scored 8/30. ACL 4.2 Diagnostics Vital Signs (24Hr): Vital Signs - 24 hr 04/24/23 08:51 Temperature 96.8 F Pulse Rate 104 H Respiratory Rate 18 Blood Pressure 115/63 Pulse Oximetry 95 Oxygen Delivery Method Room Air BMI result Body Mass Index 38.2 Labs 04/16/23 08:08 Labs: Laboratory Results - last 48 hr 04/22/23 04/22/23 04/23/23 16:21 21:47 07:42 POC Glucose 130 H 174 H 153 H 04/23/23 04/23/23 04/23/23 11:30 16:09 22:32 POC Glucose 159 H 161 H 185 H 04/24/23 04/24/23 07:38 11:31 POC Glucose 144 H 128 H Medications Medications Current Medications Acetaminophen (Acetaminophen 325 Mg Tablet) 650 mg PO Q6H PRN PRN Reason: Headache/Pain Mild Scale (1-3) Last Admin: 04/23/23 23:34 Dose: 650 mg Al Hydroxide/Mg Hydroxide (Magnesium Hydrox/Alum Hydrox 30 Ml Oral.Susp) 30 ml PO Q6H PRN PRN Reason: Heartburn/Nausea Albuterol Sulfate (Albuterol Sulfate 90 Mcg 8 Gm Inhaler) 2 puff INHALE Q4H PRN PRN Reason: Respiratory Distress Allopurinol (Allopurinol 100 Mg Tablet) 100 mg PO DAILY [facility] Last Admin: 04/24/23 08:52 Dose: 100 mg Atorvastatin Calcium (Atorvastatin Calcium 80 Mg Tablet) 80 mg PO DAILY [facility] Last Admin: 04/24/23 08:54 Dose: 80 mg Clopidogrel Bisulfate (Clopidogrel Bisulfate 75 Mg Tablet) 75 mg PO DAILY [facility] Last Admin: 04/24/23 08:53 Dose: 75 mg Clotrimazole (Clotrimazole 1 % Cream 15 Gm Tube) 1 appl TOPICAL BID [facility]; Protocol Last Admin: 04/24/23 08:55 Dose: Not Given Cyanocobalamin (Cyanocobalamin (Vitamin B-12) 500 Mcg Tablet) 500 mcg PO DAILY [facility] Last Admin: 04/24/23 08:53 Dose: 500 mcg Divalproex Sodium (Divalproex Sodium Sprinkles 125 Mg Cap.) 250 mg PO BID [facility] Last Admin: 04/24/23 08:51 Dose: 250 mg Duloxetine HCl (Duloxetine Hcl 60 Mg Capsule.) 60 mg PO DAILY [facility] Last Admin: 04/24/23 08:54 Dose: 60 mg Ezetimibe (Ezetimibe 10 Mg Tablet) 10 mg PO DAILY [facility] Last Admin: 04/24/23 08:54 Dose: 10 mg Ergocalciferol (Ergocalciferol (Vitamin D2) 1,250 Mcg Capsule) 2,500 mcg PO Fr [facility] Last Admin: 04/19/23 09:28 Dose: 2,500 mcg Folic Acid (Folic Acid 1 Mg Tablet) 1 mg PO DAILY [facility] Last Admin: 04/24/23 08:54 Dose: 1 mg Gabapentin (Gabapentin 300 Mg Capsule) 600 mg PO BID [facility] Last Admin: 04/24/23 08:52 Dose: 600 mg Hydroxyzine HCl (Hydroxyzine Hcl 25 Mg Tablet) 25 mg PO Q6H PRN PRN Reason: Anxiety Last Admin: 04/19/23 18:03 Dose: 25 mg Insulin Human Lispro (Insulin Lispro 100 Unit/Ml 3 Ml Vial) 0 unit SUBCUT QIDACHS [facility]; Protocol Last Admin: 04/24/23 12:43 Dose: Not Given Lisinopril (Lisinopril 10 Mg Tablet) 30 mg PO DAILY [facility]; Protocol Last Admin: 04/24/23 08:54 Dose: 30 mg Magnesium Hydroxide (Milk Of Magnesia 30 Ml Oral.Susp) 30 ml PO DAILY PRN PRN Reason: Constipation Last Admin: 04/16/23 14:58 Dose: 30 ml Magnesium Oxide (Magnesium Oxide 400 Mg Tablet) 400 mg PO DAILY [facility] Last Admin: 04/24/23 08:53 Dose: 400 mg Metformin HCl (Metformin Hcl 1,000 Mg Tablet) 1,000 mg PO BID [facility] Last Admin: 04/24/23 08:54 Dose: 1,000 mg Nicotine Polacrilex (Nicotine Polacrilex 2 Mg Gum) 2 mg BUCCAL Q2H PRN PRN Reason: Nicotine Cravings Oxybutynin Chloride (Oxybutynin Chloride Er 5 Mg Tab.Er.24) 10 mg PO BEDTIME [facility] Last Admin: 04/23/23 22:51 Dose: Not Given Oxycodone HCl (Oxycodone Hcl Immed Release 5 Mg Tablet) 5 mg PO Q8H PRN PRN Reason: Pain, Severe (Pain Scale 7-10) Last Admin: 04/23/23 23:35 Dose: 5 mg Pharmacy Consult (Consult Rx Perform Med Rec) 1 each MISCELLANE ONCE PRN PRN Reason: Consult order Risperidone (Risperidone 1 Mg Tablet) 1 mg PO DAILY [facility] Last Admin: 04/24/23 08:53 Dose: 1 mg Risperidone (Risperidone 2 Mg Tablet) 2 mg PO BEDTIME [facility] Last Admin: 04/23/23 22:51 Dose: Not Given Trazodone HCl (Trazodone Hcl 50 Mg Tablet) 50 mg PO BEDTIME PRN PRN Reason: Insomnia Last Admin: 04/22/23 21:50 Dose: 50 mg Allergies Allergies Allergy/AdvReac Type Severity Reaction Status Date / Time Penicillins Allergy Intermediate Unknown Verified 04/06/23 20:37 shellfish derived Allergy Intermediate Unknown Verified 04/06/23 20:37 adhesive Allergy Unknown Verified 04/19/23 16:47 black pepper Allergy Unknown Verified 04/19/23 16:47 egg Allergy Unknown Verified 04/19/23 16:47 latex Allergy Unknown Verified 04/19/23 16:47 rice Allergy Unknown Verified 04/19/23 16:47 Thiazides Allergy Unknown Verified 04/19/23 16:47 chlorpromazine AdvReac Intermediate Unknown Verified 04/06/23 20:37 [From Thorazine] Assessment & Plan Assessment & Plan (1) Major neurocognitive disorder due to multiple etiologies, with psychotic disturbance: Status: Acute Code(s): F02.82 - Dementia in other diseases classified elsewhere, unspecified severity, with psychotic disturbance Plan 72 year old female with history insulin dependent type 2 diabetes, htn, fibromyalgia, asthma/copd overlap, CAD, ADRIANA, GERD, obesity hypoventilation syndrome, seizure like activity without diagnosis of epilepsy, hx lucunar infarct, hld, and chronic abdominal pain who is a current everyday smoker admitted to psychiatry with consult placed to hospitalist service for medical H&P. #Mood disorder/dementia -plan per psychiatry #Fibromygia/chronic pain syndrome -continue duloxetine. Pt alert and awake on exam -continue oxycodone #CAD/HLD -no chest pain. Boyd EKG reassuring with NSR, rate 93, nonspecific st wave abnormality, no edith or deperessions -continue plavix, statin, zetia #Insulin dependent type 2 diabetes -poc glucose -diabetic diet -Continue metformin, humalog on sliding scale #Urinary incontinence/urgency -continue methenamine -UA normal #HTN -reasonably controlled -continue lisinopril #Asthma/copd overlap -Continue home inhalers, albuterol prn #ADRIANA -continue cpap if used at home. Consult RT Psych: 04/08 continue current medications. VS 132/85, HR 113, O2sat 94 on RA. continue to monitor oversedation respiratory suppression. 04/09 continue tx. 04/10 continue tx. 04/11 continue tx. 04/12 continue treatment 04/13: Continue current regimen and plans 04/14: Continue current plans and regimen 04/15 Lisinopril increase to 30mg po daily due to SBP 170-180. continue all other medications. 04/16 continue current medications.BP 148/78, HR 85, RR 18, o2sat 97 RA. 04/17 start low dose depakote 250mg po BID- monitor day time sedation in combination with other meds. 04/18 continue tx. 04/19 start lidocane patch for back pain. 04/20: stable presentation. no change in mgmt. 04/21: stable presentation. restart oxycodone 5 mg Q8H PRN, as it had fallen off. 04/22 continue tx. 04/23: continue tx. 04/24 continue tx. awaiting placement.will check depakote level and ammonia tomorrow morning. Reason for continued inpatient stay Substantial Risk for: inability to function Time Spent With Patient Time: Total time managing care of this patient today ____ minutes.
[2023-04-24 16:27] LABS: Glucose, Whole Blood 171 mg/dL (60-115)
[2023-04-24] MEDS: Insulin Lispro 100 UNIT/ML 3 ML VIAL SUBCUT ×2 (16:32→20:21)
[2023-04-24 18:00] VITALS: BP 117/68; PULSE 90; RESP 16; TEMP 35.9; O2SAT 96
[2023-04-24 19:57] LABS: Glucose, Whole Blood 160 mg/dL (60-115)
[2023-04-24] MEDS: Acetaminophen 325 MG TABLET 650 MG PO (20:08)
[2023-04-24] MEDS: oxyBUTYnin chloride ER 5 MG TAB.ER.24 10 MG PO (20:09)
[2023-04-24] MEDS: traZODone HCL 50 MG TABLET PO (20:10)
[2023-04-24] MEDS: oxyCODONE HCl Immed Release 5 MG TABLET PO (20:11)
[2023-04-24] MEDS: risperiDONE 2 MG TABLET PO (20:12)
[2023-04-25 07:00] VITALS: BMI 38.3
[2023-04-25 08:12] LABS: Glucose, Whole Blood 134 mg/dL (60-115)
[2023-04-25 08:30] VITALS: BP 147/64; PULSE 61; RESP 18; TEMP 36.3; O2SAT 93
[2023-04-25] MEDS: lisinopriL 10 MG TABLET 30 MG PO (09:05)
[2023-04-25] MEDS: Divalproex Sodium Sprinkles 125 MG CAP.DR.SPR 250 MG PO ×2 (09:05→20:47)
[2023-04-25] MEDS: Gabapentin 300 MG CAPSULE 600 MG PO ×2 (09:05→20:47)
[2023-04-25] MEDS: Ezetimibe 10 MG TABLET PO (09:06)
[2023-04-25] MEDS: Magnesium Oxide 400 MG TABLET PO (09:06)
[2023-04-25] MEDS: risperiDONE 1 MG TABLET PO (09:06)
[2023-04-25] MEDS: DULoxetine HCl 60 MG CAPSULE.DR PO (09:06)
[2023-04-25] MEDS: Cyanocobalamin (Vitamin B-12) 500 MCG TABLET PO (09:06)
[2023-04-25] MEDS: allopurinoL 100 MG TABLET PO (09:06)
[2023-04-25] MEDS: Folic Acid 1 MG TABLET PO (09:06)
[2023-04-25] MEDS: metFORMIN HCl 1,000 MG TABLET 1000 MG PO ×2 (09:06→20:47)
[2023-04-25] MEDS: Atorvastatin Calcium 80 MG TABLET PO (09:07)
[2023-04-25] MEDS: Clopidogrel Bisulfate 75 MG TABLET PO (09:07)
[2023-04-25 09:27] LABS: Ammonia 45 umol/L (13-55)
[2023-04-25 09:40] LABS: Creatinine Clr Calc Pharmacy 90.3; Estimated Glomerular Filt Rate > 60; Valproate 44.1 mcg/mL (50.0-100.0)
[2023-04-25 11:35] LABS: Glucose, Whole Blood 172 mg/dL (60-115)
[2023-04-25] MEDS: Insulin Lispro 100 UNIT/ML 3 ML VIAL SUBCUT ×2 (11:54→20:46)
--- NOTE | 2023-04-25 16:16 | HO.PSYCHPN ---
Subjective Subjective Date of Service: 04/25/23 Reason For Visit: SI Interim History: Per nursing, pt slept through the night=8hr. Pt continues to ambulate with walker. She denies SI/HI. chronic pain with lidocane patch and oxycodone BID. Pt again asking if she is going home, this ghost writer explained plan is for [facility], which she agrees with but unable to retain details as to where the facility is and where she may go. No behavioral concerns. She is taking medications as prescribed. No behavioral concerns. Review of Systems Review of Systems General: No fevers, malaise, unintentional weight loss HEENT: No blurred vision, diplopia. No sore throat, nasal congestion, rhinorrhea, sinus pain, ear pain Cardiovascular: No chest pain, palpitations, or leg edema Respiratory: No shortness of breath, wheezing, cough GI: +abd pain. No nausea, vomiting, diarrhea, constipation, melena, hematochezia : No dysuria, hematuria, increased urinary frequency, decreased urinary output MSK: +diffuse pain Neuro: No headaches, weakness, paresthesias Skin: No rashes or lesions Mental Status Exam Mental Status Exam Narrative: Appearance: MO, [place], wearing hospital gown, fair hygiene Behavior: cooperative Psychomotor: no PMA/PMR Speech: clear, spontaneous TP: tangential at times TC: feels staff software engineer not providing adequate care Mood: not assessed Affect: hyper-intense, min-labile SI: none expressed HI: none expressed VH/AH: none expressed Delusions: no overt delusions Insight/judgment: fair x 2. Memory/cog: alert, oriented to place, month, situation, not year. MOCA on 04/08 scored 8/30. ACL 4.2 Diagnostics Vital Signs (24Hr): Vital Signs - 24 hr 04/24/23 18:00 04/25/23 08:30 Temperature 96.6 F L 97.4 F Pulse Rate 90 61 Respiratory Rate 16 18 Blood Pressure 117/68 147/64 H Pulse Oximetry 96 93 Oxygen Delivery Method Room Air Room Air BMI result Body Mass Index 38.2 Labs 04/25/23 08:53 Labs: Laboratory Results - last 48 hr 04/23/23 04/23/23 04/24/23 16:09 22:32 07:38 Creatinine Estim Creat Clear Calc Estimated GFR POC Glucose 161 H 185 H 144 H Ammonia Valproic Acid 06/28/23 06/28/23 06/28/23 11:31 16:23 19:48 Creatinine Estim Creat Clear Calc Estimated GFR POC Glucose 128 H 171 H 160 H Ammonia Valproic Acid 04/25/23 04/25/23 04/25/23 08:07 08:53 08:53 Creatinine Estim Creat Clear Calc Estimated GFR POC Glucose 134 H Ammonia 45 Valproic Acid 44.1 L 04/25/23 04/25/23 08:53 11:32 Creatinine 0.68 Estim Creat Clear Calc 90.3 Estimated GFR > 60 POC Glucose 172 H Ammonia Valproic Acid Medications Medications Current Medications Acetaminophen (Acetaminophen 325 Mg Tablet) 650 mg PO Q6H PRN PRN Reason: Headache/Pain Mild Scale (1-3) Last Admin: 04/24/23 20:08 Dose: 650 mg Al Hydroxide/Mg Hydroxide (Magnesium Hydrox/Alum Hydrox 30 Ml Oral.Susp) 30 ml PO Q6H PRN PRN Reason: Heartburn/Nausea Albuterol Sulfate (Albuterol Sulfate 90 Mcg 8 Gm Inhaler) 2 puff INHALE Q4H PRN PRN Reason: Respiratory Distress Allopurinol (Allopurinol 100 Mg Tablet) 100 mg PO DAILY [facility] Last Admin: 04/25/23 09:06 Dose: 100 mg Atorvastatin Calcium (Atorvastatin Calcium 80 Mg Tablet) 80 mg PO DAILY [facility] Last Admin: 04/25/23 09:07 Dose: 80 mg Clopidogrel Bisulfate (Clopidogrel Bisulfate 75 Mg Tablet) 75 mg PO DAILY [facility] Last Admin: 04/25/23 09:07 Dose: 75 mg Clotrimazole (Clotrimazole 1 % Cream 15 Gm Tube) 1 appl TOPICAL BID [facility]; Protocol Last Admin: 04/25/23 10:58 Dose: Not Given Cyanocobalamin (Cyanocobalamin (Vitamin B-12) 500 Mcg Tablet) 500 mcg PO DAILY [facility] Last Admin: 04/25/23 09:06 Dose: 500 mcg Divalproex Sodium (Divalproex Sodium Sprinkles 125 Mg Cap.Spr) 250 mg PO BID [facility] Last Admin: 04/25/23 09:05 Dose: 250 mg Duloxetine HCl (Duloxetine Hcl 60 Mg Capsule.Dr) 60 mg PO DAILY [facility] Last Admin: 04/25/23 09:06 Dose: 60 mg Ezetimibe (Ezetimibe 10 Mg Tablet) 10 mg PO DAILY [facility] Last Admin: 04/25/23 09:06 Dose: 10 mg Ergocalciferol (Ergocalciferol (Vitamin D2) 1,250 Mcg Capsule) 2,500 mcg PO Fr [facility] Last Admin: 04/19/23 09:28 Dose: 2,500 mcg Folic Acid (Folic Acid 1 Mg Tablet) 1 mg PO DAILY [facility] Last Admin: 04/25/23 09:06 Dose: 1 mg Gabapentin (Gabapentin 300 Mg Capsule) 600 mg PO BID [facility] Last Admin: 04/25/23 09:05 Dose: 600 mg Hydroxyzine HCl (Hydroxyzine Hcl 25 Mg Tablet) 25 mg PO Q6H PRN PRN Reason: Anxiety Last Admin: 04/19/23 18:03 Dose: 25 mg Insulin Human Lispro (Insulin Lispro 100 Unit/Ml 3 Ml Vial) 0 unit SUBCUT QIDACHS [facility]; Protocol Last Admin: 04/25/23 11:54 Dose: 2 unit Lisinopril (Lisinopril 10 Mg Tablet) 30 mg PO DAILY [facility]; Protocol Last Admin: 04/25/23 09:05 Dose: 30 mg Magnesium Hydroxide (Milk Of Magnesia 30 Ml Oral.Susp) 30 ml PO DAILY PRN PRN Reason: Constipation Last Admin: 04/16/23 14:58 Dose: 30 ml Magnesium Oxide (Magnesium Oxide 400 Mg Tablet) 400 mg PO DAILY [facility] Last Admin: 04/25/23 09:06 Dose: 400 mg Metformin HCl (Metformin Hcl 1,000 Mg Tablet) 1,000 mg PO BID [facility] Last Admin: 04/25/23 09:06 Dose: 1,000 mg Nicotine Polacrilex (Nicotine Polacrilex 2 Mg Gum) 2 mg BUCCAL Q2H PRN PRN Reason: Nicotine Cravings Oxybutynin Chloride (Oxybutynin Chloride Er 5 Mg Tab.Er.24) 10 mg PO BEDTIME [facility] Last Admin: 04/24/23 20:09 Dose: 10 mg Oxycodone HCl (Oxycodone Hcl Immed Release 5 Mg Tablet) 5 mg PO Q8H PRN PRN Reason: Pain, Severe (Pain Scale 7-10) Last Admin: 04/24/23 20:11 Dose: 5 mg Pharmacy Consult (Consult Rx Perform Med Rec) 1 each MISCELLANE ONCE PRN PRN Reason: Consult order Risperidone (Risperidone 1 Mg Tablet) 1 mg PO DAILY [facility] Last Admin: 04/25/23 09:06 Dose: 1 mg Risperidone (Risperidone 2 Mg Tablet) 2 mg PO BEDTIME [facility] Last Admin: 04/24/23 20:12 Dose: 2 mg Trazodone HCl (Trazodone Hcl 50 Mg Tablet) 50 mg PO BEDTIME PRN PRN Reason: Insomnia Last Admin: 04/24/23 20:10 Dose: 50 mg Allergies Allergies Allergy/AdvReac Type Severity Reaction Status Date / Time Penicillins Allergy Intermediate Unknown Verified 04/06/23 20:37 shellfish derived Allergy Intermediate Unknown Verified 04/06/23 20:37 adhesive Allergy Unknown Verified 04/19/23 16:47 black pepper Allergy Unknown Verified 04/19/23 16:47 egg Allergy Unknown Verified 04/19/23 16:47 latex Allergy Unknown Verified 04/19/23 16:47 rice Allergy Unknown Verified 04/19/23 16:47 Thiazides Allergy Unknown Verified 04/19/23 16:47 chlorpromazine AdvReac Intermediate Unknown Verified 04/06/23 20:37 [From Thorazine] Assessment & Plan Assessment & Plan (1) Major neurocognitive disorder due to multiple etiologies, with psychotic disturbance: Status: Acute Code(s): F02.82 - Dementia in other diseases classified elsewhere, unspecified severity, with psychotic disturbance Plan 72 year old female with history insulin dependent type 2 diabetes, htn, fibromyalgia, asthma/copd overlap, CAD, ADRIANA, GERD, obesity hypoventilation syndrome, seizure like activity without diagnosis of epilepsy, hx lucunar infarct, hld, and chronic abdominal pain who is a current everyday smoker admitted to psychiatry with consult placed to hospitalist service for medical H&P. #Mood disorder/dementia -plan per psychiatry #Fibromygia/chronic pain syndrome -continue duloxetine. Pt alert and awake on exam -continue oxycodone #CAD/HLD -no chest pain. Boyd EKG reassuring with NSR, rate 93, nonspecific st wave abnormality, no edith or deperessions -continue plavix, statin, zetia #Insulin dependent type 2 diabetes -poc glucose -diabetic diet -Continue metformin, humalog on sliding scale #Urinary incontinence/urgency -continue methenamine -UA normal #HTN -reasonably controlled -continue lisinopril #Asthma/copd overlap -Continue home inhalers, albuterol prn #ADRIANA -continue cpap if used at home. Consult RT Psych: 04/08 continue current medications. VS 132/85, HR 113, O2sat 94 on RA. continue to monitor oversedation respiratory suppression. 04/09 continue tx. 04/10 continue tx. 04/11 continue tx. 04/12 continue treatment 04/13: Continue current regimen and plans 04/14: Continue current plans and regimen 04/15 Lisinopril increase to 30mg po daily due to SBP 170-180. continue all other medications. 04/16 continue current medications.BP 148/78, HR 85, RR 18, o2sat 97 RA. 04/17 start low dose depakote 250mg po BID- monitor day time sedation in combination with other meds. 04/18 continue tx. 04/19 start lidocane patch for back pain. 04/20: stable presentation. no change in mgmt. 04/21: stable presentation. restart oxycodone 5 mg Q8H PRN, as it had fallen off. 04/22 continue tx. 04/23: continue tx. 04/24 continue tx. awaiting placement.will check depakote level and ammonia tomorrow morning. 04/25 continue tx. Reason for continued inpatient stay Substantial Risk for: inability to function Time Spent With Patient Time: Total time managing care of this patient today ____ minutes.
[2023-04-25 20:21] VITALS: BP 111/55; PULSE 100; RESP 18; TEMP 36.6; O2SAT 100
[2023-04-25 20:33] LABS: Glucose, Whole Blood 188 mg/dL (60-115)
[2023-04-25] MEDS: risperiDONE 2 MG TABLET PO (20:47)
[2023-04-25] MEDS: oxyBUTYnin chloride ER 5 MG TAB.ER.24 10 MG PO (20:47)
[2023-04-25] MEDS: Acetaminophen 325 MG TABLET 650 MG PO (20:47)
[2023-04-25] MEDS: traZODone HCL 50 MG TABLET PO (20:47)
[2023-04-25] MEDS: oxyCODONE HCl Immed Release 5 MG TABLET PO (20:47)
[2023-04-26 07:52] LABS: Glucose, Whole Blood 118 mg/dL (60-115)
[2023-04-26] MEDS: Ezetimibe 10 MG TABLET PO (09:30)
[2023-04-26] MEDS: risperiDONE 1 MG TABLET PO (09:30)
[2023-04-26] MEDS: Magnesium Oxide 400 MG TABLET PO (09:30)
[2023-04-26] MEDS: Clopidogrel Bisulfate 75 MG TABLET PO (09:30)
[2023-04-26] MEDS: Folic Acid 1 MG TABLET PO (09:31)
[2023-04-26] MEDS: Atorvastatin Calcium 80 MG TABLET PO (09:31)
[2023-04-26] MEDS: lisinopriL 10 MG TABLET 30 MG PO (09:31)
[2023-04-26] MEDS: metFORMIN HCl 1,000 MG TABLET 1000 MG PO ×2 (09:31→20:36)
[2023-04-26] MEDS: Divalproex Sodium Sprinkles 125 MG CAP.DR.SPR 250 MG PO ×2 (09:31→20:36)
[2023-04-26] MEDS: allopurinoL 100 MG TABLET PO (09:31)
[2023-04-26] MEDS: Gabapentin 300 MG CAPSULE 600 MG PO ×2 (09:31→20:35)
[2023-04-26] MEDS: Cyanocobalamin (Vitamin B-12) 500 MCG TABLET PO (09:31)
[2023-04-26] MEDS: DULoxetine HCl 60 MG CAPSULE.DR PO (09:31)
[2023-04-26 09:35] VITALS: BP 141/95; PULSE 87; RESP 18; TEMP 36.6; O2SAT 95
[2023-04-26 11:15] LABS: Glucose, Whole Blood 218 mg/dL (60-115)
[2023-04-26] MEDS: Insulin Lispro 100 UNIT/ML 3 ML VIAL SUBCUT (11:16)
[2023-04-26] MEDS: Ergocalciferol (Vitamin D2) 1,250 MCG CAPSULE 2500 MCG PO (11:17)
[2023-04-26] MEDS: Clotrimazole 1 % Cream 15 GM TUBE 1 APPL TOPICAL (11:19)
[2023-04-26 12:53] LABS: Estimated Average Glucose 163 mg/dL; Hemoglobin A1c % 7.3 %
[2023-04-26 16:10] LABS: Glucose, Whole Blood 194 mg/dL (60-115)
--- NOTE | 2023-04-26 16:56 | HO.PSYCHPN ---
Subjective Subjective Date of Service: 04/26/23 Reason For Visit: SI Subjective Notes: Conditional Voluntary Interim History: Per nursing, pt slept through the night=8hr. Pt ambulates without a walker, steady on her feet. She denies SI/HI. 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 No behavioral concerns. She is taking medications as prescribed. No behavioral concerns. Less irritable, less labile over all. Review of Systems Review of Systems General: No fevers, malaise, unintentional weight loss HEENT: No blurred vision, diplopia. No sore throat, nasal congestion, rhinorrhea, sinus pain, ear pain Cardiovascular: No chest pain, palpitations, or leg edema Respiratory: No shortness of breath, wheezing, cough GI: +abd pain. No nausea, vomiting, diarrhea, constipation, melena, hematochezia : No dysuria, hematuria, increased urinary frequency, decreased urinary output MSK: +diffuse pain Neuro: No headaches, weakness, paresthesias Skin: No rashes or lesions Mental Status Exam Mental Status Exam Narrative: Appearance: [place], [employer], wearing hospital gown, fair hygiene Behavior: cooperative Psychomotor: no PMA/PMR Speech: clear, regular rhythm, spontaneous TP: tangential at times TC: feels staff interpreter not providing adequate care Mood: good Affect: congruent, less labile SI: none expressed HI: none expressed VH/AH: none expressed Delusions: no overt delusions Insight/judgment: fair x 2. Memory/cog: alert, oriented to place, month, situation, not year. MOCA on 04/08 scored 06/26. ACL 4.2 Diagnostics Vital Signs (24Hr): Vital Signs - 24 hr 04/25/23 20:21 04/26/23 09:35 Temperature 97.8 F 97.8 F Pulse Rate 100 87 Respiratory Rate 18 18 Blood Pressure 111/55 L 141/95 H Pulse Oximetry 100 95 Oxygen Delivery Method Room Air Room Air BMI result Body Mass Index 38.3 Labs 04/25/23 08:53 Labs: Laboratory Results - last 48 hr 04/24/23 04/25/23 04/25/23 19:48 08:07 08:53 Creatinine Estim Creat Clear Calc Estimated GFR POC Glucose 160 H 134 H Estimat Average Glucose Hemoglobin A1c % Ammonia Valproic Acid 44.1 L 04/25/23 04/25/23 04/25/23 08:53 08:53 11:32 Creatinine 0.68 Estim Creat Clear Calc 90.3 Estimated GFR > 60 POC Glucose 172 H Estimat Average Glucose Hemoglobin A1c % Ammonia 45 Valproic Acid 04/25/23 04/26/23 04/26/23 20:30 07:48 11:11 Creatinine Estim Creat Clear Calc Estimated GFR POC Glucose 188 H 118 H 218 H Estimat Average Glucose Hemoglobin A1c % Ammonia Valproic Acid 04/26/23 04/26/23 12:26 16:06 Creatinine Estim Creat Clear Calc Estimated GFR POC Glucose 194 H Estimat Average Glucose 163 Hemoglobin A1c % 7.3 Ammonia Valproic Acid Medications Medications Current Medications Acetaminophen (Acetaminophen 325 Mg Tablet) 650 mg PO Q6H PRN PRN Reason: Headache/Pain Mild Scale (1-3) Last Admin: 04/25/23 20:47 Dose: 650 mg Al Hydroxide/Mg Hydroxide (Magnesium Hydrox/Alum Hydrox 30 Ml Oral.Susp) 30 ml PO Q6H PRN PRN Reason: Heartburn/Nausea Albuterol Sulfate (Albuterol Sulfate 90 Mcg 8 Gm Inhaler) 2 puff INHALE Q4H PRN PRN Reason: Respiratory Distress Allopurinol (Allopurinol 100 Mg Tablet) 100 mg PO DAILY [facility] Last Admin: 04/26/23 09:31 Dose: 100 mg Atorvastatin Calcium (Atorvastatin Calcium 80 Mg Tablet) 80 mg PO DAILY [facility] Last Admin: 04/26/23 09:31 Dose: 80 mg Clopidogrel Bisulfate (Clopidogrel Bisulfate 75 Mg Tablet) 75 mg PO DAILY [facility] Last Admin: 04/26/23 09:30 Dose: 75 mg Clotrimazole (Clotrimazole 1 % Cream 15 Gm Tube) 1 appl TOPICAL BID [facility]; Protocol Last Admin: 04/26/23 11:19 Dose: 1 appl Cyanocobalamin (Cyanocobalamin (Vitamin B-12) 500 Mcg Tablet) 500 mcg PO DAILY [facility] Last Admin: 04/26/23 09:31 Dose: 500 mcg Divalproex Sodium (Divalproex Sodium Sprinkles 125 Mg Cap.) 250 mg PO BID [facility] Last Admin: 04/26/23 09:31 Dose: 250 mg Duloxetine HCl (Duloxetine Hcl 60 Mg Capsule.) 60 mg PO DAILY [facility] Last Admin: 04/26/23 09:31 Dose: 60 mg Ezetimibe (Ezetimibe 10 Mg Tablet) 10 mg PO DAILY [facility] Last Admin: 04/26/23 09:30 Dose: 10 mg Ergocalciferol (Ergocalciferol (Vitamin D2) 1,250 Mcg Capsule) 2,500 mcg PO Fr [facility] Last Admin: 04/26/23 11:17 Dose: 2,500 mcg Folic Acid (Folic Acid 1 Mg Tablet) 1 mg PO DAILY [facility] Last Admin: 04/26/23 09:31 Dose: 1 mg Gabapentin (Gabapentin 300 Mg Capsule) 600 mg PO BID [facility] Last Admin: 04/26/23 09:31 Dose: 600 mg Hydroxyzine HCl (Hydroxyzine Hcl 25 Mg Tablet) 25 mg PO Q6H PRN PRN Reason: Anxiety Last Admin: 04/19/23 18:03 Dose: 25 mg Lisinopril (Lisinopril 10 Mg Tablet) 30 mg PO DAILY [facility]; Protocol Last Admin: 04/26/23 09:31 Dose: 30 mg Magnesium Hydroxide (Milk Of Magnesia 30 Ml Oral.Susp) 30 ml PO DAILY PRN PRN Reason: Constipation Last Admin: 04/16/23 14:58 Dose: 30 ml Magnesium Oxide (Magnesium Oxide 400 Mg Tablet) 400 mg PO DAILY [facility] Last Admin: 04/26/23 09:30 Dose: 400 mg Metformin HCl (Metformin Hcl 1,000 Mg Tablet) 1,000 mg PO BID [facility] Last Admin: 04/26/23 09:31 Dose: 1,000 mg Nicotine Polacrilex (Nicotine Polacrilex 2 Mg Gum) 2 mg BUCCAL Q2H PRN PRN Reason: Nicotine Cravings Oxybutynin Chloride (Oxybutynin Chloride Er 5 Mg Tab.Er.24) 10 mg PO BEDTIME [facility] Last Admin: 04/25/23 20:47 Dose: 10 mg Pharmacy Consult (Consult Rx Perform Med Rec) 1 each MISCELLANE ONCE PRN PRN Reason: Consult order Risperidone (Risperidone 1 Mg Tablet) 1 mg PO DAILY [facility] Last Admin: 04/26/23 09:30 Dose: 1 mg Risperidone (Risperidone 2 Mg Tablet) 2 mg PO BEDTIME [facility] Last Admin: 04/25/23 20:47 Dose: 2 mg Trazodone HCl (Trazodone Hcl 50 Mg Tablet) 50 mg PO BEDTIME PRN PRN Reason: Insomnia Last Admin: 04/25/23 20:47 Dose: 50 mg Allergies Allergies Allergy/AdvReac Type Severity Reaction Status Date / Time Penicillins Allergy Intermediate Unknown Verified 04/06/23 20:37 shellfish derived Allergy Intermediate Unknown Verified 04/06/23 20:37 adhesive Allergy Unknown Verified 04/19/23 16:47 black pepper Allergy Unknown Verified 04/19/23 16:47 egg Allergy Unknown Verified 04/19/23 16:47 latex Allergy Unknown Verified 04/19/23 16:47 rice Allergy Unknown Verified 04/19/23 16:47 Thiazides Allergy Unknown Verified 04/19/23 16:47 chlorpromazine AdvReac Intermediate Unknown Verified 04/06/23 20:37 [From Thorazine] Assessment & Plan Assessment & Plan (1) Major neurocognitive disorder due to multiple etiologies, with psychotic disturbance: Status: Acute Code(s): F02.82 - Dementia in other diseases classified elsewhere, unspecified severity, with psychotic disturbance Plan 72 year old female with history insulin dependent type 2 diabetes, htn, fibromyalgia, asthma/copd overlap, CAD, ADRIANA, GERD, obesity hypoventilation syndrome, seizure like activity without diagnosis of epilepsy, hx lucunar infarct, hld, and chronic abdominal pain who is a current everyday smoker admitted to psychiatry with consult placed to hospitalist service for medical H&P. #Mood disorder/dementia -plan per psychiatry #Fibromygia/chronic pain syndrome -continue duloxetine. Pt alert and awake on exam -continue oxycodone #CAD/HLD -no chest pain. Boyd EKG reassuring with NSR, rate 93, nonspecific st wave abnormality, no edith or deperessions -continue plavix, statin, zetia #Insulin dependent type 2 diabetes -poc glucose -diabetic diet -Continue metformin, humalog on sliding scale #Urinary incontinence/urgency -continue methenamine -UA normal #HTN -reasonably controlled -continue lisinopril #Asthma/copd overlap -Continue home inhalers, albuterol prn #ADRIANA -continue cpap if used at home. Consult RT Psych: 04/08 continue current medications. VS 132/85, HR 113, O2sat 94 on RA. continue to monitor oversedation respiratory suppression. 04/09 continue tx. 04/10 continue tx. 04/11 continue tx. 04/12 continue treatment 04/13: Continue current regimen and plans 04/14: Continue current plans and regimen 04/15 Lisinopril increase to 30mg po daily due to SBP 170-180. continue all other medications. 04/16 continue current medications.BP 148/78, HR 85, RR 18, o2sat 97 RA. 04/17 start low dose depakote 250mg po BID- monitor day time sedation in combination with other meds. 04/18 continue tx. 04/19 start lidocane patch for back pain. 04/20: stable presentation. no change in mgmt. 04/21: stable presentation. restart oxycodone 5 mg Q8H PRN, as it had fallen off. 04/22 continue tx. 04/23: continue tx. 04/24 continue tx. awaiting placement.will check depakote level and ammonia tomorrow morning. 04/25 continue tx. 04/26 continue tx. Reason for continued inpatient stay Substantial Risk for: inability to function Time Spent With Patient Time: Total time managing care of this patient today ____ minutes.
[2023-04-26 19:30] VITALS: BP 125/77; PULSE 96; RESP 18; TEMP 36.4; O2SAT 96
[2023-04-26] MEDS: risperiDONE 2 MG TABLET PO (20:36)
[2023-04-26] MEDS: oxyBUTYnin chloride ER 5 MG TAB.ER.24 10 MG PO (20:36)
[2023-04-27] MEDS: traZODone HCL 50 MG TABLET PO ×2 (01:02→23:39)
[2023-04-27 08:00] VITALS: BP 135/80; PULSE 81; RESP 18; TEMP 35.6; O2SAT 97
[2023-04-27] MEDS: Cyanocobalamin (Vitamin B-12) 500 MCG TABLET PO (08:36)
[2023-04-27] MEDS: lisinopriL 10 MG TABLET 30 MG PO (08:36)
[2023-04-27] MEDS: metFORMIN HCl 1,000 MG TABLET 1000 MG PO ×2 (08:36→21:21)
[2023-04-27] MEDS: DULoxetine HCl 60 MG CAPSULE.DR PO (08:38)
[2023-04-27] MEDS: Atorvastatin Calcium 80 MG TABLET PO (08:38)
[2023-04-27] MEDS: Gabapentin 300 MG CAPSULE 600 MG PO ×2 (08:38→21:17)
[2023-04-27] MEDS: Clopidogrel Bisulfate 75 MG TABLET PO (08:39)
[2023-04-27] MEDS: allopurinoL 100 MG TABLET PO (08:39)
[2023-04-27] MEDS: Ezetimibe 10 MG TABLET PO (08:39)
[2023-04-27] MEDS: Divalproex Sodium Sprinkles 125 MG CAP.DR.SPR 250 MG PO ×2 (08:40→21:17)
[2023-04-27] MEDS: Magnesium Oxide 400 MG TABLET PO (08:40)
[2023-04-27] MEDS: risperiDONE 1 MG TABLET PO (08:41)
[2023-04-27] MEDS: Folic Acid 1 MG TABLET PO (08:41)
--- NOTE | 2023-04-27 13:41 | HO.PSYCHPN ---
Subjective Subjective Date of Service: 04/27/23 Reason For Visit: SI Subjective Notes: Conditional Voluntary Medical Problems Affecting Mental Status: No Interim History: Met with patient. Discussed with Nursing. Chart reviewed. Overall medication adherent. Some anxiety and slept 3 hours last night. Plan discharge after the weekend. Patient reports today that she is doing well. There is clear cognitive impairment consistent with dementia. Is concrete. Reports feeling safe and supported in the hospital. Medication Compliance: Yes Side effects from medications: No Attending Groups: Intermittent Review of Systems Acute medical concerns: No Review of Systems Review of Systems Unremarkable Mental Status Exam Mental Status Exam Narrative: Appearance: wearing regular clothing, fair hygiene Behavior: cooperative Psychomotor: no PMA/PMR Speech: clear, regular rhythm, spontaneous TP: tangential at times TC: feels workforce staffing advisor not providing adequate care Mood: good Affect: congruent, not labile SI: none expressed HI: none expressed VH/AH: none expressed Delusions: no overt delusions Insight/judgment: fair x 2. Memory/cog: alert, oriented to place, month, some difficulty with situation Diagnostics Vital Signs (24Hr): Vital Signs - 24 hr 04/26/23 19:30 04/27/23 08:00 Temperature 97.6 F 96.0 F L Pulse Rate 96 81 Respiratory Rate 18 18 Blood Pressure 125/77 135/80 Pulse Oximetry 96 97 Oxygen Delivery Method Room Air Room Air BMI result Body Mass Index 38.3 Labs 04/25/23 08:53 Labs: Laboratory Results - last 48 hr 04/25/23 04/26/23 04/26/23 20:30 07:48 11:11 POC Glucose 188 H 118 H 218 H Estimat Average Glucose Hemoglobin A1c % 04/26/23 04/26/23 12:26 16:06 POC Glucose 194 H Estimat Average Glucose 163 Hemoglobin A1c % 7.3 Medications Medications Current Medications Acetaminophen (Acetaminophen 325 Mg Tablet) 650 mg PO Q6H PRN PRN Reason: Headache/Pain Mild Scale (1-3) Last Admin: 04/25/23 20:47 Dose: 650 mg Al Hydroxide/Mg Hydroxide (Magnesium Hydrox/Alum Hydrox 30 Ml Oral.Susp) 30 ml PO Q6H PRN PRN Reason: Heartburn/Nausea Albuterol Sulfate (Albuterol Sulfate 90 Mcg 8 Gm Inhaler) 2 puff INHALE Q4H PRN PRN Reason: Respiratory Distress Allopurinol (Allopurinol 100 Mg Tablet) 100 mg PO DAILY [facility] Last Admin: 04/27/23 08:39 Dose: 100 mg Atorvastatin Calcium (Atorvastatin Calcium 80 Mg Tablet) 80 mg PO DAILY [facility] Last Admin: 04/27/23 08:38 Dose: 80 mg Clopidogrel Bisulfate (Clopidogrel Bisulfate 75 Mg Tablet) 75 mg PO DAILY [facility] Last Admin: 04/27/23 08:39 Dose: 75 mg Clotrimazole (Clotrimazole 1 % Cream 15 Gm Tube) 1 appl TOPICAL BID [facility]; Protocol Last Admin: 04/27/23 12:52 Dose: Not Given Cyanocobalamin (Cyanocobalamin (Vitamin B-12) 500 Mcg Tablet) 500 mcg PO DAILY [facility] Last Admin: 04/27/23 08:36 Dose: 500 mcg Divalproex Sodium (Divalproex Sodium Sprinkles 125 Mg Cap..Spr) 250 mg PO BID [facility] Last Admin: 04/27/23 08:40 Dose: 250 mg Duloxetine HCl (Duloxetine Hcl 60 Mg Capsule.) 60 mg PO DAILY [facility] Last Admin: 04/27/23 08:38 Dose: 60 mg Ezetimibe (Ezetimibe 10 Mg Tablet) 10 mg PO DAILY [facility] Last Admin: 04/27/23 08:39 Dose: 10 mg Ergocalciferol (Ergocalciferol (Vitamin D2) 1,250 Mcg Capsule) 2,500 mcg PO Fr [facility] Last Admin: 04/26/23 11:17 Dose: 2,500 mcg Folic Acid (Folic Acid 1 Mg Tablet) 1 mg PO DAILY [facility] Last Admin: 04/27/23 08:41 Dose: 1 mg Gabapentin (Gabapentin 300 Mg Capsule) 600 mg PO BID [facility] Last Admin: 04/27/23 08:38 Dose: 600 mg Hydroxyzine HCl (Hydroxyzine Hcl 25 Mg Tablet) 25 mg PO Q6H PRN PRN Reason: Anxiety Last Admin: 04/19/23 18:03 Dose: 25 mg Lisinopril (Lisinopril 10 Mg Tablet) 30 mg PO DAILY [facility]; Protocol Last Admin: 04/27/23 08:36 Dose: 30 mg Magnesium Hydroxide (Milk Of Magnesia 30 Ml Oral.Susp) 30 ml PO DAILY PRN PRN Reason: Constipation Last Admin: 04/16/23 14:58 Dose: 30 ml Magnesium Oxide (Magnesium Oxide 400 Mg Tablet) 400 mg PO DAILY [facility] Last Admin: 04/27/23 08:40 Dose: 400 mg Metformin HCl (Metformin Hcl 1,000 Mg Tablet) 1,000 mg PO BID [facility] Last Admin: 04/27/23 08:36 Dose: 1,000 mg Nicotine Polacrilex (Nicotine Polacrilex 2 Mg Gum) 2 mg BUCCAL Q2H PRN PRN Reason: Nicotine Cravings Oxybutynin Chloride (Oxybutynin Chloride Er 5 Mg Tab.Er.24) 10 mg PO BEDTIME [facility] Last Admin: 04/26/23 20:36 Dose: 10 mg Pharmacy Consult (Consult Rx Perform Med Rec) 1 each MISCELLANE ONCE PRN PRN Reason: Consult order Risperidone (Risperidone 1 Mg Tablet) 1 mg PO DAILY [facility] Last Admin: 04/27/23 08:41 Dose: 1 mg Risperidone (Risperidone 2 Mg Tablet) 2 mg PO BEDTIME [facility] Last Admin: 04/26/23 20:36 Dose: 2 mg Trazodone HCl (Trazodone Hcl 50 Mg Tablet) 50 mg PO BEDTIME PRN PRN Reason: Insomnia Last Admin: 04/27/23 01:02 Dose: 50 mg Allergies Allergies Allergy/AdvReac Type Severity Reaction Status Date / Time Penicillins Allergy Intermediate Unknown Verified 04/06/23 20:37 shellfish derived Allergy Intermediate Unknown Verified 04/06/23 20:37 adhesive Allergy Unknown Verified 04/19/23 16:47 black pepper Allergy Unknown Verified 04/19/23 16:47 egg Allergy Unknown Verified 04/19/23 16:47 latex Allergy Unknown Verified 04/19/23 16:47 rice Allergy Unknown Verified 04/19/23 16:47 Thiazides Allergy Unknown Verified 04/19/23 16:47 chlorpromazine AdvReac Intermediate Unknown Verified 04/06/23 20:37 [From Thorazine] Assessment & Plan Assessment & Plan (1) Major neurocognitive disorder due to multiple etiologies, with psychotic disturbance: Status: Acute Code(s): F02.82 - Dementia in other diseases classified elsewhere, unspecified severity, with psychotic disturbance Plan 72 year old female with history insulin dependent type 2 diabetes, htn, fibromyalgia, asthma/copd overlap, CAD, ADRIANA, GERD, obesity hypoventilation syndrome, seizure like activity without diagnosis of epilepsy, hx lucunar infarct, hld, and chronic abdominal pain who is a current everyday smoker admitted to psychiatry with consult placed to hospitalist service for medical H&P. #Mood disorder/dementia -plan per psychiatry #Fibromygia/chronic pain syndrome -continue duloxetine. Pt alert and awake on exam -continue oxycodone #CAD/HLD -no chest pain. Boyd EKG reassuring with NSR, rate 93, nonspecific st wave abnormality, no edith or deperessions -continue plavix, statin, zetia #Insulin dependent type 2 diabetes -poc glucose -diabetic diet -Continue metformin, humalog on sliding scale #Urinary incontinence/urgency -continue methenamine -UA normal #HTN -reasonably controlled -continue lisinopril #Asthma/copd overlap -Continue home inhalers, albuterol prn #ADRIANA -continue cpap if used at home. Consult RT Psych: 04/08 continue current medications. VS 132/85, HR 113, O2sat 94 on RA. continue to monitor oversedation respiratory suppression. 04/09 continue tx. 04/10 continue tx. 04/11 continue tx. 04/12 continue treatment 04/13: Continue current regimen and plans 04/14: Continue current plans and regimen 04/15 Lisinopril increase to 30mg po daily due to SBP 170-180. continue all other medications. 04/16 continue current medications.BP 148/78, HR 85, RR 18, o2sat 97 RA. 04/17 start low dose depakote 250mg po BID- monitor day time sedation in combination with other meds. 04/18 continue tx. 04/19 start lidocane patch for back pain. 04/20: stable presentation. no change in mgmt. 04/21: stable presentation. restart oxycodone 5 mg Q8H PRN, as it had fallen off. 04/22 continue tx. 04/23: continue tx. 04/24 continue tx. awaiting placement.will check depakote level and ammonia tomorrow morning. 04/25 continue tx. 04/26 continue tx. 04/27/2023: no changes Reason for continued inpatient stay Substantial Risk for: rapid decompensation Time Spent With Patient Time: Total time managing care of this patient today ____ minutes.
[2023-04-27] MEDS: Acetaminophen 325 MG TABLET 650 MG PO (15:50)
[2023-04-27 18:00] VITALS: BP 135/69; PULSE 97; RESP 18; TEMP 36.2; O2SAT 94
[2023-04-27] MEDS: oxyBUTYnin chloride ER 5 MG TAB.ER.24 10 MG PO (21:17)
[2023-04-27] MEDS: risperiDONE 2 MG TABLET PO (21:17)
[2023-04-28] MEDS: Acetaminophen 325 MG TABLET 650 MG PO ×2 (01:09→21:46)
[2023-04-28] MEDS: hydrOXYzine HCL 25 MG TABLET PO (01:09)
[2023-04-28 07:30] VITALS: BP 138/77; PULSE 88; RESP 18; TEMP 36.2; O2SAT 96
[2023-04-28] MEDS: metFORMIN HCl 1,000 MG TABLET 1000 MG PO ×2 (09:02→21:40)
[2023-04-28] MEDS: allopurinoL 100 MG TABLET PO (09:02)
[2023-04-28] MEDS: Atorvastatin Calcium 80 MG TABLET PO (09:02)
[2023-04-28] MEDS: Gabapentin 300 MG CAPSULE 600 MG PO ×2 (09:02→21:40)
[2023-04-28] MEDS: Magnesium Oxide 400 MG TABLET PO (09:02)
[2023-04-28] MEDS: Clopidogrel Bisulfate 75 MG TABLET PO (09:02)
[2023-04-28] MEDS: Ezetimibe 10 MG TABLET PO (09:02)
[2023-04-28] MEDS: Divalproex Sodium Sprinkles 125 MG CAP.DR.SPR 250 MG PO ×2 (09:02→21:40)
[2023-04-28] MEDS: DULoxetine HCl 60 MG CAPSULE.DR PO (09:03)
[2023-04-28] MEDS: Cyanocobalamin (Vitamin B-12) 500 MCG TABLET PO (09:03)
[2023-04-28] MEDS: risperiDONE 1 MG TABLET PO (09:03)
[2023-04-28] MEDS: Folic Acid 1 MG TABLET PO (09:03)
[2023-04-28] MEDS: lisinopriL 10 MG TABLET 30 MG PO (09:03)
--- NOTE | 2023-04-28 12:32 | HO.PSYCHPN ---
Subjective Subjective Date of Service: 04/28/23 Reason For Visit: SI Subjective Notes: Conditional Voluntary Interim History: Met with patient. Discussed with Nursing. Medication adherent. Some anxiety and slept better last night (6 hrs). Plan discharge after the weekend. Patient reports today that she is doing well and resting alot and no interest in meeting today. Medication Compliance: Yes Side effects from medications: No Attending Groups: Intermittent Review of Systems Acute medical concerns: No Review of Systems Review of Systems Unremarkable Mental Status Exam Mental Status Exam Narrative: Appearance: wearing regular clothing, fair hygiene Behavior: cooperative Psychomotor: no PMA/PMR Speech: clear, regular rhythm, spontaneous TP: tangential at times TC: feels direct support staff not providing adequate care Mood: good Affect: congruent, not labile SI: none expressed HI: none expressed VH/AH: none expressed Delusions: no overt delusions Insight/judgment: fair x 2. Memory/cog: alert, oriented to place, month, some difficulty with situation Diagnostics Vital Signs (24Hr): Vital Signs - 24 hr 04/27/23 18:00 04/28/23 07:30 Temperature 97.1 F 97.2 F Pulse Rate 97 88 Respiratory Rate 18 18 Blood Pressure 135/69 138/77 Pulse Oximetry 94 96 Oxygen Delivery Method Room Air Room Air BMI result Body Mass Index 38.3 Labs 04/25/23 08:53 Labs: Laboratory Results - last 48 hr 04/26/23 04/26/23 04/27/23 12:26 16:06 20:03 POC Glucose 194 H 207 H Estimat Average Glucose 163 Hemoglobin A1c % 7.3 04/28/23 12:23 POC Glucose 127 H Estimat Average Glucose Hemoglobin A1c % Medications Medications Current Medications Acetaminophen (Acetaminophen 325 Mg Tablet) 650 mg PO Q6H PRN PRN Reason: Headache/Pain Mild Scale (1-3) Last Admin: 04/28/23 01:09 Dose: 650 mg Al Hydroxide/Mg Hydroxide (Magnesium Hydrox/Alum Hydrox 30 Ml Oral.Susp) 30 ml PO Q6H PRN PRN Reason: Heartburn/Nausea Albuterol Sulfate (Albuterol Sulfate 90 Mcg 8 Gm Inhaler) 2 puff INHALE Q4H PRN PRN Reason: Respiratory Distress Allopurinol (Allopurinol 100 Mg Tablet) 100 mg PO DAILY [facility] Last Admin: 04/28/23 09:02 Dose: 100 mg Atorvastatin Calcium (Atorvastatin Calcium 80 Mg Tablet) 80 mg PO DAILY [facility] Last Admin: 04/28/23 09:02 Dose: 80 mg Clopidogrel Bisulfate (Clopidogrel Bisulfate 75 Mg Tablet) 75 mg PO DAILY [facility] Last Admin: 04/28/23 09:02 Dose: 75 mg Clotrimazole (Clotrimazole 1 % Cream 15 Gm Tube) 1 appl TOPICAL BID [facility]; Protocol Last Admin: 04/28/23 09:03 Dose: Not Given Cyanocobalamin (Cyanocobalamin (Vitamin B-12) 500 Mcg Tablet) 500 mcg PO DAILY [facility] Last Admin: 04/28/23 09:03 Dose: 500 mcg Divalproex Sodium (Divalproex Sodium Sprinkles 125 Mg Cap.) 250 mg PO BID [facility] Last Admin: 04/28/23 09:02 Dose: 250 mg Duloxetine HCl (Duloxetine Hcl 60 Mg Capsule.) 60 mg PO DAILY [facility] Last Admin: 04/28/23 09:03 Dose: 60 mg Ezetimibe (Ezetimibe 10 Mg Tablet) 10 mg PO DAILY [facility] Last Admin: 04/28/23 09:02 Dose: 10 mg Ergocalciferol (Ergocalciferol (Vitamin D2) 1,250 Mcg Capsule) 2,500 mcg PO Fr [facility] Last Admin: 04/26/23 11:17 Dose: 2,500 mcg Folic Acid (Folic Acid 1 Mg Tablet) 1 mg PO DAILY [facility] Last Admin: 04/28/23 09:03 Dose: 1 mg Gabapentin (Gabapentin 300 Mg Capsule) 600 mg PO BID [facility] Last Admin: 04/28/23 09:02 Dose: 600 mg Hydroxyzine HCl (Hydroxyzine Hcl 25 Mg Tablet) 25 mg PO Q6H PRN PRN Reason: Anxiety Last Admin: 04/28/23 01:09 Dose: 25 mg Lisinopril (Lisinopril 10 Mg Tablet) 30 mg PO DAILY [facility]; Protocol Last Admin: 04/28/23 09:03 Dose: 30 mg Magnesium Hydroxide (Milk Of Magnesia 30 Ml Oral.Susp) 30 ml PO DAILY PRN PRN Reason: Constipation Last Admin: 04/16/23 14:58 Dose: 30 ml Magnesium Oxide (Magnesium Oxide 400 Mg Tablet) 400 mg PO DAILY [facility] Last Admin: 04/28/23 09:02 Dose: 400 mg Metformin HCl (Metformin Hcl 1,000 Mg Tablet) 1,000 mg PO BID [facility] Last Admin: 04/28/23 09:02 Dose: 1,000 mg Nicotine Polacrilex (Nicotine Polacrilex 2 Mg Gum) 2 mg BUCCAL Q2H PRN PRN Reason: Nicotine Cravings Oxybutynin Chloride (Oxybutynin Chloride Er 5 Mg Tab.Er.24) 10 mg PO BEDTIME [facility] Last Admin: 04/27/23 21:17 Dose: 10 mg Pharmacy Consult (Consult Rx Perform Med Rec) 1 each MISCELLANE ONCE PRN PRN Reason: Consult order Risperidone (Risperidone 1 Mg Tablet) 1 mg PO DAILY [facility] Last Admin: 04/28/23 09:03 Dose: 1 mg Risperidone (Risperidone 2 Mg Tablet) 2 mg PO BEDTIME [facility] Last Admin: 04/27/23 21:17 Dose: 2 mg Trazodone HCl (Trazodone Hcl 50 Mg Tablet) 50 mg PO BEDTIME PRN PRN Reason: Insomnia Last Admin: 04/27/23 23:39 Dose: 50 mg Allergies Allergies Allergy/AdvReac Type Severity Reaction Status Date / Time Penicillins Allergy Intermediate Unknown Verified 04/06/23 20:37 shellfish derived Allergy Intermediate Unknown Verified 04/06/23 20:37 adhesive Allergy Unknown Verified 04/19/23 16:47 black pepper Allergy Unknown Verified 04/19/23 16:47 egg Allergy Unknown Verified 04/19/23 16:47 latex Allergy Unknown Verified 04/19/23 16:47 rice Allergy Unknown Verified 04/19/23 16:47 Thiazides Allergy Unknown Verified 04/19/23 16:47 chlorpromazine AdvReac Intermediate Unknown Verified 04/06/23 20:37 [From Thorazine] Assessment & Plan Assessment & Plan (1) Major neurocognitive disorder due to multiple etiologies, with psychotic disturbance: Status: Acute Code(s): F02.82 - Dementia in other diseases classified elsewhere, unspecified severity, with psychotic disturbance Plan 72 year old female with history insulin dependent type 2 diabetes, htn, fibromyalgia, asthma/copd overlap, CAD, ADRIANA, GERD, obesity hypoventilation syndrome, seizure like activity without diagnosis of epilepsy, hx lucunar infarct, hld, and chronic abdominal pain who is a current everyday smoker admitted to psychiatry with consult placed to hospitalist service for medical H&P. #Mood disorder/dementia -plan per psychiatry #Fibromygia/chronic pain syndrome -continue duloxetine. Pt alert and awake on exam -continue oxycodone #CAD/HLD -no chest pain. Boyd EKG reassuring with NSR, rate 93, nonspecific st wave abnormality, no edith or deperessions -continue plavix, statin, zetia #Insulin dependent type 2 diabetes -poc glucose -diabetic diet -Continue metformin, humalog on sliding scale #Urinary incontinence/urgency -continue methenamine -UA normal #HTN -reasonably controlled -continue lisinopril #Asthma/copd overlap -Continue home inhalers, albuterol prn #ADRIANA -continue cpap if used at home. Consult RT Psych: 04/08 continue current medications. VS 132/85, HR 113, O2sat 94 on RA. continue to monitor oversedation respiratory suppression. 04/09 continue tx. 04/10 continue tx. 04/11 continue tx. 04/12 continue treatment 04/13: Continue current regimen and plans 04/14: Continue current plans and regimen 04/15 Lisinopril increase to 30mg po daily due to SBP 170-180. continue all other medications. 04/16 continue current medications.BP 148/78, HR 85, RR 18, o2sat 97 RA. 04/17 start low dose depakote 250mg po BID- monitor day time sedation in combination with other meds. 04/18 continue tx. 04/19 start lidocane patch for back pain. 04/20: stable presentation. no change in mgmt. 04/21: stable presentation. restart oxycodone 5 mg Q8H PRN, as it had fallen off. 04/22 continue tx. 04/23: continue tx. 04/24 continue tx. awaiting placement.will check depakote level and ammonia tomorrow morning. 04/25 continue tx. 04/26 continue tx. 04/28/2023: no changes Reason for continued inpatient stay Substantial Risk for: inability to function Time Spent With Patient Time: Total time managing care of this patient today ____ minutes.
[2023-04-28 18:00] VITALS: BP 154/73; PULSE 94; RESP 18; TEMP 36.8; O2SAT 92
[2023-04-28] MEDS: risperiDONE 2 MG TABLET PO (21:41)
[2023-04-28] MEDS: oxyBUTYnin chloride ER 5 MG TAB.ER.24 10 MG PO (21:41)
[2023-04-29 10:02] VITALS: PULSE 97; RESP 18; TEMP 36.4; O2SAT 94
[2023-04-29] MEDS: lisinopriL 10 MG TABLET 30 MG PO (10:05)
[2023-04-29] MEDS: Atorvastatin Calcium 80 MG TABLET PO (10:05)
[2023-04-29] MEDS: Clopidogrel Bisulfate 75 MG TABLET PO (10:05)
[2023-04-29] MEDS: Divalproex Sodium Sprinkles 125 MG CAP.DR.SPR 250 MG PO ×2 (10:05→20:46)
[2023-04-29] MEDS: Magnesium Oxide 400 MG TABLET PO (10:05)
[2023-04-29] MEDS: allopurinoL 100 MG TABLET PO (10:05)
[2023-04-29] MEDS: Clotrimazole 1 % Cream 15 GM TUBE 1 APPL TOPICAL (10:05)
[2023-04-29] MEDS: Gabapentin 300 MG CAPSULE 600 MG PO ×2 (10:05→20:47)
[2023-04-29] MEDS: risperiDONE 1 MG TABLET PO (10:05)
[2023-04-29] MEDS: metFORMIN HCl 1,000 MG TABLET 1000 MG PO ×2 (10:06→20:47)
[2023-04-29] MEDS: Cyanocobalamin (Vitamin B-12) 500 MCG TABLET PO (10:06)
[2023-04-29] MEDS: Folic Acid 1 MG TABLET PO (10:06)
[2023-04-29] MEDS: DULoxetine HCl 60 MG CAPSULE.DR PO (10:06)
[2023-04-29] MEDS: Ezetimibe 10 MG TABLET PO (10:06)
--- NOTE | 2023-04-29 12:40 | HO.PSYCHPN ---
Subjective Subjective Date of Service: 04/29/23 Reason For Visit: SI Subjective Notes: Conditional Voluntary Interim History: Pt slept 8hrs last night. She denies depression or anxious mood. She appears less dysphoric. She denies SI/HI. She asks again where the [facility] is, if it is far from her family, and when she can go there. No behavioral concerns. Pt ambulating on her own, steady on her feet. Review of Systems Review of Systems Unremarkable Mental Status Exam Mental Status Exam Narrative: Appearance: wearing regular clothing, fair hygiene Behavior: cooperative Psychomotor: no PMA/PMR Speech: clear, regular rhythm, spontaneous TP: tangential at times TC: feels staff midwife/apprenticeship director not providing adequate care Mood: good Affect: congruent, not labile SI: none expressed HI: none expressed VH/AH: none expressed Delusions: no overt delusions Insight/judgment: fair x 2. Memory/cog: alert, oriented to place, month, some difficulty with situation Diagnostics Vital Signs (24Hr): Vital Signs - 24 hr 04/28/23 18:00 04/29/23 10:02 Temperature 98.3 F 97.6 F Pulse Rate 94 97 Respiratory Rate 18 18 Blood Pressure 154/73 H Pulse Oximetry 92 94 Oxygen Delivery Method Room Air Room Air BMI result Body Mass Index 38.3 Labs 04/25/23 08:53 Labs: Laboratory Results - last 48 hr 04/27/23 04/28/23 20:03 12:23 POC Glucose 207 H 127 H Medications Medications Current Medications Acetaminophen (Acetaminophen 325 Mg Tablet) 650 mg PO Q6H PRN PRN Reason: Headache/Pain Mild Scale (1-3) Last Admin: 04/28/23 21:46 Dose: 650 mg Al Hydroxide/Mg Hydroxide (Magnesium Hydrox/Alum Hydrox 30 Ml Oral.Susp) 30 ml PO Q6H PRN PRN Reason: Heartburn/Nausea Albuterol Sulfate (Albuterol Sulfate 90 Mcg 8 Gm Inhaler) 2 puff INHALE Q4H PRN PRN Reason: Respiratory Distress Allopurinol (Allopurinol 100 Mg Tablet) 100 mg PO DAILY [facility] Last Admin: 04/29/23 10:05 Dose: 100 mg Atorvastatin Calcium (Atorvastatin Calcium 80 Mg Tablet) 80 mg PO DAILY [facility] Last Admin: 04/29/23 10:05 Dose: 80 mg Clopidogrel Bisulfate (Clopidogrel Bisulfate 75 Mg Tablet) 75 mg PO DAILY [facility] Last Admin: 04/29/23 10:05 Dose: 75 mg Clotrimazole (Clotrimazole 1 % Cream 15 Gm Tube) 1 appl TOPICAL BID [facility]; Protocol Last Admin: 04/29/23 10:05 Dose: 1 appl Cyanocobalamin (Cyanocobalamin (Vitamin B-12) 500 Mcg Tablet) 500 mcg PO DAILY [facility] Last Admin: 04/29/23 10:06 Dose: 500 mcg Divalproex Sodium (Divalproex Sodium Sprinkles 125 Mg Cap..Yesenia) 250 mg PO BID [facility] Last Admin: 04/29/23 10:05 Dose: 250 mg Duloxetine HCl (Duloxetine Hcl 60 Mg Capsule.Dr) 60 mg PO DAILY [facility] Last Admin: 04/29/23 10:06 Dose: 60 mg Ezetimibe (Ezetimibe 10 Mg Tablet) 10 mg PO DAILY [facility] Last Admin: 04/29/23 10:06 Dose: 10 mg Ergocalciferol (Ergocalciferol (Vitamin D2) 1,250 Mcg Capsule) 2,500 mcg PO Fr [facility] Last Admin: 04/26/23 11:17 Dose: 2,500 mcg Folic Acid (Folic Acid 1 Mg Tablet) 1 mg PO DAILY [facility] Last Admin: 04/29/23 10:06 Dose: 1 mg Gabapentin (Gabapentin 300 Mg Capsule) 600 mg PO BID [facility] Last Admin: 04/29/23 10:05 Dose: 600 mg Hydroxyzine HCl (Hydroxyzine Hcl 25 Mg Tablet) 25 mg PO Q6H PRN PRN Reason: Anxiety Last Admin: 04/28/23 01:09 Dose: 25 mg Lisinopril (Lisinopril 10 Mg Tablet) 30 mg PO DAILY [facility]; Protocol Last Admin: 04/29/23 10:05 Dose: 30 mg Magnesium Hydroxide (Milk Of Magnesia 30 Ml Oral.Susp) 30 ml PO DAILY PRN PRN Reason: Constipation Last Admin: 04/16/23 14:58 Dose: 30 ml Magnesium Oxide (Magnesium Oxide 400 Mg Tablet) 400 mg PO DAILY [facility] Last Admin: 04/29/23 10:05 Dose: 400 mg Metformin HCl (Metformin Hcl 1,000 Mg Tablet) 1,000 mg PO BID [facility] Last Admin: 04/29/23 10:06 Dose: 1,000 mg Nicotine Polacrilex (Nicotine Polacrilex 2 Mg Gum) 2 mg BUCCAL Q2H PRN PRN Reason: Nicotine Cravings Oxybutynin Chloride (Oxybutynin Chloride Er 5 Mg Tab.Er.24) 10 mg PO BEDTIME [facility] Last Admin: 04/28/23 21:41 Dose: 10 mg Oxycodone HCl (Oxycodone Hcl Immed Release 5 Mg Tablet) 5 mg PO Q8H PRN PRN Reason: Pain, Severe (Pain Scale 7-10) Last Admin: 04/29/23 11:48 Dose: 5 mg Pharmacy Consult (Consult Rx Perform Med Rec) 1 each MISCELLANE ONCE PRN PRN Reason: Consult order Risperidone (Risperidone 1 Mg Tablet) 1 mg PO DAILY [facility] Last Admin: 04/29/23 10:05 Dose: 1 mg Risperidone (Risperidone 2 Mg Tablet) 2 mg PO BEDTIME [facility] Last Admin: 04/28/23 21:41 Dose: 2 mg Trazodone HCl (Trazodone Hcl 50 Mg Tablet) 50 mg PO BEDTIME PRN PRN Reason: Insomnia Last Admin: 04/27/23 23:39 Dose: 50 mg Allergies Allergies Allergy/AdvReac Type Severity Reaction Status Date / Time Penicillins Allergy Intermediate Unknown Verified 04/06/23 20:37 shellfish derived Allergy Intermediate Unknown Verified 04/06/23 20:37 adhesive Allergy Unknown Verified 04/19/23 16:47 black pepper Allergy Unknown Verified 04/19/23 16:47 egg Allergy Unknown Verified 04/19/23 16:47 latex Allergy Unknown Verified 04/19/23 16:47 rice Allergy Unknown Verified 04/19/23 16:47 Thiazides Allergy Unknown Verified 04/19/23 16:47 chlorpromazine AdvReac Intermediate Unknown Verified 04/06/23 20:37 [From Thorazine] Assessment & Plan Assessment & Plan (1) Major neurocognitive disorder due to multiple etiologies, with psychotic disturbance: Status: Acute Code(s): F02.82 - Dementia in other diseases classified elsewhere, unspecified severity, with psychotic disturbance Plan 72 year old female with history insulin dependent type 2 diabetes, htn, fibromyalgia, asthma/copd overlap, CAD, ADRIANA, GERD, obesity hypoventilation syndrome, seizure like activity without diagnosis of epilepsy, hx lucunar infarct, hld, and chronic abdominal pain who is a current everyday smoker admitted to psychiatry with consult placed to hospitalist service for medical H&P. #Mood disorder/dementia -plan per psychiatry #Fibromygia/chronic pain syndrome -continue duloxetine. Pt alert and awake on exam -continue oxycodone #CAD/HLD -no chest pain. Boyd EKG reassuring with NSR, rate 93, nonspecific st wave abnormality, no edith or deperessions -continue plavix, statin, zetia #Insulin dependent type 2 diabetes -poc glucose -diabetic diet -Continue metformin, humalog on sliding scale #Urinary incontinence/urgency -continue methenamine -UA normal #HTN -reasonably controlled -continue lisinopril #Asthma/copd overlap -Continue home inhalers, albuterol prn #ADRIANA -continue cpap if used at home. Consult RT Psych: 04/08 continue current medications. VS 132/85, HR 113, O2sat 94 on RA. continue to monitor oversedation respiratory suppression. 04/09 continue tx. 04/10 continue tx. 04/11 continue tx. 04/12 continue treatment 04/13: Continue current regimen and plans 04/14: Continue current plans and regimen 04/15 Lisinopril increase to 30mg po daily due to SBP 170-180. continue all other medications. 04/16 continue current medications.BP 148/78, HR 85, RR 18, o2sat 97 RA. 04/17 start low dose depakote 250mg po BID- monitor day time sedation in combination with other meds. 04/18 continue tx. 04/19 start lidocane patch for back pain. 04/20: stable presentation. no change in mgmt. 04/21: stable presentation. restart oxycodone 5 mg Q8H PRN, as it had fallen off. 04/22 continue tx. 04/23: continue tx. 04/24 continue tx. awaiting placement.will check depakote level and ammonia tomorrow morning. 04/25 continue tx. 04/26 continue tx. 04/28/2023: no changes 04/29 continue tx. awaiting placement. Reason for continued inpatient stay Substantial Risk for: inability to function Time Spent With Patient Time: Total time managing care of this patient today ____ minutes.
[2023-04-29] MEDS: Acetaminophen 325 MG TABLET 650 MG PO (14:33)
[2023-04-29 18:00] VITALS: BP 105/74; PULSE 85; RESP 18; TEMP 36.2; O2SAT 95
[2023-04-29] MEDS: oxyBUTYnin chloride ER 5 MG TAB.ER.24 10 MG PO (20:46)
[2023-04-29] MEDS: risperiDONE 2 MG TABLET PO (20:47)
[2023-04-30 06:00] VITALS: BP 138/60; PULSE 87; RESP 18; TEMP 36.5; O2SAT 94
[2023-04-30] MEDS: Gabapentin 300 MG CAPSULE 600 MG PO ×2 (08:54→20:51)
[2023-04-30] MEDS: Divalproex Sodium Sprinkles 125 MG CAP.DR.SPR 250 MG PO ×2 (08:54→20:55)
[2023-04-30] MEDS: allopurinoL 100 MG TABLET PO (08:55)
[2023-04-30] MEDS: Atorvastatin Calcium 80 MG TABLET PO (08:55)
[2023-04-30] MEDS: Ezetimibe 10 MG TABLET PO (08:55)
[2023-04-30] MEDS: Folic Acid 1 MG TABLET PO (08:55)
[2023-04-30] MEDS: lisinopriL 10 MG TABLET 30 MG PO (08:55)
[2023-04-30] MEDS: metFORMIN HCl 1,000 MG TABLET 1000 MG PO ×2 (08:55→20:53)
[2023-04-30] MEDS: Clopidogrel Bisulfate 75 MG TABLET PO (08:55)
[2023-04-30] MEDS: DULoxetine HCl 60 MG CAPSULE.DR PO (08:55)
[2023-04-30] MEDS: risperiDONE 1 MG TABLET PO (08:55)
[2023-04-30] MEDS: Cyanocobalamin (Vitamin B-12) 500 MCG TABLET PO (08:55)
[2023-04-30] MEDS: Magnesium Oxide 400 MG TABLET PO (08:55)
--- NOTE | 2023-04-30 14:05 | HO.PSYCHPN ---
Subjective Subjective Date of Service: 04/30/23 Reason For Visit: SI Subjective Notes: Conditional Voluntary Interim History: Pt slept through the night. She denies depression or anxious mood. She continues to appear less dysphoric. She denies SI/HI. She asks again where the [facility] is, if it is far from her family, and when she can go there. No behavioral concerns. Pt ambulating on her own, steady on her feet. Review of Systems Review of Systems Unremarkable Mental Status Exam Mental Status Exam Narrative: Appearance: wearing regular clothing, fair hygiene Behavior: cooperative Psychomotor: no PMA/PMR Speech: clear, regular rhythm, spontaneous TP: tangential at times TC: feels staff appraiser not providing adequate care Mood: good Affect: congruent, not labile SI: none expressed HI: none expressed VH/AH: none expressed Delusions: no overt delusions Insight/judgment: fair x 2. Memory/cog: alert, oriented to place, month, some difficulty with situation Diagnostics Vital Signs (24Hr): Vital Signs - 24 hr 04/29/23 18:00 04/30/23 06:00 Temperature 97.1 F 97.7 F Pulse Rate 85 87 Respiratory Rate 18 18 Blood Pressure 105/74 138/60 Pulse Oximetry 95 94 Oxygen Delivery Method Room Air Room Air BMI result Body Mass Index 38.3 Labs 04/25/23 08:53 Medications Medications Current Medications Acetaminophen (Acetaminophen 325 Mg Tablet) 650 mg PO Q6H PRN PRN Reason: Headache/Pain Mild Scale (1-3) Last Admin: 04/29/23 14:33 Dose: 650 mg Al Hydroxide/Mg Hydroxide (Magnesium Hydrox/Alum Hydrox 30 Ml Oral.Susp) 30 ml PO Q6H PRN PRN Reason: Heartburn/Nausea Albuterol Sulfate (Albuterol Sulfate 90 Mcg 8 Gm Inhaler) 2 puff INHALE Q4H PRN PRN Reason: Respiratory Distress Allopurinol (Allopurinol 100 Mg Tablet) 100 mg PO DAILY [facility] Last Admin: 04/30/23 08:55 Dose: 100 mg Atorvastatin Calcium (Atorvastatin Calcium 80 Mg Tablet) 80 mg PO DAILY [facility] Last Admin: 04/30/23 08:55 Dose: 80 mg Clopidogrel Bisulfate (Clopidogrel Bisulfate 75 Mg Tablet) 75 mg PO DAILY [facility] Last Admin: 04/30/23 08:55 Dose: 75 mg Clotrimazole (Clotrimazole 1 % Cream 15 Gm Tube) 1 appl TOPICAL BID [facility]; Protocol Last Admin: 04/30/23 08:58 Dose: Not Given Cyanocobalamin (Cyanocobalamin (Vitamin B-12) 500 Mcg Tablet) 500 mcg PO DAILY [facility] Last Admin: 04/30/23 08:55 Dose: 500 mcg Divalproex Sodium (Divalproex Sodium Sprinkles 125 Mg Cap..Yesenia) 250 mg PO BID [facility] Last Admin: 04/30/23 08:54 Dose: 250 mg Duloxetine HCl (Duloxetine Hcl 60 Mg Capsule.Dr) 60 mg PO DAILY [facility] Last Admin: 04/30/23 08:55 Dose: 60 mg Ezetimibe (Ezetimibe 10 Mg Tablet) 10 mg PO DAILY [facility] Last Admin: 04/30/23 08:55 Dose: 10 mg Ergocalciferol (Ergocalciferol (Vitamin D2) 1,250 Mcg Capsule) 2,500 mcg PO Fr [facility] Last Admin: 04/26/23 11:17 Dose: 2,500 mcg Folic Acid (Folic Acid 1 Mg Tablet) 1 mg PO DAILY [facility] Last Admin: 04/30/23 08:55 Dose: 1 mg Gabapentin (Gabapentin 300 Mg Capsule) 600 mg PO BID [facility] Last Admin: 04/30/23 08:54 Dose: 600 mg Hydroxyzine HCl (Hydroxyzine Hcl 25 Mg Tablet) 25 mg PO Q6H PRN PRN Reason: Anxiety Last Admin: 04/28/23 01:09 Dose: 25 mg Lisinopril (Lisinopril 10 Mg Tablet) 30 mg PO DAILY [facility]; Protocol Last Admin: 04/30/23 08:55 Dose: 30 mg Magnesium Hydroxide (Milk Of Magnesia 30 Ml Oral.Susp) 30 ml PO DAILY PRN PRN Reason: Constipation Last Admin: 04/16/23 14:58 Dose: 30 ml Magnesium Oxide (Magnesium Oxide 400 Mg Tablet) 400 mg PO DAILY [facility] Last Admin: 04/30/23 08:55 Dose: 400 mg Metformin HCl (Metformin Hcl 1,000 Mg Tablet) 1,000 mg PO BID [facility] Last Admin: 04/30/23 08:55 Dose: 1,000 mg Nicotine Polacrilex (Nicotine Polacrilex 2 Mg Gum) 2 mg BUCCAL Q2H PRN PRN Reason: Nicotine Cravings Oxybutynin Chloride (Oxybutynin Chloride Er 5 Mg Tab.Er.24) 10 mg PO BEDTIME [facility] Last Admin: 04/29/23 20:46 Dose: 10 mg Oxycodone HCl (Oxycodone Hcl Immed Release 5 Mg Tablet) 5 mg PO Q8H PRN PRN Reason: Pain, Severe (Pain Scale 7-10) Last Admin: 04/30/23 10:04 Dose: 5 mg Pharmacy Consult (Consult Rx Perform Med Rec) 1 each MISCELLANE ONCE PRN PRN Reason: Consult order Risperidone (Risperidone 1 Mg Tablet) 1 mg PO DAILY [facility] Last Admin: 04/30/23 08:55 Dose: 1 mg Risperidone (Risperidone 2 Mg Tablet) 2 mg PO BEDTIME [facility] Last Admin: 04/29/23 20:47 Dose: 2 mg Trazodone HCl (Trazodone Hcl 50 Mg Tablet) 50 mg PO BEDTIME PRN PRN Reason: Insomnia Last Admin: 04/27/23 23:39 Dose: 50 mg Allergies Allergies Allergy/AdvReac Type Severity Reaction Status Date / Time Penicillins Allergy Intermediate Unknown Verified 04/06/23 20:37 shellfish derived Allergy Intermediate Unknown Verified 04/06/23 20:37 adhesive Allergy Unknown Verified 04/19/23 16:47 black pepper Allergy Unknown Verified 04/19/23 16:47 egg Allergy Unknown Verified 04/19/23 16:47 latex Allergy Unknown Verified 04/19/23 16:47 rice Allergy Unknown Verified 04/19/23 16:47 Thiazides Allergy Unknown Verified 04/19/23 16:47 chlorpromazine AdvReac Intermediate Unknown Verified 04/06/23 20:37 [From Thorazine] Assessment & Plan Assessment & Plan (1) Major neurocognitive disorder due to multiple etiologies, with psychotic disturbance: Status: Acute Code(s): F02.82 - Dementia in other diseases classified elsewhere, unspecified severity, with psychotic disturbance Plan 72 year old female with history insulin dependent type 2 diabetes, htn, fibromyalgia, asthma/copd overlap, CAD, ADRIANA, GERD, obesity hypoventilation syndrome, seizure like activity without diagnosis of epilepsy, hx lucunar infarct, hld, and chronic abdominal pain who is a current everyday smoker admitted to psychiatry with consult placed to hospitalist service for medical H&P. #Mood disorder/dementia -plan per psychiatry #Fibromygia/chronic pain syndrome -continue duloxetine. Pt alert and awake on exam -continue oxycodone #CAD/HLD -no chest pain. Boyd EKG reassuring with NSR, rate 93, nonspecific st wave abnormality, no edith or deperessions -continue plavix, statin, zetia #Insulin dependent type 2 diabetes -poc glucose -diabetic diet -Continue metformin, humalog on sliding scale #Urinary incontinence/urgency -continue methenamine -UA normal #HTN -reasonably controlled -continue lisinopril #Asthma/copd overlap -Continue home inhalers, albuterol prn #ADRIANA -continue cpap if used at home. Consult RT Psych: 04/08 continue current medications. VS 132/85, HR 113, O2sat 94 on RA. continue to monitor oversedation respiratory suppression. 04/09 continue tx. 04/10 continue tx. 04/11 continue tx. 04/12 continue treatment 04/13: Continue current regimen and plans 04/14: Continue current plans and regimen 04/15 Lisinopril increase to 30mg po daily due to SBP 170-180. continue all other medications. 04/16 continue current medications.BP 148/78, HR 85, RR 18, o2sat 97 RA. 04/17 start low dose depakote 250mg po BID- monitor day time sedation in combination with other meds. 04/18 continue tx. 04/19 start lidocane patch for back pain. 04/20: stable presentation. no change in mgmt. 04/21: stable presentation. restart oxycodone 5 mg Q8H PRN, as it had fallen off. 04/22 continue tx. 04/23: continue tx. 04/24 continue tx. awaiting placement.will check depakote level and ammonia tomorrow morning. 04/25 continue tx. 04/26 continue tx. 04/28/2023: no changes 04/29 continue tx. awaiting placement. 04/30 continue tx. VS stable. Reason for continued inpatient stay Substantial Risk for: inability to function Time Spent With Patient Time: Total time managing care of this patient today ____ minutes.
[2023-04-30 14:57] VITALS: BP 98/59; PULSE 75
[2023-04-30 18:00] VITALS: BP 166/90; PULSE 93; RESP 17; TEMP 36.1; O2SAT 96
[2023-04-30] MEDS: oxyBUTYnin chloride ER 5 MG TAB.ER.24 10 MG PO (20:51)
[2023-04-30] MEDS: risperiDONE 2 MG TABLET PO (20:53)
[2023-05-01 08:11] VITALS: BP 134/63; PULSE 90; RESP 20; TEMP 36.4; O2SAT 96
[2023-05-01] MEDS: Magnesium Oxide 400 MG TABLET PO (08:50)
[2023-05-01] MEDS: Atorvastatin Calcium 80 MG TABLET PO (08:50)
[2023-05-01] MEDS: lisinopriL 10 MG TABLET 30 MG PO (08:50)
[2023-05-01] MEDS: Divalproex Sodium Sprinkles 125 MG CAP.DR.SPR 250 MG PO ×2 (08:51→20:14)
[2023-05-01] MEDS: Ezetimibe 10 MG TABLET PO (08:51)
[2023-05-01] MEDS: Folic Acid 1 MG TABLET PO (08:51)
[2023-05-01] MEDS: Clopidogrel Bisulfate 75 MG TABLET PO (08:51)
[2023-05-01] MEDS: Cyanocobalamin (Vitamin B-12) 500 MCG TABLET PO (08:51)
[2023-05-01] MEDS: allopurinoL 100 MG TABLET PO (08:51)
[2023-05-01] MEDS: Gabapentin 300 MG CAPSULE 600 MG PO ×2 (08:51→20:14)
[2023-05-01] MEDS: risperiDONE 1 MG TABLET PO (08:51)
[2023-05-01] MEDS: metFORMIN HCl 1,000 MG TABLET 1000 MG PO ×2 (08:51→20:14)
[2023-05-01] MEDS: hydrOXYzine HCL 25 MG TABLET PO (08:52)
[2023-05-01] MEDS: Acetaminophen 325 MG TABLET 650 MG PO (08:52)
[2023-05-01] MEDS: DULoxetine HCl 60 MG CAPSULE.DR PO (08:52)
--- NOTE | 2023-05-01 10:52 | HO.PSYCHPN ---
Subjective Subjective Date of Service: 05/01/23 Reason For Visit: SI Subjective Notes: Conditional Voluntary Interim History: Pt slept through the night. She reports back pain. It appears lidocaine patch fet off DEC. Pt agrees to continue. She denies SI/HI. She denies any other concerns. No behavioral concerns. 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 Memory/cog: alert, oriented to place, month, some difficulty with situation Patient Appearance: Well Grooomed and Appropriate Patient Orientation: Person, Place and Situation Level of Consciousness: Awake and Appropriate Patient Behavior: Guarded and Passive Mood Description: Withdrawn Affect Description: Constricted Patient Cognition Impaired: Yes Ability to Follow Directions: Good Speech Pattern: Clear Diagnostics Vital Signs (24Hr): Vital Signs - 24 hr 04/30/23 14:57 04/30/23 18:00 Temperature 96.9 F Pulse Rate 75 93 Respiratory Rate 17 Blood Pressure 98/59 L 166/90 H Pulse Oximetry 96 Oxygen Delivery Method Room Air BMI result Body Mass Index 38.3 Labs 04/25/23 08:53 Medications Medications Current Medications Acetaminophen (Acetaminophen 325 Mg Tablet) 650 mg PO Q6H PRN PRN Reason: Headache/Pain Mild Scale (1-3) Last Admin: 05/01/23 08:52 Dose: 650 mg Al Hydroxide/Mg Hydroxide (Magnesium Hydrox/Alum Hydrox 30 Ml Oral.Susp) 30 ml PO Q6H PRN PRN Reason: Heartburn/Nausea Albuterol Sulfate (Albuterol Sulfate 90 Mcg 8 Gm Inhaler) 2 puff INHALE Q4H PRN PRN Reason: Respiratory Distress Allopurinol (Allopurinol 100 Mg Tablet) 100 mg PO DAILY [facility] Last Admin: 05/01/23 08:51 Dose: 100 mg Atorvastatin Calcium (Atorvastatin Calcium 80 Mg Tablet) 80 mg PO DAILY [facility] Last Admin: 05/01/23 08:50 Dose: 80 mg Clopidogrel Bisulfate (Clopidogrel Bisulfate 75 Mg Tablet) 75 mg PO DAILY [facility] Last Admin: 05/01/23 08:51 Dose: 75 mg Clotrimazole (Clotrimazole 1 % Cream 15 Gm Tube) 1 appl TOPICAL BID [facility]; Protocol Last Admin: 05/01/23 08:55 Dose: Not Given Cyanocobalamin (Cyanocobalamin (Vitamin B-12) 500 Mcg Tablet) 500 mcg PO DAILY [facility] Last Admin: 05/01/23 08:51 Dose: 500 mcg Divalproex Sodium (Divalproex Sodium Sprinkles 125 Mg Cap.) 250 mg PO BID [facility] Last Admin: 05/01/23 08:51 Dose: 250 mg Duloxetine HCl (Duloxetine Hcl 60 Mg Capsule.Dr) 60 mg PO DAILY [facility] Last Admin: 05/01/23 08:52 Dose: 60 mg Ezetimibe (Ezetimibe 10 Mg Tablet) 10 mg PO DAILY [facility] Last Admin: 05/01/23 08:51 Dose: 10 mg Ergocalciferol (Ergocalciferol (Vitamin D2) 1,250 Mcg Capsule) 2,500 mcg PO Fr [facility] Last Admin: 04/26/23 11:17 Dose: 2,500 mcg Folic Acid (Folic Acid 1 Mg Tablet) 1 mg PO DAILY [facility] Last Admin: 05/01/23 08:51 Dose: 1 mg Gabapentin (Gabapentin 300 Mg Capsule) 600 mg PO BID [facility] Last Admin: 05/01/23 08:51 Dose: 600 mg Hydroxyzine HCl (Hydroxyzine Hcl 25 Mg Tablet) 25 mg PO Q6H PRN PRN Reason: Anxiety Last Admin: 05/01/23 08:52 Dose: 25 mg Lisinopril (Lisinopril 10 Mg Tablet) 30 mg PO DAILY [facility]; Protocol Last Admin: 05/01/23 08:50 Dose: 30 mg Magnesium Hydroxide (Milk Of Magnesia 30 Ml Oral.Susp) 30 ml PO DAILY PRN PRN Reason: Constipation Last Admin: 04/16/23 14:58 Dose: 30 ml Magnesium Oxide (Magnesium Oxide 400 Mg Tablet) 400 mg PO DAILY [facility] Last Admin: 05/01/23 08:50 Dose: 400 mg Metformin HCl (Metformin Hcl 1,000 Mg Tablet) 1,000 mg PO BID [facility] Last Admin: 05/01/23 08:51 Dose: 1,000 mg Nicotine Polacrilex (Nicotine Polacrilex 2 Mg Gum) 2 mg BUCCAL Q2H PRN PRN Reason: Nicotine Cravings Oxybutynin Chloride (Oxybutynin Chloride Er 5 Mg Tab.Er.24) 10 mg PO BEDTIME [facility] Last Admin: 04/30/23 20:51 Dose: 10 mg Oxycodone HCl (Oxycodone Hcl Immed Release 5 Mg Tablet) 5 mg PO Q8H PRN PRN Reason: Pain, Severe (Pain Scale 7-10) Last Admin: 05/01/23 08:52 Dose: 5 mg Pharmacy Consult (Consult Rx Perform Med Rec) 1 each MISCELLANE ONCE PRN PRN Reason: Consult order Risperidone (Risperidone 1 Mg Tablet) 1 mg PO DAILY [facility] Last Admin: 05/01/23 08:51 Dose: 1 mg Risperidone (Risperidone 2 Mg Tablet) 2 mg PO BEDTIME [facility] Last Admin: 04/30/23 20:53 Dose: 2 mg Trazodone HCl (Trazodone Hcl 50 Mg Tablet) 50 mg PO BEDTIME PRN PRN Reason: Insomnia Last Admin: 04/27/23 23:39 Dose: 50 mg Allergies Allergies Allergy/AdvReac Type Severity Reaction Status Date / Time Penicillins Allergy Intermediate Unknown Verified 04/06/23 20:37 shellfish derived Allergy Intermediate Unknown Verified 04/06/23 20:37 adhesive Allergy Unknown Verified 04/19/23 16:47 black pepper Allergy Unknown Verified 04/19/23 16:47 egg Allergy Unknown Verified 04/19/23 16:47 latex Allergy Unknown Verified 04/19/23 16:47 rice Allergy Unknown Verified 04/19/23 16:47 Thiazides Allergy Unknown Verified 04/19/23 16:47 chlorpromazine AdvReac Intermediate Unknown Verified 04/06/23 20:37 [From Thorazine] Assessment & Plan Assessment & Plan (1) Major neurocognitive disorder due to multiple etiologies, with psychotic disturbance: Status: Acute Code(s): F02.82 - Dementia in other diseases classified elsewhere, unspecified severity, with psychotic disturbance Plan 72 year old female with history insulin dependent type 2 diabetes, htn, fibromyalgia, asthma/copd overlap, CAD, ADRIANA, GERD, obesity hypoventilation syndrome, seizure like activity without diagnosis of epilepsy, hx lucunar infarct, hld, and chronic abdominal pain who is a current everyday smoker admitted to psychiatry with consult placed to hospitalist service for medical H&P. #Mood disorder/dementia -plan per psychiatry #Fibromygia/chronic pain syndrome -continue duloxetine. Pt alert and awake on exam -continue oxycodone #CAD/HLD -no chest pain. Boyd EKG reassuring with NSR, rate 93, nonspecific st wave abnormality, no edith or deperessions -continue plavix, statin, zetia #Insulin dependent type 2 diabetes -poc glucose -diabetic diet -Continue metformin, humalog on sliding scale #Urinary incontinence/urgency -continue methenamine -UA normal #HTN -reasonably controlled -continue lisinopril #Asthma/copd overlap -Continue home inhalers, albuterol prn #ADRIANA -continue cpap if used at home. Consult RT Psych: 04/08 continue current medications. VS 132/85, HR 113, O2sat 94 on RA. continue to monitor oversedation respiratory suppression. 04/09 continue tx. 04/10 continue tx. 04/11 continue tx. 04/12 continue treatment 04/13: Continue current regimen and plans 04/14: Continue current plans and regimen 04/15 Lisinopril increase to 30mg po daily due to SBP 170-180. continue all other medications. 04/16 continue current medications.BP 148/78, HR 85, RR 18, o2sat 97 RA. 04/17 start low dose depakote 250mg po BID- monitor day time sedation in combination with other meds. 04/18 continue tx. 04/19 start lidocane patch for back pain. 04/20: stable presentation. no change in mgmt. 04/21: stable presentation. restart oxycodone 5 mg Q8H PRN, as it had fallen off. 04/22 continue tx. 04/23: continue tx. 04/24 continue tx. awaiting placement.will check depakote level and ammonia tomorrow morning. 04/25 continue tx. 04/26 continue tx. 04/28/2023: no changes 04/29 continue tx. awaiting placement. 04/30 continue tx. VS stable. 05/01 continue tx. Reason for continued inpatient stay Substantial Risk for: inability to function Time Spent With Patient Time: Total time managing care of this patient today ____ minutes.
[2023-05-01 12:12] VITALS: BP 110/66; PULSE 79; RESP 20; O2SAT 94
--- NOTE | 2023-05-01 12:14 | PC.NURSE ---
Reported I feel like my head is going to explode. BP 110/66, hr 79, O2 94%, RR 20. Manjula Morton NP notified. Ordered to encourage po fluids and take orthos.
[2023-05-01 14:20] VITALS: BP 103/54; PULSE 78
[2023-05-01 14:25] VITALS: BP 122/58; PULSE 84
[2023-05-01 14:30] VITALS: BP 117/72; PULSE 102
[2023-05-01 18:00] VITALS: BP 109/50; PULSE 82; RESP 18; TEMP 35.9; O2SAT 96
[2023-05-01] MEDS: oxyBUTYnin chloride ER 5 MG TAB.ER.24 10 MG PO (20:14)
[2023-05-01] MEDS: risperiDONE 2 MG TABLET PO (20:15)
[2023-05-02 08:32] VITALS: BP 120/74; PULSE 91; RESP 18; TEMP 36.1; O2SAT 95
[2023-05-02] MEDS: Gabapentin 300 MG CAPSULE 600 MG PO ×2 (08:56→20:29)
[2023-05-02] MEDS: Clopidogrel Bisulfate 75 MG TABLET PO (08:56)
[2023-05-02] MEDS: Cyanocobalamin (Vitamin B-12) 500 MCG TABLET PO (08:56)
[2023-05-02] MEDS: Magnesium Oxide 400 MG TABLET PO (08:56)
[2023-05-02] MEDS: DULoxetine HCl 60 MG CAPSULE.DR PO (08:56)
[2023-05-02] MEDS: Folic Acid 1 MG TABLET PO (08:56)
[2023-05-02] MEDS: metFORMIN HCl 1,000 MG TABLET 1000 MG PO ×2 (08:56→20:30)
[2023-05-02] MEDS: Divalproex Sodium Sprinkles 125 MG CAP.DR.SPR 250 MG PO ×2 (08:56→20:29)
[2023-05-02] MEDS: Atorvastatin Calcium 80 MG TABLET PO (08:56)
[2023-05-02] MEDS: allopurinoL 100 MG TABLET PO (08:56)
[2023-05-02] MEDS: Ezetimibe 10 MG TABLET PO (08:56)
[2023-05-02] MEDS: lisinopriL 10 MG TABLET 30 MG PO (08:56)
[2023-05-02] MEDS: risperiDONE 1 MG TABLET PO (08:56)
[2023-05-02] MEDS: Acetaminophen 325 MG TABLET 650 MG PO (08:57)
[2023-05-02 11:31] VITALS: BMI 38.5
--- NOTE | 2023-05-02 12:35 | HO.PSYCHPN ---
Subjective Subjective Date of Service: 05/03/23 Reason For Visit: SI Subjective Notes: Conditional Voluntary Interim History: Pt slept through the night. She reports back pain but reports lidocaine patch. Pt slept most morning, then up and social with select peers. She reports mood is good. She denies SI/HI. She denies any other concerns. No behavioral concerns. Review of Systems Review of Systems Unremarkable Mental Status Exam Mental Status Exam Narrative: Appearance: wearing regular clothing, fair hygiene Behavior: cooperative Psychomotor: no PMA/PMR Speech: clear, regular rhythm, spontaneous TP: tangential at times TC: feels staff respiratory therapist not providing adequate care Mood: good Affect: congruent, not labile SI: none expressed HI: none expressed VH/AH: none expressed Delusions: no overt delusions Insight/judgment: fair x 2. Memory/cog: alert, oriented to place, month, some difficulty with situation Diagnostics Vital Signs (24Hr): Vital Signs - 24 hr 05/01/23 14:20 05/01/23 14:25 05/01/23 14:30 Temperature Pulse Rate 78 84 102 H Respiratory Rate Blood Pressure 103/54 L 122/58 L 117/72 Pulse Oximetry Oxygen Delivery Method 05/01/23 18:00 05/02/23 08:32 Temperature 96.7 F L 97.0 F Pulse Rate 82 91 Respiratory Rate 18 18 Blood Pressure 109/50 L 120/74 Pulse Oximetry 96 95 Oxygen Delivery Method Room Air BMI result Body Mass Index 38.5 Labs 05/02/23 07:37 Labs: Laboratory Results - last 48 hr 05/02/23 07:37 Creatinine 0.91 Estim Creat Clear Calc 66.6 Estimated GFR > 60 Medications Medications Current Medications Acetaminophen (Acetaminophen 325 Mg Tablet) 650 mg PO Q6H PRN PRN Reason: Headache/Pain Mild Scale (1-3) Last Admin: 05/02/23 08:57 Dose: 650 mg Al Hydroxide/Mg Hydroxide (Magnesium Hydrox/Alum Hydrox 30 Ml Oral.Susp) 30 ml PO Q6H PRN PRN Reason: Heartburn/Nausea Albuterol Sulfate (Albuterol Sulfate 90 Mcg 8 Gm Inhaler) 2 puff INHALE Q4H PRN PRN Reason: Respiratory Distress Allopurinol (Allopurinol 100 Mg Tablet) 100 mg PO DAILY [facility] Last Admin: 05/02/23 08:56 Dose: 100 mg Atorvastatin Calcium (Atorvastatin Calcium 80 Mg Tablet) 80 mg PO DAILY [facility] Last Admin: 05/02/23 08:56 Dose: 80 mg Clopidogrel Bisulfate (Clopidogrel Bisulfate 75 Mg Tablet) 75 mg PO DAILY [facility] Last Admin: 05/02/23 08:56 Dose: 75 mg Clotrimazole (Clotrimazole 1 % Cream 15 Gm Tube) 1 appl TOPICAL BID [facility]; Protocol Last Admin: 05/02/23 09:02 Dose: Not Given Cyanocobalamin (Cyanocobalamin (Vitamin B-12) 500 Mcg Tablet) 500 mcg PO DAILY [facility] Last Admin: 05/02/23 08:56 Dose: 500 mcg Divalproex Sodium (Divalproex Sodium Sprinkles 125 Mg Cap..Yesenia) 250 mg PO BID [facility] Last Admin: 05/02/23 08:56 Dose: 250 mg Duloxetine HCl (Duloxetine Hcl 60 Mg Capsule.) 60 mg PO DAILY [facility] Last Admin: 05/02/23 08:56 Dose: 60 mg Ezetimibe (Ezetimibe 10 Mg Tablet) 10 mg PO DAILY [facility] Last Admin: 05/02/23 08:56 Dose: 10 mg Ergocalciferol (Ergocalciferol (Vitamin D2) 1,250 Mcg Capsule) 2,500 mcg PO Fr [facility] Last Admin: 04/26/23 11:17 Dose: 2,500 mcg Folic Acid (Folic Acid 1 Mg Tablet) 1 mg PO DAILY [facility] Last Admin: 05/02/23 08:56 Dose: 1 mg Gabapentin (Gabapentin 300 Mg Capsule) 600 mg PO BID [facility] Last Admin: 05/02/23 08:56 Dose: 600 mg Hydroxyzine HCl (Hydroxyzine Hcl 25 Mg Tablet) 25 mg PO Q6H PRN PRN Reason: Anxiety Last Admin: 05/01/23 08:52 Dose: 25 mg Lidocaine (Lidocaine 4 % Patch Adh..Patch) 1 patch TRANSDERMA DAILY [facility]; Protocol Last Admin: 05/02/23 08:57 Dose: 1 patch Lisinopril (Lisinopril 10 Mg Tablet) 30 mg PO DAILY [facility]; Protocol Last Admin: 05/02/23 08:56 Dose: 30 mg Magnesium Hydroxide (Milk Of Magnesia 30 Ml Oral.Susp) 30 ml PO DAILY PRN PRN Reason: Constipation Last Admin: 04/16/23 14:58 Dose: 30 ml Magnesium Oxide (Magnesium Oxide 400 Mg Tablet) 400 mg PO DAILY [facility] Last Admin: 05/02/23 08:56 Dose: 400 mg Metformin HCl (Metformin Hcl 1,000 Mg Tablet) 1,000 mg PO BID [facility] Last Admin: 05/02/23 08:56 Dose: 1,000 mg Nicotine Polacrilex (Nicotine Polacrilex 2 Mg Gum) 2 mg BUCCAL Q2H PRN PRN Reason: Nicotine Cravings Oxybutynin Chloride (Oxybutynin Chloride Er 5 Mg Tab.Er.24) 10 mg PO BEDTIME [facility] Last Admin: 05/01/23 20:14 Dose: 10 mg Oxycodone HCl (Oxycodone Hcl Immed Release 5 Mg Tablet) 5 mg PO Q8H PRN PRN Reason: Pain, Severe (Pain Scale 7-10) Last Admin: 05/02/23 08:57 Dose: 5 mg Pharmacy Consult (Consult Rx Perform Med Rec) 1 each MISCELLANE ONCE PRN PRN Reason: Consult order Risperidone (Risperidone 1 Mg Tablet) 1 mg PO DAILY [facility] Last Admin: 05/02/23 08:56 Dose: 1 mg Risperidone (Risperidone 2 Mg Tablet) 2 mg PO BEDTIME [facility] Last Admin: 05/01/23 20:15 Dose: 2 mg Trazodone HCl (Trazodone Hcl 50 Mg Tablet) 50 mg PO BEDTIME PRN PRN Reason: Insomnia Last Admin: 04/27/23 23:39 Dose: 50 mg Allergies Allergies Allergy/AdvReac Type Severity Reaction Status Date / Time Penicillins Allergy Intermediate Unknown Verified 04/06/23 20:37 shellfish derived Allergy Intermediate Unknown Verified 04/06/23 20:37 adhesive Allergy Unknown Verified 04/19/23 16:47 black pepper Allergy Unknown Verified 04/19/23 16:47 egg Allergy Unknown Verified 04/19/23 16:47 latex Allergy Unknown Verified 04/19/23 16:47 rice Allergy Unknown Verified 04/19/23 16:47 Thiazides Allergy Unknown Verified 04/19/23 16:47 chlorpromazine AdvReac Intermediate Unknown Verified 04/06/23 20:37 [From Thorazine] Assessment & Plan Assessment & Plan (1) Major neurocognitive disorder due to multiple etiologies, with psychotic disturbance: Status: Acute Code(s): F02.82 - Dementia in other diseases classified elsewhere, unspecified severity, with psychotic disturbance Plan 72 year old female with history insulin dependent type 2 diabetes, htn, fibromyalgia, asthma/copd overlap, CAD, ADRIANA, GERD, obesity hypoventilation syndrome, seizure like activity without diagnosis of epilepsy, hx lucunar infarct, hld, and chronic abdominal pain who is a current everyday smoker admitted to psychiatry with consult placed to hospitalist service for medical H&P. #Mood disorder/dementia -plan per psychiatry #Fibromygia/chronic pain syndrome -continue duloxetine. Pt alert and awake on exam -continue oxycodone #CAD/HLD -no chest pain. [facility] EKG reassuring with NSR, rate 93, nonspecific st wave abnormality, no edith or deperessions -continue plavix, statin, zetia #Insulin dependent type 2 diabetes -poc glucose -diabetic diet -Continue metformin, humalog on sliding scale #Urinary incontinence/urgency -continue methenamine -UA normal #HTN -reasonably controlled -continue lisinopril #Asthma/copd overlap -Continue home inhalers, albuterol prn #ADRIANA -continue cpap if used at home. Consult RT Psych: 04/08 continue current medications. VS 132/85, HR 113, O2sat 94 on RA. continue to monitor oversedation respiratory suppression. 04/09 continue tx. 04/10 continue tx. 04/11 continue tx. 04/12 continue treatment 04/13: Continue current regimen and plans 04/14: Continue current plans and regimen 04/15 Lisinopril increase to 30mg po daily due to SBP 170-180. continue all other medications. 04/16 continue current medications.BP 148/78, HR 85, RR 18, o2sat 97 RA. 04/17 start low dose depakote 250mg po BID- monitor day time sedation in combination with other meds. 04/18 continue tx. 04/19 start lidocane patch for back pain. 04/20: stable presentation. no change in mgmt. 04/21: stable presentation. restart oxycodone 5 mg Q8H PRN, as it had fallen off. 04/22 continue tx. 04/23: continue tx. 04/24 continue tx. awaiting placement.will check depakote level and ammonia tomorrow morning. 04/25 continue tx. 04/26 continue tx. 04/28/2023: no changes 04/29 continue tx. awaiting placement. 04/30 continue tx. VS stable. 05/01 continue tx. 05/02 continue tx. Reason for continued inpatient stay Substantial Risk for: inability to function Time Spent With Patient Time: Total time managing care of this patient today ____ minutes.
--- NOTE | 2023-05-02 14:12 | PC.NURSE ---
Tasha reported lightheadedness. BP 120/74. Notified Linsey Morton NP about lightheadedness. Encouraged oral fluids.
[2023-05-02 18:00] VITALS: BP 145/65; PULSE 75; RESP 18; TEMP 36.4; O2SAT 94
[2023-05-02] MEDS: oxyBUTYnin chloride ER 5 MG TAB.ER.24 10 MG PO (20:29)
[2023-05-02] MEDS: risperiDONE 2 MG TABLET PO (20:29)
[2023-05-03] MEDS: Gabapentin 300 MG CAPSULE 600 MG PO ×2 (09:06→21:09)
[2023-05-03] MEDS: DULoxetine HCl 60 MG CAPSULE.DR PO (09:06)
[2023-05-03] MEDS: lisinopriL 10 MG TABLET 30 MG PO (09:07)
[2023-05-03] MEDS: Divalproex Sodium Sprinkles 125 MG CAP.DR.SPR 250 MG PO ×2 (09:07→21:09)
[2023-05-03] MEDS: Magnesium Oxide 400 MG TABLET PO (09:08)
[2023-05-03] MEDS: Clopidogrel Bisulfate 75 MG TABLET PO (09:08)
[2023-05-03] MEDS: Folic Acid 1 MG TABLET PO (09:08)
[2023-05-03] MEDS: metFORMIN HCl 1,000 MG TABLET 1000 MG PO ×2 (09:08→21:10)
[2023-05-03] MEDS: Cyanocobalamin (Vitamin B-12) 500 MCG TABLET PO (09:09)
[2023-05-03] MEDS: Ezetimibe 10 MG TABLET PO (09:09)
[2023-05-03] MEDS: Atorvastatin Calcium 80 MG TABLET PO (09:09)
[2023-05-03] MEDS: allopurinoL 100 MG TABLET PO (09:09)
[2023-05-03] MEDS: risperiDONE 1 MG TABLET PO (09:09)
[2023-05-03] MEDS: Ergocalciferol (Vitamin D2) 1,250 MCG CAPSULE 2500 MCG PO (09:16)
[2023-05-03 09:54] VITALS: BP 129/72; PULSE 88; RESP 18; TEMP 36.1; O2SAT 95
--- NOTE | 2023-05-03 15:31 | HO.PSYCHPN ---
Subjective Subjective Date of Service: 05/03/23 Reason For Visit: SI Subjective Notes: Conditional Voluntary Interim History: Pt slept throught the night. She reports back pain is better today. She denies SI/HI. She is awating placement. No behavioral concerns. BP stable. Will check depakote level and ammonia. 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 Memory/cog: alert, oriented to place, month, some difficulty with situation Diagnostics Vital Signs (24Hr): Vital Signs - 24 hr 05/02/23 18:00 05/03/23 09:54 Temperature 97.5 F 97 F Pulse Rate 75 88 Respiratory Rate 18 18 Blood Pressure 145/65 H 129/72 Pulse Oximetry 94 95 Oxygen Delivery Method Room Air Room Air BMI result Body Mass Index 38.5 Labs 05/02/23 07:37 Labs: Laboratory Results - last 48 hr 05/02/23 07:37 Creatinine 0.91 Estim Creat Clear Calc 66.6 Estimated GFR > 60 Medications Medications Current Medications Acetaminophen (Acetaminophen 325 Mg Tablet) 650 mg PO Q6H PRN PRN Reason: Headache/Pain Mild Scale (1-3) Last Admin: 05/02/23 08:57 Dose: 650 mg Al Hydroxide/Mg Hydroxide (Magnesium Hydrox/Alum Hydrox 30 Ml Oral.Susp) 30 ml PO Q6H PRN PRN Reason: Heartburn/Nausea Albuterol Sulfate (Albuterol Sulfate 90 Mcg 8 Gm Inhaler) 2 puff INHALE Q4H PRN PRN Reason: Respiratory Distress Allopurinol (Allopurinol 100 Mg Tablet) 100 mg PO DAILY [facility] Last Admin: 05/03/23 09:09 Dose: 100 mg Atorvastatin Calcium (Atorvastatin Calcium 80 Mg Tablet) 80 mg PO DAILY [facility] Last Admin: 05/03/23 09:09 Dose: 80 mg Clopidogrel Bisulfate (Clopidogrel Bisulfate 75 Mg Tablet) 75 mg PO DAILY [facility] Last Admin: 05/03/23 09:08 Dose: 75 mg Clotrimazole (Clotrimazole 1 % Cream 15 Gm Tube) 1 appl TOPICAL BID [facility]; Protocol Last Admin: 05/03/23 11:31 Dose: Not Given Cyanocobalamin (Cyanocobalamin (Vitamin B-12) 500 Mcg Tablet) 500 mcg PO DAILY [facility] Last Admin: 05/03/23 09:09 Dose: 500 mcg Divalproex Sodium (Divalproex Sodium Sprinkles 125 Mg Cap.) 250 mg PO BID [facility] Last Admin: 05/03/23 09:07 Dose: 250 mg Duloxetine HCl (Duloxetine Hcl 60 Mg Capsule.Dr) 60 mg PO DAILY [facility] Last Admin: 05/03/23 09:06 Dose: 60 mg Ezetimibe (Ezetimibe 10 Mg Tablet) 10 mg PO DAILY [facility] Last Admin: 05/03/23 09:09 Dose: 10 mg Ergocalciferol (Ergocalciferol (Vitamin D2) 1,250 Mcg Capsule) 2,500 mcg PO Fr [facility] Last Admin: 05/03/23 09:16 Dose: 2,500 mcg Folic Acid (Folic Acid 1 Mg Tablet) 1 mg PO DAILY [facility] Last Admin: 05/03/23 09:08 Dose: 1 mg Gabapentin (Gabapentin 300 Mg Capsule) 600 mg PO BID [facility] Last Admin: 05/03/23 09:06 Dose: 600 mg Hydroxyzine HCl (Hydroxyzine Hcl 25 Mg Tablet) 25 mg PO Q6H PRN PRN Reason: Anxiety Last Admin: 05/01/23 08:52 Dose: 25 mg Lidocaine (Lidocaine 4 % Patch Adh..Patch) 1 patch TRANSDERMA DAILY [facility]; Protocol Last Admin: 05/03/23 09:04 Dose: 1 patch Lisinopril (Lisinopril 10 Mg Tablet) 30 mg PO DAILY [facility]; Protocol Last Admin: 05/03/23 09:07 Dose: 30 mg Magnesium Hydroxide (Milk Of Magnesia 30 Ml Oral.Susp) 30 ml PO DAILY PRN PRN Reason: Constipation Last Admin: 04/16/23 14:58 Dose: 30 ml Magnesium Oxide (Magnesium Oxide 400 Mg Tablet) 400 mg PO DAILY [facility] Last Admin: 05/03/23 09:08 Dose: 400 mg Metformin HCl (Metformin Hcl 1,000 Mg Tablet) 1,000 mg PO BID [facility] Last Admin: 05/03/23 09:08 Dose: 1,000 mg Nicotine Polacrilex (Nicotine Polacrilex 2 Mg Gum) 2 mg BUCCAL Q2H PRN PRN Reason: Nicotine Cravings Oxybutynin Chloride (Oxybutynin Chloride Er 5 Mg Tab.Er.24) 10 mg PO BEDTIME [facility] Last Admin: 05/02/23 20:29 Dose: 10 mg Oxycodone HCl (Oxycodone Hcl Immed Release 5 Mg Tablet) 5 mg PO Q8H PRN PRN Reason: Pain, Severe (Pain Scale 7-10) Last Admin: 05/02/23 08:57 Dose: 5 mg Pharmacy Consult (Consult Rx Perform Med Rec) 1 each MISCELLANE ONCE PRN PRN Reason: Consult order Risperidone (Risperidone 1 Mg Tablet) 1 mg PO DAILY [facility] Last Admin: 05/03/23 09:09 Dose: 1 mg Risperidone (Risperidone 2 Mg Tablet) 2 mg PO BEDTIME [facility] Last Admin: 05/02/23 20:29 Dose: 2 mg Trazodone HCl (Trazodone Hcl 50 Mg Tablet) 50 mg PO BEDTIME PRN PRN Reason: Insomnia Last Admin: 04/27/23 23:39 Dose: 50 mg Allergies Allergies Allergy/AdvReac Type Severity Reaction Status Date / Time Penicillins Allergy Intermediate Unknown Verified 04/06/23 20:37 shellfish derived Allergy Intermediate Unknown Verified 04/06/23 20:37 adhesive Allergy Unknown Verified 04/19/23 16:47 black pepper Allergy Unknown Verified 04/19/23 16:47 egg Allergy Unknown Verified 04/19/23 16:47 latex Allergy Unknown Verified 04/19/23 16:47 rice Allergy Unknown Verified 04/19/23 16:47 Thiazides Allergy Unknown Verified 04/19/23 16:47 chlorpromazine AdvReac Intermediate Unknown Verified 04/06/23 20:37 [From Thorazine] Assessment & Plan Assessment & Plan (1) Major neurocognitive disorder due to multiple etiologies, with psychotic disturbance: Status: Acute Code(s): F02.82 - Dementia in other diseases classified elsewhere, unspecified severity, with psychotic disturbance Plan 72 year old female with history insulin dependent type 2 diabetes, htn, fibromyalgia, asthma/copd overlap, CAD, ADRIANA, GERD, obesity hypoventilation syndrome, seizure like activity without diagnosis of epilepsy, hx lucunar infarct, hld, and chronic abdominal pain who is a current everyday smoker admitted to psychiatry with consult placed to hospitalist service for medical H&P. #Mood disorder/dementia -plan per psychiatry #Fibromygia/chronic pain syndrome -continue duloxetine. Pt alert and awake on exam -continue oxycodone #CAD/HLD -no chest pain. Boyd EKG reassuring with NSR, rate 93, nonspecific st wave abnormality, no edith or deperessions -continue plavix, statin, zetia #Insulin dependent type 2 diabetes -poc glucose -diabetic diet -Continue metformin, humalog on sliding scale #Urinary incontinence/urgency -continue methenamine -UA normal #HTN -reasonably controlled -continue lisinopril #Asthma/copd overlap -Continue home inhalers, albuterol prn #ADRIANA -continue cpap if used at home. Consult RT Psych: 04/08 continue current medications. VS 132/85, HR 113, O2sat 94 on RA. continue to monitor oversedation respiratory suppression. 04/09 continue tx. 04/10 continue tx. 04/11 continue tx. 04/12 continue treatment 04/13: Continue current regimen and plans 04/14: Continue current plans and regimen 04/15 Lisinopril increase to 30mg po daily due to SBP 170-180. continue all other medications. 04/16 continue current medications.BP 148/78, HR 85, RR 18, o2sat 97 RA. 04/17 start low dose depakote 250mg po BID- monitor day time sedation in combination with other meds. 04/18 continue tx. 04/19 start lidocane patch for back pain. 04/20: stable presentation. no change in mgmt. 04/21: stable presentation. restart oxycodone 5 mg Q8H PRN, as it had fallen off. 04/22 continue tx. 04/23: continue tx. 04/24 continue tx. awaiting placement.will check depakote level and ammonia tomorrow morning. 04/25 continue tx. 04/26 continue tx. 04/28/2023: no changes 04/29 continue tx. awaiting placement. 04/30 continue tx. VS stable. 05/01 continue tx. 05/02 continue tx. 05/03 continue tx. check depakote and ammonia. Reason for continued inpatient stay Substantial Risk for: inability to function Time Spent With Patient Time: Total time managing care of this patient today ____ minutes.
[2023-05-03] MEDS: Acetaminophen 325 MG TABLET 650 MG PO (16:04)
[2023-05-03 18:00] VITALS: BP 111/72; PULSE 100; RESP 16; TEMP 36.2; O2SAT 95
[2023-05-03] MEDS: oxyBUTYnin chloride ER 5 MG TAB.ER.24 10 MG PO (21:10)
[2023-05-03] MEDS: risperiDONE 2 MG TABLET PO (21:17)
[2023-05-04 06:00] VITALS: BP 148/63; PULSE 86; RESP 20; TEMP 36.4; O2SAT 92
[2023-05-04] MEDS: Cyanocobalamin (Vitamin B-12) 500 MCG TABLET PO (09:19)
[2023-05-04] MEDS: Atorvastatin Calcium 80 MG TABLET PO (09:20)
[2023-05-04] MEDS: risperiDONE 1 MG TABLET PO (09:20)
[2023-05-04] MEDS: allopurinoL 100 MG TABLET PO (09:21)
[2023-05-04] MEDS: lisinopriL 10 MG TABLET 30 MG PO (09:22)
[2023-05-04] MEDS: Gabapentin 300 MG CAPSULE 600 MG PO ×2 (09:23→20:53)
[2023-05-04] MEDS: Divalproex Sodium Sprinkles 125 MG CAP.DR.SPR 250 MG PO ×2 (09:23→20:54)
[2023-05-04] MEDS: Ezetimibe 10 MG TABLET PO (09:24)
[2023-05-04] MEDS: DULoxetine HCl 60 MG CAPSULE.DR PO (09:24)
[2023-05-04] MEDS: metFORMIN HCl 1,000 MG TABLET 1000 MG PO ×2 (09:24→20:54)
[2023-05-04] MEDS: Magnesium Oxide 400 MG TABLET PO (09:25)
[2023-05-04] MEDS: Clopidogrel Bisulfate 75 MG TABLET PO (09:25)
[2023-05-04] MEDS: Folic Acid 1 MG TABLET PO (09:25)
--- NOTE | 2023-05-04 11:00 | HO.PSYCHPN ---
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 states she does not wish to continue on lidocaine patch or clotrimazole cream. per staff, c/o LBP 06/06. oxycodone for back pain. denies dep/anx. sleeping much. Mental Status Exam Mental Status Exam Narrative: Appearance: wearing regular clothing, fair hygiene Behavior: cooperative Psychomotor: no PMA/PMR Speech: clear, regular rhythm, spontaneous TP: tangential at times TC: doesn't want to continue 2 meds Mood: not assessed Affect: congruent, not labile SI: none expressed HI: none expressed VH/AH: none expressed Delusions: no overt delusions Insight/judgment: fair x 2. Memory/cog: alert, oriented to place, month, some difficulty with situation Diagnostics Vital Signs (24Hr): Vital Signs - 24 hr 05/03/23 18:00 05/04/23 06:00 Temperature 97.1 F 97.5 F Pulse Rate 100 86 Respiratory Rate 16 20 Blood Pressure 111/72 148/63 H Pulse Oximetry 95 92 Oxygen Delivery Method Room Air Room Air BMI result Body Mass Index 38.5 Labs 05/02/23 07:37 Medications Medications Current Medications Acetaminophen (Acetaminophen 325 Mg Tablet) 650 mg PO Q6H PRN PRN Reason: Headache/Pain Mild Scale (1-3) Last Admin: 05/03/23 16:04 Dose: 650 mg Al Hydroxide/Mg Hydroxide (Magnesium Hydrox/Alum Hydrox 30 Ml Oral.Susp) 30 ml PO Q6H PRN PRN Reason: Heartburn/Nausea Albuterol Sulfate (Albuterol Sulfate 90 Mcg 8 Gm Inhaler) 2 puff INHALE Q4H PRN PRN Reason: Respiratory Distress Allopurinol (Allopurinol 100 Mg Tablet) 100 mg PO DAILY [facility] Last Admin: 05/04/23 09:21 Dose: 100 mg Atorvastatin Calcium (Atorvastatin Calcium 80 Mg Tablet) 80 mg PO DAILY [facility] Last Admin: 05/04/23 09:20 Dose: 80 mg Clopidogrel Bisulfate (Clopidogrel Bisulfate 75 Mg Tablet) 75 mg PO DAILY [facility] Last Admin: 05/04/23 09:25 Dose: 75 mg Clotrimazole (Clotrimazole 1 % Cream 15 Gm Tube) 1 appl TOPICAL BID [facility]; Protocol Last Admin: 05/04/23 09:26 Dose: Not Given Cyanocobalamin (Cyanocobalamin (Vitamin B-12) 500 Mcg Tablet) 500 mcg PO DAILY [facility] Last Admin: 05/04/23 09:19 Dose: 500 mcg Divalproex Sodium (Divalproex Sodium Sprinkles 125 Mg Cap.) 250 mg PO BID [facility] Last Admin: 05/04/23 09:23 Dose: 250 mg Duloxetine HCl (Duloxetine Hcl 60 Mg Capsule.Dr) 60 mg PO DAILY [facility] Last Admin: 05/04/23 09:24 Dose: 60 mg Ezetimibe (Ezetimibe 10 Mg Tablet) 10 mg PO DAILY [facility] Last Admin: 05/04/23 09:24 Dose: 10 mg Ergocalciferol (Ergocalciferol (Vitamin D2) 1,250 Mcg Capsule) 2,500 mcg PO Fr [facility] Last Admin: 05/03/23 09:16 Dose: 2,500 mcg Folic Acid (Folic Acid 1 Mg Tablet) 1 mg PO DAILY [facility] Last Admin: 05/04/23 09:25 Dose: 1 mg Gabapentin (Gabapentin 300 Mg Capsule) 600 mg PO BID [facility] Last Admin: 05/04/23 09:23 Dose: 600 mg Hydroxyzine HCl (Hydroxyzine Hcl 25 Mg Tablet) 25 mg PO Q6H PRN PRN Reason: Anxiety Last Admin: 05/01/23 08:52 Dose: 25 mg Lidocaine (Lidocaine 4 % Patch Adh..Patch) 1 patch TRANSDERMA DAILY [facility]; Protocol Last Admin: 05/04/23 10:15 Dose: Not Given Lisinopril (Lisinopril 10 Mg Tablet) 30 mg PO DAILY [facility]; Protocol Last Admin: 05/04/23 09:22 Dose: 30 mg Magnesium Hydroxide (Milk Of Magnesia 30 Ml Oral.Susp) 30 ml PO DAILY PRN PRN Reason: Constipation Last Admin: 04/16/23 14:58 Dose: 30 ml Magnesium Oxide (Magnesium Oxide 400 Mg Tablet) 400 mg PO DAILY [facility] Last Admin: 05/04/23 09:25 Dose: 400 mg Metformin HCl (Metformin Hcl 1,000 Mg Tablet) 1,000 mg PO BID [facility] Last Admin: 05/04/23 09:24 Dose: 1,000 mg Nicotine Polacrilex (Nicotine Polacrilex 2 Mg Gum) 2 mg BUCCAL Q2H PRN PRN Reason: Nicotine Cravings Oxybutynin Chloride (Oxybutynin Chloride Er 5 Mg Tab.Er.24) 10 mg PO BEDTIME [facility] Last Admin: 05/03/23 21:10 Dose: 10 mg Oxycodone HCl (Oxycodone Hcl Immed Release 5 Mg Tablet) 5 mg PO Q8H PRN PRN Reason: Pain, Severe (Pain Scale 7-10) Last Admin: 05/04/23 09:21 Dose: 5 mg Pharmacy Consult (Consult Rx Perform Med Rec) 1 each MISCELLANE ONCE PRN PRN Reason: Consult order Risperidone (Risperidone 1 Mg Tablet) 1 mg PO DAILY [facility] Last Admin: 05/04/23 09:20 Dose: 1 mg Risperidone (Risperidone 2 Mg Tablet) 2 mg PO BEDTIME [facility] Last Admin: 05/03/23 21:17 Dose: 2 mg Trazodone HCl (Trazodone Hcl 50 Mg Tablet) 50 mg PO BEDTIME PRN PRN Reason: Insomnia Last Admin: 04/27/23 23:39 Dose: 50 mg Allergies Allergies Allergy/AdvReac Type Severity Reaction Status Date / Time Penicillins Allergy Intermediate Unknown Verified 04/06/23 20:37 shellfish derived Allergy Intermediate Unknown Verified 04/06/23 20:37 adhesive Allergy Unknown Verified 04/19/23 16:47 black pepper Allergy Unknown Verified 04/19/23 16:47 egg Allergy Unknown Verified 04/19/23 16:47 latex Allergy Unknown Verified 04/19/23 16:47 rice Allergy Unknown Verified 04/19/23 16:47 Thiazides Allergy Unknown Verified 04/19/23 16:47 chlorpromazine AdvReac Intermediate Unknown Verified 04/06/23 20:37 [From Thorazine] Assessment & Plan Assessment & Plan (1) Major neurocognitive disorder due to multiple etiologies, with psychotic disturbance: Status: Acute Code(s): F02.82 - Dementia in other diseases classified elsewhere, unspecified severity, with psychotic disturbance Plan 72 year old female with history insulin dependent type 2 diabetes, htn, fibromyalgia, asthma/copd overlap, CAD, ADRIANA, GERD, obesity hypoventilation syndrome, seizure like activity without diagnosis of epilepsy, hx lucunar infarct, hld, and chronic abdominal pain who is a current everyday smoker admitted to psychiatry with consult placed to hospitalist service for medical H&P. #Mood disorder/dementia -plan per psychiatry #Fibromygia/chronic pain syndrome -continue duloxetine. Pt alert and awake on exam -continue oxycodone #CAD/HLD -no chest pain. Boyd EKG reassuring with NSR, rate 93, nonspecific st wave abnormality, no edith or deperessions -continue plavix, statin, zetia #Insulin dependent type 2 diabetes -poc glucose -diabetic diet -Continue metformin, humalog on sliding scale #Urinary incontinence/urgency -continue methenamine -UA normal #HTN -reasonably controlled -continue lisinopril #Asthma/copd overlap -Continue home inhalers, albuterol prn #ADRIANA -continue cpap if used at home. Consult RT Psych: 04/08 continue current medications. VS 132/85, HR 113, O2sat 94 on RA. continue to monitor oversedation respiratory suppression. 04/09 continue tx. 04/10 continue tx. 04/11 continue tx. 04/12 continue treatment 04/13: Continue current regimen and plans 04/14: Continue current plans and regimen 04/15 Lisinopril increase to 30mg po daily due to SBP 170-180. continue all other medications. 04/16 continue current medications.BP 148/78, HR 85, RR 18, o2sat 97 RA. 04/17 start low dose depakote 250mg po BID- monitor day time sedation in combination with other meds. 04/18 continue tx. 04/19 start lidocane patch for back pain. 04/20: stable presentation. no change in mgmt. 04/21: stable presentation. restart oxycodone 5 mg Q8H PRN, as it had fallen off. 04/22 continue tx. 04/23: continue tx. 04/24 continue tx. awaiting placement.will check depakote level and ammonia tomorrow morning. 04/25 continue tx. 04/26 continue tx. 04/28/2023: no changes 04/29 continue tx. awaiting placement. 04/30 continue tx. VS stable. 05/01 continue tx. 05/02 continue tx. 05/03 continue tx. check depakote and ammonia. 05/04: stable presentation. no labs ordered in the past 24H. continue current mgmt for now. Reason for continued inpatient stay Substantial Risk for: inability to function and rapid decompensation Time Spent With Patient Time: Total time managing care of this patient today ____ minutes.
--- NOTE | 2023-05-04 17:48 | PC.NURSE ---
Addendum entered by Minh Haro RN 05/04/23 17:52: Refused lidocaine patch and refused clotrimazole, notified. Original Note: Assumed care at 07:00, patient alert/easily arousable to voice, Oriented to person and place. Reports back pain 06/06, administered oxycodone with good effect. Patient ambulated to and [facility] with steady gait. [place]. Limited assessments due to patient being slighty withdrawn/quiet. Able to voice needs. Patient ate all meals and requested extra food. Outside in sunshine for approximately 15 minutes.
[2023-05-04 18:00] VITALS: BP 125/58; PULSE 96; RESP 18; TEMP 36.6; O2SAT 94
[2023-05-04] MEDS: risperiDONE 2 MG TABLET PO (20:53)
[2023-05-04] MEDS: traZODone HCL 50 MG TABLET PO (20:54)
[2023-05-04] MEDS: oxyBUTYnin chloride ER 5 MG TAB.ER.24 10 MG PO (20:54)
[2023-05-04] MEDS: oxyCODONE HCl Immed Release 5 MG TABLET PO (22:54)
[2023-05-05 06:00] VITALS: BP 138/65; PULSE 102; RESP 20; TEMP 36.1; O2SAT 90
[2023-05-05] MEDS: Folic Acid 1 MG TABLET PO (10:47)
[2023-05-05] MEDS: Ezetimibe 10 MG TABLET PO (10:47)
[2023-05-05] MEDS: Divalproex Sodium Sprinkles 125 MG CAP.DR.SPR 250 MG PO ×2 (10:47→20:27)
[2023-05-05] MEDS: lisinopriL 10 MG TABLET 30 MG PO (10:47)
[2023-05-05] MEDS: Gabapentin 300 MG CAPSULE 600 MG PO ×2 (10:47→20:29)
[2023-05-05] MEDS: DULoxetine HCl 60 MG CAPSULE.DR PO (10:47)
[2023-05-05] MEDS: Cyanocobalamin (Vitamin B-12) 500 MCG TABLET PO (10:48)
[2023-05-05] MEDS: allopurinoL 100 MG TABLET PO (10:48)
[2023-05-05] MEDS: metFORMIN HCl 1,000 MG TABLET 1000 MG PO ×2 (10:48→20:27)
[2023-05-05] MEDS: Magnesium Oxide 400 MG TABLET PO (10:48)
[2023-05-05] MEDS: Atorvastatin Calcium 80 MG TABLET PO (10:48)
[2023-05-05] MEDS: risperiDONE 1 MG TABLET PO (10:48)
[2023-05-05] MEDS: Clopidogrel Bisulfate 75 MG TABLET PO (10:48)
--- NOTE | 2023-05-05 11:32 | HO.PSYCHPN ---
Subjective Subjective Date of Service: 05/05/23 Reason For Visit: SI Interim History: sleeping today, not rousable to loud voice. per staff, nervous. denied depression. flat affect. no concerning behaviors. Mental Status Exam Mental Status Exam Narrative: sleeping soundly in her bed, adequately dressed and groomed. Diagnostics Vital Signs (24Hr): Vital Signs - 24 hr 05/04/23 18:00 05/05/23 06:00 Temperature 97.8 F 96.9 F Pulse Rate 96 102 H Respiratory Rate 18 20 Blood Pressure 125/58 L 138/65 Pulse Oximetry 94 90 L Oxygen Delivery Method Room Air Room Air BMI result Body Mass Index 38.5 Labs 05/02/23 07:37 Medications Medications Current Medications Acetaminophen (Acetaminophen 325 Mg Tablet) 650 mg PO Q6H PRN PRN Reason: Headache/Pain Mild Scale (1-3) Last Admin: 05/03/23 16:04 Dose: 650 mg Al Hydroxide/Mg Hydroxide (Magnesium Hydrox/Alum Hydrox 30 Ml Oral.Susp) 30 ml PO Q6H PRN PRN Reason: Heartburn/Nausea Albuterol Sulfate (Albuterol Sulfate 90 Mcg 8 Gm Inhaler) 2 puff INHALE Q4H PRN PRN Reason: Respiratory Distress Allopurinol (Allopurinol 100 Mg Tablet) 100 mg PO DAILY [facility] Last Admin: 05/05/23 10:48 Dose: 100 mg Atorvastatin Calcium (Atorvastatin Calcium 80 Mg Tablet) 80 mg PO DAILY [facility] Last Admin: 05/05/23 10:48 Dose: 80 mg Clopidogrel Bisulfate (Clopidogrel Bisulfate 75 Mg Tablet) 75 mg PO DAILY [facility] Last Admin: 05/05/23 10:48 Dose: 75 mg Cyanocobalamin (Cyanocobalamin (Vitamin B-12) 500 Mcg Tablet) 500 mcg PO DAILY [facility] Last Admin: 05/05/23 10:48 Dose: 500 mcg Divalproex Sodium (Divalproex Sodium Sprinkles 125 Mg Cap.) 250 mg PO BID [facility] Last Admin: 05/05/23 10:47 Dose: 250 mg Duloxetine HCl (Duloxetine Hcl 60 Mg Capsule.Dr) 60 mg PO DAILY [facility] Last Admin: 05/05/23 10:47 Dose: 60 mg Ezetimibe (Ezetimibe 10 Mg Tablet) 10 mg PO DAILY [facility] Last Admin: 05/05/23 10:47 Dose: 10 mg Ergocalciferol (Ergocalciferol (Vitamin D2) 1,250 Mcg Capsule) 2,500 mcg PO Fr [facility] Last Admin: 05/03/23 09:16 Dose: 2,500 mcg Folic Acid (Folic Acid 1 Mg Tablet) 1 mg PO DAILY [facility] Last Admin: 05/05/23 10:47 Dose: 1 mg Gabapentin (Gabapentin 300 Mg Capsule) 600 mg PO BID [facility] Last Admin: 05/05/23 10:47 Dose: 600 mg Hydroxyzine HCl (Hydroxyzine Hcl 25 Mg Tablet) 25 mg PO Q6H PRN PRN Reason: Anxiety Last Admin: 05/01/23 08:52 Dose: 25 mg Lisinopril (Lisinopril 10 Mg Tablet) 30 mg PO DAILY [facility]; Protocol Last Admin: 05/05/23 10:47 Dose: 30 mg Magnesium Hydroxide (Milk Of Magnesia 30 Ml Oral.Susp) 30 ml PO DAILY PRN PRN Reason: Constipation Last Admin: 04/16/23 14:58 Dose: 30 ml Magnesium Oxide (Magnesium Oxide 400 Mg Tablet) 400 mg PO DAILY [facility] Last Admin: 05/05/23 10:48 Dose: 400 mg Metformin HCl (Metformin Hcl 1,000 Mg Tablet) 1,000 mg PO BID [facility] Last Admin: 05/05/23 10:48 Dose: 1,000 mg Nicotine Polacrilex (Nicotine Polacrilex 2 Mg Gum) 2 mg BUCCAL Q2H PRN PRN Reason: Nicotine Cravings Oxybutynin Chloride (Oxybutynin Chloride Er 5 Mg Tab.Er.24) 10 mg PO BEDTIME [facility] Last Admin: 05/04/23 20:54 Dose: 10 mg Oxycodone HCl (Oxycodone Hcl Immed Release 5 Mg Tablet) 5 mg PO Q8H PRN PRN Reason: severe pain Last Admin: 05/04/23 22:54 Dose: 5 mg Pharmacy Consult (Consult Rx Perform Med Rec) 1 each MISCELLANE ONCE PRN PRN Reason: Consult order Risperidone (Risperidone 1 Mg Tablet) 1 mg PO DAILY [facility] Last Admin: 05/05/23 10:48 Dose: 1 mg Risperidone (Risperidone 2 Mg Tablet) 2 mg PO BEDTIME [facility] Last Admin: 05/04/23 20:53 Dose: 2 mg Trazodone HCl (Trazodone Hcl 50 Mg Tablet) 50 mg PO BEDTIME PRN PRN Reason: Insomnia Last Admin: 05/04/23 20:54 Dose: 50 mg Allergies Allergies Allergy/AdvReac Type Severity Reaction Status Date / Time Penicillins Allergy Intermediate Unknown Verified 04/06/23 20:37 shellfish derived Allergy Intermediate Unknown Verified 04/06/23 20:37 adhesive Allergy Unknown Verified 04/19/23 16:47 black pepper Allergy Unknown Verified 04/19/23 16:47 egg Allergy Unknown Verified 04/19/23 16:47 latex Allergy Unknown Verified 04/19/23 16:47 rice Allergy Unknown Verified 04/19/23 16:47 Thiazides Allergy Unknown Verified 04/19/23 16:47 chlorpromazine AdvReac Intermediate Unknown Verified 04/06/23 20:37 [From Thorazine] Assessment & Plan Assessment & Plan (1) Major neurocognitive disorder due to multiple etiologies, with psychotic disturbance: Status: Acute Code(s): F02.82 - Dementia in other diseases classified elsewhere, unspecified severity, with psychotic disturbance Plan 72 year old female with history insulin dependent type 2 diabetes, htn, fibromyalgia, asthma/copd overlap, CAD, ADRIANA, GERD, obesity hypoventilation syndrome, seizure like activity without diagnosis of epilepsy, hx lucunar infarct, hld, and chronic abdominal pain who is a current everyday smoker admitted to psychiatry with consult placed to hospitalist service for medical H&P. #Mood disorder/dementia -plan per psychiatry #Fibromygia/chronic pain syndrome -continue duloxetine. Pt alert and awake on exam -continue oxycodone #CAD/HLD -no chest pain. Boyd EKG reassuring with NSR, rate 93, nonspecific st wave abnormality, no edith or deperessions -continue plavix, statin, zetia #Insulin dependent type 2 diabetes -poc glucose -diabetic diet -Continue metformin, humalog on sliding scale #Urinary incontinence/urgency -continue methenamine -UA normal #HTN -reasonably controlled -continue lisinopril #Asthma/copd overlap -Continue home inhalers, albuterol prn #ADRIANA -continue cpap if used at home. Consult RT Psych: 04/08 continue current medications. VS 132/85, HR 113, O2sat 94 on RA. continue to monitor oversedation respiratory suppression. 04/09 continue tx. 04/10 continue tx. 04/11 continue tx. 04/12 continue treatment 04/13: Continue current regimen and plans 04/14: Continue current plans and regimen 04/15 Lisinopril increase to 30mg po daily due to SBP 170-180. continue all other medications. 04/16 continue current medications.BP 148/78, HR 85, RR 18, o2sat 97 RA. 04/17 start low dose depakote 250mg po BID- monitor day time sedation in combination with other meds. 04/18 continue tx. 04/19 start lidocane patch for back pain. 04/20: stable presentation. no change in mgmt. 04/21: stable presentation. restart oxycodone 5 mg Q8H PRN, as it had fallen off. 04/22 continue tx. 04/23: continue tx. 04/24 continue tx. awaiting placement.will check depakote level and ammonia tomorrow morning. 04/25 continue tx. 04/26 continue tx. 04/28/2023: no changes 04/29 continue tx. awaiting placement. 04/30 continue tx. VS stable. 05/01 continue tx. 05/02 continue tx. 05/03 continue tx. check depakote and ammonia. 05/04: stable presentation. no labs ordered in the past 24H. continue current mgmt for now. 05/05: sleeping late morning. no concerning behaviors overnight. continue current mgmt. Reason for continued inpatient stay Substantial Risk for: inability to function and rapid decompensation Time Spent With Patient Time: Total time managing care of this patient today ____ minutes.
[2023-05-05 18:00] VITALS: BP 155/52; PULSE 77; RESP 18; TEMP 36.7; O2SAT 97
--- NOTE | 2023-05-05 19:15 | PC.NURSE ---
Addendum entered by Minh Haro RN 05/05/23 19:18: Napping today and slept in late. Original Note: Assumed care at 07:00, patient alert/easily arousable to voice, O to person and place. Denied pain. Ambulated to BR with steady gait and socializing in the milieu. [place]. Limited assessments due to patient being slighty withdrawn/quiet. Able to voice needs. Med/meal compliant, pleasant. Forgets whether she ate or not. Brief 2-5 word answers to questions, limited assessment. Showered today with staff
[2023-05-05] MEDS: risperiDONE 2 MG TABLET PO (20:27)
[2023-05-05] MEDS: oxyBUTYnin chloride ER 5 MG TAB.ER.24 10 MG PO (20:28)
[2023-05-06 07:59] VITALS: BP 157/75; PULSE 97; RESP 18; TEMP 36.1; O2SAT 95
[2023-05-06] MEDS: DULoxetine HCl 60 MG CAPSULE.DR PO (10:20)
[2023-05-06] MEDS: allopurinoL 100 MG TABLET PO (10:20)
[2023-05-06] MEDS: Magnesium Oxide 400 MG TABLET PO (10:20)
[2023-05-06] MEDS: metFORMIN HCl 1,000 MG TABLET 1000 MG PO ×2 (10:20→20:36)
[2023-05-06] MEDS: Atorvastatin Calcium 80 MG TABLET PO (10:20)
[2023-05-06] MEDS: lisinopriL 10 MG TABLET 30 MG PO (10:20)
[2023-05-06] MEDS: Gabapentin 300 MG CAPSULE 600 MG PO ×2 (10:20→20:37)
[2023-05-06] MEDS: Acetaminophen 325 MG TABLET 650 MG PO (10:21)
[2023-05-06] MEDS: Clopidogrel Bisulfate 75 MG TABLET PO (10:21)
[2023-05-06] MEDS: oxyCODONE HCl Immed Release 5 MG TABLET PO (10:21)
[2023-05-06] MEDS: Divalproex Sodium Sprinkles 125 MG CAP.DR.SPR 250 MG PO ×2 (10:21→20:37)
[2023-05-06] MEDS: Folic Acid 1 MG TABLET PO (10:22)
[2023-05-06] MEDS: risperiDONE 1 MG TABLET PO (10:22)
[2023-05-06] MEDS: hydrOXYzine HCL 25 MG TABLET PO (10:22)
[2023-05-06] MEDS: Ezetimibe 10 MG TABLET PO (10:22)
[2023-05-06] MEDS: Albuterol Sulfate 90 MCG 8 GM INHALER 2 PUFF INHALE (10:23)
[2023-05-06] MEDS: Cyanocobalamin (Vitamin B-12) 500 MCG TABLET PO (10:28)
--- NOTE | 2023-05-06 13:45 | HO.PSYCHPN ---
Subjective Subjective Date of Service: 05/06/23 Reason For Visit: SI Subjective Notes: Conditional Voluntary Interim History: The patient had been common cooperative, Medication compliant. She slept 8 hours. The social service director reported that they will meet with her sister for placement in a [facility] facility. The occupational therapist reported that the patient scored 8/30 on the [place] test and 4 point tune the [place] test. On interview the patient denies new symptoms. Mental Status Exam Mental Status Exam Patient Appearance: Well Grooomed Patient Orientation: Person Level of Consciousness: Awake and Appropriate Patient Behavior: Guarded and Passive Mood Description: Withdrawn Affect Description: Constricted Patient Cognition Impaired: Yes Ability to Follow Directions: Good Speech Pattern: Clear Hallucinations: None Delusions: Not Present Thought Process: Distracted and Slowed Thinking Thought Content: positive for [place] and positive for Poverty of Content Judgement: Fair Diagnostics Vital Signs (24Hr): Vital Signs - 24 hr 05/05/23 18:00 05/06/23 07:59 Temperature 98.0 F 97.0 F Pulse Rate 77 97 Respiratory Rate 18 18 Blood Pressure 155/52 H 157/75 H Pulse Oximetry 97 95 Oxygen Delivery Method Room Air Room Air BMI result Body Mass Index 38.5 Labs 05/02/23 07:37 Medications Medications Current Medications Acetaminophen (Acetaminophen 325 Mg Tablet) 650 mg PO Q6H PRN PRN Reason: Headache/Pain Mild Scale (1-3) Last Admin: 05/06/23 10:21 Dose: 650 mg Al Hydroxide/Mg Hydroxide (Magnesium Hydrox/Alum Hydrox 30 Ml Oral.Susp) 30 ml PO Q6H PRN PRN Reason: Heartburn/Nausea Albuterol Sulfate (Albuterol Sulfate 90 Mcg 8 Gm Inhaler) 2 puff INHALE Q4H PRN PRN Reason: Respiratory Distress Last Admin: 05/06/23 10:23 Dose: 2 puff Allopurinol (Allopurinol 100 Mg Tablet) 100 mg PO DAILY [facility] Last Admin: 05/06/23 10:20 Dose: 100 mg Atorvastatin Calcium (Atorvastatin Calcium 80 Mg Tablet) 80 mg PO DAILY [facility] Last Admin: 05/06/23 10:20 Dose: 80 mg Clopidogrel Bisulfate (Clopidogrel Bisulfate 75 Mg Tablet) 75 mg PO DAILY [facility] Last Admin: 05/06/23 10:21 Dose: 75 mg Cyanocobalamin (Cyanocobalamin (Vitamin B-12) 500 Mcg Tablet) 500 mcg PO DAILY [facility] Last Admin: 05/06/23 10:28 Dose: 500 mcg Divalproex Sodium (Divalproex Sodium Sprinkles 125 Mg Cap.) 250 mg PO BID [facility] Last Admin: 05/06/23 10:21 Dose: 250 mg Duloxetine HCl (Duloxetine Hcl 60 Mg Capsule.Dr) 60 mg PO DAILY [facility] Last Admin: 05/06/23 10:20 Dose: 60 mg Ezetimibe (Ezetimibe 10 Mg Tablet) 10 mg PO DAILY [facility] Last Admin: 05/06/23 10:22 Dose: 10 mg Ergocalciferol (Ergocalciferol (Vitamin D2) 1,250 Mcg Capsule) 2,500 mcg PO Fr [facility] Last Admin: 05/03/23 09:16 Dose: 2,500 mcg Folic Acid (Folic Acid 1 Mg Tablet) 1 mg PO DAILY [facility] Last Admin: 05/06/23 10:22 Dose: 1 mg Gabapentin (Gabapentin 300 Mg Capsule) 600 mg PO BID [facility] Last Admin: 05/06/23 10:20 Dose: 600 mg Hydroxyzine HCl (Hydroxyzine Hcl 25 Mg Tablet) 25 mg PO Q6H PRN PRN Reason: Anxiety Last Admin: 05/06/23 10:22 Dose: 25 mg Lisinopril (Lisinopril 10 Mg Tablet) 30 mg PO DAILY [facility]; Protocol Last Admin: 05/06/23 10:20 Dose: 30 mg Magnesium Hydroxide (Milk Of Magnesia 30 Ml Oral.Susp) 30 ml PO DAILY PRN PRN Reason: Constipation Last Admin: 04/16/23 14:58 Dose: 30 ml Magnesium Oxide (Magnesium Oxide 400 Mg Tablet) 400 mg PO DAILY [facility] Last Admin: 05/06/23 10:20 Dose: 400 mg Metformin HCl (Metformin Hcl 1,000 Mg Tablet) 1,000 mg PO BID [facility] Last Admin: 05/06/23 10:20 Dose: 1,000 mg Nicotine Polacrilex (Nicotine Polacrilex 2 Mg Gum) 2 mg BUCCAL Q2H PRN PRN Reason: Nicotine Cravings Oxybutynin Chloride (Oxybutynin Chloride Er 5 Mg Tab.Er.24) 10 mg PO BEDTIME [facility] Last Admin: 05/05/23 20:28 Dose: 10 mg Oxycodone HCl (Oxycodone Hcl Immed Release 5 Mg Tablet) 5 mg PO Q8H PRN PRN Reason: severe pain Last Admin: 05/06/23 10:21 Dose: 5 mg Pharmacy Consult (Consult Rx Perform Med Rec) 1 each MISCELLANE ONCE PRN PRN Reason: Consult order Risperidone (Risperidone 1 Mg Tablet) 1 mg PO DAILY [facility] Last Admin: 05/06/23 10:22 Dose: 1 mg Risperidone (Risperidone 2 Mg Tablet) 2 mg PO BEDTIME [facility] Last Admin: 05/05/23 20:27 Dose: 2 mg Trazodone HCl (Trazodone Hcl 50 Mg Tablet) 50 mg PO BEDTIME PRN PRN Reason: Insomnia Last Admin: 05/04/23 20:54 Dose: 50 mg Allergies Allergies Allergy/AdvReac Type Severity Reaction Status Date / Time Penicillins Allergy Intermediate Unknown Verified 04/06/23 20:37 shellfish derived Allergy Intermediate Unknown Verified 04/06/23 20:37 adhesive Allergy Unknown Verified 04/19/23 16:47 black pepper Allergy Unknown Verified 04/19/23 16:47 egg Allergy Unknown Verified 04/19/23 16:47 latex Allergy Unknown Verified 04/19/23 16:47 rice Allergy Unknown Verified 04/19/23 16:47 Thiazides Allergy Unknown Verified 04/19/23 16:47 chlorpromazine AdvReac Intermediate Unknown Verified 04/06/23 20:37 [From Thorazine] Assessment & Plan Assessment & Plan (1) Major neurocognitive disorder due to multiple etiologies, with psychotic disturbance: Status: Acute Code(s): F02.82 - Dementia in other diseases classified elsewhere, unspecified severity, with psychotic disturbance Plan 72 year old female with history insulin dependent type 2 diabetes, htn, fibromyalgia, asthma/copd overlap, CAD, ADRIANA, GERD, obesity hypoventilation syndrome, seizure like activity without diagnosis of epilepsy, hx lucunar infarct, hld, and chronic abdominal pain who is a current everyday smoker admitted to psychiatry with consult placed to hospitalist service for medical H&P. #Mood disorder/dementia -plan per psychiatry #Fibromygia/chronic pain syndrome -continue duloxetine. Pt alert and awake on exam -continue oxycodone #CAD/HLD -no chest pain. Boyd EKG reassuring with NSR, rate 93, nonspecific st wave abnormality, no edith or deperessions -continue plavix, statin, zetia #Insulin dependent type 2 diabetes -poc glucose -diabetic diet -Continue metformin, humalog on sliding scale #Urinary incontinence/urgency -continue methenamine -UA normal #HTN -reasonably controlled -continue lisinopril #Asthma/copd overlap -Continue home inhalers, albuterol prn #ADRIANA -continue cpap if used at home. Consult RT Psych: 04/08 continue current medications. VS 132/85, HR 113, O2sat 94 on RA. continue to monitor oversedation respiratory suppression. 04/09 continue tx. 04/10 continue tx. 04/11 continue tx. 04/12 continue treatment 04/13: Continue current regimen and plans 04/14: Continue current plans and regimen 04/15 Lisinopril increase to 30mg po daily due to SBP 170-180. continue all other medications. 04/16 continue current medications.BP 148/78, HR 85, RR 18, o2sat 97 RA. 04/17 start low dose depakote 250mg po BID- monitor day time sedation in combination with other meds. 04/18 continue tx. 04/19 start lidocane patch for back pain. 04/20: stable presentation. no change in mgmt. 04/21: stable presentation. restart oxycodone 5 mg Q8H PRN, as it had fallen off. 04/22 continue tx. 04/23: continue tx. 04/24 continue tx. awaiting placement.will check depakote level and ammonia tomorrow morning. 04/25 continue tx. 04/26 continue tx. 04/28/2023: no changes 04/29 continue tx. awaiting placement. 04/30 continue tx. VS stable. 05/01 continue tx. 05/02 continue tx. 05/03 continue tx. check depakote and ammonia. 05/04: stable presentation. no labs ordered in the past 24H. continue current mgmt for now. 05/05: sleeping late morning. no concerning behaviors overnight. continue current mgmt. May 06 no changes in treatment Reason for continued inpatient stay Substantial Risk for: inability to function, rapid decompensation and med/psych decompensation Time Spent With Patient Time: Total time managing care of this patient today ___20_ minutes.
[2023-05-06 18:00] VITALS: BP 129/60; PULSE 89; RESP 18; TEMP 36.4; O2SAT 95
[2023-05-06] MEDS: risperiDONE 2 MG TABLET PO (20:36)
[2023-05-06] MEDS: oxyBUTYnin chloride ER 5 MG TAB.ER.24 10 MG PO (20:36)
[2023-05-07] MEDS: Acetaminophen 325 MG TABLET 650 MG PO (02:45)
[2023-05-07] MEDS: traZODone HCL 50 MG TABLET PO ×3 (02:45→23:15)
[2023-05-07] MEDS: Divalproex Sodium Sprinkles 125 MG CAP.DR.SPR 250 MG PO ×2 (08:22→20:25)
[2023-05-07] MEDS: Gabapentin 300 MG CAPSULE 600 MG PO ×2 (08:23→20:25)
[2023-05-07] MEDS: DULoxetine HCl 60 MG CAPSULE.DR PO (08:23)
[2023-05-07] MEDS: risperiDONE 1 MG TABLET PO (08:23)
[2023-05-07] MEDS: allopurinoL 100 MG TABLET PO (08:23)
[2023-05-07] MEDS: lisinopriL 10 MG TABLET 30 MG PO (08:24)
[2023-05-07] MEDS: Ezetimibe 10 MG TABLET PO (08:24)
[2023-05-07] MEDS: Clopidogrel Bisulfate 75 MG TABLET PO (08:24)
[2023-05-07] MEDS: Atorvastatin Calcium 80 MG TABLET PO (08:25)
[2023-05-07] MEDS: Magnesium Oxide 400 MG TABLET PO (08:25)
[2023-05-07] MEDS: metFORMIN HCl 1,000 MG TABLET 1000 MG PO ×2 (08:25→20:25)
[2023-05-07] MEDS: Folic Acid 1 MG TABLET PO (08:25)
[2023-05-07 09:04] VITALS: BP 140/88; PULSE 80; RESP 18; TEMP 36.6; O2SAT 96
--- NOTE | 2023-05-07 13:53 | P.PNPSI_ITS ---
Subjective Subjective Date of Service: 05/07/23 Reason For Visit: SI Subjective Notes: Conditional Voluntary Interim History: The nursing staff reported the patient had been compliant with treatment, she remains confused at times. The social service liaison reported that they are waiting for placement she has applied to several facilities. On interview the patient denies new symptoms, I order blood work for tomorrow such as Depakote level ammonia level and LFTs. Mental Status Exam Mental Status Exam Patient Appearance: Well Grooomed Patient Orientation: Person and Situation Level of Consciousness: Awake and Appropriate Patient Behavior: Guarded and Passive Mood Description: Withdrawn Affect Description: Constricted Patient Cognition Impaired: Yes Ability to Follow Directions: Good Speech Pattern: Clear Hallucinations: None Delusions: Not Present Thought Process: Distracted and Slowed Thinking Thought Content: positive for [place] and positive for Poverty of Content Judgement: Fair Diagnostics Vital Signs (24Hr): Vital Signs - 24 hr 05/06/23 18:00 05/07/23 09:04 Temperature 97.6 F 97.9 F Pulse Rate 89 80 Respiratory Rate 18 18 Blood Pressure 129/60 140/88 H Pulse Oximetry 95 96 Oxygen Delivery Method Room Air Room Air BMI result Body Mass Index 38.5 Labs 05/02/23 07:37 Medications Medications Current Medications Acetaminophen (Acetaminophen 325 Mg Tablet) 650 mg PO Q6H PRN PRN Reason: Headache/Pain Mild Scale (1-3) Last Admin: 05/07/23 02:45 Dose: 650 mg Al Hydroxide/Mg Hydroxide (Magnesium Hydrox/Alum Hydrox 30 Ml Oral.Susp) 30 ml PO Q6H PRN PRN Reason: Heartburn/Nausea Albuterol Sulfate (Albuterol Sulfate 90 Mcg 8 Gm Inhaler) 2 puff INHALE Q4H PRN PRN Reason: Respiratory Distress Last Admin: 05/06/23 10:23 Dose: 2 puff Allopurinol (Allopurinol 100 Mg Tablet) 100 mg PO DAILY [facility] Last Admin: 05/07/23 08:23 Dose: 100 mg Atorvastatin Calcium (Atorvastatin Calcium 80 Mg Tablet) 80 mg PO DAILY [facility] Last Admin: 05/07/23 08:25 Dose: 80 mg Clopidogrel Bisulfate (Clopidogrel Bisulfate 75 Mg Tablet) 75 mg PO DAILY [facility] Last Admin: 05/07/23 08:24 Dose: 75 mg Cyanocobalamin (Cyanocobalamin (Vitamin B-12) 500 Mcg Tablet) 500 mcg PO DAILY [facility] Last Admin: 05/07/23 08:26 Dose: Not Given Divalproex Sodium (Divalproex Sodium Sprinkles 125 Mg Cap.) 250 mg PO BID [facility] Last Admin: 05/07/23 08:22 Dose: 250 mg Duloxetine HCl (Duloxetine Hcl 60 Mg Capsule.Dr) 60 mg PO DAILY [facility] Last Admin: 05/07/23 08:23 Dose: 60 mg Ezetimibe (Ezetimibe 10 Mg Tablet) 10 mg PO DAILY [facility] Last Admin: 05/07/23 08:24 Dose: 10 mg Ergocalciferol (Ergocalciferol (Vitamin D2) 1,250 Mcg Capsule) 2,500 mcg PO Fr [facility] Last Admin: 05/03/23 09:16 Dose: 2,500 mcg Folic Acid (Folic Acid 1 Mg Tablet) 1 mg PO DAILY [facility] Last Admin: 05/07/23 08:25 Dose: 1 mg Gabapentin (Gabapentin 300 Mg Capsule) 600 mg PO BID [facility] Last Admin: 05/07/23 08:23 Dose: 600 mg Hydroxyzine HCl (Hydroxyzine Hcl 25 Mg Tablet) 25 mg PO Q6H PRN PRN Reason: Anxiety Last Admin: 05/06/23 10:22 Dose: 25 mg Lisinopril (Lisinopril 10 Mg Tablet) 30 mg PO DAILY [facility]; Protocol Last Admin: 05/07/23 08:24 Dose: 30 mg Magnesium Hydroxide (Milk Of Magnesia 30 Ml Oral.Susp) 30 ml PO DAILY PRN PRN Reason: Constipation Last Admin: 04/16/23 14:58 Dose: 30 ml Magnesium Oxide (Magnesium Oxide 400 Mg Tablet) 400 mg PO DAILY [facility] Last Admin: 05/07/23 08:25 Dose: 400 mg Metformin HCl (Metformin Hcl 1,000 Mg Tablet) 1,000 mg PO BID [facility] Last Admin: 05/07/23 08:25 Dose: 1,000 mg Nicotine Polacrilex (Nicotine Polacrilex 2 Mg Gum) 2 mg BUCCAL Q2H PRN PRN Reason: Nicotine Cravings Oxybutynin Chloride (Oxybutynin Chloride Er 5 Mg Tab.Er.24) 10 mg PO BEDTIME [facility] Last Admin: 05/06/23 20:36 Dose: 10 mg Oxycodone HCl (Oxycodone Hcl Immed Release 5 Mg Tablet) 5 mg PO Q8H PRN PRN Reason: severe pain Last Admin: 05/06/23 10:21 Dose: 5 mg Pharmacy Consult (Consult Rx Perform Med Rec) 1 each MISCELLANE ONCE PRN PRN Reason: Consult order Risperidone (Risperidone 1 Mg Tablet) 1 mg PO DAILY [facility] Last Admin: 05/07/23 08:23 Dose: 1 mg Risperidone (Risperidone 2 Mg Tablet) 2 mg PO BEDTIME [facility] Last Admin: 05/06/23 20:36 Dose: 2 mg Trazodone HCl (Trazodone Hcl 50 Mg Tablet) 50 mg PO BEDTIME PRN PRN Reason: Insomnia Last Admin: 05/07/23 02:45 Dose: 50 mg Allergies Allergies Allergy/AdvReac Type Severity Reaction Status Date / Time Penicillins Allergy Intermediate Unknown Verified 04/06/23 20:37 shellfish derived Allergy Intermediate Unknown Verified 04/06/23 20:37 adhesive Allergy Unknown Verified 04/19/23 16:47 black pepper Allergy Unknown Verified 04/19/23 16:47 egg Allergy Unknown Verified 04/19/23 16:47 latex Allergy Unknown Verified 04/19/23 16:47 rice Allergy Unknown Verified 04/19/23 16:47 Thiazides Allergy Unknown Verified 04/19/23 16:47 chlorpromazine AdvReac Intermediate Unknown Verified 04/06/23 20:37 [From Thorazine] Assessment & Plan Assessment & Plan (1) Major neurocognitive disorder due to multiple etiologies, with psychotic disturbance: Status: Acute Code(s): F02.82 - Dementia in other diseases classified elsewhere, unspecified severity, with psychotic disturbance Plan 72 year old female with history insulin dependent type 2 diabetes, htn, fibromyalgia, asthma/copd overlap, CAD, ADRIANA, GERD, obesity hypoventilation syndrome, seizure like activity without diagnosis of epilepsy, hx lucunar infarct, hld, and chronic abdominal pain who is a current everyday smoker admitted to psychiatry with consult placed to hospitalist service for medical H&P. #Mood disorder/dementia -plan per psychiatry #Fibromygia/chronic pain syndrome -continue duloxetine. Pt alert and awake on exam -continue oxycodone #CAD/HLD -no chest pain. [facility] EKG reassuring with NSR, rate 93, nonspecific st wave abnormality, no edith or deperessions -continue plavix, statin, zetia #Insulin dependent type 2 diabetes -poc glucose -diabetic diet -Continue metformin, humalog on sliding scale #Urinary incontinence/urgency -continue methenamine -UA normal #HTN -reasonably controlled -continue lisinopril #Asthma/copd overlap -Continue home inhalers, albuterol prn #ADRIANA -continue cpap if used at home. Consult RT Psych: 04/08 continue current medications. VS 132/85, HR 113, O2sat 94 on RA. continue to monitor oversedation respiratory suppression. 04/09 continue tx. 04/10 continue tx. 04/11 continue tx. 04/12 continue treatment 04/13: Continue current regimen and plans 04/14: Continue current plans and regimen 04/15 Lisinopril increase to 30mg po daily due to SBP 170-180. continue all other medications. 04/16 continue current medications.BP 148/78, HR 85, RR 18, o2sat 97 RA. 04/17 start low dose depakote 250mg po BID- monitor day time sedation in combination with other meds. 04/18 continue tx. 04/19 start lidocane patch for back pain. 04/20: stable presentation. no change in mgmt. 04/21: stable presentation. restart oxycodone 5 mg Q8H PRN, as it had fallen off. 04/22 continue tx. 04/23: continue tx. 04/24 continue tx. awaiting placement.will check depakote level and ammonia tomorrow morning. 04/25 continue tx. 04/26 continue tx. 04/28/2023: no changes 04/29 continue tx. awaiting placement. 04/30 continue tx. VS stable. 05/01 continue tx. 05/02 continue tx. 05/03 continue tx. check depakote and ammonia. 05/04: stable presentation. no labs ordered in the past 24H. continue current mgmt for now. 05/05: sleeping late morning. no concerning behaviors overnight. continue current mgmt. May 06 no changes in treatment . May 07 blood per for tomorrow with ammonia level, Depakote level and liver function test. Reason for continued inpatient stay Substantial Risk for: inability to function, rapid decompensation and med/psych decompensation Time Spent With Patient Time: Total time managing care of this patient today ____ minutes.
[2023-05-07] MEDS: Albuterol Sulfate 90 MCG 8 GM INHALER 2 PUFF INHALE (14:56)
[2023-05-07 19:56] VITALS: BP 115/54; PULSE 82; RESP 18; TEMP 36.1; O2SAT 95
[2023-05-07] MEDS: risperiDONE 2 MG TABLET PO (20:25)
[2023-05-07] MEDS: oxyBUTYnin chloride ER 5 MG TAB.ER.24 10 MG PO (20:26)
[2023-05-07] MEDS: oxyCODONE HCl Immed Release 5 MG TABLET PO (22:12)
[2023-05-07] MEDS: hydrOXYzine HCL 25 MG TABLET PO (23:15)
[2023-05-08 06:19] LABS: Valproate 41.4 mcg/mL (50.0-100.0)
[2023-05-08 06:21] LABS: Alanine Aminotransferase 7 U/L (0-31); Albumin Level 3.7 g/dL (3.5-5.0); Alkaline Phosphatase 65 U/L (39-117); Aspartate Amino Transferase 9 U/L (5-31); Bilirubin Direct 0.1 mg/dL (0.0-0.5); Bilirubin Total 0.4 mg/dL (0.0-1.0); Total Protein 6.4 g/dL (6.5-8.0)
[2023-05-08 06:33] LABS: Ammonia 30 umol/L (13-55)
[2023-05-08 08:33] VITALS: BP 122/77; PULSE 90; RESP 18; TEMP 36.1; O2SAT 96
[2023-05-08] MEDS: DULoxetine HCl 60 MG CAPSULE.DR PO (08:34)
[2023-05-08] MEDS: Divalproex Sodium Sprinkles 125 MG CAP.DR.SPR 250 MG PO ×3 (08:34→20:44)
[2023-05-08] MEDS: Gabapentin 300 MG CAPSULE 600 MG PO ×2 (08:34→20:44)
[2023-05-08] MEDS: risperiDONE 1 MG TABLET PO (08:35)
[2023-05-08] MEDS: Folic Acid 1 MG TABLET PO (08:35)
[2023-05-08] MEDS: lisinopriL 10 MG TABLET 30 MG PO (08:35)
[2023-05-08] MEDS: Ezetimibe 10 MG TABLET PO (08:35)
[2023-05-08] MEDS: Magnesium Oxide 400 MG TABLET PO (08:36)
[2023-05-08] MEDS: Clopidogrel Bisulfate 75 MG TABLET PO (08:36)
[2023-05-08] MEDS: Atorvastatin Calcium 80 MG TABLET PO (08:36)
[2023-05-08] MEDS: metFORMIN HCl 1,000 MG TABLET 1000 MG PO ×2 (08:36→20:44)
[2023-05-08] MEDS: Cyanocobalamin (Vitamin B-12) 500 MCG TABLET PO (08:36)
[2023-05-08] MEDS: allopurinoL 100 MG TABLET PO (08:36)
--- NOTE | 2023-05-08 10:53 | P.PNPSI_ITS ---
Subjective Subjective Date of Service: 05/08/23 Reason For Visit: SI Subjective Notes: Conditional Voluntary Interim History: The nursing staff reported the patient had been pleasantly confused, she slept 7 hours and she had been compliant with treatment. No changes in her mental status. The social services analyst reported that she was referred to several fpc facilities and a waiting for financial clearance. On interview the patient denies new symptoms, pleasantly confused. Mental Status Exam Mental Status Exam Patient Appearance: Appropriate Patient Orientation: Person Level of Consciousness: Awake and Appropriate Patient Behavior: Guarded and Passive Mood Description: Withdrawn Affect Description: Constricted Patient Cognition Impaired: Yes Ability to Follow Directions: Good Speech Pattern: Appropriate Hallucinations: None Delusions: Paranoid Ideation Thought Process: Intact Thought Content: positive for Disoriented, positive for [place] and positive for Poverty of Content Judgement: Fair Diagnostics Vital Signs (24Hr): Vital Signs - 24 hr 05/07/23 19:56 05/08/23 08:33 Temperature 96.9 F 96.9 F Pulse Rate 82 90 Respiratory Rate 18 18 Blood Pressure 115/54 L 122/77 Pulse Oximetry 95 96 Oxygen Delivery Method Room Air Room Air BMI result Body Mass Index 38.5 Labs 05/02/23 07:37 Labs: Laboratory Results - last 48 hr 05/08/23 05/08/23 05/08/23 05:49 05:49 05:49 Total Bilirubin 0.4 Direct Bilirubin 0.1 AST 9 ALT 7 Alkaline Phosphatase 65 Ammonia 30 Total Protein 6.4 L Albumin 3.7 Valproic Acid 41.4 L Medications Medications Current Medications Acetaminophen (Acetaminophen 325 Mg Tablet) 650 mg PO Q6H PRN PRN Reason: Headache/Pain Mild Scale (1-3) Last Admin: 05/07/23 02:45 Dose: 650 mg Al Hydroxide/Mg Hydroxide (Magnesium Hydrox/Alum Hydrox 30 Ml Oral.Susp) 30 ml PO Q6H PRN PRN Reason: Heartburn/Nausea Albuterol Sulfate (Albuterol Sulfate 90 Mcg 8 Gm Inhaler) 2 puff INHALE Q4H PRN PRN Reason: Respiratory Distress Last Admin: 05/07/23 14:56 Dose: 2 puff Allopurinol (Allopurinol 100 Mg Tablet) 100 mg PO DAILY [facility] Last Admin: 05/08/23 08:36 Dose: 100 mg Atorvastatin Calcium (Atorvastatin Calcium 80 Mg Tablet) 80 mg PO DAILY [facility] Last Admin: 05/08/23 08:36 Dose: 80 mg Clopidogrel Bisulfate (Clopidogrel Bisulfate 75 Mg Tablet) 75 mg PO DAILY [facility] Last Admin: 05/08/23 08:36 Dose: 75 mg Cyanocobalamin (Cyanocobalamin (Vitamin B-12) 500 Mcg Tablet) 500 mcg PO DAILY [facility] Last Admin: 05/08/23 08:36 Dose: 500 mcg Divalproex Sodium (Divalproex Sodium Sprinkles 125 Mg Cap..Yesenia) 250 mg PO BID [facility] Last Admin: 05/08/23 08:34 Dose: 250 mg Duloxetine HCl (Duloxetine Hcl 60 Mg Capsule.Dr) 60 mg PO DAILY [facility] Last Admin: 05/08/23 08:34 Dose: 60 mg Ezetimibe (Ezetimibe 10 Mg Tablet) 10 mg PO DAILY [facility] Last Admin: 05/08/23 08:35 Dose: 10 mg Ergocalciferol (Ergocalciferol (Vitamin D2) 1,250 Mcg Capsule) 2,500 mcg PO Fr [facility] Last Admin: 05/03/23 09:16 Dose: 2,500 mcg Folic Acid (Folic Acid 1 Mg Tablet) 1 mg PO DAILY [facility] Last Admin: 05/08/23 08:35 Dose: 1 mg Gabapentin (Gabapentin 300 Mg Capsule) 600 mg PO BID [facility] Last Admin: 05/08/23 08:34 Dose: 600 mg Hydroxyzine HCl (Hydroxyzine Hcl 25 Mg Tablet) 25 mg PO Q6H PRN PRN Reason: Anxiety Last Admin: 05/07/23 23:15 Dose: 25 mg Lisinopril (Lisinopril 10 Mg Tablet) 30 mg PO DAILY [facility]; Protocol Last Admin: 05/08/23 08:35 Dose: 30 mg Magnesium Hydroxide (Milk Of Magnesia 30 Ml Oral.Susp) 30 ml PO DAILY PRN PRN Reason: Constipation Last Admin: 04/16/23 14:58 Dose: 30 ml Magnesium Oxide (Magnesium Oxide 400 Mg Tablet) 400 mg PO DAILY [facility] Last Admin: 05/08/23 08:36 Dose: 400 mg Metformin HCl (Metformin Hcl 1,000 Mg Tablet) 1,000 mg PO BID [facility] Last Admin: 05/08/23 08:36 Dose: 1,000 mg Nicotine Polacrilex (Nicotine Polacrilex 2 Mg Gum) 2 mg BUCCAL Q2H PRN PRN Reason: Nicotine Cravings Oxybutynin Chloride (Oxybutynin Chloride Er 5 Mg Tab.Er.24) 10 mg PO BEDTIME [facility] Last Admin: 05/07/23 20:26 Dose: 10 mg Oxycodone HCl (Oxycodone Hcl Immed Release 5 Mg Tablet) 5 mg PO Q8H PRN PRN Reason: severe pain Last Admin: 05/07/23 22:12 Dose: 5 mg Pharmacy Consult (Consult Rx Perform Med Rec) 1 each MISCELLANE ONCE PRN PRN Reason: Consult order Risperidone (Risperidone 1 Mg Tablet) 1 mg PO DAILY [facility] Last Admin: 05/08/23 08:35 Dose: 1 mg Risperidone (Risperidone 2 Mg Tablet) 2 mg PO BEDTIME [facility] Last Admin: 05/07/23 20:25 Dose: 2 mg Trazodone HCl (Trazodone Hcl 50 Mg Tablet) 50 mg PO BEDTIME PRN PRN Reason: Insomnia Last Admin: 05/07/23 23:15 Dose: 50 mg Allergies Allergies Allergy/AdvReac Type Severity Reaction Status Date / Time Penicillins Allergy Intermediate Unknown Verified 04/06/23 20:37 shellfish derived Allergy Intermediate Unknown Verified 04/06/23 20:37 adhesive Allergy Unknown Verified 04/19/23 16:47 black pepper Allergy Unknown Verified 04/19/23 16:47 egg Allergy Unknown Verified 04/19/23 16:47 latex Allergy Unknown Verified 04/19/23 16:47 rice Allergy Unknown Verified 04/19/23 16:47 Thiazides Allergy Unknown Verified 04/19/23 16:47 chlorpromazine AdvReac Intermediate Unknown Verified 04/06/23 20:37 [From Thorazine] Assessment & Plan Assessment & Plan (1) Major neurocognitive disorder due to multiple etiologies, with psychotic disturbance: Status: Acute Code(s): F02.82 - Dementia in other diseases classified elsewhere, unspecified severity, with psychotic disturbance Plan 72 year old female with history insulin dependent type 2 diabetes, htn, fibromyalgia, asthma/copd overlap, CAD, ADRIANA, GERD, obesity hypoventilation syndrome, seizure like activity without diagnosis of epilepsy, hx lucunar infarct, hld, and chronic abdominal pain who is a current everyday smoker admitted to psychiatry with consult placed to hospitalist service for medical H&P. #Mood disorder/dementia -plan per psychiatry #Fibromygia/chronic pain syndrome -continue duloxetine. Pt alert and awake on exam -continue oxycodone #CAD/HLD -no chest pain. [facility] EKG reassuring with NSR, rate 93, nonspecific st wave abnormality, no edith or deperessions -continue plavix, statin, zetia #Insulin dependent type 2 diabetes -poc glucose -diabetic diet -Continue metformin, humalog on sliding scale #Urinary incontinence/urgency -continue methenamine -UA normal #HTN -reasonably controlled -continue lisinopril #Asthma/copd overlap -Continue home inhalers, albuterol prn #ADRIANA -continue cpap if used at home. Consult RT Psych: 04/08 continue current medications. VS 132/85, HR 113, O2sat 94 on RA. continue to monitor oversedation respiratory suppression. 04/09 continue tx. 04/10 continue tx. 04/11 continue tx. 04/12 continue treatment 04/13: Continue current regimen and plans 04/14: Continue current plans and regimen 04/15 Lisinopril increase to 30mg po daily due to SBP 170-180. continue all other medications. 04/16 continue current medications.BP 148/78, HR 85, RR 18, o2sat 97 RA. 04/17 start low dose depakote 250mg po BID- monitor day time sedation in combination with other meds. 04/18 continue tx. 04/19 start lidocane patch for back pain. 04/20: stable presentation. no change in mgmt. 04/21: stable presentation. restart oxycodone 5 mg Q8H PRN, as it had fallen off. 04/22 continue tx. 04/23: continue tx. 04/24 continue tx. awaiting placement.will check depakote level and ammonia tomorrow morning. 04/25 continue tx. 04/26 continue tx. 04/28/2023: no changes 04/29 continue tx. awaiting placement. 04/30 continue tx. VS stable. 05/01 continue tx. 05/02 continue tx. 05/03 continue tx. check depakote and ammonia. 05/04: stable presentation. no labs ordered in the past 24H. continue current mgmt for now. 05/05: sleeping late morning. no concerning behaviors overnight. continue current mgmt. May 06 no changes in treatment . May 07 blood per for tomorrow with ammonia level, Depakote level and liver function test. May 08 ammonia level and CBC within normal limits. Her Depakote level still low. We will adjust the dose accordingly, no Depakote 250 p.o. t.i.d. her. Reason for continued inpatient stay Substantial Risk for: inability to function, rapid decompensation and med/psych decompensation Time Spent With Patient Time: Total time managing care of this patient today __20__ minutes.
[2023-05-08 18:00] VITALS: BP 123/57; PULSE 77; RESP 18; TEMP 36.1; O2SAT 94
[2023-05-08] MEDS: oxyBUTYnin chloride ER 5 MG TAB.ER.24 10 MG PO (20:44)
[2023-05-08] MEDS: risperiDONE 2 MG TABLET PO (20:45)
[2023-05-08] MEDS: oxyCODONE HCl Immed Release 5 MG TABLET PO (20:45)
[2023-05-09 08:30] VITALS: BP 126/58; PULSE 71; RESP 20; TEMP 36.7; O2SAT 93
[2023-05-09 08:54] LABS: Anion Gap 16 (12-20); Blood Urea Nitrogen 27 mg/dL (9-16); Calcium 8.9 mg/dL (8.4-10.2); Carbon Dioxide 22 mmol/L (22-29); Chloride 97 mmol/L (96-108); Estimated Glomerular Filt Rate 53; Glucose Random 128 mg/dL (60-115); Potassium 4.7 mmol/L (3.3-5.1); Sodium 130 mmol/L (135-145)
[2023-05-09] MEDS: Gabapentin 300 MG CAPSULE 600 MG PO ×2 (09:39→20:21)
[2023-05-09] MEDS: DULoxetine HCl 60 MG CAPSULE.DR PO (09:39)
[2023-05-09] MEDS: lisinopriL 10 MG TABLET 30 MG PO (09:40)
[2023-05-09] MEDS: metFORMIN HCl 1,000 MG TABLET 1000 MG PO ×2 (09:40→20:21)
[2023-05-09] MEDS: allopurinoL 100 MG TABLET PO (09:40)
[2023-05-09] MEDS: Divalproex Sodium Sprinkles 125 MG CAP.DR.SPR 250 MG PO ×3 (09:40→20:21)
[2023-05-09] MEDS: Atorvastatin Calcium 80 MG TABLET PO (09:41)
[2023-05-09] MEDS: Clopidogrel Bisulfate 75 MG TABLET PO (09:41)
[2023-05-09] MEDS: Magnesium Oxide 400 MG TABLET PO (09:41)
[2023-05-09] MEDS: risperiDONE 1 MG TABLET PO (09:41)
[2023-05-09] MEDS: Cyanocobalamin (Vitamin B-12) 500 MCG TABLET PO (09:41)
[2023-05-09] MEDS: Folic Acid 1 MG TABLET PO (09:42)
[2023-05-09] MEDS: Ezetimibe 10 MG TABLET PO (09:42)
--- NOTE | 2023-05-09 11:52 | P.PNPSI_ITS ---
Subjective Subjective Date of Service: 05/09/23 Reason For Visit: SI Subjective Notes: Conditional Voluntary Interim History: The nursing staff reported the patient has been pleasant, cooperative but confused, no acute changes in her mental status, she reported back pain receive OxyContin. She slept well last night very early, her Depakote level is 41.4. The social work therapist reported the other 2 beds overt on different facilities but so far there is no financial clearance. On interview the patient is pleasant cooperative and easily redirectable. Mental Status Exam Mental Status Exam Patient Appearance: Well Grooomed Patient Orientation: Person and Situation Level of Consciousness: Awake and Appropriate Patient Behavior: Guarded and Passive Mood Description: Calm Affect Description: Constricted Patient Cognition Impaired: Yes Ability to Follow Directions: Good Speech Pattern: Clear Hallucinations: None Delusions: Not Present Thought Process: Distracted Thought Content: positive for [place] Judgement: Fair Diagnostics Vital Signs (24Hr): Vital Signs - 24 hr 05/08/23 18:00 05/09/23 08:30 Temperature 96.9 F 98.0 F Pulse Rate 77 71 Respiratory Rate 18 20 Blood Pressure 123/57 L 126/58 L Pulse Oximetry 94 93 Oxygen Delivery Method Room Air Room Air BMI result Body Mass Index 38.5 Labs 05/09/23 08:30 Labs: Laboratory Results - last 48 hr 05/08/23 05/08/23 05/08/23 05:49 05:49 05:49 Sodium Potassium Chloride Carbon Dioxide Anion Gap BUN Creatinine Estim Creat Clear Calc Estimated GFR Random Glucose Calcium Total Bilirubin 0.4 Direct Bilirubin 0.1 AST 9 ALT 7 Alkaline Phosphatase 65 Ammonia 30 Total Protein 6.4 L Albumin 3.7 Valproic Acid 41.4 L 05/09/23 08:30 Sodium 130 L Potassium 4.7 Chloride 97 Carbon Dioxide 22 Anion Gap 16 BUN 27 H Creatinine 1.03 Estim Creat Clear Calc 59.0 Estimated GFR 53 Random Glucose 128 H Calcium 8.9 Total Bilirubin Direct Bilirubin AST ALT Alkaline Phosphatase Ammonia Total Protein Albumin Valproic Acid Medications Medications Current Medications Acetaminophen (Acetaminophen 325 Mg Tablet) 650 mg PO Q6H PRN PRN Reason: Headache/Pain Mild Scale (1-3) Last Admin: 05/07/23 02:45 Dose: 650 mg Al Hydroxide/Mg Hydroxide (Magnesium Hydrox/Alum Hydrox 30 Ml Oral.Susp) 30 ml PO Q6H PRN PRN Reason: Heartburn/Nausea Albuterol Sulfate (Albuterol Sulfate 90 Mcg 8 Gm Inhaler) 2 puff INHALE Q4H PRN PRN Reason: Respiratory Distress Last Admin: 05/07/23 14:56 Dose: 2 puff Allopurinol (Allopurinol 100 Mg Tablet) 100 mg PO DAILY [facility] Last Admin: 05/09/23 09:40 Dose: 100 mg Atorvastatin Calcium (Atorvastatin Calcium 80 Mg Tablet) 80 mg PO DAILY [facility] Last Admin: 05/09/23 09:41 Dose: 80 mg Clopidogrel Bisulfate (Clopidogrel Bisulfate 75 Mg Tablet) 75 mg PO DAILY [facility] Last Admin: 05/09/23 09:41 Dose: 75 mg Cyanocobalamin (Cyanocobalamin (Vitamin B-12) 500 Mcg Tablet) 500 mcg PO DAILY [facility] Last Admin: 05/09/23 09:41 Dose: 500 mcg Divalproex Sodium (Divalproex Sodium Sprinkles 125 Mg Cap.) 250 mg PO TID [facility] Last Admin: 05/09/23 09:40 Dose: 250 mg Duloxetine HCl (Duloxetine Hcl 60 Mg Capsule.) 60 mg PO DAILY [facility] Last Admin: 05/09/23 09:39 Dose: 60 mg Ezetimibe (Ezetimibe 10 Mg Tablet) 10 mg PO DAILY [facility] Last Admin: 05/09/23 09:42 Dose: 10 mg Ergocalciferol (Ergocalciferol (Vitamin D2) 1,250 Mcg Capsule) 2,500 mcg PO Fr [facility] Last Admin: 05/03/23 09:16 Dose: 2,500 mcg Folic Acid (Folic Acid 1 Mg Tablet) 1 mg PO DAILY [facility] Last Admin: 05/09/23 09:42 Dose: 1 mg Gabapentin (Gabapentin 300 Mg Capsule) 600 mg PO BID [facility] Last Admin: 05/09/23 09:39 Dose: 600 mg Hydroxyzine HCl (Hydroxyzine Hcl 25 Mg Tablet) 25 mg PO Q6H PRN PRN Reason: Anxiety Last Admin: 05/07/23 23:15 Dose: 25 mg Lisinopril (Lisinopril 10 Mg Tablet) 30 mg PO DAILY [facility]; Protocol Last Admin: 05/09/23 09:40 Dose: 30 mg Magnesium Hydroxide (Milk Of Magnesia 30 Ml Oral.Susp) 30 ml PO DAILY PRN PRN Reason: Constipation Last Admin: 04/16/23 14:58 Dose: 30 ml Magnesium Oxide (Magnesium Oxide 400 Mg Tablet) 400 mg PO DAILY [facility] Last Admin: 05/09/23 09:41 Dose: 400 mg Metformin HCl (Metformin Hcl 1,000 Mg Tablet) 1,000 mg PO BID [facility] Last Admin: 05/09/23 09:40 Dose: 1,000 mg Nicotine Polacrilex (Nicotine Polacrilex 2 Mg Gum) 2 mg BUCCAL Q2H PRN PRN Reason: Nicotine Cravings Oxybutynin Chloride (Oxybutynin Chloride Er 5 Mg Tab.Er.24) 10 mg PO BEDTIME [facility] Last Admin: 05/08/23 20:44 Dose: 10 mg Oxycodone HCl (Oxycodone Hcl Immed Release 5 Mg Tablet) 5 mg PO Q8H PRN PRN Reason: severe pain Last Admin: 05/08/23 20:45 Dose: 5 mg Pharmacy Consult (Consult Rx Perform Med Rec) 1 each MISCELLANE ONCE PRN PRN Reason: Consult order Risperidone (Risperidone 1 Mg Tablet) 1 mg PO DAILY [facility] Last Admin: 05/09/23 09:41 Dose: 1 mg Risperidone (Risperidone 2 Mg Tablet) 2 mg PO BEDTIME [facility] Last Admin: 05/08/23 20:45 Dose: 2 mg Trazodone HCl (Trazodone Hcl 50 Mg Tablet) 50 mg PO BEDTIME PRN PRN Reason: Insomnia Last Admin: 05/07/23 23:15 Dose: 50 mg Allergies Allergies Allergy/AdvReac Type Severity Reaction Status Date / Time Penicillins Allergy Intermediate Unknown Verified 04/06/23 20:37 shellfish derived Allergy Intermediate Unknown Verified 04/06/23 20:37 adhesive Allergy Unknown Verified 04/19/23 16:47 black pepper Allergy Unknown Verified 04/19/23 16:47 egg Allergy Unknown Verified 04/19/23 16:47 latex Allergy Unknown Verified 04/19/23 16:47 rice Allergy Unknown Verified 04/19/23 16:47 Thiazides Allergy Unknown Verified 04/19/23 16:47 chlorpromazine AdvReac Intermediate Unknown Verified 04/06/23 20:37 [From Thorazine] Assessment & Plan Assessment & Plan (1) Major neurocognitive disorder due to multiple etiologies, with psychotic disturbance: Status: Acute Code(s): F02.82 - Dementia in other diseases classified elsewhere, unspecified severity, with psychotic disturbance Plan 72 year old female with history insulin dependent type 2 diabetes, htn, fibromyalgia, asthma/copd overlap, CAD, ADRIANA, GERD, obesity hypoventilation syndrome, seizure like activity without diagnosis of epilepsy, hx lucunar infarct, hld, and chronic abdominal pain who is a current everyday smoker admitted to psychiatry with consult placed to hospitalist service for medical H&P. #Mood disorder/dementia -plan per psychiatry #Fibromygia/chronic pain syndrome -continue duloxetine. Pt alert and awake on exam -continue oxycodone #CAD/HLD -no chest pain. [facility] EKG reassuring with NSR, rate 93, nonspecific st wave abnormality, no edith or deperessions -continue plavix, statin, zetia #Insulin dependent type 2 diabetes -poc glucose -diabetic diet -Continue metformin, humalog on sliding scale #Urinary incontinence/urgency -continue methenamine -UA normal #HTN -reasonably controlled -continue lisinopril #Asthma/copd overlap -Continue home inhalers, albuterol prn #ADRIANA -continue cpap if used at home. Consult RT Psych: 04/08 continue current medications. VS 132/85, HR 113, O2sat 94 on RA. continue to monitor oversedation respiratory suppression. 04/09 continue tx. 04/10 continue tx. 04/11 continue tx. 04/12 continue treatment 04/13: Continue current regimen and plans 04/14: Continue current plans and regimen 04/15 Lisinopril increase to 30mg po daily due to SBP 170-180. continue all other medications. 04/16 continue current medications.BP 148/78, HR 85, RR 18, o2sat 97 RA. 04/17 start low dose depakote 250mg po BID- monitor day time sedation in combination with other meds. 04/18 continue tx. 04/19 start lidocane patch for back pain. 04/20: stable presentation. no change in mgmt. 04/21: stable presentation. restart oxycodone 5 mg Q8H PRN, as it had fallen off. 04/22 continue tx. 04/23: continue tx. 04/24 continue tx. awaiting placement.will check depakote level and ammonia [place] rrow morning. 04/25 continue tx. 04/26 continue tx. 04/28/2023: no changes 04/29 continue tx. awaiting placement. 04/30 continue tx. VS stable. 05/01 continue tx. 05/02 continue tx. 05/03 continue tx. check depakote and ammonia. 05/04: stable presentation. no labs ordered in the past 24H. continue current mgmt for now. 05/05: sleeping late morning. no concerning behaviors overnight. continue current mgmt. May 06 no changes in treatment . May 07 blood per for tomorrow with ammonia level, Depakote level and liver function test. May 08 ammonia level and CBC within normal limits. Her Depakote level still low. We will adjust the dose accordingly, no Depakote 250 p.o. t.i.d. her. May 26 no changes on treatment, waiting for placement Reason for continued inpatient stay Substantial Risk for: inability to function, rapid decompensation and med/psych decompensation Time Spent With Patient Time: Total time managing care of this patient today __20__ minutes.
[2023-05-09 11:57] VITALS: BMI 38.6
[2023-05-09 20:20] VITALS: BP 116/54; PULSE 85; RESP 20; TEMP 36.1; O2SAT 93
[2023-05-09] MEDS: risperiDONE 2 MG TABLET PO (20:21)
[2023-05-09] MEDS: oxyBUTYnin chloride ER 5 MG TAB.ER.24 10 MG PO (20:22)
[2023-05-10 08:00] VITALS: BP 131/63; PULSE 74; RESP 20; TEMP 36.1; O2SAT 98
[2023-05-10] MEDS: Divalproex Sodium Sprinkles 125 MG CAP.DR.SPR 250 MG PO ×2 (08:08→14:26)
[2023-05-10] MEDS: risperiDONE 1 MG TABLET PO (08:08)
[2023-05-10] MEDS: Cyanocobalamin (Vitamin B-12) 500 MCG TABLET PO (08:09)
[2023-05-10] MEDS: Clopidogrel Bisulfate 75 MG TABLET PO (08:09)
[2023-05-10] MEDS: DULoxetine HCl 60 MG CAPSULE.DR PO (08:10)
[2023-05-10] MEDS: Gabapentin 300 MG CAPSULE 600 MG PO (08:11)
[2023-05-10] MEDS: allopurinoL 100 MG TABLET PO (08:11)
[2023-05-10] MEDS: lisinopriL 10 MG TABLET 30 MG PO (08:12)
[2023-05-10] MEDS: Ezetimibe 10 MG TABLET PO (08:12)
[2023-05-10] MEDS: metFORMIN HCl 1,000 MG TABLET 1000 MG PO (08:12)
[2023-05-10] MEDS: Atorvastatin Calcium 80 MG TABLET PO (08:12)
[2023-05-10] MEDS: Folic Acid 1 MG TABLET PO (08:12)
[2023-05-10] MEDS: Magnesium Oxide 400 MG TABLET PO (08:13)
[2023-05-10] MEDS: Ergocalciferol (Vitamin D2) 1,250 MCG CAPSULE 2500 MCG PO (08:17)
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
[2023-05-10] MEDS: oxyCODONE HCl Immed Release 5 MG TABLET PO (15:07)
== END 2023-05-10 15:59 | DRG 884 ==
PROVIDERS: Social Worker; Student in an Organized Health Care Education/Training Program; Admitting Provider Psychiatry & Neurology Psychiatry; Visit Provider Psychiatry & Neurology Psychiatry
DX: F03.92 Unspecified dementia, unspecified severity, with psychotic disturbance (principal); E66.2 Morbid (severe) obesity with alveolar hypoventilation; E11.9 Type 2 diabetes mellitus without complications; F41.9 Anxiety disorder, unspecified; M79.7 Fibromyalgia; F17.210 Nicotine dependence, cigarettes, uncomplicated; I25.10 Atherosclerotic heart disease of native coronary artery without angina pectoris; E78.5 Hyperlipidemia, unspecified; N39.41 Urge incontinence; I95.9 Hypotension, unspecified; J44.9 Chronic obstructive pulmonary disease, unspecified; Z68.38 Body mass index [BMI] 38.0-38.9, adult; Z71.6 Tobacco abuse counseling; Z91.040 Latex allergy status; Z88.0 Allergy status to penicillin; Z79.02 Long term (current) use of antithrombotics/antiplatelets; Z79.84 Long term (current) use of oral hypoglycemic drugs; Z79.899 Other long term (current) drug therapy
CPT/HCPCS: 36415; 80048; 80053; 80061; 80076; 80164; 82140; 82565; 82607; 82746; 82947; 83036; 84439; 84443

== ENCOUNTER → 2023-04-06 19:04 | Outpatient (BNV) | payer MEDICARE, OTHER, SELFPAY | PROVIDERS: Admitting Provider Psychiatry & Neurology Psychiatry; Visit Provider Social Worker | DX: F03.918 Unspecified dementia, unspecified severity, with other behavioral disturbance (principal) | CPT/HCPCS: 99231; 99232; 99233 ==